=== PATIENT | female | born 1970 | race Caucasian/White ===

== ENCOUNTER 2017-06-11 09:33 | Inpatient (IN) ==
[2017-06-11] MEDS ORDERED: Prochlorperazine 10 MG/2 ML VIAL IV PRN (11:08)
[2017-06-11] MEDS ORDERED: Dexamethasone 10 MG/ML VIAL IV PRN (11:08)
[2017-06-11] MEDS ORDERED: *HR* LORazepam 2 MG/ML VIAL IV PRN (11:08)
[2017-06-11] MEDS ORDERED: Famotidine 20 MG/2 ML VIAL IV PRN (11:08)
[2017-06-11] MEDS ORDERED: *HR* Promethazine 25 MG/ML VIAL IV PRN (11:09)
[2017-06-11] MEDS ORDERED: Fosaprepitant Dimeglumine 150 MG in 0.9 % Sodium Chloride 250 ML IV SCH (11:15)
[2017-06-11] MEDS ORDERED: RITUXIMAB IV SCH (11:15)
[2017-06-11] MEDS ORDERED: Acetaminophen 325 MG TABLET PO ONE (11:15)
[2017-06-11] MEDS ORDERED: SODIUM CHLORIDE 0.9% IV SCH (11:15)
[2017-06-11] MEDS ORDERED: DOXOrubicin HCL 200 MG/100 ML MLS IV SCH (11:15)
[2017-06-11] MEDS ORDERED: Ondansetron 4 MG/2 ML VIAL IVP PRN (12:48)
[2017-06-11] MEDS ORDERED: Naloxone 0.4 MG/ML INJ IVP PRN (12:48)
--- NOTE | 2017-06-11 12:55 | Internal Med History&Physical ---
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 She received first cycle of chemotherapy with dose attenuated R-CHOP regimen at [facility] and currently follows with [place] [facility]. She is being admitted for second cycle of chemotherapy with R-EPOCH per Oncology recommendations; case d/ w , patient will require close monitoring of renal function and electrolytes and will receive a 5-day regimen; Supportive care with PRN antiemetics and pain control with PRN IV Morphine and oral Oxycodone; DVT prophylaxis with subcutaneous Heparin GI prophylaxis with IV Zantac; Qualifiers: Lymphoma site: multiple regions Qualified Code(s): C83.38 - Diffuse large B -cell lymphoma, lymph nodes of multiple sites Internal Medicine - H&P: HPI Chief complaint: Chemotherapy Admitted From: Home Plans for Post Hospital Care: Home History of present illness: Ms. Vale is a 47 year old female with history of recently diagnosed B-cell lymphoma, is being admitted from home to initiate second cycle of chemotherapy. Patient currently denies fever, chills, cough, shortness of breath, urinary complaints. No nausea, vomiting or abdominal pain. She does report muscle cramps in both her legs and abdomen, which have been ongoing since her diagnosis. Patient received her first cycle of chemotherapy with dose attenuated R-CHOP at [facility]. Past Med Surg Social Fam HX - Past Medical History Medical history: cancer (lymphoma), GERD Psychiatric history: no psych history - Past Surgical History Surgical History: colectomy (partial ), hysterectomy - Social History Smoking Status: Current every day smoker Packs per day: 1 Smokeless Tobacco Status: No Alcohol use: none Drug use: none Occupational status: disabled Current living situation: Home, With Family Activity Level: Independent ambulation Recent Out of Country Travel Within the Last 8 Weeks: No Exposure or Possible Exposure to Illness During Travel: No - Family History Mother Hx Family Cardiac Disorders: Yes (CAD) Hx Family Endocrine Disorder: Yes (DM) Internal Medicine - H&P: Meds Allopurinol [Zyloprim 100 MG] 100 mg PO DAILY 05/30/17 [History] Melatonin 3 mg PO HS 05/30/17 [History] Oxycodone HCl [Oxaydo] 5 mg PO Q4H 05/30/17 [History] Prochlorperazine Maleate [Compazine] 10 mg PO Q8HR 05/30/17 [History] 3 Allergy/AdvReac Type Severity Reaction Status Date / Time No Known Allergies Allergy Verified 06/11/17 09:30 All Systems PM: A 10-system review of systems was performed and is negative for pertinent findings except as documented above in the HPI. - Constitutional Constitutional: no chills, no fever(s), no night sweats - EENT Eyes: no change in vision, no discharge, no pain, no photophobia Ears: no ear discharge, no ear pain, no tinnitus Nose, mouth and throat: no dysphagia, no nasal discharge, no neck pain, no sore throat - Cardiovascular Cardiovascular ROS IM: no chest pain, no diaphoresis, no dyspnea, no lightheadedness, no palpitations, no syncope - Respiratory Respiratory: no cough, no dyspnea, no wheezing, no excessive phlegm production - Gastrointestinal Gastrointestinal: no abdominal pain, no diarrhea, no hematemesis, no hematochezia, no melena, no nausea, no vomiting - Genitourinary Genitourinary: no change in urinary stream, no dysuria, no flank pain, no hematuria - Musculoskeletal Musculoskeletal ROS IM: muscle cramps - Integumentary Integumentary IM: no rash, no unusual bruising - Neurological Neurological ROS: no confusion, no convulsions, no focal weakness, no numbness, no tingling, no tremor(s) - Hematologic/Lymphatic Hematologic/Lymphatic: no easy bruising - Constitutional Vitals: Temp Pulse Resp BP Pulse Ox 98.9 F 79 16 101/66 99 06/11/17 10:47 06/11/17 10:47 06/11/17 10:47 06/11/17 10:47 06/11/17 11:26 General appearance: Present: cachectic, A&O X 3, answers questions appropriately - Respiratory Respiratory exam: Present: CTAB. Absent: accessory muscle use, rales, rhonchi, wheezes - Cardiovascular Cardiovascular exam: Present: RRR, +S1, +S2. Absent: diastolic murmur, gallop, rubs, systolic murmur - GI/Abdominal GI/Abdominal exam: Present: normal bowel sounds, soft, no peritoneal signs. Absent: distended, tenderness - Extremities Exam Extremities exam: Present: full ROM, warm, radial pulses palpable and symmetrical. Absent: calf tenderness, cyanotic, pedal edema - Neurological Exam Neurological exam: Present: CN II-XII intact, oriented X3, no focal deficits. Absent: pronater drift, facial droop, speech deficit
[2017-06-11] MEDS: 0.9 % Sodium Chloride 500 ML IVC SCH (13:34)
[2017-06-11] MEDS: predniSONE 20 MG TABLET PO SCH ×2 (13:53→20:49)
[2017-06-11] MEDS ORDERED: ETOPOSIDE IV ONE (15:00)
[2017-06-11] MEDS ORDERED: DOXORUBICIN HCL IV ONE (15:00)
[2017-06-11] MEDS ORDERED: [UNRECOGNIZED DRUG - OTHER] IV ONE (15:00)
[2017-06-11] MEDS ORDERED: VINCRISTINE IV ONE (15:00)
[2017-06-11] MEDS: Famotidine 20 MG/2 ML VIAL IVP SCH (18:21)
[2017-06-11] MEDS: *HR* Heparin 5,000 UNIT/ML VIAL SQ SCH ×2 (18:22→23:25)
[2017-06-11] MEDS: Melatonin 3 MG TABLET PO SCH (20:50)
[2017-06-12] MEDS: Famotidine 20 MG/2 ML VIAL IVP SCH ×2 (04:58→08:45)
[2017-06-12 05:52] LABS: Hematocrit 25.7 % (35.3-44.9); Hemoglobin 8.2 g/dL (11.5-15.4); Mean Corpuscular HGB Conc 31.9 g/dL (31.6-35.5); Mean Corpuscular Hemoglobin 28.9 pg (28.0-33.3); Mean Corpuscular Volume 90.5 fL (83.0-100.0); Mean Platelet Volume 10.1 fL (9.4-12.4); Nucleated Red Blood Cells 3.6 /100 WBC (0); Platelet Count 145 K/mcL (140-400); Red Blood Count 2.84 M/mcL (3.82-4.97); Red Cell Distribution Width 18.3 % (11.5-14.5)
[2017-06-12 06:01] LABS: BUN/Creatinine Ratio 17 (6-26); Blood Urea Nitrogen 10 mg/dL (7-20); Calcium 9.8 mg/dL (8.6-10.8); Carbon Dioxide 23 mEq/L (19-29); Chloride 111 mEq/L (98-109); Glucose 127 mg/dL (70-99); Magnesium 1.5 mg/dL (1.6-2.6); Osmolality,Calculated 291 (280-300); Phosphorous 2.6 mg/dL (2.3-4.7); Potassium 4.3 mEq/L (3.5-4.5); Sodium 140 mEq/L (136-145); eGFR For African Americans > 60 (> 60); eGFR For Non-African Americans > 60 (> 60)
[2017-06-12 06:22] LABS: Anisocytosis 2+ (Not Present); Lymphocytes # 1.7 K/mcL (0.6-4.6); Monocytes # 0.3 K/mcL (0.0-1.3); Reactive Lymphocytes Present (Not Present)
[2017-06-12 06:23] LABS: Large Platelets Present (Not Present)
[2017-06-12] MEDS: predniSONE 20 MG TABLET PO SCH ×2 (08:39→21:28)
[2017-06-12] MEDS: *HR* Heparin 5,000 UNIT/ML VIAL SQ SCH ×2 (08:45→18:59)
[2017-06-12] MEDS: *HR* OxyCODONE Immed Rel 5 MG TABLET PO PRN ×2 (08:49→19:01)
[2017-06-12] MEDS: Magnesium Sulfate 2 GM in D5% in Water 100 ML IVPB SCH ×2 (15:01→16:15)
[2017-06-12] MEDS: 0.9 % Sodium Chloride 500 ML IVC SCH (15:02)
--- NOTE | 2017-06-12 16:30 | Internal Med Progress Note ---
<Nessa Moralez - Last Filed: 06/12/17 17:59> Date of Encounter: 06/12/17 Time of Encounter: 10:35 - Assessment and plan (1) Diffuse large B cell lymphoma Current Visit: Yes Status: Chronic Assessment and plan: Per Tosha Thompson's note, "Patient was recently diagnosed with diffuse large B- cell lymphoma with extranodal disease involving liver, lungs, kidneys and bone. She received first cycle of chemotherapy with dose attenuated R-CHOP regimen at [facility] and currently follows with [facility] oncology. She is being admitted for second cycle of chemotherapy with R-EPOCH per Oncology recommendations; case d/w , patient will require close monitoring of renal function and electrolytes and will receive a 5-day regimen" Plan: - Etoposide 70mg/Doxorubicin 14mg/Vincristien Sulfate 0.6mg - PRN nausea: Kytril, Phenergan, Compazine - PRN pain: Oxycodone 5mg PO Q6H, Morphine 2mg IVP Q4H, Tylenol 650mg PO Q6H Qualifiers: Lymphoma site: multiple regions Qualified Code(s): C83.38 - Diffuse large B -cell lymphoma, lymph nodes of multiple sites (2) DVT prophylaxis Current Visit: Yes Status: Acute Assessment and plan: Heparin (3) Low blood magnesium Current Visit: Yes Status: Acute Assessment and plan: Magnesium 4g IV given due to Mg=1.5 this morning. Will recheck tomorrow. - Subjective Interval history: Patient is 47 y/o female pmh of diffuse large B cell lymphoma with extranodal involvement of liver, kidney, and bone presented to [facility] as a direct admit for chemotherapy R-EPOCH. No acute events overnight and no new complaints. Patient currently denies N/V, chest pain, shortness of breath. - Constitutional Vitals: Temp Pulse Resp BP Pulse Ox 97.5 F L 90 18 106/66 96 06/12/17 14:45 06/12/17 14:45 06/12/17 14:45 06/12/17 14:45 06/12/17 14:45 General appearance: Present: cachectic, A&O X 3, answers questions appropriately Exam: Constitutional: Alert, in no acute distress, well nourished, well developed, thinning of hair, Head: Normocephalic, atraumatic, normal contour and symmetric, no masses, lesions or scars Heart: Normal, regular rate and rhythm, no murmurs Lungs: Clear to auscultation, no wheezes, rales, or rhonchi Abdomen: Soft, nondistended, nontender, and no masses palpable, bowel sounds present and normal, no guarding or rigidity. Extremities: No clubbing, cyanosis, or edema, radial pulse +2/4, capillary refill <2sec. Skin: Skin warm and dry, no lesions, no rashes, no jaundice Neurologic: Cranial nerves II through XII grossly intact, no focal deficits, strength within normal limits in all extremities Psych: Cooperative with exam, good eye contact, cognitive function intact, judgment good insight good, speech clear, thought process logical, and goal directed Internal Medicine: Result - Labs CBC & Chem 7: 06/12/17 04:54 06/12/17 04:54 Labs: Short CBC 06/12/17 Range/Units 04:54 WBC 6.9 (4.3-11.1) K/mcL Hgb 8.2 L (11.5-15.4) g/dL Hct 25.7 L (35.3-44.9) % Plt Count 145 (140-400) K/mcL Neutrophils # 5.0 (1.6-8.9) K/mcL BMP 06/12/17 04:54 Sodium 140 Potassium 4.3 Chloride 111 H Carbon Dioxide 23 BUN 10 Creatinine 0.59 Glucose 127 H Calcium 9.8 Consult Discharge Plan - Plan Referrals: NONE,PCP [Primary Care Provider] - <Asad Cobos - Last Filed: 06/12/17 20:03> Date of Encounter: 06/12/17 - Constitutional Vitals: Temp Pulse Resp BP Pulse Ox 98.1 F 77 14 97/58 99 06/12/17 18:47 06/12/17 18:47 06/12/17 18:47 06/12/17 18:47 06/12/17 18:47 Internal Medicine: Result - Labs CBC & Chem 7: 06/12/17 04:54 06/12/17 04:54 Labs: Short CBC 06/12/17 Range/Units 04:54 WBC 6.9 (4.3-11.1) K/mcL Hgb 8.2 L (11.5-15.4) g/dL Hct 25.7 L (35.3-44.9) % Plt Count 145 (140-400) K/mcL Neutrophils # 5.0 (1.6-8.9) K/mcL BMP 06/12/17 04:54 Sodium 140 Potassium 4.3 Chloride 111 H Carbon Dioxide 23 BUN 10 Creatinine 0.59 Glucose 127 H Calcium 9.8 - Attending Attestation I have independently seen and examined this patient on 06/12/17, reviewed the EMR and discussed plan of care with the patient and resident physician Seen and evaluated at bedside She is a 47 F with PMH of GERD, and Bcell lymphoma Admitted for chemo, has no complains Physical exam: VSS, not in distress, ambulatory, no distress, chest is clear, HS S1, S2only, no m/g/r, abdomen is soft, no pedal edema Labs and imaging reviewed: Unremarkable A/P: Bcell lymphoma on chemo. Continue management per Onc. Monitor Chem, CBC, Uric acid. Resume home dose of allopurinol Rest of details as in resident physicians documentation
--- NOTE | 2017-06-12 18:05 | Oncology Inp Progress Note ---
Date of Encounter: 06/12/17 Time of Encounter: 17:40 (1) Diffuse large B cell lymphoma Current Visit: Yes Status: Chronic Assessment and plan: Ms. Vale is doing well. She will proceed with C2D2 of dose adjusted R EPOCH chemotherapy for her stage IVB diffuse large B-cell lymphoma. No dose adjustment is indicated. I will plan for interventional radiology to perform lumbar puncture and administer methotrexate 12 mg tomorrow. I will obtain a PT/ INR and CBC in the morning of preparation for this procedure. We will send the specimen for cytology. Continue with DVT prophylaxis with Lovenox and omeprazole for GI prophylaxis. I appreciate the assistance of our hospitalist team's help in the care of this delightful young woman. If you have any concerns or questions, do not hesitate to call [phone]. Qualifiers: Lymphoma site: multiple regions Qualified Code(s): C83.38 - Diffuse large B -cell lymphoma, lymph nodes of multiple sites Oncology: Subj Interval history: Ms. Vale initiate chemotherapy bit later yesterday than planned. Her expected completion time is likely late Saturday night into Saturday morning. I am happy to report that she is targeted therapy very well. No nausea or vomiting. No diarrhea or constipation. She is resting comfortably and eating well. No fever chills or symptoms of infection. - Constitutional Vitals: Vital Signs Temp Pulse Resp BP Pulse Ox 06/12/17 14:45 97.5 F L 90 18 106/66 96 06/12/17 10:57 97.7 F 81 18 120/68 99 06/12/17 06:27 97.9 F 80 18 118/67 96 06/12/17 04:16 97.5 F L 78 14 124/71 99 06/12/17 00:26 97.6 F 78 14 105/62 97 06/11/17 19:12 97.8 F 79 14 95/56 96 Intake and Output 06/12/17 06/12/17 06/13/17 08:59 16:59 00:59 Intake Total 520 / 520 860 / 860 Output Total 400 / 400 1650 / 1650 Balance 120 / 120 -790 / -790 Intake: IV Fluids 500 / 500 0.9 % Sodium Chloride 500 500 / 500 ML @ 25 MLS/HR 25 mls/hr IVC .Q20H [facility] Rx#: [id number] Oral 520 / 520 360 / 360 Output: Urine 400 / 400 1650 / 1650 Other: Meal Lunch Percent of Meal Consumed 100% # Voids 1 1 Weight 49.442 kg Patient Weight 06/13/17 00:59 Weight 49.442 kg - Head Head exam: Present: atraumatic, normal inspection, normocephalic - Eye Eye exam: Present: normal appearance, conjuntiva pink, sclera anicteric - ENT ENT exam: Present: mucous membranes moist, normal exam - Neck Neck exam: Present: full ROM, normal inspection - Respiratory Respiratory exam: Present: CTAB - Cardiovascular Cardiovascular exam: Present: RRR - GI/Abdominal GI/Abdominal exam: Present: normal bowel sounds, soft - Neurological Exam Neurological exam: Present: alert, CN II-XII intact, no focal deficits - Skin Skin exam: Present: intact, normal color Oncology: Obj Data - Labs CBC & Chem 7: 06/12/17 04:54 06/12/17 04:54 Labs: Laboratory Results - last 24 hr 06/12/17 06/12/17 04:54 04:54 WBC 6.9 RBC 2.84 L Hgb 8.2 L Hct 25.7 L MCV 90.5 MCH 28.9 MCHC 31.9 RDW 18.3 H Plt Count 145 MPV 10.1 Seg Neutrophils % 70.0 Band Neutrophils % 2.0 Lymphocytes % 24.0 Monocytes % 4.0 Neutrophils # 5.0 Lymphocytes # 1.7 Monocytes # 0.3 Nucleated RBCs/100 WBC 3.6 H Reactive Lymphocytes Present A Large Platelets Present A Anisocytosis 2+ A Sodium 140 Potassium 4.3 Chloride 111 H Carbon Dioxide 23 BUN 10 Creatinine 0.59 Est GFR ( Amer) > 60 Est GFR (Non-Af Amer) > 60 BUN/Creatinine Ratio 17 Glucose 127 H Calculated Osmolality 291 Calcium 9.8 Phosphorus 2.6 Magnesium 1.5 L Consult Discharge Plan - Plan Referrals: NONE,PCP [Primary Care Provider] -
[2017-06-12] MEDS ORDERED: DOXORUBICIN HCL IV ONE (19:00)
[2017-06-12] MEDS ORDERED: ETOPOSIDE IV ONE (19:00)
[2017-06-12] MEDS ORDERED: [UNRECOGNIZED DRUG - OTHER] IV ONE (19:00)
[2017-06-12] MEDS ORDERED: VINCRISTINE IV ONE (19:00)
[2017-06-12 21:17] LABS: Hematocrit 24.3 % (35.3-44.9); Hemoglobin 7.7 g/dL (11.5-15.4); Mean Corpuscular HGB Conc 31.7 g/dL (31.6-35.5); Mean Corpuscular Hemoglobin 29.2 pg (28.0-33.3); Mean Platelet Volume 9.6 fL (9.4-12.4); Platelet Count 162 K/mcL (140-400); Red Blood Count 2.64 M/mcL (3.82-4.97); Red Cell Distribution Width 18.7 % (11.5-14.5)
[2017-06-12] MEDS: Melatonin 3 MG TABLET PO SCH (21:28)
[2017-06-12 21:29] LABS: Prothrombin Time 10.7 Seconds (9.4-12.1)
[2017-06-12 21:31] LABS: Activated Partial Thrombo Time 27.1 Seconds (26.0-36.0)
[2017-06-13] MEDS: *HR* Heparin 5,000 UNIT/ML VIAL SQ SCH ×4 (00:39→23:25)
[2017-06-13] MEDS: *HR* Morphine 2 MG/ML SYRINGE IVP PRN ×2 (00:48→19:59)
[2017-06-13] MEDS: *HR* OxyCODONE Immed Rel 5 MG TABLET PO PRN ×2 (04:47→10:41)
[2017-06-13 06:27] LABS: Hematocrit 24.7 % (35.3-44.9); Hemoglobin 7.6 g/dL (11.5-15.4); Mean Corpuscular HGB Conc 30.8 g/dL (31.6-35.5); Mean Corpuscular Hemoglobin 28.7 pg (28.0-33.3); Mean Corpuscular Volume 93.2 fL (83.0-100.0); Mean Platelet Volume 9.6 fL (9.4-12.4); Nucleated Red Blood Cells 1.5 /100 WBC (0); Platelet Count 153 K/mcL (140-400); Red Blood Count 2.65 M/mcL (3.82-4.97); Red Cell Distribution Width 18.8 % (11.5-14.5)
[2017-06-13 06:32] LABS: Prothrombin Time 10.4 Seconds (9.4-12.1)
[2017-06-13 06:35] LABS: Activated Partial Thrombo Time 24.9 Seconds (26.0-36.0)
[2017-06-13 06:45] LABS: BUN/Creatinine Ratio 15 (6-26); Blood Urea Nitrogen 10 mg/dL (7-20); Calcium 9.2 mg/dL (8.6-10.8); Carbon Dioxide 22 mEq/L (19-29); Chloride 108 mEq/L (98-109); Glucose 118 mg/dL (70-99); Magnesium 2.2 mg/dL (1.6-2.6); Osmolality,Calculated 286 (280-300); Phosphorous 3.6 mg/dL (2.3-4.7); Potassium 4.1 mEq/L (3.5-4.5); Sodium 138 mEq/L (136-145); Uric Acid 3.8 mg/dL (2.6-6.0); eGFR For African Americans > 60 (> 60); eGFR For Non-African Americans > 60 (> 60)
[2017-06-13 06:46] LABS: Lymphocytes # 1.4 K/mcL (0.6-4.6); Monocytes # 0.2 K/mcL (0.0-1.3)
[2017-06-13 06:47] LABS: Anisocytosis 1+ (Not Present); Platelet Estimate Normal (Normal); Reactive Lymphocytes Present (Not Present); Toxic Granulation Present (Not Present); Toxic Vacuolation Present (Not Present)
--- NOTE | 2017-06-13 10:01 | Internal Med Progress Note ---
<Nessa Moralez - Last Filed: 06/13/17 14:26> Date of Encounter: 06/13/17 Time of Encounter: 09:59 - Assessment and plan (1) Diffuse large B cell lymphoma Current Visit: Yes Status: Chronic Assessment and plan: Per Tosha Thompson's note, "Patient was recently diagnosed with diffuse large B- cell lymphoma with extranodal disease involving liver, lungs, kidneys and bone. She received first cycle of chemotherapy with dose attenuated R-CHOP regimen at [facility] and currently follows with [place] [facility]. She is being admitted for second cycle of chemotherapy with R-EPOCH per Oncology recommendations; case d/w , patient will require close monitoring of renal function and electrolytes and will receive a 5-day regimen". 06/13 IR gave intrathecal methotrexate. Plan: - Intrathecal methotrexate - Etoposide 70mg/Doxorubicin 14mg/Vincristien Sulfate 0.6mg - PRN nausea: Kytril, Phenergan, Compazine - PRN pain: Oxycodone 5mg PO Q6H, Morphine 2mg IVP Q4H, Tylenol 650mg PO Q6H - Allopurinol 100 mg by mouth daily for prophylaxis hyperuricemia due to chemotherapy. Qualifiers: Lymphoma site: multiple regions Qualified Code(s): C83.38 - Diffuse large B -cell lymphoma, lymph nodes of multiple sites (2) DVT prophylaxis Current Visit: Yes Status: Acute Assessment and plan: Heparin (3) Low blood magnesium Current Visit: Yes Status: Acute Assessment and plan: Magnesium 4g IV given 06/12 due to Mg=1.5. 06/13 mg= 2.2. Hypomagnesium resolved. Will continue to monitor. - Subjective Interval history: Patient is 47 y/o female pmh of diffuse large B cell lymphoma with extranodal involvement of liver, kidney, and bone presented to [place] as a direct admit for chemotherapy R-EPOCH. No acute events overnight and no new complaints. Patient currently denies N/V, chest pain, shortness of breath. - Constitutional Vitals: Temp Pulse Resp BP Pulse Ox 98.5 F 61 15 134/73 100 06/13/17 07:35 06/13/17 07:35 06/13/17 07:35 06/13/17 07:35 06/13/17 07:35 General appearance: Present: cachectic, A&O X 3, answers questions appropriately Exam: Constitutional: Alert, in no acute distress, well nourished, well developed, thinning of hair, Head: Normocephalic, atraumatic, normal contour and symmetric, no masses, lesions or scars Heart: Normal, regular rate and rhythm, no murmurs Lungs: Clear to auscultation, no wheezes, rales, or rhonchi Abdomen: Soft, nondistended, nontender, and no masses palpable, bowel sounds present and normal, no guarding or rigidity. Extremities: No clubbing, cyanosis, or edema, radial pulse +2/4, capillary refill <2sec. Skin: Skin warm and dry, no lesions, no rashes, no jaundice Neurologic: Cranial nerves II through XII grossly intact, no focal deficits, strength within normal limits in all extremities Psych: Cooperative with exam, good eye contact, cognitive function intact, judgment good insight good, speech clear, thought process logical, and goal directed Internal Medicine: Result - Labs CBC & Chem 7: 06/13/17 06:12 06/13/17 06:12 Labs: Short CBC 06/12/17 06/13/17 Range/Units 21:06 06:12 WBC 9.3 8.5 (4.3-11.1) K/mcL Hgb 7.7 L 7.6 L (11.5-15.4) g/dL Hct 24.3 L 24.7 L (35.3-44.9) % Plt Count 162 153 (140-400) K/mcL Neutrophils # 7.0 (1.6-8.9) K/mcL BMP 06/13/17 06:12 Sodium 138 Potassium 4.1 Chloride 108 Carbon Dioxide 22 BUN 10 Creatinine 0.65 Glucose 118 H Calcium 9.2 - ABG Interpretation ABG results: PT/INR, D-dimer PT 10.4 Seconds (9.4-12.1) 06/13/17 06:12 Consult Discharge Plan - Plan Referrals: NONE,PCP [Primary Care Provider] - <Asad Cobos - Last Filed: 06/13/17 14:47> Date of Encounter: 06/13/17 - Constitutional Vitals: Temp Pulse Resp BP Pulse Ox 97.7 F 66 17 116/66 100 06/13/17 11:00 06/13/17 11:00 06/13/17 11:00 06/13/17 11:00 06/13/17 11:00 Internal Medicine: Result - Labs CBC & Chem 7: 06/13/17 06:12 06/13/17 06:12 Labs: Short CBC 06/12/17 06/13/17 Range/Units 21:06 06:12 WBC 9.3 8.5 (4.3-11.1) K/mcL Hgb 7.7 L 7.6 L (11.5-15.4) g/dL Hct 24.3 L 24.7 L (35.3-44.9) % Plt Count 162 153 (140-400) K/mcL Neutrophils # 7.0 (1.6-8.9) K/mcL BMP 06/13/17 06:12 Sodium 138 Potassium 4.1 Chloride 108 Carbon Dioxide 22 BUN 10 Creatinine 0.65 Glucose 118 H Calcium 9.2 - ABG Interpretation ABG results: PT/INR, D-dimer PT 10.4 Seconds (9.4-12.1) 06/13/17 06:12 - Impressions Impressions Venogram w/Contrast 06/13/17 00:00 IMPRESSION: Successful fluoroscopic guided lumbar puncture and methotrexate administration. D/ / Getachew Magana MD / Getachew Magana MD Interpreting Provider: Getachew Magana MD - Attending Attestation I have independently seen and examined this patient on 06/13/17, reviewed the EMR and discussed plan of care with the patient and resident physician Seen and evaluated at bedside She is a 47 F with PMH of GERD, and diffuse, extrnodal Bcell lymphoma Admitted for chemo, has no complains She also had intrathecal MTX today Her Hb is slowly dropping Physical exam: VSS, not in distress, ambulatory, no distress, chest is clear, HS S1, S2only, no m/g/r, abdomen is soft, no pedal edema Labs and imaging reviewed: Normocytic anemia, WBC WNL, Uric acid WNL A/P: Bcell lymphoma on chemo. Obtain type and screen, continue to monitor chem/ CBC/Urate Continue current management Rest of details as in resident physicians documentation
[2017-06-13] MEDS: predniSONE 20 MG TABLET PO SCH ×2 (10:32→19:58)
[2017-06-13] MEDS: 0.9 % Sodium Chloride 500 ML IVC SCH (10:39)
[2017-06-13] MEDS ORDERED: Methotrexate PFS 25 MG/ML VIAL IT SCH (10:45)
--- NOTE | 2017-06-13 13:24 | IR Procedure Note ---
Date of procedure: 06/13/17 Consent Obtained: Verbal consent, Written consent Timeout: Correct patient and procedure verified, Correct site verified, Time out performed, Skin prep completed Local anesthetic: Lidocaine 1% Indications: Lymphoma Procedure Performed: Intrethecal chemotherapy injection Site/Technique: Intrathecal chemotherapy administerd Results/Findings: 5 cc clear CSF collected Estimated blood loss (cc): 0 Complications: None; Tolerated procedure well Post Procedure Treatment Plan: Bedrest x1 hour
--- NOTE | 2017-06-13 18:17 | Oncology Inp Progress Note ---
Date of Encounter: 06/13/17 Time of Encounter: 18:00 (1) Diffuse large B cell lymphoma Current Visit: Yes Status: Chronic Assessment and plan: Ms. Vale is doing well. She will proceed with C2D3 of dose adjusted R EPOCH chemotherapy for her stage IVB diffuse large B-cell lymphoma. No dose adjustment is indicated. LP completed today Continue with DVT prophylaxis with Lovenox and omeprazole for GI prophylaxis. I appreciate the assistance of our hospitalist team's help in the care of this delightful young woman. If you have any concerns or questions, do not hesitate to call [phone]. Qualifiers: Lymphoma site: multiple regions Qualified Code(s): C83.38 - Diffuse large B -cell lymphoma, lymph nodes of multiple sites Oncology: Subj Interval history: Feeling good again today. No nausea, vomiting or diarrhea. Tolerated LP well. Afebrile. Eating well. No new c/o today. - Constitutional Vitals: Vital Signs Temp Pulse Resp BP Pulse Ox 06/13/17 15:45 98.3 F 72 16 113/63 98 06/13/17 11:00 97.7 F 66 17 116/66 100 06/13/17 07:35 98.5 F 61 15 134/73 100 06/13/17 04:30 97.9 F 75 16 112/62 97 06/13/17 00:07 97.9 F 70 16 105/62 95 06/12/17 18:47 98.1 F 77 14 97/58 99 Intake and Output 06/13/17 06/13/17 06/14/17 08:59 16:59 00:59 Intake Total 185 / 185 860 / 860 Output Total 1100 / 1100 1200 / 1200 Balance -915 / -915 -340 / -340 Intake: IV Fluids 185 / 185 500 / 500 Etoposide 70 mg 85 / 85 Adriamycin 14 MG VinCRIStine 0.6 MG In 0.9 % Sodium Chloride [place] Bg 500 ML @ 21.296 mls/hr IV ONCE ONE Rx#: [id number] 0.9 % Sodium Chloride 500 100 / 100 500 / 500 ML @ 25 MLS/HR 25 mls/hr IVC .Q20H [facility] Rx#: [id number] Oral 360 / 360 Output: Urine 1100 / 1100 1200 / 1200 Other: Meal Breakfast Percent of Meal Consumed 100% # Bowel Movements 1 Weight 51.71 kg Patient Weight 06/14/17 00:59 Weight 51.71 kg - Head Head exam: Present: atraumatic, normal inspection, normocephalic - Eye Eye exam: Present: conjuntiva pink, sclera anicteric - ENT ENT exam: Present: mucous membranes moist, normal exam - Neck Neck exam: Present: full ROM, normal inspection - Respiratory Respiratory exam: Present: CTAB - Cardiovascular Cardiovascular exam: Present: RRR - GI/Abdominal GI/Abdominal exam: Present: normal bowel sounds, soft - Extremities Exam Extremities exam: Present: normal inspection - Neurological Exam Neurological exam: Present: alert, CN II-XII intact, no focal deficits Oncology: Obj Data - Labs CBC & Chem 7: 06/13/17 06:12 06/13/17 06:12 Labs: Laboratory Results - last 24 hr 06/12/17 06/12/17 06/13/17 21:06 21:06 06:12 WBC 9.3 8.5 RBC 2.64 L 2.65 L Hgb 7.7 L 7.6 L Hct 24.3 L 24.7 L MCV 92.0 93.2 MCH 29.2 28.7 MCHC 31.7 30.8 L RDW 18.7 H 18.8 H Plt Count 162 153 MPV 9.6 9.6 Seg Neutrophils % 76.0 Band Neutrophils % 6.0 H Lymphocytes % 16.0 Monocytes % 2.0 Neutrophils # 7.0 Lymphocytes # 1.4 Monocytes # 0.2 Nucleated RBCs/100 WBC 1.5 H Reactive Lymphocytes Present A Toxic Granulation Present A Toxic Vacuolation Present A Platelet Estimate Normal Anisocytosis 1+ A PT 10.7 INR 1.0 APTT 27.1 Sodium Potassium Chloride Carbon Dioxide BUN Creatinine Est GFR ( Amer) Est GFR (Non-Af Amer) BUN/Creatinine Ratio Glucose Calculated Osmolality Uric Acid Calcium Phosphorus Magnesium Blood Type Antibody Screen 06/13/17 06/13/17 06/13/17 06:12 06:12 14:00 WBC RBC Hgb Hct MCV MCH MCHC RDW Plt Count MPV Seg Neutrophils % Band Neutrophils % Lymphocytes % Monocytes % Neutrophils # Lymphocytes # Monocytes # Nucleated RBCs/100 WBC Reactive Lymphocytes Toxic Granulation Toxic Vacuolation Platelet Estimate Anisocytosis PT 10.4 INR 1.0 APTT 24.9 L Sodium 138 Potassium 4.1 Chloride 108 Carbon Dioxide 22 BUN 10 Creatinine 0.65 Est GFR ( Amer) > 60 Est GFR (Non-Af Amer) > 60 BUN/Creatinine Ratio 15 Glucose 118 H Calculated Osmolality 286 Uric Acid 3.8 Calcium 9.2 Phosphorus 3.6 Magnesium 2.2 Blood Type A POSITIVE Antibody Screen NEGATIVE - Impressions Impressions Venogram w/Contrast 06/13/17 00:00 IMPRESSION: Successful fluoroscopic guided lumbar puncture and methotrexate administration. D/ / 06/13/2017 15:15:57 Getachew Magana MD / bcarter Interpreting Provider: Getachew Magana MD - ABG Interpretation ABG results: PT/INR, D-dimer PT 10.4 Seconds (9.4-12.1) 06/13/17 06:12 Consult Discharge Plan - Plan Referrals: NONE,PCP [Primary Care Provider] -
[2017-06-13] MEDS ORDERED: DOXORUBICIN HCL IV ONE (19:00)
[2017-06-13] MEDS ORDERED: [UNRECOGNIZED DRUG - OTHER] IV ONE (19:00)
[2017-06-13] MEDS ORDERED: VINCRISTINE IV ONE (19:00)
[2017-06-13] MEDS ORDERED: ETOPOSIDE IV ONE (19:00)
[2017-06-13] MEDS: Melatonin 3 MG TABLET PO SCH (19:59)
[2017-06-14] MEDS: *HR* OxyCODONE Immed Rel 5 MG TABLET PO PRN ×3 (03:34→20:29)
[2017-06-14] MEDS: 0.9 % Sodium Chloride 500 ML IVC SCH ×3 (06:52→22:38)
[2017-06-14 07:07] LABS: Hematocrit 24.3 % (35.3-44.9); Hemoglobin 7.8 g/dL (11.5-15.4); Mean Corpuscular HGB Conc 32.1 g/dL (31.6-35.5); Mean Corpuscular Hemoglobin 29.5 pg (28.0-33.3); Mean Platelet Volume 9.6 fL (9.4-12.4); Nucleated Red Blood Cells 1.4 /100 WBC (0); Platelet Count 170 K/mcL (140-400); Red Blood Count 2.64 M/mcL (3.82-4.97); Red Cell Distribution Width 18.8 % (11.5-14.5)
[2017-06-14 07:19] LABS: BUN/Creatinine Ratio 19 (6-26); Blood Urea Nitrogen 12 mg/dL (7-20); Calcium 9.2 mg/dL (8.6-10.8); Carbon Dioxide 22 mEq/L (19-29); Chloride 110 mEq/L (98-109); Glucose 115 mg/dL (70-99); Magnesium 2.1 mg/dL (1.6-2.6); Osmolality,Calculated 293 (280-300); Phosphorous 2.8 mg/dL (2.3-4.7); Potassium 4.1 mEq/L (3.5-4.5); Sodium 141 mEq/L (136-145); Uric Acid 4.3 mg/dL (2.6-6.0); eGFR For African Americans > 60 (> 60); eGFR For Non-African Americans > 60 (> 60)
[2017-06-14 07:45] LABS: Monocytes # 0.6 K/mcL (0.0-1.3); Neutrophils # 4.7 K/mcL (1.6-8.9); Platelet Estimate Normal (Normal)
[2017-06-14 07:46] LABS: Anisocytosis 2+ (Not Present); Polychromasia 1+ (Not Present)
[2017-06-14] MEDS: predniSONE 20 MG TABLET PO SCH ×2 (08:10→20:27)
[2017-06-14] MEDS: *HR* Heparin 5,000 UNIT/ML VIAL SQ SCH ×2 (08:10→16:35)
--- NOTE | 2017-06-14 09:34 | Internal Med Progress Note ---
<Nessa Moralez - Last Filed: 06/14/17 13:56> Date of Encounter: 06/14/17 Time of Encounter: 09:32 - Assessment and plan (1) Diffuse large B cell lymphoma Current Visit: Yes Status: Chronic Assessment and plan: Per Tosha Thompson's note, "Patient was recently diagnosed with diffuse large B- cell lymphoma with extranodal disease involving liver, lungs, kidneys and bone. She received first cycle of chemotherapy with dose attenuated R-CHOP regimen at [facility] and currently follows with [facility]. She is being admitted for second cycle of chemotherapy with R-EPOCH per Oncology recommendations; case d/w , patient will require close monitoring of renal function and electrolytes and will receive a 5-day regimen". 06/13 IR gave intrathecal methotrexate. Cytology pending. No headaches today. No neutropenia. Plan: - Etoposide 70mg/Doxorubicin 14mg/Vincristien Sulfate 0.6mg - PRN nausea: Kytril, Phenergan, Compazine - PRN pain: Oxycodone 5mg PO Q6H, Morphine 2mg IVP Q4H, Tylenol 650mg PO Q6H - Allopurinol 100 mg by mouth daily for prophylaxis hyperuricemia due to chemotherapy. Qualifiers: Lymphoma site: multiple regions Qualified Code(s): C83.38 - Diffuse large B -cell lymphoma, lymph nodes of multiple sites (2) DVT prophylaxis Current Visit: Yes Status: Acute Assessment and plan: Heparin (3) Low blood magnesium Current Visit: Yes Status: Acute Assessment and plan: Magnesium 4g IV given 06/12 due to Mg=1.5. 06/13 mg= 2.2. Hypomagnesium resolved. Will continue to monitor. (4) Anemia Current Visit: Yes Status: Acute Assessment and plan: Patient has new onset normocytic anemia with prior hx of iron deficiency anemia only during , most likely due to chemotherapy as there is no source of bleeding. Patient was typed and screened 06/13. Iron panel and ferritin ordered for AM. We will continue to monitor. Plan: - typed and screened - iron panel and ferritin pending Qualifiers: Anemia type: unspecified type Qualified Code(s): D64.9 - Anemia, unspecified - Subjective Interval history: Patient is 47 y/o female pmh of diffuse large B cell lymphoma with extranodal involvement of liver, kidney, and bone presented to [facility] as a direct admit for chemotherapy R-EPOCH. No acute events overnight and no new complaints. LP went well yesterday and she only had a minimal headache but currently does not complain of her head hurting. Patient currently denies N/V, chest pain, shortness of breath. - Constitutional Vitals: Temp Pulse Resp BP Pulse Ox 97.9 F 69 16 145/70 96 06/14/17 06:38 06/14/17 06:38 06/14/17 06:38 06/14/17 06:38 06/14/17 06:38 General appearance: Present: cachectic, A&O X 3, answers questions appropriately Exam: Constitutional: Alert, in no acute distress, well nourished, well developed, thinning of hair, Head: Normocephalic, atraumatic, normal contour and symmetric, no masses, lesions or scars Heart: Normal, regular rate and rhythm, no murmurs Lungs: Clear to auscultation, no wheezes, rales, or rhonchi Abdomen: Soft, nondistended, nontender, and no masses palpable, bowel sounds present and normal, no guarding or rigidity. Extremities: No clubbing, cyanosis, or edema, radial pulse +2/4, capillary refill <2sec. Skin: bandage from lumbar puncture on back, skin without erythema or fluctuants, Skin warm and dry, no lesions, no rashes, no jaundice Neurologic: Cranial nerves II through XII grossly intact, no focal deficits, strength within normal limits in all extremities Psych: Cooperative with exam, good eye contact, cognitive function intact, judgment good insight good, speech clear, thought process logical, and goal directed Internal Medicine: Result - Labs CBC & Chem 7: 06/14/17 06:53 06/14/17 06:53 Labs: Short CBC 06/14/17 Range/Units 06:53 WBC 6.3 (4.3-11.1) K/mcL Hgb 7.8 L (11.5-15.4) g/dL Hct 24.3 L (35.3-44.9) % Plt Count 170 (140-400) K/mcL Neutrophils # 4.7 (1.6-8.9) K/mcL BMP 06/14/17 06:53 Sodium 141 Potassium 4.1 Chloride 110 H Carbon Dioxide 22 BUN 12 Creatinine 0.62 Glucose 115 H Calcium 9.2 - ABG Interpretation ABG results: PT/INR, D-dimer PT 10.4 Seconds (9.4-12.1) 06/13/17 06:12 - Impressions Impressions Venogram w/Contrast 06/13/17 00:00 IMPRESSION: Successful fluoroscopic guided lumbar puncture and methotrexate administration. D/ / 06/13/2017 15:15:57 Getachew Magana MD / bcarter Interpreting Provider: Getachew Magana MD Consult Discharge Plan - Plan Referrals: NONE,PCP [Primary Care Provider] - <Asad Cobos T - Last Filed: 06/14/17 14:06> Date of Encounter: 06/14/17 - Constitutional Vitals: Temp Pulse Resp BP Pulse Ox 98.4 F 68 16 139/72 98 06/14/17 10:28 06/14/17 10:28 06/14/17 10:28 06/14/17 10:28 06/14/17 10:28 Internal Medicine: Result - Labs CBC & Chem 7: 06/14/17 06:53 06/14/17 06:53 Labs: Short CBC 06/14/17 Range/Units 06:53 WBC 6.3 (4.3-11.1) K/mcL Hgb 7.8 L (11.5-15.4) g/dL Hct 24.3 L (35.3-44.9) % Plt Count 170 (140-400) K/mcL Neutrophils # 4.7 (1.6-8.9) K/mcL BMP 06/14/17 06:53 Sodium 141 Potassium 4.1 Chloride 110 H Carbon Dioxide 22 BUN 12 Creatinine 0.62 Glucose 115 H Calcium 9.2 - ABG Interpretation ABG results: PT/INR, D-dimer PT 10.4 Seconds (9.4-12.1) 06/13/17 06:12 - Impressions Impressions Venogram w/Contrast 06/13/17 00:00 IMPRESSION: Successful fluoroscopic guided lumbar puncture and methotrexate administration. D/ / 06/13/2017 15:15:57 Getachew Magana MD / tete Interpreting Provider: Getachew Magana MD - Attending Attestation I have independently seen and examined this patient on 06/14/17, reviewed the EMR and discussed plan of care with the patient and resident physician Seen and evaluated at bedside She is a 47 F with PMH of GERD, and diffuse, extranodal Bcell lymphoma Admitted for chemo, has no complains She also had intrathecal MTX 06/13/17 She is ambulatory and has no complains Physical exam: VSS, not in distress, ambulatory, no distress, chest is clear, HS S1, S2only, no m/g/r, abdomen is soft, no pedal edema Labs and imaging reviewed: CBC, Chem WNL A/P: Bcell lymphoma on chemo. Tolerating and improvin Oncology is following. Continue current management Rest of details as in resident physicians documentation
[2017-06-14] MEDS: Acetaminophen 325 MG TABLET PO PRN (16:34)
[2017-06-14] MEDS ORDERED: [UNRECOGNIZED DRUG - OTHER] IV ONE ×2 (19:00→22:00)
[2017-06-14] MEDS ORDERED: ETOPOSIDE IV ONE ×2 (19:00→22:00)
[2017-06-14] MEDS ORDERED: DOXORUBICIN HCL IV ONE ×2 (19:00→22:00)
[2017-06-14] MEDS ORDERED: VINCRISTINE IV ONE ×2 (19:00→22:00)
[2017-06-14] MEDS: Melatonin 3 MG TABLET PO SCH (20:29)
[2017-06-14] MEDS ORDERED: 0.9 % Sodium Chloride 500 ML ONE (22:31)
[2017-06-15] MEDS: *HR* Heparin 5,000 UNIT/ML VIAL SQ SCH ×3 (00:23→16:47)
[2017-06-15 08:04] LABS: Hemoglobin 7.9 g/dL (11.5-15.4); Lymphocytes # 0.4 K/mcL (0.6-4.6); Mean Corpuscular HGB Conc 32.9 g/dL (31.6-35.5); Mean Corpuscular Hemoglobin 29.7 pg (28.0-33.3); Mean Corpuscular Volume 90.2 fL (83.0-100.0); Mean Platelet Volume 10.2 fL (9.4-12.4); Monocytes # 0.1 K/mcL (0.0-1.3); Nucleated Red Blood Cells 1.6 /100 WBC (0); Platelet Count 169 K/mcL (140-400); Red Blood Count 2.66 M/mcL (3.82-4.97); Red Cell Distribution Width 18.2 % (11.5-14.5)
[2017-06-15 08:26] LABS: Neutrophils # 3.3 K/mcL (1.6-8.9)
[2017-06-15 08:27] LABS: Anisocytosis 1+ (Not Present); Basophilic Stippling 1+ (Not Present); Platelet Estimate Normal (Normal)
[2017-06-15] MEDS: predniSONE 20 MG TABLET PO SCH ×2 (08:38→21:13)
[2017-06-15] MEDS: Acetaminophen 325 MG TABLET PO PRN (08:44)
[2017-06-15 08:46] LABS: BUN/Creatinine Ratio 19 (6-26); Blood Urea Nitrogen 11 mg/dL (7-20); Calcium 9.1 mg/dL (8.6-10.8); Carbon Dioxide 25 mEq/L (19-29); Chloride 107 mEq/L (98-109); Glucose 93 mg/dL (70-99); Osmolality,Calculated 289 (280-300); Phosphorous 2.8 mg/dL (2.3-4.7); Potassium 3.8 mEq/L (3.5-4.5); Sodium 140 mEq/L (136-145); Uric Acid 4.9 mg/dL (2.6-6.0); eGFR For African Americans > 60 (> 60); eGFR For Non-African Americans > 60 (> 60)
[2017-06-15 09:53] LABS: % Iron Saturation 93 % (15-50); Iron 263 mcg/dL (50-170); Transferrin 203 mg/dL (180-382)
--- NOTE | 2017-06-15 11:31 | Discharge Summary ---
Date of Encounter: 06/15/17 Time of Encounter: 11:29 - Discharge Diagnosis (1) Chemotherapy management, encounter for Priority: Primary Status: Acute (2) Diffuse large B cell lymphoma Priority: Primary Status: Chronic Qualifiers: Lymphoma site: multiple regions Qualified Code(s): C83.38 - Diffuse large B -cell lymphoma, lymph nodes of multiple sites (3) Anemia Priority: Secondary Status: Chronic Qualifiers: Anemia type: unspecified type Qualified Code(s): D64.9 - Anemia, unspecified - Discharge Medications Home Medications: Allopurinol [Zyloprim 100 MG] 100 mg PO DAILY 05/30/17 [History] Melatonin 3 mg PO HS 05/30/17 [History] Oxycodone HCl [Oxaydo] 5 mg PO Q4H 05/30/17 [History] Prochlorperazine Maleate [Compazine] 10 mg PO Q8HR 05/30/17 [History] Omeprazole [PriLOSEC] 20 mg PO BIDAC #30 06/15/17 [Rx] Allergies/Adverse Reactions: 3 Allergy/AdvReac Type Severity Reaction Status Date / Time No Known Allergies Allergy Verified 06/11/17 09:30 Procedures/tests Complete & Pending: Procedures Performed prior 72 hours Category Date Time Status IR venogram epidural [IR] Routine IR 06/13/17 Completed Date of admission: 06/11/17 10:19 Primary care physician: PCP NONE Consults: 06/11/17 12:51 Consult to Oncology [CONS] Routine Consulting Provider: [facility] Reason for Consult: Chemotherapy for B-cell lymphoma Call Completed: Yes Discharging clinician: Asad Cobos Anticipated date of discharge: 06/15/17 - Patient Status Disposition: Home, Self-Care Condition: Fair Functional capacity at discharge: independent ambulation Overall status at discharge: patient is back to baseline - Discharge Instructions Instructions: Anemia (GEN) Follow Up With: NONE,PCP [Primary Care Provider] - Forms: Inpatient Work/School Release - Diet and Activity Activity: resume usual activities as tolerated Diet: regular diet Interval History: Ms. Vale is a 47 year old female with history of recently diagnosed B-cell lymphoma, is being admitted from home to initiate second cycle of chemotherapy. Patient currently denies fever, chills, cough, shortness of breath, urinary complaints. No nausea, vomiting or abdominal pain. She does report muscle cramps in both her legs and abdomen, which have been ongoing since her diagnosis. Patient received her first cycle of chemotherapy with dose attenuated R-CHOP at [facility]. Hospital course: Patient is seen and evaluated at the bedside. She states today is Day 5 for chemotherapy, and her last dose is tonight. She desires to be discharged home after having last is of chemotherapy at 10 PM. She denies any new complaints she has tolerated both systemic and intrathecal chemotherapy without adverse effects. She is ambulatory, she has no chest pain, hemoglobin and platelet count has been stable, and her chemistry uric acid has been normal. She did have some elevated blood pressure but states she has no knwon history of HTN This morning she has a slight drop in her white cell count, however, absolute neutrophil count is normal. Patient states she has a follow-up appointment with her oncologist, and primary care physician on Saturday, June 17. She is stable to be discharged home after her last visit of chemotherapy tonight. Follow-up with PCP regarding elevated blood pressure, if persistent, may require treatment She is educated and verbalized understanding - Time Spent with Patient Total time spent providing and/or coordinating discharge services: Less than 30 minutes - Constitutional Vitals: Temp Pulse Resp BP Pulse Ox 98.1 F 63 16 144/79 98 06/15/17 10:30 06/15/17 10:30 06/15/17 10:30 06/15/17 10:30 06/15/17 10:30 General appearance: Present: cachectic, A&O X 3, pleasant, no acute distress, answers questions appropriately - Head Head exam: Present: atraumatic, normocephalic - Eye Eye exam: Present: PERRL, conjuntiva pink, sclera anicteric Pupils: Present: PERRL - Neck Neck exam general surgery: Present: supple, trachea midline. Absent: lymphadenopathy - Respiratory Respiratory exam: Present: CTAB. Absent: accessory muscle use, rales, rhonchi, wheezes - Cardiovascular Cardiovascular exam: Present: RRR, +S1, +S2. Absent: diastolic murmur, gallop, rubs, systolic murmur - GI/Abdominal GI/Abdominal exam: Present: normal bowel sounds, soft, no peritoneal signs. Absent: distended, tenderness - Extremities Exam Extremities exam: Present: warm, radial pulses palpable and symmetrical. Absent : calf tenderness, cyanotic, pedal edema - Neurological Exam Neurological exam: Present: alert, CN II-XII intact, oriented X3, no focal deficits. Absent: pronater drift, facial droop, speech deficit - Skin Skin exam: Present: dry, intact
[2017-06-15] MEDS: 0.9 % Sodium Chloride 500 ML IVC SCH (19:30)
[2017-06-15] MEDS: Melatonin 3 MG TABLET PO SCH (21:14)
[2017-06-15] MEDS ORDERED: CYCLOPHOSPHAMIDE IV SCH (22:00)
[2017-06-15] MEDS ORDERED: SODIUM CHLORIDE 0.9% IV SCH (22:00)
[2017-06-15 23:10] VITALS: BP 170/78
[2017-06-16] MEDS: *HR* Heparin 5,000 UNIT/ML VIAL SQ SCH (00:26)
[2017-06-17 17:20] LABS: Ferritin > 2000 ng/ml (5-204)
== END 2017-06-16 00:55 | disposition home or self-care (01) | DRG 696 ==
LOC: SUATTDRO 10:19 → 3ANU 10:19
PROVIDERS: ADMIT Internal Medicine; ATTEND Internal Medicine

== ENCOUNTER 2017-07-22 08:57 | Observation (INO) ==
[~2017-07-22 08:57] MED LIST: *HR* LORazepam 2 MG/ML VIAL IV PRN; *HR* Promethazine 25 MG/ML VIAL IV PRN; Acetaminophen 325 MG TABLET PO ONE; Dexamethasone 10 MG/ML VIAL IV PRN; Famotidine 20 MG/2 ML VIAL IV PRN; Fosaprepitant Dimeglumine 150 MG in 0.9 % Sodium Chloride 250 ML IV SCH; Prochlorperazine 10 MG/2 ML VIAL IV PRN; RITUXIMAB IV SCH; SODIUM CHLORIDE 0.9% IV SCH
[2017-07-22] MEDS ORDERED: predniSONE 20 MG TABLET PO SCH ×2 (09:00→18:30)
[2017-07-22] MEDS ORDERED: Ondansetron 4 MG/2 ML VIAL IVP PRN (12:38)
[2017-07-22] MEDS ORDERED: Naloxone 0.4 MG/ML INJ IVP PRN (12:38)
[2017-07-22] MEDS ORDERED: *HR* Promethazine 25 MG/ML VIAL IVP PRN (12:38)
[2017-07-22] MEDS ORDERED: Acetaminophen 325 MG TABLET PO PRN (12:38)
--- NOTE | 2017-07-22 12:51 | Internal Med History&Physical ---
Date of Encounter: 07/22/17 Time of Encounter: 12:47 Assessment and Plan (1) Diffuse large B cell lymphoma Current visit: No Status: Acute R-EPOCH per oncology. We will provide supportive care with IV antiemetics, oral [place] and IV morphine for pain. Monitor daily labs. We will place heart monitor. Qualifiers: Lymphoma site: intra-abdominal nodes Qualified Code(s): C83.33 - Diffuse large B-cell lymphoma, intra-abdominal lymph nodes (2) DVT prophylaxis Current visit: No Status: Acute Subcutaneous Lovenox. (3) Smoker Current visit: No Status: Acute I advised smoking cessation. We will provide nicotine replacement therapy. (4) Anemia due to chemotherapy Current visit: Yes Status: Acute Hemoglobin is 8.6 which is close to her baseline of 9 per her prior record review. We will monitor daily hemoglobin and hematocrit. Transfuse if hemoglobin below 7.0 or symptomatic anemia or active bleed. Internal Medicine - H&P: HPI Chief complaint: Need for Chemotherapy Admitted From: Direct Admit Plans for Post Hospital Care: Home History of present illness: Ms. Vale is a 47 year old female with past medical history significant for diffuse large B-cell lymphoma from the oncologist's office for her fourth cycle of chemotherapy. She denies nausea vomiting and diarrhea. Denies fevers chills. Per history provided by her oncologist she is at her fourth cycle of chemotherapy and has tolerated previous cycles well. Today the patient reports feeling well, having mild fatigue that has been going on for weeks, not associated with shortness of breath or chest pain. A 10 point review of systems was negative Past medical history: Diffuse large B-cell lymphoma. Family history: Grandmother suffered with lung cancer. Social history: Smokes 5-6 cigarettes a day, denies alcohol and drug use. Past Med Surg Social Fam HX - Past Medical History Medical history: cancer, GERD Psychiatric history: anxiety, depression - Past Surgical History Surgical History: colectomy, hysterectomy - Social History Smoking Status: Current every day smoker Packs per day: 0.5 Smokeless Tobacco Status: No Alcohol use: none Drug use: none - Family History Mother Hx Family Cardiac Disorders: Yes (CAD) Hx Family Endocrine Disorder: Yes (DM) Father Living Status: Hx Family Cardiac Disorders: Yes Internal Medicine - H&P: Meds Nicotine Patch [Nicoderm] 21 mg TD DAILY #30 patch.[id number] 07/06/17 [Rx] HYDROcodone/Acet 5/325 mg [[place] 5-325 mg] 1 - 2 tab PO Q6H PRN 07/22/17 [ History] Ranitidine HCl [Zantac] 150 mg PO DAILY #30 tablet 07/22/17 [Rx] 3 Allergy/AdvReac Type Severity Reaction Status Date / Time No Known Allergies Allergy Verified 07/22/17 09:13 All Systems PM: A 10-system review of systems was performed and is negative for pertinent findings except as documented above in the HPI. - Constitutional Vitals: Temp Pulse Resp BP Pulse Ox 97.8 F 88 16 110/59 99 07/22/17 11:05 07/22/17 11:05 07/22/17 11:05 07/22/17 11:05 07/22/17 11:05 General appearance: Present: A&O X 3 - Eye Eye exam: Present: PERRL, conjuntiva pink, sclera anicteric Pupils: Present: PERRL - Respiratory Respiratory exam: Present: CTAB. Absent: accessory muscle use, rales, rhonchi, wheezes - Cardiovascular Cardiovascular exam: Present: RRR, +S1, +S2. Absent: diastolic murmur, gallop, rubs, systolic murmur - GI/Abdominal GI/Abdominal exam: Present: normal bowel sounds, soft, no peritoneal signs. Absent: distended, tenderness - Extremities Exam Extremities exam: Present: warm, radial pulses palpable and symmetrical. Absent : calf tenderness, cyanotic, pedal edema - Skin Skin exam: Present: dry, intact Internal Med - H&P Results - Labs CBC & Chem 7: 07/22/17 12:55 07/22/17 12:55
[2017-07-22 13:11] LABS: Hematocrit 26.5 % (35.3-44.9); Hemoglobin 8.6 g/dL (11.5-15.4); Mean Corpuscular HGB Conc 32.5 g/dL (31.6-35.5); Mean Corpuscular Hemoglobin 31.6 pg (28.0-33.3); Mean Corpuscular Volume 97.4 fL (83.0-100.0); Mean Platelet Volume 9.7 fL (9.4-12.4); Nucleated Red Blood Cells 8.1 /100 WBC (0); Platelet Count 157 K/mcL (140-400); Red Blood Count 2.72 M/mcL (3.82-4.97); Red Cell Distribution Width 19.9 % (11.5-14.5)
[2017-07-22 13:20] LABS: Alanine Aminotransferase 13 Units/L (0-55); Albumin 3.6 g/dL (3.5-5.0); Albumin/Globulin Ratio 1.3 (1.1-2.2); Alkaline Phosphatase 145 Units/L (38-126); Aspartate Amino Transferase 10 Units/L (5-34); BUN/Creatinine Ratio 15 (6-26); Bilirubin,Total 0.5 mg/dL (0.2-1.2); Blood Urea Nitrogen 9 mg/dL (7-20); Calcium 9.2 mg/dL (8.6-10.8); Carbon Dioxide 24 mEq/L (19-29); Chloride 106 mEq/L (98-109); Globulin 2.7 g/dL (2.4-3.5); Glucose 83 mg/dL (70-99); Osmolality,Calculated 284 (280-300); Sodium 138 mEq/L (136-145); Total Protein 6.3 g/dL (6.0-8.3); eGFR For African Americans > 60 (> 60); eGFR For Non-African Americans > 60 (> 60)
[2017-07-22 13:51] LABS: Lymphocytes # 0.8 K/mcL (0.6-4.6); Monocytes # 0.5 K/mcL (0.0-1.3); Neutrophils # 5.4 K/mcL (1.6-8.9); Platelet Estimate Normal (Normal)
[2017-07-22 13:52] LABS: Anisocytosis 1+ (Not Present); Polychromasia 2+ (Not Present)
[2017-07-22] MEDS ORDERED: VINCRISTINE IV SCH (16:00)
[2017-07-22] MEDS ORDERED: ETOPOSIDE IV SCH (16:00)
[2017-07-22] MEDS ORDERED: DOXORUBICIN HCL IV SCH (16:00)
[2017-07-22] MEDS ORDERED: [UNRECOGNIZED DRUG - OTHER] IV SCH (16:00)
[2017-07-22] MEDS: *HR* HYDROcodone/Acet 5/325 mg TABLET PO PRN (16:52)
[2017-07-22] MEDS: 0.9 % Sodium Chloride 500 ML IVC SCH (17:15)
[2017-07-22] MEDS: predniSONE 20 MG TABLET PO SCH (18:24)
[2017-07-23] MEDS ORDERED: *HR* Promethazine 25 MG/ML VIAL IV PRN
[2017-07-23] MEDS ORDERED: *HR* LORazepam 2 MG/ML VIAL IV PRN
[2017-07-23] MEDS ORDERED: Dexamethasone 10 MG/ML VIAL IV PRN
[2017-07-23] MEDS ORDERED: Famotidine 20 MG/2 ML VIAL IV PRN
[2017-07-23] MEDS ORDERED: predniSONE 20 MG TABLET PO SCH
[2017-07-23] MEDS ORDERED: Prochlorperazine 10 MG/2 ML VIAL IV PRN
[2017-07-23] MEDS: *HR* Morphine 2 MG/ML SYRINGE IVP PRN (06:14)
[2017-07-23] MEDS: *HR* Enoxaparin 40 MG/0.4 ML SYRINGE SQ SCH (06:15)
[2017-07-23 06:20] LABS: Hematocrit 27.8 % (35.3-44.9); Hemoglobin 8.6 g/dL (11.5-15.4); Lymphocytes # 0.6 K/mcL (0.6-4.6); Mean Corpuscular HGB Conc 30.9 g/dL (31.6-35.5); Mean Corpuscular Hemoglobin 30.5 pg (28.0-33.3); Mean Corpuscular Volume 98.6 fL (83.0-100.0); Nucleated Red Blood Cells 3.3 /100 WBC (0); Platelet Count 168 K/mcL (140-400); Red Blood Count 2.82 M/mcL (3.82-4.97); Red Cell Distribution Width 19.8 % (11.5-14.5)
[2017-07-23 06:40] LABS: BUN/Creatinine Ratio 19 (6-26); Blood Urea Nitrogen 12 mg/dL (7-20); Calcium 9.5 mg/dL (8.6-10.8); Carbon Dioxide 23 mEq/L (19-29); Chloride 110 mEq/L (98-109); Glucose 134 mg/dL (70-99); Osmolality,Calculated 290 (280-300); Potassium 4.7 mEq/L (3.5-4.5); Sodium 139 mEq/L (136-145); eGFR For African Americans > 60 (> 60); eGFR For Non-African Americans > 60 (> 60)
[2017-07-23 08:31] LABS: Neutrophils # 6.3 K/mcL (1.6-8.9)
[2017-07-23 08:32] LABS: Platelet Estimate Normal (Normal)
[2017-07-23 08:35] LABS: Polychromasia 2+ (Not Present)
[2017-07-23 08:37] LABS: Anisocytosis 1+ (Not Present)
[2017-07-23] MEDS: Famotidine 20 MG TABLET PO SCH (08:53)
[2017-07-23] MEDS: predniSONE 20 MG TABLET PO SCH ×2 (09:06→18:24)
[2017-07-23] MEDS: 0.9 % Sodium Chloride 500 ML IVC SCH ×2 (09:57→13:30)
[2017-07-23] MEDS: Nicotine 21 MG PATCH.TD24 TD SCH (11:18)
[2017-07-23] MEDS: *HR* HYDROcodone/Acet 5/325 mg TABLET PO PRN ×2 (13:36→18:30)
--- NOTE | 2017-07-23 14:40 | Internal Med Progress Note ---
Date of Encounter: 07/23/17 Time of Encounter: 14:39 - Assessment and plan (1) Diffuse large B cell lymphoma Current Visit: Yes Status: Chronic Assessment and plan: Follows with oncology as outpatient. Admitted for five-day cycle of chemotherapy with R-EPOCH. Oncology on board. Continue supportive care with when necessary IV antiemetics and pain control. Qualifiers: Lymphoma site: intra-abdominal nodes Qualified Code(s): C83.33 - Diffuse large B-cell lymphoma, intra-abdominal lymph nodes (2) Tobacco abuse Current Visit: Yes Status: Chronic Assessment and plan: Continue nicotine transdermal patch. (3) Depression Current Visit: Yes Status: Chronic Assessment and plan: Continue Zoloft. Qualifiers: Depression Type: unspecified Qualified Code(s): F32.9 - Major depressive disorder, single episode, unspecified (4) Anemia Current Visit: Yes Status: Chronic Qualifiers: Anemia type: unspecified type Qualified Code(s): D64.9 - Anemia, unspecified - Subjective Interval history: Reports feeling well; receiving first bag of chemotherapy. No nausea, vomiting, abdominal pain, fever/chills. Does have leg cramps. - Constitutional Vitals: Temp Pulse Resp BP Pulse Ox 98.0 F 76 16 108/61 98 07/23/17 14:30 07/23/17 14:30 07/23/17 14:30 07/23/17 14:30 07/23/17 14:30 General appearance: Present: A&O X 3, answers questions appropriately - Respiratory Respiratory exam: Present: CTAB. Absent: accessory muscle use, rales, rhonchi, wheezes - Cardiovascular Cardiovascular exam: Present: RRR, +S1, +S2. Absent: diastolic murmur, gallop, rubs, systolic murmur - GI/Abdominal GI/Abdominal exam: Present: normal bowel sounds, soft, no peritoneal signs. Absent: distended, tenderness Internal Medicine: Result - Labs CBC & Chem 7: 07/23/17 04:49 07/23/17 04:49 Labs: Short CBC 07/23/17 Range/Units 04:49 WBC 7.4 (4.3-11.1) K/mcL Hgb 8.6 L (11.5-15.4) g/dL Hct 27.8 L (35.3-44.9) % Plt Count 168 (140-400) K/mcL Neutrophils # 6.3 (1.6-8.9) K/mcL BMP 07/23/17 04:49 Sodium 139 Potassium 4.7 H Chloride 110 H Carbon Dioxide 23 BUN 12 Creatinine 0.64 Glucose 134 H Calcium 9.5 Consult Discharge Plan - Plan Referrals: NONE,PCP [Primary Care Provider] -
--- NOTE | 2017-07-23 17:46 | Oncology Inp Progress Note ---
Date of Encounter: 07/23/17 Time of Encounter: 16:15 (1) Diffuse large B cell lymphoma Current Visit: Yes Status: Chronic Assessment and plan: Continue with cycle #4 day 2 of therapy today. IT MTX ordered for tomorrow. Encouraged ambulation. Continue pepcid/LMWH for prophylaxis; will hold lovenox tomorrow for IT MTX. Appreciate excellent care provided by the hospitalist team. Qualifiers: Lymphoma site: intra-abdominal nodes Qualified Code(s): C83.33 - Diffuse large B-cell lymphoma, intra-abdominal lymph nodes Oncology: Subj Interval history: Feeling tired but otherwise okay. No acute issues. Does note bilateral leg pain; has not been asking for [place]. Afebrile. Eating well. No N/V/D or other GI upset. - Constitutional Vitals: Vital Signs Temp Pulse Resp BP Pulse Ox 07/23/17 14:30 98.0 F 76 16 108/61 98 07/23/17 11:09 98.3 F 72 18 105/65 96 07/23/17 07:34 97.9 F 81 18 113/68 100 07/23/17 03:47 98.1 F 86 16 95/57 96 07/23/17 03:27 97.6 F 73 15 92/55 99 07/22/17 23:45 97.9 F 80 16 106/67 07/22/17 19:47 98.5 F 82 15 101/58 98 Intake and Output 07/23/17 07/23/17 07/24/17 08:59 16:59 00:59 Intake Total 1024 / 1024 1260.1 / 1260.1 Output Total 1350 / 1350 0 / 0 Balance -326 / -326 1260.1 / 1260.1 Intake: IV Fluids 324 / 324 420.1 / 420.1 Adriamycin 17 MG Etoposide 80 244.1 / 244.1 mg VinCRIStine 0.6 MG In 0.9 % Sodium Chloride [place] Bg 500 ML @ 21.379 mls/hr IV ONCE(ONC) [facility] Rx#:[id number] 0.9 % Sodium Chloride 500 ML @ 324 / 324 176 / 176 25 MLS/HR 25 mls/hr IVC .Q20H [facility] Rx#:[id number] Oral 700 / 700 840 / 840 Output: Urine 1350 / 1350 0 / 0 Other: Meal Lunch Percent of Meal Consumed 100% # Voids 1 # Bowel Movements 0 - Head Head exam: Present: atraumatic, normal inspection, normocephalic - Eye Eye exam: Present: normal appearance, conjuntiva pink, sclera anicteric - ENT ENT exam: Present: mucous membranes moist, normal exam, normal external ear exam - Neck Neck exam: Present: full ROM, normal inspection - Respiratory Respiratory exam: Present: CTAB - Cardiovascular Cardiovascular exam: Present: RRR - GI/Abdominal GI/Abdominal exam: Present: normal bowel sounds, soft - Extremities Exam Extremities exam: Present: normal inspection - Neurological Exam Neurological exam: Present: alert, CN II-XII intact, no focal deficits Oncology: Obj Data - Labs CBC & Chem 7: 07/23/17 04:49 07/23/17 04:49 Labs: Laboratory Results - last 24 hr 07/23/17 07/23/17 04:49 04:49 WBC 7.4 RBC 2.82 L Hgb 8.6 L Hct 27.8 L MCV 98.6 MCH 30.5 MCHC 30.9 L RDW 19.8 H Plt Count 168 MPV 10.0 Seg Neutrophils % 75.0 Band Neutrophils % 10.0 H Lymphocytes % 8.0 Metamyelocytes % 2.0 H Myelocytes % 5.0 H Neutrophils # 6.3 Lymphocytes # 0.6 Nucleated RBCs/100 WBC 3.3 H Platelet Estimate Normal Polychromasia 2+ A Anisocytosis 1+ A Sodium 139 Potassium 4.7 H Chloride 110 H Carbon Dioxide 23 BUN 12 Creatinine 0.64 Est GFR ( Amer) > 60 Est GFR (Non-Af Amer) > 60 BUN/Creatinine Ratio 19 Glucose 134 H Calculated Osmolality 290 Calcium 9.5 Consult Discharge Plan - Plan Referrals: NONE,PCP [Primary Care Provider] -
[2017-07-23] MEDS ORDERED: DOXORUBICIN HCL IV SCH (20:00)
[2017-07-23] MEDS ORDERED: [UNRECOGNIZED DRUG - OTHER] IV SCH (20:00)
[2017-07-23] MEDS ORDERED: ETOPOSIDE IV SCH (20:00)
[2017-07-23] MEDS ORDERED: VINCRISTINE IV SCH (20:00)
[2017-07-24] MEDS: *HR* Morphine 2 MG/ML SYRINGE IVP PRN ×3 (00:01→20:34)
[2017-07-24 06:48] LABS: Hematocrit 27.3 % (35.3-44.9); Hemoglobin 8.5 g/dL (11.5-15.4); Mean Corpuscular HGB Conc 31.1 g/dL (31.6-35.5); Mean Corpuscular Hemoglobin 30.6 pg (28.0-33.3); Mean Corpuscular Volume 98.2 fL (83.0-100.0); Mean Platelet Volume 9.5 fL (9.4-12.4); Nucleated Red Blood Cells 1.8 /100 WBC (0); Platelet Count 166 K/mcL (140-400); Red Blood Count 2.78 M/mcL (3.82-4.97); Red Cell Distribution Width 19.9 % (11.5-14.5)
[2017-07-24 06:58] LABS: BUN/Creatinine Ratio 16 (6-26); Blood Urea Nitrogen 10 mg/dL (7-20); Calcium 9.4 mg/dL (8.6-10.8); Carbon Dioxide 24 mEq/L (19-29); Chloride 111 mEq/L (98-109); Glucose 118 mg/dL (70-99); Osmolality,Calculated 292 (280-300); Potassium 4.3 mEq/L (3.5-4.5); Sodium 141 mEq/L (136-145); eGFR For African Americans > 60 (> 60); eGFR For Non-African Americans > 60 (> 60)
[2017-07-24] MEDS: Famotidine 20 MG TABLET PO SCH ×2 (07:20→07:52)
[2017-07-24] MEDS: 0.9 % Sodium Chloride 500 ML IVC SCH (07:21)
[2017-07-24] MEDS: predniSONE 20 MG TABLET PO SCH ×2 (07:53→17:34)
[2017-07-24] MEDS: Nicotine 21 MG PATCH.TD24 TD SCH (07:53)
[2017-07-24] MEDS: *HR* HYDROcodone/Acet 5/325 mg TABLET PO PRN (07:58)
[2017-07-24 08:06] LABS: Lymphocytes # 0.5 K/mcL (0.6-4.6); Monocytes # 0.4 K/mcL (0.0-1.3); Neutrophils # 7.1 K/mcL (1.6-8.9)
[2017-07-24 08:07] LABS: Platelet Estimate Normal (Normal)
[2017-07-24 08:08] LABS: Anisocytosis 1+ (Not Present); Polychromasia 1+ (Not Present)
[2017-07-24] MEDS ORDERED: Methotrexate PFS 25 MG/ML VIAL IT SCH (08:30)
[2017-07-24] MEDS ORDERED: 0.9 % Sodium Chloride 500 ML ONE (09:32)
--- NOTE | 2017-07-24 15:36 | Internal Med Progress Note ---
Date of Encounter: 07/24/17 Time of Encounter: 14:55 - Assessment and plan (1) Diffuse large B cell lymphoma Current Visit: Yes Status: Chronic Assessment and plan: Follows with oncology as outpatient. Admitted for fourth cycle of five-day cycle of chemotherapy with R-EPOCH. Oncology on board. Continue supportive care with when necessary IV antiemetics and pain control. Received intrathecal methotrexate today. Subcutaneous Lovenox has been held in anticipation of intrathecal medication. Noted to have bandemia, likely related to high-dose steroids. Qualifiers: Lymphoma site: intra-abdominal nodes Qualified Code(s): C83.33 - Diffuse large B-cell lymphoma, intra-abdominal lymph nodes (2) Tobacco abuse Current Visit: Yes Status: Chronic Assessment and plan: Continue nicotine transdermal patch. (3) Depression Current Visit: Yes Status: Chronic Assessment and plan: Continue Zoloft. Qualifiers: Depression Type: unspecified Qualified Code(s): F32.9 - Major depressive disorder, single episode, unspecified (4) Anemia Current Visit: Yes Status: Chronic Qualifiers: Anemia type: unspecified type Qualified Code(s): D64.9 - Anemia, unspecified - Subjective Interval history: Reports feeling well; receiving second bag of chemotherapy. Also received intrathecal methotrexate today. Noted to be ambulating in the hallway. No nausea, vomiting, abdominal pain, fever/chills. - Constitutional Vitals: Temp Pulse Resp BP Pulse Ox 98.2 F 82 14 113/62 98 07/24/17 13:57 07/24/17 13:57 07/24/17 13:57 07/24/17 13:57 07/24/17 13:57 General appearance: Present: A&O X 3, answers questions appropriately - Respiratory Respiratory exam: Present: CTAB. Absent: accessory muscle use, rales, rhonchi, wheezes - Cardiovascular Cardiovascular exam: Present: RRR, +S1, +S2. Absent: diastolic murmur, gallop, rubs, systolic murmur - Extremities Exam Extremities exam: Present: full ROM, warm, radial pulses palpable and symmetrical. Absent: calf tenderness, cyanotic, pedal edema Internal Medicine: Result - Labs CBC & Chem 7: 07/24/17 06:31 07/24/17 06:31 Labs: Short CBC 07/24/17 Range/Units 06:31 WBC 8.4 (4.3-11.1) K/mcL Hgb 8.5 L (11.5-15.4) g/dL Hct 27.3 L (35.3-44.9) % Plt Count 166 (140-400) K/mcL Neutrophils # 7.1 (1.6-8.9) K/mcL BMP 07/24/17 06:31 Sodium 141 Potassium 4.3 Chloride 111 H Carbon Dioxide 24 BUN 10 Creatinine 0.61 Glucose 118 H Calcium 9.4 - Impressions Impressions Chemotherapy Admin, Fluoroscopy Guided 07/24/17 00:01 IMPRESSION: Successful fluoro guided intrathecal chemotherapy injection D/ / Dillon Tanner MD / Dillon Tanner MD Interpreting Provider: Dillon Tanner MD Consult Discharge Plan - Plan Referrals: NONE,PCP [Primary Care Provider] -
[2017-07-24] MEDS ORDERED: [UNRECOGNIZED DRUG - OTHER] IV SCH (20:00)
[2017-07-24] MEDS ORDERED: ETOPOSIDE IV SCH (20:00)
[2017-07-24] MEDS ORDERED: VINCRISTINE IV SCH (20:00)
[2017-07-24] MEDS ORDERED: DOXORUBICIN HCL IV SCH (20:00)
--- NOTE | 2017-07-24 21:59 | Oncology Inp Progress Note ---
Date of Encounter: 07/24/17 Time of Encounter: 17:00 (1) Diffuse large B cell lymphoma Current Visit: Yes Status: Chronic Assessment and plan: Continue with cycle #4 day 3 of therapy today. Will see if we can accelerate infusion time to expedite discharge. Appreciate excellent care provided by the hospitalist team. Qualifiers: Lymphoma site: intra-abdominal nodes Qualified Code(s): C83.33 - Diffuse large B-cell lymphoma, intra-abdominal lymph nodes Oncology: Subj Interval history: Ms. Vale is doing well. Less fatigued today. Ambulating about halls. IT MTX completed without issue. Frustrated that she may be here through Saturday. - Constitutional Vitals: Vital Signs Temp Pulse Resp BP Pulse Ox 07/24/17 19:06 98.3 F 73 15 113/67 98 07/24/17 13:57 98.2 F 82 14 113/62 98 07/24/17 10:52 98.3 F 64 16 114/68 99 07/24/17 07:20 98.5 F 74 14 109/65 99 07/24/17 03:23 98.1 F 88 15 104/57 99 07/23/17 23:22 98.0 F 72 15 120/66 99 Intake and Output 07/24/17 07/24/17 07/25/17 08:59 16:59 00:59 Intake Total 0 / 0 599 / 599 120 / 120 Output Total 700 / 700 1900 / 1900 250 / 250 Balance -700 / -700 -1301 / -1301 -130 / -130 Intake: IV Fluids 239 / 239 Adriamycin 17 MG Etoposide 80 239 / 239 mg VinCRIStine 0.6 MG In 0.9 % Sodium Chloride [place] Bg 500 ML @ 21.379 mls/hr IV ONCE(ONC) [facility] Rx#:[id number] Oral 0 / 0 360 / 360 120 / 120 Output: Urine 700 / 700 1900 / 1900 250 / 250 Other: Meal Lunch Dinner Percent of Meal Consumed 100% 100% Stool Size Small Stool Consistency soft formed Stool Color Brown # Bowel Movements 0 1 Weight 48.9 kg Patient Weight 07/25/17 00:59 Weight 48.9 kg - Head Head exam: Present: atraumatic, normal inspection, normocephalic - Eye Eye exam: Present: normal appearance, conjuntiva pink, sclera anicteric - ENT ENT exam: Present: mucous membranes moist, normal exam - Respiratory Respiratory exam: Present: CTAB - Cardiovascular Cardiovascular exam: Present: RRR - GI/Abdominal GI/Abdominal exam: Present: normal bowel sounds, soft - Extremities Exam Extremities exam: Present: normal inspection - Neurological Exam Neurological exam: Present: alert, CN II-XII intact, oriented X3 - Skin Skin exam: Present: normal color Oncology: Obj Data - Labs CBC & Chem 7: 07/24/17 06:31 07/24/17 06:31 Labs: Laboratory Results - last 24 hr 07/24/17 07/24/17 06:31 06:31 WBC 8.4 RBC 2.78 L Hgb 8.5 L Hct 27.3 L MCV 98.2 MCH 30.6 MCHC 31.1 L RDW 19.9 H Plt Count 166 MPV 9.5 Seg Neutrophils % 68.0 Band Neutrophils % 16.0 H Lymphocytes % 6.0 Monocytes % 5.0 Metamyelocytes % 3.0 H Myelocytes % 2.0 H Neutrophils # 7.1 Lymphocytes # 0.5 L Monocytes # 0.4 Nucleated RBCs/100 WBC 1.8 H Platelet Estimate Normal Polychromasia 1+ A Anisocytosis 1+ A Sodium 141 Potassium 4.3 Chloride 111 H Carbon Dioxide 24 BUN 10 Creatinine 0.61 Est GFR ( Amer) > 60 Est GFR (Non-Af Amer) > 60 BUN/Creatinine Ratio 16 Glucose 118 H Calculated Osmolality 292 Calcium 9.4 - Impressions Impressions Chemotherapy Admin, Fluoroscopy Guided 07/24/17 00:01 IMPRESSION: Successful fluoro guided intrathecal chemotherapy injection D/ / Dillon Tanner MD / Dillon Tanner MD Interpreting Provider: Dillon Tanner MD Consult Discharge Plan - Plan Referrals: NONE,PCP [Primary Care Provider] -
[2017-07-25 06:03] LABS: Hematocrit 24.4 % (35.3-44.9); Hemoglobin 7.8 g/dL (11.5-15.4); Immature Platelets 3.2 % (1.1-6.1); Mean Corpuscular Hemoglobin 31.3 pg (28.0-33.3); Mean Platelet Volume 9.5 fL (9.4-12.4); Nucleated Red Blood Cells 2.5 /100 WBC (0); Platelet Count 181 K/mcL (140-400); Red Blood Count 2.49 M/mcL (3.82-4.97); Red Cell Distribution Width 19.7 % (11.5-14.5)
[2017-07-25 06:20] LABS: BUN/Creatinine Ratio 23 (6-26); Blood Urea Nitrogen 13 mg/dL (7-20); Calcium 9.3 mg/dL (8.6-10.8); Carbon Dioxide 22 mEq/L (19-29); Chloride 111 mEq/L (98-109); Glucose 98 mg/dL (70-99); Osmolality,Calculated 292 (280-300); Potassium 3.9 mEq/L (3.5-4.5); Sodium 141 mEq/L (136-145); eGFR For African Americans > 60 (> 60); eGFR For Non-African Americans > 60 (> 60)
[2017-07-25 06:37] LABS: Lymphocytes # 0.7 K/mcL (0.6-4.6); Monocytes # 0.1 K/mcL (0.0-1.3); Neutrophils # 5.3 K/mcL (1.6-8.9)
[2017-07-25 06:38] LABS: Anisocytosis 1+ (Not Present); Basophilic Stippling 1+ (Not Present); Macrocytosis Present (Not Present); Platelet Estimate Normal (Normal); Polychromasia 1+ (Not Present)
[2017-07-25] MEDS: Nicotine 21 MG PATCH.TD24 TD SCH (08:20)
[2017-07-25] MEDS: *HR* Enoxaparin 40 MG/0.4 ML SYRINGE SQ SCH (08:21)
[2017-07-25] MEDS: Famotidine 20 MG TABLET PO SCH (08:22)
[2017-07-25] MEDS: predniSONE 20 MG TABLET PO SCH ×2 (08:22→17:53)
[2017-07-25] MEDS: *HR* Morphine 2 MG/ML SYRINGE IVP PRN ×3 (08:35→20:34)
--- NOTE | 2017-07-25 08:42 | Oncology Inp Progress Note ---
Date of Encounter: 07/25/17 Time of Encounter: 08:10 (1) Diffuse large B cell lymphoma Current Visit: Yes Status: Chronic Assessment and plan: Continue with cycle #4 day 4 of therapy today. I have increased the infusion rate to shave off 8 hours so hopefully she can be discharged on Saturday. [place] on [facility]. Qualifiers: Lymphoma site: intra-abdominal nodes Qualified Code(s): C83.33 - Diffuse large B-cell lymphoma, intra-abdominal lymph nodes Oncology: Subj Interval history: She is feeling well outside of continued bilateral leg pain. This is remedied with [place]/Morphine. She is frutrated about the timing of chemotherapy and would like to be discharged sooner if possible. Ambulating. Eating well. Afebrile. - Constitutional Vitals: Vital Signs Temp Pulse Resp BP Pulse Ox 07/25/17 07:07 98.3 F 80 14 120/70 99 07/25/17 03:23 97.4 F L 66 15 122/69 99 07/24/17 23:42 98.0 F 71 15 131/71 97 07/24/17 19:06 98.3 F 73 15 113/67 98 07/24/17 13:57 98.2 F 82 14 113/62 98 07/24/17 10:52 98.3 F 64 16 114/68 99 Intake and Output 07/24/17 07/25/17 07/25/17 16:59 00:59 08:59 Intake Total 599 / 599 120 / 120 0 / 0 Output Total 1900 / 1900 950 / 950 300 / 300 Balance -1301 / -1301 -830 / -830 -300 / -300 Intake: IV Fluids 239 / 239 Adriamycin 17 MG Etoposide 80 239 / 239 mg VinCRIStine 0.6 MG In 0.9 % Sodium Chloride [place] Bg 500 ML @ 21.379 mls/hr IV ONCE(ONC) [facility] Rx#:[id number] Oral 360 / 360 120 / 120 0 / 0 Output: Urine 1900 / 1900 950 / 950 300 / 300 Other: Meal Lunch Dinner Percent of Meal Consumed 100% 100% Stool Size Small Stool Consistency soft formed Stool Color Brown # Bowel Movements 1 Weight 49.2 kg Patient Weight 07/26/17 00:59 Weight 49.2 kg - Head Head exam: Present: atraumatic, normal inspection, normocephalic - Eye Eye exam: Present: conjuntiva pink, sclera anicteric - ENT ENT exam: Present: mucous membranes moist, normal exam, normal oropharynx - Neck Neck exam: Present: full ROM, normal inspection - Respiratory Respiratory exam: Present: CTAB - Cardiovascular Cardiovascular exam: Present: RRR - GI/Abdominal GI/Abdominal exam: Present: normal bowel sounds, soft - Extremities Exam Extremities exam: Present: normal inspection - Neurological Exam Neurological exam: Present: alert, CN II-XII intact, oriented X3 Oncology: Obj Data - Labs CBC & Chem 7: 07/25/17 05:45 07/25/17 05:45 Labs: Laboratory Results - last 24 hr 07/25/17 07/25/17 05:45 05:45 WBC 6.1 RBC 2.49 L Hgb 7.8 L Hct 24.4 L MCV 98.0 MCH 31.3 MCHC 32.0 RDW 19.7 H Plt Count 181 MPV 9.5 Seg Neutrophils % 80.0 Band Neutrophils % 6.0 H Lymphocytes % 12.0 Monocytes % 2.0 Neutrophils # 5.3 Lymphocytes # 0.7 Monocytes # 0.1 Nucleated RBCs/100 WBC 2.5 H Platelet Estimate Normal Immature Plt Fraction 3.2 Polychromasia 1+ A Basophilic Stippling 1+ A Anisocytosis 1+ A Macrocytosis Present A Sodium 141 Potassium 3.9 Chloride 111 H Carbon Dioxide 22 BUN 13 Creatinine 0.57 Est GFR ( Amer) > 60 Est GFR (Non-Af Amer) > 60 BUN/Creatinine Ratio 23 Glucose 98 Calculated Osmolality 292 Calcium 9.3 - Impressions Impressions Chemotherapy Admin, Fluoroscopy Guided 07/24/17 00:01 IMPRESSION: Successful fluoro guided intrathecal chemotherapy injection D/ / Dillon Tanner MD / Dillon Tanner MD Interpreting Provider: Dillon Tanner MD Consult Discharge Plan - Plan Referrals: NONE,PCP [Primary Care Provider] -
[2017-07-25] MEDS ORDERED: 0.9 % Sodium Chloride 500 ML ONE (10:32)
[2017-07-25] MEDS: 0.9 % Sodium Chloride 500 ML IVC SCH (10:45)
--- NOTE | 2017-07-25 13:40 | Internal Med Progress Note ---
Date of Encounter: 07/25/17 Time of Encounter: 13:30 - Assessment and plan (1) Diffuse large B cell lymphoma Current Visit: Yes Status: Chronic Assessment and plan: Follows with oncology as outpatient. Admitted for fourth cycle of five-day cycle of chemotherapy with R-EPOCH- dose 3. Oncology on board. Continue supportive care with when necessary IV antiemetics and pain control. Improving bandemia; noted to have anemia, continue to monitor Hb, will transfuse if <7. Qualifiers: Lymphoma site: intra-abdominal nodes Qualified Code(s): C83.33 - Diffuse large B-cell lymphoma, intra-abdominal lymph nodes (2) Tobacco abuse Current Visit: Yes Status: Chronic Assessment and plan: Continue nicotine transdermal patch. (3) Depression Current Visit: Yes Status: Chronic Assessment and plan: Continue Zoloft. Qualifiers: Depression Type: unspecified Qualified Code(s): F32.9 - Major depressive disorder, single episode, unspecified (4) Anemia Current Visit: Yes Status: Chronic Qualifiers: Anemia type: unspecified type Qualified Code(s): D64.9 - Anemia, unspecified - Subjective Interval history: Feels better; no shortness of breath, chest pain. Able to ambulate but does have leg cramps; - Constitutional Vitals: Temp Pulse Resp BP Pulse Ox 98.2 F 72 14 124/69 100 07/25/17 10:32 07/25/17 10:32 07/25/17 10:32 07/25/17 10:32 07/25/17 10:32 General appearance: Present: A&O X 3, answers questions appropriately - Respiratory Respiratory exam: Present: CTAB. Absent: accessory muscle use, rales, rhonchi, wheezes - Cardiovascular Cardiovascular exam: Present: RRR, +S1, +S2. Absent: diastolic murmur, gallop, rubs, systolic murmur - GI/Abdominal GI/Abdominal exam: Present: normal bowel sounds, soft, no peritoneal signs. Absent: distended, tenderness - Extremities Exam Extremities exam: Present: full ROM, warm, radial pulses palpable and symmetrical. Absent: calf tenderness, cyanotic, pedal edema Internal Medicine: Result - Labs CBC & Chem 7: 07/25/17 05:45 07/25/17 05:45 Labs: Short CBC 07/25/17 Range/Units 05:45 WBC 6.1 (4.3-11.1) K/mcL Hgb 7.8 L (11.5-15.4) g/dL Hct 24.4 L (35.3-44.9) % Plt Count 181 (140-400) K/mcL Neutrophils # 5.3 (1.6-8.9) K/mcL BMP 07/25/17 05:45 Sodium 141 Potassium 3.9 Chloride 111 H Carbon Dioxide 22 BUN 13 Creatinine 0.57 Glucose 98 Calcium 9.3 - Impressions Impressions Chemotherapy Admin, Fluoroscopy Guided 07/24/17 00:01 IMPRESSION: Successful fluoro guided intrathecal chemotherapy injection D/ / Dillon Tanner MD / Dillon Tanner MD Interpreting Provider: Dillon Tanner MD Consult Discharge Plan - Plan Referrals: NONE,PCP [Primary Care Provider] -
[2017-07-25] MEDS ORDERED: ETOPOSIDE IV SCH (20:00)
[2017-07-25] MEDS ORDERED: DOXORUBICIN HCL IV SCH (20:00)
[2017-07-25] MEDS ORDERED: VINCRISTINE IV SCH (20:00)
[2017-07-25] MEDS ORDERED: [UNRECOGNIZED DRUG - OTHER] IV SCH (20:00)
[2017-07-26 05:00] LABS: Hemoglobin 7.8 g/dL (11.5-15.4); Immature Granulocytes % 1.4 % (0-4); Lymphocytes # 0.2 K/mcL (0.6-4.6); Lymphocytes % 5.5 %; Mean Corpuscular HGB Conc 32.5 g/dL (31.6-35.5); Mean Corpuscular Hemoglobin 31.1 pg (28.0-33.3); Mean Corpuscular Volume 95.6 fL (83.0-100.0); Mean Platelet Volume 9.5 fL (9.4-12.4); Monocytes # 0.1 K/mcL (0.0-1.3); Monocytes % 2.1 %; Neutrophils # 3.9 K/mcL (1.6-8.9); Nucleated Red Blood Cells 1.2 /100 WBC (0); Platelet Count 146 K/mcL (140-400); Red Blood Count 2.51 M/mcL (3.82-4.97); Red Cell Distribution Width 18.8 % (11.5-14.5)
[2017-07-26] MEDS: *HR* Enoxaparin 40 MG/0.4 ML SYRINGE SQ SCH (05:07)
[2017-07-26] MEDS: *HR* Morphine 2 MG/ML SYRINGE IVP PRN ×2 (05:10→09:21)
[2017-07-26 05:19] LABS: BUN/Creatinine Ratio 22 (6-26); Blood Urea Nitrogen 13 mg/dL (7-20); Calcium 9.1 mg/dL (8.6-10.8); Carbon Dioxide 22 mEq/L (19-29); Chloride 107 mEq/L (98-109); Glucose 114 mg/dL (70-99); Osmolality,Calculated 285 (280-300); Potassium 3.9 mEq/L (3.5-4.5); Sodium 137 mEq/L (136-145); eGFR For African Americans > 60 (> 60); eGFR For Non-African Americans > 60 (> 60)
[2017-07-26] MEDS ORDERED: 0.9 % Sodium Chloride 500 ML ONE (06:52)
[2017-07-26] MEDS: predniSONE 20 MG TABLET PO SCH ×2 (09:20→15:23)
[2017-07-26] MEDS: Nicotine 21 MG PATCH.TD24 TD SCH (09:20)
[2017-07-26] MEDS: Famotidine 20 MG TABLET PO SCH (09:20)
[2017-07-26] MEDS: Magic Mouthwash 10 ML UD Cup PO SCH ×2 (09:53→16:44)
[2017-07-26 14:21] VITALS: BP 125/68
[2017-07-26] MEDS ORDERED: SODIUM CHLORIDE 0.9% IV SCH (16:00)
[2017-07-26] MEDS ORDERED: CYCLOPHOSPHAMIDE IV SCH (16:00)
--- NOTE | 2017-07-26 16:12 | Internal Med Progress Note ---
Date of Encounter: 07/26/17 Time of Encounter: 14:30 - Assessment and plan (1) Diffuse large B cell lymphoma Current Visit: Yes Status: Chronic Qualifiers: Lymphoma site: intra-abdominal nodes Qualified Code(s): C83.33 - Diffuse large B-cell lymphoma, intra-abdominal lymph nodes (2) Tobacco abuse Current Visit: Yes Status: Chronic (3) Depression Current Visit: Yes Status: Chronic Qualifiers: Depression Type: unspecified Qualified Code(s): F32.9 - Major depressive disorder, single episode, unspecified (4) Anemia Current Visit: Yes Status: Chronic Qualifiers: Anemia type: unspecified type Qualified Code(s): D64.9 - Anemia, unspecified - Subjective Interval history: Reports oral and throat pain on swallowing, improving with Magic mouthwash. No chest pain, dyspnea, palpitations. - Constitutional Vitals: Temp Pulse Resp BP Pulse Ox 98.9 F 72 14 125/68 98 07/26/17 14:20 07/26/17 14:20 07/26/17 14:20 07/26/17 14:20 07/26/17 14:20 General appearance: Present: A&O X 3, answers questions appropriately - Respiratory Respiratory exam: Present: CTAB. Absent: accessory muscle use, rales, rhonchi, wheezes - Cardiovascular Cardiovascular exam: Present: RRR, +S1, +S2. Absent: diastolic murmur, gallop, rubs, systolic murmur Internal Medicine: Result - Labs CBC & Chem 7: 07/26/17 04:38 07/26/17 04:38 Labs: Short CBC 07/26/17 Range/Units 04:38 WBC 4.3 (4.3-11.1) K/mcL Hgb 7.8 L (11.5-15.4) g/dL Hct 24.0 L (35.3-44.9) % Plt Count 146 (140-400) K/mcL Neutrophils # 3.9 (1.6-8.9) K/mcL BMP 07/26/17 04:38 Sodium 137 Potassium 3.9 Chloride 107 Carbon Dioxide 22 BUN 13 Creatinine 0.58 Glucose 114 H Calcium 9.1 Consult Discharge Plan - Plan Referrals: NONE,PCP [Primary Care Provider] -
--- NOTE | 2017-07-26 17:26 | Oncology Inp Progress Note ---
Date of Encounter: 07/26/17 Time of Encounter: 17:15 (1) Diffuse large B cell lymphoma Current Visit: Yes Status: Chronic Assessment and plan: Continue with cycle #4 day 5 of therapy today. I was able to accelerate her infusion time, and she is scheduled to complete therapy tonight. [place] on Saturday in the [facility]. Magic mouthwash script sent to pharmacy. Qualifiers: Lymphoma site: intra-abdominal nodes Qualified Code(s): C83.33 - Diffuse large B-cell lymphoma, intra-abdominal lymph nodes (2) Anemia Current Visit: Yes Status: Chronic Assessment and plan: Secondary to chemotherapy. Will follow this closely with twice weekly CBC after discharge. No need for transfusion. Qualifiers: Anemia type: unspecified type Qualified Code(s): D64.9 - Anemia, unspecified Oncology: Subj Interval history: Having a better day today. No acute issues. Ambulating without issue and currently eating dinner. No nausea or vomiting. - Constitutional Vitals: Vital Signs Temp Pulse Resp BP Pulse Ox 07/26/17 14:20 98.9 F 72 14 125/68 98 07/26/17 10:39 98.8 F 66 14 104/57 100 07/26/17 06:33 98.1 F 79 14 134/78 100 07/26/17 03:36 97.6 F 71 14 131/74 98 07/25/17 23:16 98.2 F 66 14 150/74 98 07/25/17 18:56 98.5 F 75 14 118/67 98 Intake and Output 07/26/17 07/26/17 07/27/17 08:59 16:59 00:59 Intake Total 360 / 360 600 / 600 Output Total 1200 / 1200 1000 / 1000 Balance -840 / -840 -400 / -400 Intake: Oral 360 / 360 600 / 600 Output: Urine 1200 / 1200 1000 / 1000 Other: Meal Lunch Percent of Meal Consumed 100% Weight 49.033 kg Patient Weight 07/27/17 00:59 Weight 49.033 kg - Head Head exam: Present: atraumatic, normal inspection, normocephalic - Eye Eye exam: Present: normal appearance, conjuntiva pink, sclera anicteric - ENT ENT exam: Present: mucous membranes moist, normal exam - Neck Neck exam: Present: full ROM, normal inspection - Respiratory Respiratory exam: Present: CTAB - Cardiovascular Cardiovascular exam: Present: RRR - GI/Abdominal GI/Abdominal exam: Present: normal bowel sounds, soft - Extremities Exam Extremities exam: Present: normal inspection - Neurological Exam Neurological exam: Present: alert, CN II-XII intact, oriented X3 - Skin Skin exam: Present: dry, normal color Oncology: Obj Data - Labs CBC & Chem 7: 07/26/17 04:38 07/26/17 04:38 Labs: Laboratory Results - last 24 hr 07/26/17 07/26/17 04:38 04:38 WBC 4.3 RBC 2.51 L Hgb 7.8 L Hct 24.0 L MCV 95.6 MCH 31.1 MCHC 32.5 RDW 18.8 H Plt Count 146 MPV 9.5 Immature Gran % 1.4 Seg Neutrophils % 91.0 Lymphocytes % 5.5 Monocytes % 2.1 Eosinophils % 0.0 Basophils % 0.0 Neutrophils # 3.9 Lymphocytes # 0.2 L Monocytes # 0.1 Eosinophils # 0.0 Basophils # 0.0 Nucleated RBCs/100 WBC 1.2 H Sodium 137 Potassium 3.9 Chloride 107 Carbon Dioxide 22 BUN 13 Creatinine 0.58 Est GFR ( Amer) > 60 Est GFR (Non-Af Amer) > 60 BUN/Creatinine Ratio 22 Glucose 114 H Calculated Osmolality 285 Calcium 9.1 Consult Discharge Plan - Plan Referrals: NONE,PCP [Primary Care Provider] -
--- NOTE | 2017-07-26 19:40 | Discharge Summary ---
Date of Encounter: 07/26/17 Time of Encounter: 14:30 - Discharge Diagnosis (1) Diffuse large B cell lymphoma Priority: Primary Status: Chronic Qualifiers: Lymphoma site: intra-abdominal nodes Qualified Code(s): C83.33 - Diffuse large B-cell lymphoma, intra-abdominal lymph nodes (2) Tobacco abuse Priority: Secondary Status: Chronic (3) Depression Priority: Secondary Status: Chronic Qualifiers: Depression Type: unspecified Qualified Code(s): F32.9 - Major depressive disorder, single episode, unspecified (4) Anemia Priority: Secondary Status: Chronic Qualifiers: Anemia type: unspecified type Qualified Code(s): D64.9 - Anemia, unspecified - Discharge Medications Prescriptions: Magic Mouthwash [Magic Mouthwash BLM] 10 ml PO Q3H PRN #240 ml PRN Reason: Dry Mouth Sertraline [Zoloft] 25 mg PO DAILY #30 tablet Home Medications: Nicotine Patch [Nicoderm] 21 mg TD DAILY #30 patch.[id number] 07/06/17 [Rx] HYDROcodone/Acet 5/325 mg [[place] 5-325 mg] 1 - 2 tab PO Q6H PRN 07/22/17 [ History] Ranitidine HCl [Zantac] 150 mg PO DAILY #30 tablet 07/22/17 [Rx] Magic Mouthwash [Magic Mouthwash BLM] 10 ml PO Q3H PRN #240 ml 07/26/17 [Rx] Sertraline [Zoloft] 25 mg PO DAILY #30 tablet 07/26/17 [Rx] Allergies/Adverse Reactions: 3 Allergy/AdvReac Type Severity Reaction Status Date / Time No Known Allergies Allergy Verified 07/22/17 09:13 Procedures/tests Complete & Pending: Procedures Performed prior 72 hours Category Date Time Status 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 lp [IR] Routine Exams 07/24/17 00:01 Completed Date of admission: 07/22/17 10:15 Primary care physician: PCP NONE Consults: 07/22/17 12:04 Consult to Nutrition [CONS] Routine Comment: Consulting Provider: NUTRITION Reason for Dietary Consult: MST Score 07/22/17 12:41 Consult to Physician [CONS] Routine Consulting Provider: Guillermo Cantor Reason for Consult: DLBCL Call Completed: Yes Discharging clinician: Tosha Thompson Anticipated date of discharge: 07/26/17 - Patient Status Disposition: Home, Self-Care Condition: Good Functional capacity at discharge: independent ambulation Overall status at discharge: patient is progressing back to baseline - Discharge Instructions Follow Up With: NONE,PCP [Primary Care Provider] - Additional Instructions: F/up with [facility] as scheduled F/up with PCP in 1-2 weeks - Diet and Activity Activity: resume usual activities as tolerated Diet: advance to your usual diet Hospital course: Ms. Vale is a 47 year old female with history of diffuse large B-cell lymphoma who was admitted for inpatient chemotherapy. Patient received fourth cycle of chemotherapy with R-EPOCH. She tolerated chemotherapy well, had stable labs and remained hemodynamically stable. She was noted to have 1-2 g drop in hemoglobin and her current hemoglobin is 7.8. This is thought to be secondary to chemotherapy and she will follow-up as outpatient. Patient also reported dysphagia and odynophagia. Although oral thrush was not appreciated on examination, patient did feel better with nystatin/Magic mouthwash. She completed her chemotherapy at this time and is medically stable for discharge. - Time Spent with Patient Total time spent providing and/or coordinating discharge services: Greater than 30 minutes (40 min) - Constitutional Vitals: Temp Pulse Resp BP Pulse Ox 98.9 F 72 14 125/68 98 07/26/17 14:20 07/26/17 14:20 07/26/17 14:20 07/26/17 14:20 07/26/17 14:20 General appearance: Present: A&O X 3, answers questions appropriately - Cardiovascular Cardiovascular exam: Present: RRR, +S1, +S2. Absent: diastolic murmur, gallop, rubs, systolic murmur
== END 2017-07-26 20:27 | disposition home or self-care (01) ==
LOC: INTOOBSV 10:15 → 2ANU 10:15 → SUATTDRO 10:15 → 3ANU 15:31
PROVIDERS: ADMIT Internal Medicine; ATTEND Internal Medicine

== ENCOUNTER 2017-08-13 07:57 | Inpatient (IN) ==
[~2017-08-13 07:57] MED LIST changes: +DOXOrubicin HCL 200 MG/100 ML MLS IV SCH
[2017-08-13] MEDS ORDERED: *HR* HYDROcodone/Acet 5/325 mg TABLET PO PRN (10:54)
[2017-08-13] MEDS ORDERED: Acetaminophen 325 MG TABLET PO PRN (10:54)
[2017-08-13] MEDS ORDERED: Naloxone 0.4 MG/ML INJ IVP PRN (10:54)
--- NOTE | 2017-08-13 11:15 | Internal Med History&Physical ---
<Alessandro Lindsey - Last Filed: 08/13/17 11:50> Date of Encounter: 08/13/17 Time of Encounter: 10:30 Assessment and Plan (1) Diffuse large B cell lymphoma Current visit: Yes Status: Acute Pt. presents for 5th chemotherapy tx and to be followed by oncology. IV antiemetics, IVP Protonix, and stair-step pain medications for pain management. Pt. placed on continuous telemetry. Monitor f/u labs, I&O, and daily weight. Qualifiers: Lymphoma site: intra-abdominal nodes Qualified Code(s): C83.33 - Diffuse large B-cell lymphoma, intra-abdominal lymph nodes (2) Leg pain, bilateral Current visit: Yes Status: Acute Pt. reports acute and sharp "pins and needles" sensations in her bilateral LEs following the start of her chemotherapy. PT/OT consults ordered to assess pt. for ambulation strength/stability. Stair-step pain medication for pain management. (3) Tobacco abuse counseling Current visit: Yes Status: Acute Pt. counseled >10 minutes regarding the importance of smoking cessation on her current health and dx. Successful methods for quitting discussed. Nicotine patch 21 mg ordered daily. (4) GERD (gastroesophageal reflux disease) Current visit: Yes Status: Chronic Hx of chronic GERD that pt. reports is not well-controlled. Promethazine and prochlorperazine for nausea/vomiting. IVP Protonix 40 mg BID for GERD. Pt. reports appetite so regular diet w/advance as tolerated ordered. Monitor I&O and daily weight. Nutrition consult ordered for PO supplementation. Qualifiers: Esophagitis presence: esophagitis presence not specified Qualified Code(s) : K21.9 - Gastro-esophageal reflux disease without esophagitis (5) Anemia due to chemotherapy Current visit: Yes Status: Chronic Hx of chronic anemia since beginning chemotherapy. Pt. is due for 5th tx. Today Hgb is 12.1 and Hct 36.8, up from 7.1 and 22.4 on 08/07/17. Monitor H/H in f/u labs. (6) Tobacco abuse Current visit: Yes Status: Chronic Hx of chronic tobacco abuse. Pt. reports she used to smoke 1 PPD and now smokes 5 cigarettes per day. Nicotine patch 21 mg ordered daily. (7) DVT prophylaxis Current visit: Yes Status: Acute Lovenox 40 mg 0600 daily for DVT prophylaxis. Monitor pt. for signs of bleeding. Internal Medicine - H&P: HPI Chief complaint: Need for chemotherapy tx Admitted From: Emergency Dept Plans for Post Hospital Care: Home History of present illness: Ms. Vale is a 47 year old female with medical hx of diffuse large B-cell lymphoma, anemia due to chemotherapy, and GERD presents as a direct admit from oncology for her fifth chemotherapy treatment. Patient reports she is currently in every day smoker, currently smoking 1 pack per day and now has cut back to 5 cigarettes per day with the expressed desire to quit. Patient reports having sharp "pins and needles" sensations in her bilateral LEs since beginning chemotherapy w/some leg weakness. Patient states she currently feels well and denies recent illness, nausea, vomiting, fever, chills, diarrhea, constipation, changes in vision, unusual bleeding, headache, abdominal pain, chest pain, palpitations, shortness of breath, lightheadedness, dizziness, pre-syncope, or syncope. Past Med Surg Social Fam HX - Past Medical History Source: patient, old records reviewed Medical history: cancer (Diffuse large B-cell lymphoma), GERD Psychiatric history: anxiety, depression - Past Surgical History Surgical History: appendectomy, colectomy, hysterectomy (Total) - Social History Smoking Status: Current every day smoker Packs per day: 5 cigarettes per day - Reports wanting to quit Smokeless Tobacco Status: No Alcohol use: none Drug use: none Current living situation: Home Activity Level: Independent ambulation Recent Out of Country Travel Within the Last 8 Weeks: No Exposure or Possible Exposure to Illness During Travel: No - Family History Mother Race: Family Member Ethnicity: Non- Living Status: Age at : 62 Cause of : Emphysema Hx Family Cardiac Disorders: Yes (CAD, HTN) Hx Family Respiratory Disorders: Yes (Emphysema) Hx Family Endocrine Disorder: Yes (Thyroid disease) Father Race: Family Member Ethnicity: Non- Living Status: Age at : 62 Cause of : ID Hx Family Cardiac Disorders: Yes (ID, CAD, HTN) Hx Family Endocrine Disorder: Yes (DM) Brother Race: Family Member Ethnicity: Non- Living Status: Age at : 25 Cause of : in house fire Sister Race: Family Member Ethnicity: Non- Living Status: Still Living Hx Family Medical Disorders: No Grandmother Race: Family Member Ethnicity: Non- Living Status: Cause of : Colon cancer Hx Family Cancer: Yes (Colon) Internal Medicine - H&P: Meds Nicotine Patch [Nicoderm] 21 mg TD DAILY #30 patch.td24 07/06/17 [Rx] Ranitidine HCl [Zantac] 150 mg PO DAILY #30 tablet 07/22/17 [Rx] Magic Mouthwash [Magic Mouthwash BLM] 10 ml PO Q3H PRN #240 ml 07/26/17 [Rx] Sertraline [Zoloft] 25 mg PO DAILY #30 tablet 07/26/17 [Rx] Gabapentin [Neurontin] 300 mg PO TID #90 capsule 08/13/17 [Rx] HYDROcodone/Acet 5/325 mg [Mize 5-325 mg] 1 - 2 tab PO Q6H PRN #90 tablet 08/13 [Rx] 3 Allergy/AdvReac Type Severity Reaction Status Date / Time No Known Allergies Allergy Verified 08/13/17 09:28 All Systems PM: A 10-system review of systems was performed and is negative for pertinent findings except as documented above in the HPI. - Constitutional Constitutional: no chills, no fever(s), no night sweats - EENT Eyes: no change in vision, no discharge, no pain, no photophobia Ears: no ear discharge, no ear pain, no tinnitus Nose, mouth and throat: no dysphagia, no nasal discharge, no neck pain, no sore throat - Breasts Breasts: as per HPI - Cardiovascular Cardiovascular ROS IM: no chest pain, no diaphoresis, no dyspnea, no lightheadedness, no palpitations, no syncope - Respiratory Respiratory: no cough, no dyspnea, no wheezing, no excessive phlegm production - Gastrointestinal Gastrointestinal: as per HPI, heartburn, no abdominal pain, no diarrhea, no hematemesis, no hematochezia, no melena, no nausea, no vomiting - Genitourinary Genitourinary: no change in urinary stream, no dysuria, no flank pain, no hematuria Menstruation: as per HPI, post hysterectomy - Musculoskeletal Musculoskeletal ROS IM: tingling (Pins and needles sensations in her bilateral LEs that is constant since beginning chemotherapy) - Integumentary Integumentary IM: no rash, no unusual bruising - Neurological Neurological ROS: no confusion, no convulsions, no focal weakness, no numbness, no tingling, no tremor(s) - Psychiatric Psychiatric: as per HPI - Endocrine Endocrine IM: as per HPI - Hematologic/Lymphatic Hematologic/Lymphatic: no easy bruising - Allergic/Immunologic Allergic/Immunologic: as per HPI - Constitutional Vitals: Temp Pulse Resp BP Pulse Ox 98.5 F 86 15 130/88 98 08/13/17 10:34 08/13/17 10:34 08/13/17 10:34 08/13/17 10:34 08/13/17 10:34 General appearance: Present: cooperative, A&O X 3, pleasant, no acute distress, answers questions appropriately - Head Head exam: Present: atraumatic, normal inspection, normocephalic - Eye Eye exam: Present: PERRL, conjuntiva pink, sclera anicteric Pupils: Present: PERRL - ENT ENT exam: Present: normal exam, normal external ear exam - Neck Neck exam general surgery: Present: normal inspection, supple, trachea midline. Absent: lymphadenopathy - Respiratory Respiratory exam: Present: CTAB. Absent: accessory muscle use, rales, rhonchi, wheezes - Cardiovascular Cardiovascular exam: Present: RRR, +S1, +S2. Absent: diastolic murmur, gallop, rubs, systolic murmur - GI/Abdominal GI/Abdominal exam: Present: normal bowel sounds, soft, no peritoneal signs. Absent: distended, tenderness - Rectal Rectal exam: Present: deferred - Additional comments: exam deferred. - Extremities Exam Extremities exam: Present: warm, radial pulses palpable and symmetrical. Absent : calf tenderness, cyanotic, pedal edema - Back Exam Back exam: Present: normal inspection - Neurological Exam Neurological exam: Present: alert, CN II-XII intact, oriented X3, no focal deficits. Absent: pronater drift, facial droop, speech deficit - Psychiatric Psychiatric exam: Present: normal affect, normal mood - Skin Skin exam: Present: dry, intact <Afia,Warren P - Last Filed: 08/13/17 18:22> Date of Encounter: 08/13/17 Internal Medicine - H&P: HPI History of present illness: Ms. Vale is a 47 year old female All Systems PM: A 10-system review of systems was performed and is negative for pertinent findings except as documented above in the HPI. - Constitutional Vitals: Temp Pulse Resp BP Pulse Ox 99.1 F 87 16 102/65 98 08/13/17 14:07 08/13/17 17:21 08/13/17 17:21 08/13/17 17:21 08/13/17 17:21 Internal Med - H&P Results - Labs CBC & Chem 7: 08/13/17 13:50 Labs: BMP 08/13/17 13:50 Sodium 141 Potassium 3.7 Chloride 108 Carbon Dioxide 23 BUN 12 Creatinine 0.65 Glucose 93 Calcium 9.1 Liver Function 08/13/17 Range/Units 13:50 Total Bilirubin 0.2 (0.2-1.2) mg/dL AST 11 (5-34) Units/L ALT 12 (0-55) Units/L Alkaline Phosphatase 134 H (38-126) Units/L Albumin 3.4 L (3.5-5.0) g/dL - Attending Attestation I examined this patient and my medical decision-making was reviewed with the Resident Physician. I agree with the documented findings, disposition and treatment plan as described except to the extent set forth below. 47/female Admitted from oncology practice. Has a diffuse lymphoma. This is a induction chemotherapy. Oncology on the board. Hospitalist service will follow the recommendations from the oncology.
[2017-08-13] MEDS ORDERED: predniSONE 20 MG TABLET PO SCH (11:45)
[2017-08-13] MEDS: *HR* OxyCODONE/APAP 5/325 TABLET PO PRN ×3 (12:58→23:37)
[2017-08-13 14:32] LABS: Alanine Aminotransferase 12 Units/L (0-55); Albumin 3.4 g/dL (3.5-5.0); Albumin/Globulin Ratio 1.2 (1.1-2.2); Alkaline Phosphatase 134 Units/L (38-126); Aspartate Amino Transferase 11 Units/L (5-34); BUN/Creatinine Ratio 18 (6-26); Bilirubin,Total 0.2 mg/dL (0.2-1.2); Blood Urea Nitrogen 12 mg/dL (7-20); Calcium 9.1 mg/dL (8.6-10.8); Carbon Dioxide 23 mEq/L (19-29); Chloride 108 mEq/L (98-109); Globulin 2.9 g/dL (2.4-3.5); Glucose 93 mg/dL (70-99); Osmolality,Calculated 291 (280-300); Potassium 3.7 mEq/L (3.5-4.5); Sodium 141 mEq/L (136-145); Total Protein 6.3 g/dL (6.0-8.3); eGFR For African Americans > 60 (> 60); eGFR For Non-African Americans > 60 (> 60)
[2017-08-13] MEDS: Gabapentin 300 MG CAPSULE PO SCH ×2 (15:41→20:40)
[2017-08-13] MEDS: predniSONE 20 MG TABLET PO SCH (17:04)
[2017-08-13] MEDS: Pantoprazole 40 MG VIAL IVP SCH (17:04)
[2017-08-13] MEDS: VINCRISTINE IV SCH (19:26)
[2017-08-13] MEDS: DOXORUBICIN HCL IV SCH (19:26)
[2017-08-13] MEDS: [UNRECOGNIZED DRUG - OTHER] IV SCH (19:26)
[2017-08-13] MEDS: ETOPOSIDE IV SCH (19:26)
[2017-08-13] MEDS: 0.9 % Sodium Chloride 500 ML IVC SCH (19:27)
[2017-08-13] MEDS: *HR* Morphine 2 MG/ML SYRINGE IVP PRN (20:44)
[2017-08-14] MEDS: *HR* Morphine 2 MG/ML SYRINGE IVP PRN ×5 (01:04→20:10)
[2017-08-14] MEDS: *HR* OxyCODONE/APAP 5/325 TABLET PO PRN ×4 (04:45→18:48)
[2017-08-14 06:00] LABS: Basophils % 0.5 %; Hematocrit 30.2 % (35.3-44.9); Hemoglobin 9.7 g/dL (11.5-15.4); Lymphocytes # 0.7 K/mcL (0.6-4.6); Lymphocytes % 12.2 %; Mean Corpuscular HGB Conc 32.1 g/dL (31.6-35.5); Mean Corpuscular Hemoglobin 30.4 pg (28.0-33.3); Mean Platelet Volume 9.6 fL (9.4-12.4); Monocytes # 0.4 K/mcL (0.0-1.3); Monocytes % 7.6 %; Neutrophils # 4.3 K/mcL (1.6-8.9); Nucleated Red Blood Cells 0.4 /100 WBC (0); Platelet Count 151 K/mcL (140-400); Red Blood Count 3.19 M/mcL (3.82-4.97); Red Cell Distribution Width 19.7 % (11.5-14.5); Segmented Neutrophils % 77.7 %
[2017-08-14] MEDS ORDERED: *HR* Enoxaparin 40 MG/0.4 ML SYRINGE SQ SCH (06:00)
[2017-08-14] MEDS: Pantoprazole 40 MG VIAL IVP SCH ×2 (06:05→18:48)
[2017-08-14 06:13] LABS: Prothrombin Time 11.1 Seconds (9.4-12.1)
[2017-08-14 06:15] LABS: Activated Partial Thrombo Time 24.9 Seconds (26.0-36.0)
[2017-08-14 06:18] LABS: Mean Corpuscular Volume 94.7 fL (83.0-100.0)
[2017-08-14 06:21] LABS: Hemoglobin A1C 5.1 %
[2017-08-14 06:23] LABS: Alanine Aminotransferase 11 Units/L (0-55); Albumin 3.2 g/dL (3.5-5.0); Albumin/Globulin Ratio 1.1 (1.1-2.2); Alkaline Phosphatase 126 Units/L (38-126); Aspartate Amino Transferase 11 Units/L (5-34); BUN/Creatinine Ratio 15 (6-26); Bilirubin,Total 0.2 mg/dL (0.2-1.2); Blood Urea Nitrogen 9 mg/dL (7-20); Calcium 9.1 mg/dL (8.6-10.8); Carbon Dioxide 20 mEq/L (19-29); Chloride 109 mEq/L (98-109); Chol/HDL Ratio 5.8 (0-4.9); Cholesterol 242 mg/dL (< 200); Globulin 2.8 g/dL (2.4-3.5); Glucose 154 mg/dL (70-99); HDL Cholesterol 42 mg/dL (40-59); LDL Cholesterol,Calculated 170 mg/dL (0-99); Magnesium 1.8 mg/dL (1.6-2.6); Osmolality,Calculated 288 (280-300); Phosphorous 3.1 mg/dL (2.3-4.7); Potassium 4.3 mEq/L (3.5-4.5); Sodium 138 mEq/L (136-145); Triglycerides 149 mg/dL (< 150); eGFR For African Americans > 60 (> 60); eGFR For Non-African Americans > 60 (> 60)
[2017-08-14] MEDS: predniSONE 20 MG TABLET PO SCH ×2 (09:15→16:11)
[2017-08-14] MEDS: Gabapentin 300 MG CAPSULE PO SCH ×3 (09:15→20:10)
[2017-08-14] MEDS: Nicotine 21 MG PATCH.TD24 TD SCH (09:15)
[2017-08-14] MEDS: 0.9 % Sodium Chloride 500 ML IVC SCH ×2 (16:10)
--- NOTE | 2017-08-14 16:10 | Oncology Inp Progress Note ---
Date of Encounter: 08/14/17 Time of Encounter: 16:00 (1) Diffuse large B cell lymphoma Current Visit: Yes Status: Acute Assessment and plan: We will continue with cycle #5 of dose adjusted R-EPOCH. She is at dose level + 1 and doing well. We will plan for IT MTX tomorrow with the aid of IR. This has been ordered. Hold Lovenox in AM tomorrow. Appreciate the hospitalists assistance in this case. Qualifiers: Lymphoma site: intra-abdominal nodes Qualified Code(s): C83.33 - Diffuse large B-cell lymphoma, intra-abdominal lymph nodes (2) Neuropathy Current Visit: Yes Status: Acute Assessment and plan: Continue gabapentin. Oncology: Subj Interval history: Ms. Vale is doing well. Tolerating day 2 of therapy. Ambulating some. Leg pain improved with gabapentin, percocet and morphine. No acute issues. - Constitutional Vitals: Vital Signs Temp Pulse Resp BP Pulse Ox 08/14/17 14:11 97.9 F 73 14 115/66 98 08/14/17 10:22 98.4 F 82 16 133/71 95 08/14/17 06:17 98.0 F 73 14 108/65 97 08/14/17 03:17 98.0 F 74 14 120/72 97 08/13/17 23:37 97.9 F 73 14 115/69 98 08/13/17 18:38 98.4 F 82 14 109/66 98 08/13/17 17:21 87 16 102/65 98 Intake and Output 08/14/17 08/14/17 08/14/17 00:59 08:59 16:59 Intake Total 497 / 497 120 / 120 2190 / 2190 Output Total 0 / 0 1300 / 1300 1700 / 1700 Balance 497 / 497 -1180 / -1180 490 / 490 Intake: IV Fluids 497 / 497 Rituxan 520 mg In 0.9 % Sodium 497 / 497 Chloride 500 ML @ 110 mls/hr IV ONCE AIMEE Rx#:[id number] Oral 0 / 0 120 / 120 2190 / 2190 Output: Urine 0 / 0 1300 / 1300 1700 / 1700 Other: Meal Lunch Percent of Meal Consumed 100% # Voids 1 # Bowel Movements 0 0 Weight 49.804 kg Patient Weight 08/15/17 00:59 Weight 49.804 kg General appearance: cooperative, thin - Head Head exam: Present: atraumatic, normal inspection, normocephalic - Eye Eye exam: Present: conjuntiva pink, sclera anicteric - ENT ENT exam: Present: mucous membranes dry, mucous membranes moist - Neck Neck exam: Present: full ROM, normal inspection - Respiratory Respiratory exam: Present: CTAB - Cardiovascular Cardiovascular exam: Present: RRR - GI/Abdominal GI/Abdominal exam: Present: normal bowel sounds, soft - Extremities Exam Extremities exam: Present: normal inspection - Neurological Exam Neurological exam: Present: alert, CN II-XII intact, normal gait, oriented X3 Oncology: Obj Data - Labs CBC & Chem 7: 08/14/17 05:41 08/14/17 05:41 Labs: Laboratory Results - last 24 hr 08/14/17 08/14/17 08/14/17 05:41 05:41 05:41 WBC 5.6 RBC 3.19 L Hgb 9.7 L D Hct 30.2 L MCV 94.7 MCH 30.4 MCHC 32.1 RDW 19.7 H Plt Count 151 MPV 9.6 Immature Gran % 2.0 Seg Neutrophils % 77.7 Lymphocytes % 12.2 Monocytes % 7.6 Eosinophils % 0.0 Basophils % 0.5 Neutrophils # 4.3 Lymphocytes # 0.7 Monocytes # 0.4 Eosinophils # 0.0 Basophils # 0.0 Nucleated RBCs/100 WBC 0.4 H PT 11.1 INR 1.0 APTT 24.9 L Sodium 138 Potassium 4.3 Chloride 109 Carbon Dioxide 20 BUN 9 Creatinine 0.62 Est GFR ( Amer) > 60 Est GFR (Non-Af Amer) > 60 BUN/Creatinine Ratio 15 Glucose 154 H Est Mean Plasma Glucose Hemoglobin A1c Calculated Osmolality 288 Calcium 9.1 Phosphorus 3.1 Magnesium 1.8 Total Bilirubin 0.2 AST 11 ALT 11 Alkaline Phosphatase 126 Serum Total Protein 6.0 Albumin 3.2 L Globulin 2.8 Albumin/Globulin Ratio 1.1 Triglycerides 149 Cholesterol 242 H LDL Cholesterol, Calc 170 H VLDL Cholesterol, Calc 30 HDL Cholesterol 42 Cholesterol/HDL Ratio 5.8 H 08/14/17 05:41 WBC RBC Hgb Hct MCV MCH MCHC RDW Plt Count MPV Immature Gran % Seg Neutrophils % Lymphocytes % Monocytes % Eosinophils % Basophils % Neutrophils # Lymphocytes # Monocytes # Eosinophils # Basophils # Nucleated RBCs/100 WBC PT INR APTT Sodium Potassium Chloride Carbon Dioxide BUN Creatinine Est GFR ( Amer) Est GFR (Non-Af Amer) BUN/Creatinine Ratio Glucose Est Mean Plasma Glucose 100 Hemoglobin A1c 5.1 Calculated Osmolality Calcium Phosphorus Magnesium Total Bilirubin AST ALT Alkaline Phosphatase Serum Total Protein Albumin Globulin Albumin/Globulin Ratio Triglycerides Cholesterol LDL Cholesterol, Calc VLDL Cholesterol, Calc HDL Cholesterol Cholesterol/HDL Ratio - ABG Interpretation ABG results: PT/INR, D-dimer PT 11.1 Seconds (9.4-12.1) 08/14/17 05:41 Consult Discharge Plan - Plan Referrals: NONE,PCP [Primary Care Provider] -
--- NOTE | 2017-08-14 16:50 | Internal Med Progress Note ---
Date of Encounter: 08/14/17 Time of Encounter: 11:00 - Assessment and plan (1) Diffuse large B cell lymphoma Current Visit: Yes Status: Acute Assessment and plan: 1. Diffuse large B B cell lymphoma: admitted for 5th cycle of chemotherapy. Management per Oncology 2. Anemia: Secondary to chemotherapy. Hgb 12.1 on arrival and dropped to 9.7 on 8. No active bleeding. Monitor H&H, transfuse for Hgb less than 3. Neuropathy: Continue gabapentin 4. DVT prophylaxis: SCDs Qualifiers: Lymphoma site: intra-abdominal nodes Qualified Code(s): C83.33 - Diffuse large B-cell lymphoma, intra-abdominal lymph nodes (2) Anemia due to chemotherapy Current Visit: Yes Status: Chronic - Subjective Interval history: Seen and examined at bedside. Patient is new to me. Information obtained from chart review and patient report. Patient says she fells well and has no complaints. - Constitutional Vitals: Temp Pulse Resp BP Pulse Ox 97.9 F 73 14 115/66 98 08/14/17 14:11 08/14/17 14:11 08/14/17 14:11 08/14/17 14:11 08/14/17 14:11 General appearance: Present: cooperative, A&O X 3, pleasant, no acute distress, answers questions appropriately - Head Head exam: Present: atraumatic, normocephalic - Eye Eye exam: Present: PERRL, conjuntiva pink, sclera anicteric Pupils: Present: PERRL - Neck Neck exam general surgery: Present: supple, trachea midline. Absent: lymphadenopathy - Respiratory Respiratory exam: Present: CTAB. Absent: accessory muscle use, rales, rhonchi, wheezes - Cardiovascular Cardiovascular exam: Present: RRR, +S1, +S2. Absent: diastolic murmur, gallop, rubs, systolic murmur - GI/Abdominal GI/Abdominal exam: Present: normal bowel sounds, soft, no peritoneal signs. Absent: distended, tenderness - Extremities Exam Extremities exam: Present: warm, radial pulses palpable and symmetrical. Absent : calf tenderness, cyanotic, pedal edema - Neurological Exam Neurological exam: Present: CN II-XII intact, oriented X3, no focal deficits. Absent: pronater drift, facial droop, speech deficit - Skin Skin exam: Present: dry, intact Internal Medicine: Result - Labs CBC & Chem 7: 08/14/17 05:41 08/14/17 05:41 Labs: Short CBC 08/14/17 Range/Units 05:41 WBC 5.6 (4.3-11.1) K/mcL Hgb 9.7 L D (11.5-15.4) g/dL Hct 30.2 L (35.3-44.9) % Plt Count 151 (140-400) K/mcL Neutrophils # 4.3 (1.6-8.9) K/mcL BMP 08/14/17 05:41 Sodium 138 Potassium 4.3 Chloride 109 Carbon Dioxide 20 BUN 9 Creatinine 0.62 Glucose 154 H Calcium 9.1 Liver Function 08/14/17 Range/Units 05:41 Total Bilirubin 0.2 (0.2-1.2) mg/dL AST 11 (5-34) Units/L ALT 11 (0-55) Units/L Alkaline Phosphatase 126 (38-126) Units/L Albumin 3.2 L (3.5-5.0) g/dL - ABG Interpretation ABG results: PT/INR, D-dimer PT 11.1 Seconds (9.4-12.1) 08/14/17 05:41 Consult Discharge Plan - Plan Referrals: NONE,PCP [Primary Care Provider] -
[2017-08-14] MEDS: ETOPOSIDE IV SCH ×2 (17:12→17:24)
[2017-08-14] MEDS: DOXORUBICIN HCL IV SCH ×2 (17:12→17:24)
[2017-08-14] MEDS: VINCRISTINE IV SCH ×2 (17:12→17:24)
[2017-08-14] MEDS: [UNRECOGNIZED DRUG - OTHER] IV SCH ×2 (17:12→17:24)
[2017-08-15] MEDS ORDERED: Methotrexate PFS 25 MG/ML VIAL IT SCH
[2017-08-15] MEDS: *HR* OxyCODONE/APAP 5/325 TABLET PO PRN ×4 (02:20→20:49)
[2017-08-15] MEDS: Pantoprazole 40 MG VIAL IVP SCH ×2 (05:07→18:06)
[2017-08-15] MEDS: *HR* Morphine Immed Rel 30 MG TABLET PO PRN ×3 (05:07→18:07)
[2017-08-15 06:12] LABS: Basophils % 0.1 %; Hematocrit 29.8 % (35.3-44.9); Hemoglobin 9.6 g/dL (11.5-15.4); Immature Granulocytes % 0.9 % (0-4); Lymphocytes # 0.7 K/mcL (0.6-4.6); Lymphocytes % 4.9 %; Mean Corpuscular HGB Conc 32.2 g/dL (31.6-35.5); Mean Corpuscular Hemoglobin 30.8 pg (28.0-33.3); Mean Corpuscular Volume 95.5 fL (83.0-100.0); Mean Platelet Volume 9.5 fL (9.4-12.4); Monocytes # 0.9 K/mcL (0.0-1.3); Monocytes % 6.5 %; Neutrophils # 12.4 K/mcL (1.6-8.9); Nucleated Red Blood Cells 0.2 /100 WBC (0); Platelet Count 155 K/mcL (140-400); Red Blood Count 3.12 M/mcL (3.82-4.97); Red Cell Distribution Width 19.9 % (11.5-14.5); Segmented Neutrophils % 87.6 %
[2017-08-15 06:26] LABS: Alanine Aminotransferase 16 Units/L (0-55); Albumin 3.1 g/dL (3.5-5.0); Albumin/Globulin Ratio 1.1 (1.1-2.2); Alkaline Phosphatase 118 Units/L (38-126); Aspartate Amino Transferase 15 Units/L (5-34); BUN/Creatinine Ratio 17 (6-26); Bilirubin,Total 0.3 mg/dL (0.2-1.2); Blood Urea Nitrogen 10 mg/dL (7-20); Calcium 8.9 mg/dL (8.6-10.8); Carbon Dioxide 22 mEq/L (19-29); Chloride 109 mEq/L (98-109); Globulin 2.7 g/dL (2.4-3.5); Glucose 83 mg/dL (70-99); Osmolality,Calculated 288 (280-300); Potassium 3.9 mEq/L (3.5-4.5); Sodium 140 mEq/L (136-145); Total Protein 5.8 g/dL (6.0-8.3); eGFR For African Americans > 60 (> 60); eGFR For Non-African Americans > 60 (> 60)
[2017-08-15] MEDS: Nicotine 21 MG PATCH.TD24 TD SCH (08:17)
[2017-08-15] MEDS: Gabapentin 300 MG CAPSULE PO SCH ×3 (08:17→20:49)
[2017-08-15] MEDS: predniSONE 20 MG TABLET PO SCH ×2 (08:17→18:06)
--- NOTE | 2017-08-15 10:34 | Internal Med Progress Note ---
Date of Encounter: 08/15/17 Time of Encounter: 10:23 - Assessment and plan (1) Diffuse large B cell lymphoma Current Visit: Yes Status: Acute Assessment and plan: 1. Diffuse large B B cell lymphoma: admitted for 5th cycle of chemotherapy. WBC 14 K, suspect secondary to steroids. Intrathecal methotrexate planned 08/15. Management per Oncology 2. Anemia: Secondary to chemotherapy. Hgb 12 on admission. Stable in 9s; no active bleeding. Monitor H&H. 3. Neuropathy: Continue gabapentin 4. Urinary frequency: with reported malodorous, concentrated urine. UA with C& S pending 5. DVT prophylaxis: SCDs, resume Lovenox 08/16 Qualifiers: Lymphoma site: intra-abdominal nodes Qualified Code(s): C83.33 - Diffuse large B-cell lymphoma, intra-abdominal lymph nodes (2) Anemia due to chemotherapy Current Visit: Yes Status: Chronic - Subjective Interval history: Seen and examined at bedside. Says she feels well today. Uneventful night. She reports frequency and strong, odorous urine. No dysuria. Intrathecal methotrexate planned with IR later today. Says she may be discharged on Saturday. - Constitutional Vitals: Temp Pulse Resp BP Pulse Ox 98.6 F 70 18 128/71 99 08/15/17 07:39 08/15/17 07:39 08/15/17 07:39 08/15/17 07:39 08/15/17 07:39 General appearance: Present: cooperative, A&O X 3, pleasant, no acute distress, answers questions appropriately - Head Head exam: Present: atraumatic, normocephalic - Eye Eye exam: Present: PERRL, conjuntiva pink, sclera anicteric Pupils: Present: PERRL - Neck Neck exam general surgery: Present: supple, trachea midline. Absent: lymphadenopathy - Respiratory Respiratory exam: Present: CTAB. Absent: accessory muscle use, rales, rhonchi, wheezes - Cardiovascular Cardiovascular exam: Present: RRR, +S1, +S2. Absent: diastolic murmur, gallop, rubs, systolic murmur - GI/Abdominal GI/Abdominal exam: Present: normal bowel sounds, soft, no peritoneal signs. Absent: distended, tenderness - Extremities Exam Extremities exam: Present: warm, radial pulses palpable and symmetrical. Absent : calf tenderness, cyanotic, pedal edema - Neurological Exam Neurological exam: Present: CN II-XII intact, oriented X3, no focal deficits. Absent: pronater drift, facial droop, speech deficit - Skin Skin exam: Present: dry, intact Internal Medicine: Result - Labs CBC & Chem 7: 08/15/17 05:55 08/15/17 05:55 Labs: Short CBC 08/15/17 Range/Units 05:55 WBC 14.2 H D (4.3-11.1) K/mcL Hgb 9.6 L (11.5-15.4) g/dL Hct 29.8 L (35.3-44.9) % Plt Count 155 (140-400) K/mcL Neutrophils # 12.4 H (1.6-8.9) K/mcL BMP 08/15/17 05:55 Sodium 140 Potassium 3.9 Chloride 109 Carbon Dioxide 22 BUN 10 Creatinine 0.60 Glucose 83 Calcium 8.9 Liver Function 08/15/17 Range/Units 05:55 Total Bilirubin 0.3 (0.2-1.2) mg/dL AST 15 (5-34) Units/L ALT 16 (0-55) Units/L Alkaline Phosphatase 118 (38-126) Units/L Albumin 3.1 L (3.5-5.0) g/dL - ABG Interpretation ABG results: PT/INR, D-dimer PT 11.1 Seconds (9.4-12.1) 08/14/17 05:41 Consult Discharge Plan - Plan Referrals: NONE,PCP [Primary Care Provider] -
[2017-08-15 12:41] LABS: Bilirubin,Urine Negative (Negative); Blood,Urine Negative (Negative); Clarity,Urine Clear (Clear); Color,Urine Yellow (Yellow); Glucose,Urine (UA) Normal (Normal); Ketones,Urine Negative (Negative); Leukocyte Esterase,Urine Negative (Negative); Nitrite,Urine Negative (Negative); Protein,Urine Negative (Neg-Trace); Specific Gravity,Urine 1.006 (1.010-1.025); Urobilinogen,Urine Normal (Normal)
--- NOTE | 2017-08-15 12:59 | IR Procedure Note ---
Date of procedure: 08/15/17 Consent Obtained: Written consent Timeout: Correct patient and procedure verified, Correct site verified, Time out performed, Skin prep completed Local anesthetic: Lidocaine 1% Indications: Diffuse large B-cell lymphoma Procedure Performed: Intrathecal MTX injection Site/Technique: Lower lumbar spine Results/Findings: 12mg of MTX injected into spine without difficulty. Estimated blood loss (cc): 0 Complications: None; Tolerated procedure well Post Procedure Treatment Plan: Monitoring in pts room
[2017-08-15] MEDS: 0.9 % Sodium Chloride 500 ML IVC SCH (14:07)
[2017-08-15] MEDS ORDERED: VINCRISTINE IV SCH (16:00)
[2017-08-15] MEDS ORDERED: DOXORUBICIN HCL IV SCH (16:00)
[2017-08-15] MEDS ORDERED: ETOPOSIDE IV SCH (16:00)
[2017-08-15] MEDS ORDERED: [UNRECOGNIZED DRUG - OTHER] IV SCH (16:00)
[2017-08-15] MEDS: DOXORUBICIN HCL IV SCH (16:59)
[2017-08-15] MEDS: [UNRECOGNIZED DRUG - OTHER] IV SCH (16:59)
[2017-08-15] MEDS: VINCRISTINE IV SCH (16:59)
[2017-08-15] MEDS: ETOPOSIDE IV SCH (16:59)
--- NOTE | 2017-08-15 17:26 | Oncology Inp Progress Note ---
Date of Encounter: 08/15/17 Time of Encounter: 19:30 (1) Diffuse large B cell lymphoma Current Visit: Yes Status: Acute Assessment and plan: We will continue with cycle #5 of dose adjusted R-EPOCH. She is at dose level + 1 and doing well. Appreciate the hospitalists assistance in this case. Encouraged oral intake and ambulation. I have d/c'd telemetry to aid in comfort and ambulation. Qualifiers: Lymphoma site: intra-abdominal nodes Qualified Code(s): C83.33 - Diffuse large B-cell lymphoma, intra-abdominal lymph nodes (2) Neuropathy Current Visit: Yes Status: Acute Assessment and plan: Continue gabapentin. Oncology: Subj Interval history: Uneventful IT MTX today. Had some smell to urine; UA normal. Has been walking around. Leg pain controlled. Would like tele d/c'd. - Constitutional Vitals: Vital Signs Temp Pulse Resp BP Pulse Ox 08/15/17 14:45 98.6 F 79 18 116/66 98 08/15/17 11:03 98.5 F 78 16 128/71 98 08/15/17 07:39 98.6 F 70 18 128/71 99 08/15/17 03:01 98.1 F 80 16 113/64 98 08/14/17 19:12 98.6 F 78 15 120/66 97 Intake and Output 08/15/17 08/15/17 08/16/17 08:59 16:59 00:59 Intake Total 560 / 560 1812.9 / 1812.9 Output Total 1000 / 1000 1200 / 1200 Balance -440 / -440 612.9 / 612.9 Intake: IV Fluids 1012.9 / 1012.9 Adriamycin 17 MG Etoposide 80 512.9 / 512.9 mg VinCRIStine 0.4 MG In 0.9 % Sodium Chloride [place] Bg 500 ML @ 24 mls/hr IV ONCE [facility] Rx#: [id number] 0.9 % Sodium Chloride 500 ML @ 500 / 500 25 MLS/HR 25 mls/hr IVC .Q20H A[facility]EE Rx#:[id number] Oral 560 / 560 800 / 800 Output: Urine 1000 / 1000 1200 / 1200 Other: Weight 55.962 kg Patient Weight 08/16/17 00:59 Weight 55.962 kg General appearance: cooperative, no acute distress - Head Head exam: Present: atraumatic, normal inspection, normocephalic - Eye Eye exam: Present: conjuntiva pink, sclera anicteric - ENT ENT exam: Present: mucous membranes moist, normal exam, normal oropharynx - Neck Neck exam: Present: full ROM, normal inspection - Respiratory Respiratory exam: Present: CTAB - Cardiovascular Cardiovascular exam: Present: RRR - Extremities Exam Extremities exam: Present: normal inspection - Neurological Exam Neurological exam: Present: alert, CN II-XII intact, oriented X3 Oncology: Obj Data - Labs CBC & Chem 7: 08/15/17 05:55 08/15/17 05:55 Labs: Laboratory Results - last 24 hr 08/15/17 08/15/17 08/15/17 05:55 05:55 12:15 WBC 14.2 H D RBC 3.12 L Hgb 9.6 L Hct 29.8 L MCV 95.5 MCH 30.8 MCHC 32.2 RDW 19.9 H Plt Count 155 MPV 9.5 Immature Gran % 0.9 Seg Neutrophils % 87.6 Lymphocytes % 4.9 Monocytes % 6.5 Eosinophils % 0.0 Basophils % 0.1 Neutrophils # 12.4 H Lymphocytes # 0.7 Monocytes # 0.9 Eosinophils # 0.0 Basophils # 0.0 Nucleated RBCs/100 WBC 0.2 H Sodium 140 Potassium 3.9 Chloride 109 Carbon Dioxide 22 BUN 10 Creatinine 0.60 Est GFR ( Amer) > 60 Est GFR (Non-Af Amer) > 60 BUN/Creatinine Ratio 17 Glucose 83 Calculated Osmolality 288 Calcium 8.9 Total Bilirubin 0.3 AST 15 ALT 16 Alkaline Phosphatase 118 Serum Total Protein 5.8 L Albumin 3.1 L Globulin 2.7 Albumin/Globulin Ratio 1.1 Urine Color Yellow Urine Clarity Clear Urine pH 6.0 Ur Specific [place] 1.006 L Urine Protein Negative Urine Glucose (UA) Normal Urine Ketones Negative Urine Blood Negative Urine Nitrite Negative Urine Bilirubin Negative Urine Urobilinogen Normal Ur Leukocyte Esterase Negative Ur Culture Indicated? NO - Impressions Impressions Chemotherapy Admin, Fluoroscopy Guided 08/15/17 08:12 IMPRESSION: Successful fluoroscopic-guided lumbar puncture and intrathecal injection of methotrexate. D/ / Faraz Carlin MD / Faraz Carlin MD Interpreting Provider: Faraz Carlin MD - ABG Interpretation ABG results: PT/INR, D-dimer PT 11.1 Seconds (9.4-12.1) 08/14/17 05:41 Consult Discharge Plan - Plan Referrals: NONE,PCP [Primary Care Provider] -
[2017-08-16] MEDS: *HR* Morphine Immed Rel 30 MG TABLET PO PRN ×5 (00:30→23:54)
[2017-08-16] MEDS: *HR* OxyCODONE/APAP 5/325 TABLET PO PRN ×4 (03:00→22:25)
[2017-08-16 04:54] LABS: Hematocrit 28.5 % (35.3-44.9); Hemoglobin 9.2 g/dL (11.5-15.4); Mean Corpuscular HGB Conc 32.3 g/dL (31.6-35.5); Mean Corpuscular Hemoglobin 30.9 pg (28.0-33.3); Mean Corpuscular Volume 95.6 fL (83.0-100.0); Platelet Count 138 K/mcL (140-400); Red Blood Count 2.98 M/mcL (3.82-4.97); Red Cell Distribution Width 19.7 % (11.5-14.5)
[2017-08-16 05:16] LABS: Alanine Aminotransferase 20 Units/L (0-55); Albumin 3.3 g/dL (3.5-5.0); Albumin/Globulin Ratio 1.2 (1.1-2.2); Alkaline Phosphatase 114 Units/L (38-126); Aspartate Amino Transferase 15 Units/L (5-34); BUN/Creatinine Ratio 14 (6-26); Bilirubin,Total 0.3 mg/dL (0.2-1.2); Blood Urea Nitrogen 9 mg/dL (7-20); Calcium 9.2 mg/dL (8.6-10.8); Carbon Dioxide 24 mEq/L (19-29); Chloride 108 mEq/L (98-109); Globulin 2.7 g/dL (2.4-3.5); Glucose 106 mg/dL (70-99); Osmolality,Calculated 293 (280-300); Potassium 4.2 mEq/L (3.5-4.5); Sodium 142 mEq/L (136-145); eGFR For African Americans > 60 (> 60); eGFR For Non-African Americans > 60 (> 60)
[2017-08-16] MEDS: Ondansetron 4 MG/2 ML VIAL IVP PRN (05:22)
[2017-08-16] MEDS: *HR* Enoxaparin 40 MG/0.4 ML SYRINGE SQ SCH (06:39)
[2017-08-16] MEDS: Pantoprazole 40 MG VIAL IVP SCH ×2 (06:41→17:53)
--- NOTE | 2017-08-16 07:39 | Internal Med Progress Note ---
Date of Encounter: 08/16/17 Time of Encounter: 07:37 - Assessment and plan (1) Diffuse large B cell lymphoma Current Visit: Yes Status: Acute Assessment and plan: 1. Diffuse large B cell lymphoma: admitted for 5th cycle of chemotherapy. WBC peaked at 14K, suspect secondary to steroids. S/p intrathecal methotrexate 08/15. Management per Oncology 2. Anemia: Secondary to chemotherapy. Hgb 12 on admission. Stable in 9s; no active bleeding. Monitor H&H. 3. Chronic pain: on hydrocodone at home ([facility] reviewed 08/16/17). Receiving PRN Morphine and gabapentin inpatient. Patient reports better pain control with morphine/gabapentin versus hydrocodone. Discussed with Dr. Cantor; stop hydrocodone and cont morphine/gabapentin at discharge. 4. Hyperlipidemia: LDL 170, add statin 5. DVT prophylaxis: SCDs, Lovenox Qualifiers: Lymphoma site: intra-abdominal nodes Qualified Code(s): C83.33 - Diffuse large B-cell lymphoma, intra-abdominal lymph nodes (2) Anemia due to chemotherapy Current Visit: Yes Status: Chronic - Subjective Interval history: Seen and examined at bedside. Patient reports an uneventful night. Says she feels well. Reports intermittent gas, no abdominal pain has occasional loose stool which she reports is chronic. No dysuria. No chest pain, no shortness of breath. No pain at intrathecal chemotherapy site. She does complain of chronic bilateral leg pain for which she takes hydrocodone at home. On morphine and gabapentin in the hospital. Patient reports better and longer lasting relief with the morphine and gabapentin versus hydrocodone. Discussed with Dr. Cantor and will stop the hydrocodone and continue gabapentin and morphine at discharge. - Constitutional Vitals: Temp Pulse Resp BP Pulse Ox 98.2 F 72 18 131/76 98 08/16/17 06:36 08/16/17 06:36 08/16/17 06:36 08/16/17 06:36 08/16/17 06:36 General appearance: Present: cooperative, A&O X 3, pleasant, no acute distress, answers questions appropriately - Head Head exam: Present: atraumatic, normocephalic - Eye Eye exam: Present: PERRL, conjuntiva pink, sclera anicteric Pupils: Present: PERRL - Neck Neck exam general surgery: Present: supple, trachea midline. Absent: lymphadenopathy - Respiratory Respiratory exam: Present: CTAB. Absent: accessory muscle use, rales, rhonchi, wheezes - Cardiovascular Cardiovascular exam: Present: RRR, +S1, +S2. Absent: diastolic murmur, gallop, rubs, systolic murmur - GI/Abdominal GI/Abdominal exam: Present: normal bowel sounds, soft, no peritoneal signs. Absent: distended, tenderness - Extremities Exam Extremities exam: Present: warm, radial pulses palpable and symmetrical. Absent : calf tenderness, cyanotic, pedal edema - Neurological Exam Neurological exam: Present: CN II-XII intact, oriented X3, no focal deficits. Absent: pronater drift, facial droop, speech deficit - Skin Skin exam: Present: dry, intact Internal Medicine: Result - Labs CBC & Chem 7: 08/16/17 04:13 08/16/17 04:13 Labs: Short CBC 08/16/17 Range/Units 04:13 WBC 5.5 D (4.3-11.1) K/mcL Hgb 9.2 L (11.5-15.4) g/dL Hct 28.5 L (35.3-44.9) % Plt Count 138 L (140-400) K/mcL BMP 08/16/17 04:13 Sodium 142 Potassium 4.2 Chloride 108 Carbon Dioxide 24 BUN 9 Creatinine 0.65 Glucose 106 H Calcium 9.2 Liver Function 08/16/17 Range/Units 04:13 Total Bilirubin 0.3 (0.2-1.2) mg/dL AST 15 (5-34) Units/L ALT 20 (0-55) Units/L Alkaline Phosphatase 114 (38-126) Units/L Albumin 3.3 L (3.5-5.0) g/dL Urine 08/15/17 Range/Units 12:15 Urine Color Yellow (Yellow) Urine Clarity Clear (Clear) Urine pH 6.0 (5.0-8.0) pH Units Ur Specific [place] 1.006 L (1.010-1.025) Urine Protein Negative (Neg-Trace) mg/dL Urine Glucose (UA) Normal (Normal) mg/dL - ABG Interpretation ABG results: PT/INR, D-dimer PT 11.1 Seconds (9.4-12.1) 08/14/17 05:41 - Impressions Impressions Chemotherapy Admin, Fluoroscopy Guided 08/15/17 08:12 IMPRESSION: Successful fluoroscopic-guided lumbar puncture and intrathecal injection of methotrexate. D/ / Faraz Carlin MD / Faraz Carlin MD Interpreting Provider: Faraz Carlin MD Consult Discharge Plan - Plan Referrals: NONE,PCP [Primary Care Provider] -
[2017-08-16] MEDS: Magic Mouthwash 10 ML UD Cup PO PRN ×2 (08:55→22:23)
[2017-08-16] MEDS: VINCRISTINE IV SCH (15:00)
[2017-08-16] MEDS: DOXORUBICIN HCL IV SCH (15:00)
[2017-08-16] MEDS: ETOPOSIDE IV SCH (15:00)
[2017-08-16] MEDS: [UNRECOGNIZED DRUG - OTHER] IV SCH (15:00)
--- NOTE | 2017-08-16 17:20 | Oncology Inp Progress Note ---
Date of Encounter: 08/18/17 Time of Encounter: 17:30 (1) Diffuse large B cell lymphoma Status: Acute Assessment and plan: We will continue with cycle #5 of dose adjusted R-EPOCH. She is at dose level + 1 and doing well. Appreciate the hospitalists assistance in this case. Encouraged oral intake and ambulation. Hopefully home late tomorrow with Manuelito to follow on Saturday in the office. This has been arranged. Qualifiers: Lymphoma site: intra-abdominal nodes Qualified Code(s): C83.33 - Diffuse large B-cell lymphoma, intra-abdominal lymph nodes (2) Neuropathy Status: Chronic Assessment and plan: Continue gabapentin. Morphine written for the patient and will be ready at the pharmacy. Oncology: Subj Interval history: Pain better controlled on morphine. Prescription written for this by my office. Nauseated currently and nurse retrieving kytril. No other issues. Anxious to return home. - Constitutional Vitals: Vital Signs Temp Pulse Resp BP Pulse Ox 08/16/17 15:00 98.6 F 75 16 120/65 98 08/16/17 10:29 97.7 F 66 18 136/75 98 08/16/17 06:36 98.2 F 72 18 131/76 98 08/16/17 03:31 97.9 F 74 20 142/78 99 08/15/17 23:17 98.5 F 70 17 133/74 97 08/15/17 19:20 98.5 F 75 18 117/66 96 Intake and Output 08/16/17 08/16/17 08/17/17 08:59 16:59 00:59 Intake Total 840 / 840 660 / 660 Output Total 900 / 900 400 / 400 Balance -60 / -60 260 / 260 Intake: Oral 840 / 840 660 / 660 Output: Urine 900 / 900 400 / 400 Other: Meal Lunch Percent of Meal Consumed 100% Weight 56.019 kg Patient Weight 08/17/17 00:59 Weight 56.019 kg General appearance: cooperative, no acute distress - Head Head exam: Present: atraumatic, normal inspection, normocephalic - Eye Eye exam: Present: conjuntiva pink, sclera anicteric - ENT ENT exam: Present: mucous membranes moist, normal exam, normal oropharynx - Neck Neck exam: Present: full ROM - Respiratory Respiratory exam: Present: CTAB - Cardiovascular Cardiovascular exam: Present: RRR - GI/Abdominal GI/Abdominal exam: Present: normal bowel sounds, soft - Extremities Exam Extremities exam: Present: normal inspection - Neurological Exam Neurological exam: Present: alert, CN II-XII intact, oriented X3, no focal deficits Oncology: Obj Data - Labs CBC & Chem 7: 08/17/17 06:14 08/17/17 06:14 Labs: Laboratory Results - last 24 hr 08/16/17 08/16/17 04:13 04:13 WBC 5.5 D RBC 2.98 L Hgb 9.2 L Hct 28.5 L MCV 95.6 MCH 30.9 MCHC 32.3 RDW 19.7 H Plt Count 138 L MPV 10.0 Sodium 142 Potassium 4.2 Chloride 108 Carbon Dioxide 24 BUN 9 Creatinine 0.65 Est GFR ( Amer) > 60 Est GFR (Non-Af Amer) > 60 BUN/Creatinine Ratio 14 Glucose 106 H Calculated Osmolality 293 Calcium 9.2 Total Bilirubin 0.3 AST 15 ALT 20 Alkaline Phosphatase 114 Serum Total Protein 6.0 Albumin 3.3 L Globulin 2.7 Albumin/Globulin Ratio 1.2 - ABG Interpretation ABG results: PT/INR, D-dimer PT 11.1 Seconds (9.4-12.1) 08/14/17 05:41 Consult Discharge Plan - Plan Referrals: NONE,PCP [Primary Care Provider] -
[2017-08-16] MEDS: Gabapentin 300 MG CAPSULE PO SCH ×3 (17:54→22:00)
[2017-08-16] MEDS: predniSONE 20 MG TABLET PO SCH ×2 (17:56)
[2017-08-16] MEDS: Nicotine 21 MG PATCH.TD24 TD SCH (23:54)
[2017-08-17] MEDS: Magic Mouthwash 10 ML UD Cup PO PRN (05:48)
[2017-08-17] MEDS: *HR* Enoxaparin 40 MG/0.4 ML SYRINGE SQ SCH (05:48)
[2017-08-17] MEDS: *HR* Morphine Immed Rel 30 MG TABLET PO PRN ×2 (05:49→13:06)
[2017-08-17] MEDS: Ondansetron 4 MG/2 ML VIAL IVP PRN (05:50)
[2017-08-17 06:32] LABS: Hematocrit 29.1 % (35.3-44.9); Hemoglobin 9.4 g/dL (11.5-15.4); Mean Corpuscular HGB Conc 32.3 g/dL (31.6-35.5); Mean Corpuscular Hemoglobin 30.9 pg (28.0-33.3); Mean Corpuscular Volume 95.7 fL (83.0-100.0); Mean Platelet Volume 9.7 fL (9.4-12.4); Platelet Count 124 K/mcL (140-400); Red Blood Count 3.04 M/mcL (3.82-4.97); Red Cell Distribution Width 19.2 % (11.5-14.5)
[2017-08-17 06:52] LABS: Alanine Aminotransferase 116 Units/L (0-55); Albumin 3.1 g/dL (3.5-5.0); Albumin/Globulin Ratio 1.1 (1.1-2.2); Alkaline Phosphatase 112 Units/L (38-126); Aspartate Amino Transferase 90 Units/L (5-34); BUN/Creatinine Ratio 21 (6-26); Bilirubin,Total 0.4 mg/dL (0.2-1.2); Blood Urea Nitrogen 13 mg/dL (7-20); Calcium 8.6 mg/dL (8.6-10.8); Carbon Dioxide 22 mEq/L (19-29); Chloride 109 mEq/L (98-109); Globulin 2.7 g/dL (2.4-3.5); Glucose 141 mg/dL (70-99); Osmolality,Calculated 296 (280-300); Potassium 3.7 mEq/L (3.5-4.5); Sodium 142 mEq/L (136-145); Total Protein 5.8 g/dL (6.0-8.3); eGFR For African Americans > 60 (> 60); eGFR For Non-African Americans > 60 (> 60)
[2017-08-17] MEDS: predniSONE 20 MG TABLET PO SCH ×2 (10:20→16:14)
[2017-08-17] MEDS: Gabapentin 300 MG CAPSULE PO SCH ×2 (10:20→16:15)
[2017-08-17] MEDS: Nicotine 21 MG PATCH.TD24 TD SCH (10:20)
[2017-08-17] MEDS: Pantoprazole 40 MG VIAL IVP SCH ×2 (10:21→16:14)
[2017-08-17] MEDS ORDERED: CYCLOPHOSPHAMIDE IV SCH (16:00)
[2017-08-17] MEDS ORDERED: SODIUM CHLORIDE 0.9% IV SCH (16:00)
[2017-08-17] MEDS: DOXORUBICIN HCL IV SCH (16:25)
[2017-08-17] MEDS: VINCRISTINE IV SCH (16:25)
[2017-08-17] MEDS: [UNRECOGNIZED DRUG - OTHER] IV SCH (16:25)
[2017-08-17] MEDS: ETOPOSIDE IV SCH (16:25)
[2017-08-17 16:42] VITALS: BP 123/67
--- NOTE | 2017-08-17 16:50 | Discharge Summary ---
Date of Encounter: 08/17/17 Time of Encounter: 16:41 - Discharge Diagnosis (1) Diffuse large B cell lymphoma Priority: Primary Status: Acute Qualifiers: Lymphoma site: intra-abdominal nodes Qualified Code(s): C83.33 - Diffuse large B-cell lymphoma, intra-abdominal lymph nodes (2) Chemotherapy management, encounter for Priority: Secondary Status: Acute (3) Leg weakness, bilateral Priority: Secondary Status: Acute (4) Anemia due to chemotherapy Priority: Secondary Status: Chronic (5) Tobacco abuse Priority: Secondary Status: Chronic (6) GERD (gastroesophageal reflux disease) Priority: Secondary Status: Chronic Qualifiers: Esophagitis presence: esophagitis presence not specified Qualified Code(s) : K21.9 - Gastro-esophageal reflux disease without esophagitis (7) Leg pain, bilateral Priority: Secondary Status: Chronic (8) Neuropathy Priority: Secondary Status: Chronic - Discharge Medications Home Medications: Nicotine Patch [Nicoderm] 21 mg TD DAILY #30 patch.td24 07/06/17 [Rx] Ranitidine HCl [Zantac] 150 mg PO DAILY #30 tablet 07/22/17 [Rx] Magic Mouthwash [Magic Mouthwash BLM] 10 ml PO Q3H PRN #240 ml 07/26/17 [Rx] Sertraline [Zoloft] 25 mg PO DAILY #30 tablet 07/26/17 [Rx] Gabapentin [Neurontin] 300 mg PO TID #90 capsule 08/13/17 [Rx] Morphine Immed Rel [Morphine Sulfate] 15 mg PO Q6H PRN #30 tab 08/16/17 [Rx] Allergies/Adverse Reactions: 3 Allergy/AdvReac Type Severity Reaction Status Date / Time No Known Allergies Allergy Verified 08/13/17 09:28 Procedures/tests Complete & Pending: Procedures Performed prior 72 hours Category Date Time Status IR chemo power 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 08/13/17 10:59 Consult to Occupational Therapy [CONS] Routine Comment: Evaluate, develop and implement POC Reason for Consult: Patient reports weakness and pain (pins and needles sensations) in her bilateral LEs. Please assess for strength, stability, safety, ambulation, and assistive needs for post-discharge planning. 08/13/17 11:00 Consult to Physical Therapy [CONS] Routine Comment: Evaluate, develop and implement POC Reason for Consult: Patient reports weakness and pain (pins and needles sensations) in her bilateral LEs. Please assess for strength, stability, safety, ambulation, and assistive needs for post-discharge planning. 08/13/17 11:07 Consult to Nutrition [CONS] Routine Comment: Consulting Provider: NUTRITION Reason for Dietary Consult: PO Supplementation Discharging clinician: Lance Lemons - Patient Status Disposition: Home, Self-Care Condition: Undetermined Functional capacity at discharge: independent ambulation Overall status at discharge: patient is back to baseline - Discharge Instructions Follow Up With: NONE,PCP [Primary Care Provider] - - Diet and Activity Activity: as per physical therapy Diet: advance to your usual diet Hospital course: Ms. Vale is a 47 year old female with medical hx of diffuse large B-cell lymphoma, anemia due to chemotherapy, and GERD presents as a direct admit from oncology for her fifth chemotherapy treatment. Patient reports she is currently in every day smoker, currently smoking 1 pack per day and now has cut back to 5 cigarettes per day with the expressed desire to quit. Patient reports having sharp "pins and needles" sensations in her bilateral LEs since beginning chemotherapy w/some leg weakness. Patient states she currently feels well and denies recent illness, nausea, vomiting, fever, chills, diarrhea, constipation, changes in vision, unusual bleeding, headache, abdominal pain, chest pain, palpitations, shortness of breath, lightheadedness, dizziness, pre-syncope, or syncope. She was started on IV antiemetics, IVP Protonix, and stair-step pain medications for pain management. Pt. placed on continuous telemetry. PT/OT consults ordered for leg strength and stability. Leg pain improved with gabapentin and morphine. She was able to tolerate therapies and PT/OT recommended home PT/OT. was on morphine and gabapentin to home for pain control on DC - Time Spent with Patient Total time spent providing and/or coordinating discharge services: - Constitutional Vitals: Temp Pulse Resp BP Pulse Ox 98 F 80 20 143/79 98 08/17/17 06:57 08/17/17 06:57 08/17/17 06:57 08/17/17 06:57 08/17/17 06:57 General appearance: Present: cooperative, A&O X 3, pleasant, no acute distress, answers questions appropriately Exam: - Head Head exam: Present: atraumatic, normocephalic - Eye Eye exam: Present: PERRL, conjuntiva pink, sclera anicteric Pupils: Present: PERRL - Neck Neck exam general surgery: Present: supple, trachea midline. Absent: lymphadenopathy - Respiratory Respiratory exam: Present: CTAB. Absent: accessory muscle use, rales, rhonchi, wheezes - Cardiovascular Cardiovascular exam: Present: RRR, +S1, +S2. Absent: diastolic murmur, gallop, rubs, systolic murmur - GI/Abdominal GI/Abdominal exam: Present: normal bowel sounds, soft, no peritoneal signs. Absent: distended, tenderness - Extremities Exam Extremities exam: Present: warm, radial pulses palpable and symmetrical. Absent : calf tenderness, cyanotic, pedal edema - Neurological Exam Neurological exam: Present: CN II-XII intact, oriented X3, no focal deficits. Absent: pronater drift, facial droop, speech deficit - Skin Skin exam: Present: dry, intact
--- NOTE | 2017-08-17 16:59 | Physician Discharge Referral ---
Home Health/Hosp Referral Info Transfer to: Home Health Provider in Charge Post Discharge: PCP - Diagnosis (1) Diffuse large B cell lymphoma Priority: Primary Status: Acute (2) Leg weakness, bilateral Priority: Secondary Status: Acute (3) Anemia due to chemotherapy Priority: Secondary Status: Chronic (4) Tobacco abuse Priority: Secondary Status: Chronic (5) Leg pain, bilateral Priority: Secondary Status: Chronic (6) Neuropathy Priority: Secondary Status: Chronic (7) GERD (gastroesophageal reflux disease) Priority: Secondary Status: Chronic - Respiratory Orders Smoking Cessation: Smoking cessation has been advised. For more information, call the [place] Tobacco Quit Line at 1-509-WWTA-NOW. - Diet/Nutrition Diet/Nutrition Orders: Regular - Activity Activity Orders: Up ad gal - Services Needed Following services are medically necessary services: Physical Therapy, Occupational Therapy - Transfer Medications Home Medications: Nicotine Patch [Nicoderm] 21 mg TD DAILY #30 patch.td24 07/06/17 [Rx] Ranitidine HCl [Zantac] 150 mg PO DAILY #30 tablet 07/22/17 [Rx] Magic Mouthwash [Magic Mouthwash BLM] 10 ml PO Q3H PRN #240 ml 07/26/17 [Rx] Sertraline [Zoloft] 25 mg PO DAILY #30 tablet 07/26/17 [Rx] Gabapentin [Neurontin] 300 mg PO TID #90 capsule 08/13/17 [Rx] HYDROcodone/Acet 5/325 mg [[place] 5-325 mg] 1 - 2 tab PO Q6H PRN #90 tablet 08/13 [Rx] Morphine Immed Rel [Morphine Sulfate] 15 mg PO Q6H PRN #30 tab 08/16/17 [Rx] Allergies/Adverse Reactions: 3 Allergy/AdvReac Type Severity Reaction Status Date / Time No Known Allergies Allergy Verified 08/13/17 09:28 Certification: Further, I certify that my clinical findings support that this patient is homebound (i.e. absences from home require considerable and taxing effort and are for medical reasons or episcopal services or infrequently or short duration when for other reasons) because: Homebound Reason: Patient requires assistance of a person or device to safely leave home Attestation: My signature below is to certify that this patient is under my care and that I, or nurse practitioner, or a physician's assistant professor of marine biology working with me, has a face-to -face encounter with this patient.
--- NOTE | 2017-08-17 17:55 | Oncology Inp Progress Note ---
Date of Encounter: 08/17/17 Time of Encounter: 17:00 (1) Diffuse large B cell lymphoma Current Visit: Yes Status: Acute Assessment and plan: Stage IV, high risk, double hit lymphoma patient is receiving inpatient chemotherapy, EPOCH. She has tolertaed Rx well Receiving last dose -cytoxan and i sready to be discharged after She will f/u Saturday in clinic for neulasta support. Hgb/Hct steady. Plan reviewed with patient briefly Qualifiers: Lymphoma site: intra-abdominal nodes Qualified Code(s): C83.33 - Diffuse large B-cell lymphoma, intra-abdominal lymph nodes Oncology: Subj Interval history: Denies any nausea diarrhea discomfort. She is receiving her chemotherapy currently. - Constitutional Vitals: Vital Signs Temp Pulse Resp BP Pulse Ox 08/17/17 16:40 98.9 F 84 16 123/67 97 08/17/17 06:57 98 F 80 20 143/79 98 08/17/17 03:19 98.6 F 81 15 134/70 96 08/16/17 18:44 98.5 F 76 15 117/65 98 Intake and Output 08/17/17 08/17/17 08/17/17 07:59 15:59 23:59 Intake Total 0 / 0 512.9 / 512.9 Output Total 750 / 750 400 / 400 Balance -750 / -750 512.9 / 512.9 -400 / -400 Intake: IV Fluids 512.9 / 512.9 Adriamycin 17 MG Etoposide 80 512.9 / 512.9 mg VinCRIStine 0.4 MG In 0.9 % Sodium Chloride [place] Bg 500 ML @ 24 mls/hr IV ONCE AIMEE Rx#: [id number] Oral 0 / 0 Output: Urine 750 / 750 400 / 400 Other: Stool Size Large Stool Consistency soft formed Stool Characteristics Normal for Patient Stool Color Brown Weight 56.2 kg Patient Weight 08/17/17 23:59 Weight 56.2 kg General appearance: average body habitus - Head Head exam: Present: atraumatic, normal inspection - Eye Eye exam: Present: sclera anicteric - ENT ENT exam: Present: mucous membranes moist - Cardiovascular Cardiovascular exam: Present: +S1, +S2 - Neurological Exam Neurological exam: Present: alert, oriented X3 - Psychiatric Psychiatric exam: Present: normal affect Oncology: Obj Data - Labs CBC & Chem 7: 08/17/17 06:14 08/17/17 06:14 Labs: Laboratory Results - last 24 hr 08/17/17 08/17/17 06:14 06:14 WBC 4.4 RBC 3.04 L Hgb 9.4 L Hct 29.1 L MCV 95.7 MCH 30.9 MCHC 32.3 RDW 19.2 H Plt Count 124 L MPV 9.7 Sodium 142 Potassium 3.7 Chloride 109 Carbon Dioxide 22 BUN 13 Creatinine 0.63 Est GFR ( Amer) > 60 Est GFR (Non-Af Amer) > 60 BUN/Creatinine Ratio 21 Glucose 141 H Calculated Osmolality 296 Calcium 8.6 Total Bilirubin 0.4 AST 90 H ALT 116 H Alkaline Phosphatase 112 Serum Total Protein 5.8 L Albumin 3.1 L Globulin 2.7 Albumin/Globulin Ratio 1.1 - ABG Interpretation ABG results: PT/INR, D-dimer PT 11.1 Seconds (9.4-12.1) 08/14/17 05:41 Consult Discharge Plan - Plan Referrals: NONE,PCP [Primary Care Provider] -
== END 2017-08-17 16:00 | disposition home or self-care (01) | DRG 696 ==
LOC: 3ANU 10:07
PROVIDERS: ADMIT Internal Medicine; ATTEND Student in an Organized Health Care Education/Training Program

== ENCOUNTER 2017-09-03 08:23 | Inpatient (IN) ==
[~2017-09-03 08:23] MED LIST changes: -*HR* LORazepam 2 MG/ML VIAL IV PRN; -*HR* Promethazine 25 MG/ML VIAL IV PRN; -Acetaminophen 325 MG TABLET PO ONE; -Famotidine 20 MG/2 ML VIAL IV PRN; -Fosaprepitant Dimeglumine 150 MG in 0.9 % Sodium Chloride 250 ML IV SCH
[2017-09-03] MEDS ORDERED: Acetaminophen 325 MG TABLET PO SCH (13:00)
[2017-09-03] MEDS ORDERED: predniSONE 20 MG TABLET PO SCH ×2 (13:00→20:30)
[2017-09-03] MEDS ORDERED: Fosaprepitant Dimeglumine 150 MG in 0.9 % Sodium Chloride 250 ML IV SCH (15:00)
[2017-09-03] MEDS ORDERED: DOXORUBICIN HCL IV ONE (16:00)
[2017-09-03] MEDS ORDERED: ETOPOSIDE IV ONE (16:00)
[2017-09-03] MEDS ORDERED: SODIUM CHLORIDE EXCEL BG 0.9% IV ONE (16:00)
[2017-09-03] MEDS ORDERED: *HR* OxyCODONE/APAP 5/325 TABLET PO PRN (19:18)
[2017-09-03] MEDS ORDERED: *HR* LORazepam 0.5 MG TABLET PO PRN (19:33)
[2017-09-03] MEDS ORDERED: *HR* Promethazine 25 MG/ML VIAL IVP PRN (19:54)
[2017-09-03] MEDS ORDERED: Naloxone 0.4 MG/ML INJ IVP PRN (19:58)
--- NOTE | 2017-09-03 20:02 | Event Note ---
Date of Encounter: 09/03/17 Time of Encounter: 20:01 Patient seen and examined with nurse practitioner. Agree with assessment and plan
--- NOTE | 2017-09-03 20:07 | Internal Med History&Physical ---
Date of Encounter: 09/03/17 Time of Encounter: 20:04 Assessment and Plan (1) Diffuse large B cell lymphoma Current visit: Yes Status: Acute She is being admitted for cycle #6 of DA-RPOCH chemotherapy treatment and she will be followed by oncology. Continue antiemitics, Ativan PRN, Hydrocodone, Morphine IR, and Gabapentin at 600mg TID. Start lovenox 40mg SC daily Start Protonix IVP 40mg daily Continuous tele CMP and mg now CBC, BMP in the morning Qualifiers: Lymphoma site: intra-abdominal nodes Qualified Code(s): C83.33 - Diffuse large B-cell lymphoma, intra-abdominal lymph nodes (2) Anemia due to chemotherapy Current visit: Yes Status: Chronic Secondary to chemotherapy, HGB 9.3 on admission stable, Monitor H&H (3) Tobacco abuse Current visit: Yes Status: Chronic Daily smoker. Smoking cessation counseling provided. (4) GERD (gastroesophageal reflux disease) Current visit: Yes Status: Chronic Resume H2 and start IVP PPI 40mg SC daily Qualifiers: Esophagitis presence: esophagitis presence not specified Qualified Code(s) : K21.9 - Gastro-esophageal reflux disease without esophagitis (5) Leg pain, bilateral Current visit: Yes Status: Chronic Resume hydrocodone, and Morphine IR, Start Gabapentin 600mg TID (6) Neuropathy Current visit: Yes Status: Chronic see plan above (7) DVT prophylaxis Current visit: Yes Status: Acute Lovenox 40mg SC daily Internal Medicine - H&P: HPI Chief complaint: Administration of chemotherapy Admitted From: Home Plans for Post Hospital Care: Home History of present illness: Ms. Vale is a 47 year old female and currently every day smoker with a PMH of stage IVb diffuse B-cell Lymphoma. She presents to [facility] today from oncology for admission for administration of chemotherapy. She appears pleasant and denies any concerns at this time. Denies any fevers, chills, N/V/D, fatigue, decrease in appetite, or SOB. She admits to numbness, tingling and pain in her BLE. Oncology to follow during admission. Past Med Surg Social Fam HX - Past Medical History Medical history: cancer (Diffuse large B-cell lymphoma), GERD Psychiatric history: anxiety, depression - Past Surgical History Surgical History: appendectomy, colectomy, hysterectomy (Total) - Social History Smoking Status: Current every day smoker Smokeless Tobacco Status: No Alcohol use: none Drug use: none - Family History Mother Family Member Ethnicity: Non- Living Status: Hx Family Cardiac Disorders: Yes (CAD, HTN) Hx Family Respiratory Disorders: Yes (Emphysema) Hx Family Endocrine Disorder: Yes (Thyroid disease) Father Family Member Ethnicity: Non- Living Status: Hx Family Cardiac Disorders: Yes (CT, CAD, HTN) Hx Family Endocrine Disorder: Yes (DM) Brother Family Member Ethnicity: Non- Living Status: Sister Family Member Ethnicity: Non- Living Status: Still Living Grandmother Family Member Ethnicity: Non- Living Status: Hx Family Cancer: Yes (Colon) Internal Medicine - H&P: Meds Ranitidine HCl [Zantac] 150 mg PO DAILY #30 tablet 07/22/17 [Rx] Sertraline [Zoloft] 25 mg PO DAILY #30 tablet 07/26/17 [Rx] Morphine Immed Rel [Morphine Sulfate] 15 mg PO Q6H PRN #30 tab 08/16/17 [Rx] Gabapentin [Neurontin] 300 mg PO TID 09/03/17 [History] HYDROcodone/Acet 5/325 mg [[place] 5-325 mg] 1 - 2 tab PO Q6H PRN 09/03/17 [ History] 3 Allergy/AdvReac Type Severity Reaction Status Date / Time No Known Allergies Allergy Verified 09/03/17 09:02 All Systems PM: A 10-system review of systems was performed and is negative for pertinent findings except as documented above in the HPI. - Constitutional Constitutional: no chills, no fever(s), no night sweats - EENT Eyes: no change in vision, no discharge, no pain, no photophobia Ears: no ear discharge, no ear pain, no tinnitus Nose, mouth and throat: no dysphagia, no nasal discharge, no neck pain, no sore throat - Cardiovascular Cardiovascular ROS IM: no chest pain, no diaphoresis, no dyspnea, no lightheadedness, no palpitations, no syncope - Respiratory Respiratory: no cough, no dyspnea, no wheezing, no excessive phlegm production - Gastrointestinal Gastrointestinal: no abdominal pain, no diarrhea, no hematemesis, no hematochezia, no melena, no nausea, no vomiting - Genitourinary Genitourinary: no change in urinary stream, no dysuria, no flank pain, no hematuria - Musculoskeletal Musculoskeletal ROS IM: arthralgias, myalgias, numbness, tingling Additional comments: BLE numbness, tingling and pain - Integumentary Integumentary IM: no rash, no unusual bruising - Neurological Neurological ROS: no confusion, no convulsions, no focal weakness, no numbness, no tingling, no tremor(s) - Hematologic/Lymphatic Hematologic/Lymphatic: no easy bruising - Constitutional Vitals: Temp Pulse Resp BP Pulse Ox 98.4 F 79 15 97/57 96 09/03/17 19:23 09/03/17 19:23 09/03/17 19:23 09/03/17 19:23 09/03/17 19:23 General appearance: Present: cooperative, A&O X 3, no acute distress, answers questions appropriately - Head Head exam: Present: atraumatic, normocephalic - Eye Eye exam: Present: PERRL, conjuntiva pink, sclera anicteric Pupils: Present: PERRL - Neck Neck exam general surgery: Present: supple, trachea midline. Absent: lymphadenopathy - Respiratory Respiratory exam: Present: CTAB. Absent: accessory muscle use, rales, rhonchi, wheezes - Cardiovascular Cardiovascular exam: Present: RRR, +S1, +S2. Absent: diastolic murmur, gallop, rubs, systolic murmur - GI/Abdominal GI/Abdominal exam: Present: normal bowel sounds, soft, no peritoneal signs. Absent: distended, tenderness - Extremities Exam Extremities exam: Present: warm, radial pulses palpable and symmetrical. Absent : calf tenderness, cyanotic, pedal edema - Neurological Exam Neurological exam: Present: CN II-XII intact, oriented X3, no focal deficits. Absent: pronater drift, facial droop, speech deficit - Skin Skin exam: Present: dry, intact
[2017-09-03 20:34] LABS: Alanine Aminotransferase 11 Units/L (0-55); Albumin 2.9 g/dL (3.5-5.0); Alkaline Phosphatase 132 Units/L (38-126); Aspartate Amino Transferase 11 Units/L (5-34); BUN/Creatinine Ratio 23 (6-26); Bilirubin,Total 0.2 mg/dL (0.2-1.2); Blood Urea Nitrogen 15 mg/dL (7-20); Calcium 8.5 mg/dL (8.6-10.8); Carbon Dioxide 20 mEq/L (19-29); Chloride 110 mEq/L (98-109); Globulin 2.8 g/dL (2.4-3.5); Glucose 105 mg/dL (70-99); Osmolality,Calculated 291 (280-300); Potassium 3.9 mEq/L (3.5-4.5); Sodium 140 mEq/L (136-145); Total Protein 5.7 g/dL (6.0-8.3); eGFR For African Americans > 60 (> 60); eGFR For Non-African Americans > 60 (> 60)
[2017-09-03] MEDS: *HR* HYDROcodone/Acet 5/325 mg TABLET PO PRN (20:48)
[2017-09-03] MEDS: Gabapentin 300 MG CAPSULE PO SCH (20:48)
[2017-09-03] MEDS: 0.9 % Sodium Chloride 500 ML IV SCH (20:49)
[2017-09-03] MEDS: *HR* Morphine Immed Rel 30 MG TABLET PO PRN (22:26)
[2017-09-04] MEDS ORDERED: Famotidine 20 MG/2 ML VIAL IV PRN
[2017-09-04] MEDS ORDERED: *HR* Promethazine 25 MG/ML VIAL IV PRN
[2017-09-04] MEDS ORDERED: 0.9 % Sodium Chloride 500 ML IVC SCH
[2017-09-04] MEDS ORDERED: Dexamethasone 10 MG/ML VIAL IV PRN
[2017-09-04] MEDS ORDERED: *HR* LORazepam 2 MG/ML VIAL IV PRN
[2017-09-04] MEDS ORDERED: Prochlorperazine 10 MG/2 ML VIAL IV PRN
[2017-09-04] MEDS ORDERED: DOXOrubicin HCL 200 MG/100 ML MLS IV SCH
[2017-09-04] MEDS: *HR* HYDROcodone/Acet 5/325 mg TABLET PO PRN ×3 (02:04→21:11)
[2017-09-04] MEDS: *HR* Promethazine 25 MG/ML VIAL IV PRN (02:05)
[2017-09-04] MEDS: *HR* Morphine Immed Rel 30 MG TABLET PO PRN ×3 (04:38→22:28)
[2017-09-04] MEDS: *HR* Enoxaparin 40 MG/0.4 ML SYRINGE SQ SCH (06:02)
[2017-09-04] MEDS: *HR* LORazepam 2 MG/ML VIAL IV PRN (06:03)
--- NOTE | 2017-09-04 06:58 | Oncology Inp Progress Note ---
Date of Encounter: 09/04/17 Time of Encounter: 07:00 (1) Diffuse large B cell lymphoma Current Visit: Yes Status: Acute Assessment and plan: Stage IVb diffuse large B-cell lymphoma. High risk IPI. 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 Patient presented with extensive extranodal disease involving the liver, kidneys, lungs as well as bone. CSF was not sampled at time of diagnosis. She has been admitted for cycle #6 of ourEPO CH chemotherapy at dose level +1. Vincristine has been discontinued secondary to neuropathy. She will proceed with day 2 of chemotherapy today. Estimated completion on Saturday. I have ordered intrathecal methotrexate for tomorrow. Consult to IR has been placed as well. I have held Lovenox for tomorrow morning. This may be reinitiated on Saturday. For patient's dizziness, I will administer 500 mL of saline today. Qualifiers: Lymphoma site: intra-abdominal nodes Qualified Code(s): C83.33 - Diffuse large B-cell lymphoma, intra-abdominal lymph nodes Oncology: Subj Interval history: She is feeling tired today. She did not sleep well. In addition, she feels dizzy. She is a mildly sedated on talking to her this morning. She she has continued pain involving her legs. This is a bit better with increased dose of gabapentin. No other new complaints today. - Constitutional Vitals: Vital Signs Temp Pulse Resp BP Pulse Ox 09/04/17 06:26 97.7 F 83 16 94/53 96 09/04/17 03:55 98.2 F 86 15 106/63 97 09/03/17 23:39 98.2 F 79 15 101/60 97 09/03/17 19:23 98.4 F 79 15 97/57 96 09/03/17 16:38 98.5 F 73 15 95/57 97 Intake and Output 09/03/17 09/04/17 09/04/17 16:59 00:59 08:59 Intake Total 120 / 120 924 / 924 0 / 0 Output Total 0 / 0 1000 / 1000 Balance 120 / 120 924 / 924 -1000 / -1000 Intake: IV Fluids 804 / 804 Emend 150 mg In 0.9 % Sodium 250 / 250 Chloride 250 ML @ 500 mls/hr IV ONCE(ONC) [facility] Rx#:[id number] Rituxan 540 mg In 0.9 % Sodium 554 / 554 Chloride 500 ML @ 111 mls/hr IV ONCE [facility] Rx#:[id number] Oral 120 / 120 120 / 120 0 / 0 Output: Urine 0 / 0 1000 / 1000 Other: Meal Lunch Dinner Percent of Meal Consumed 80% 80% # Voids 1 2 Weight 51.71 kg 52.3 kg Patient Weight 09/05/17 00:59 Weight 52.3 kg General appearance: average body habitus, cooperative, no acute distress - Head Head exam: Present: atraumatic, normal inspection, normocephalic - Eye Eye exam: Present: normal appearance, conjuntiva pink, sclera anicteric - ENT ENT exam: Present: mucous membranes moist, normal exam - Neck Neck exam: Present: full ROM, normal inspection - Respiratory Respiratory exam: Present: CTAB - Cardiovascular Cardiovascular exam: Present: RRR - GI/Abdominal GI/Abdominal exam: Present: normal bowel sounds, soft - Extremities Exam Extremities exam: Present: normal inspection - Neurological Exam Neurological exam: Present: alert, CN II-XII intact, oriented X3, no focal deficits - Skin Skin exam: Present: dry, normal color Oncology: Obj Data - Labs CBC & Chem 7: 09/04/17 06:01 Labs: Laboratory Results - last 24 hr 09/03/17 09/03/17 20:11 20:11 Sodium 140 Potassium 3.9 Chloride 110 H Carbon Dioxide 20 BUN 15 Creatinine 0.65 Est GFR ( Amer) > 60 Est GFR (Non-Af Amer) > 60 BUN/Creatinine Ratio 23 Glucose 105 H Calculated Osmolality 291 Calcium 8.5 L Magnesium 1.9 Total Bilirubin 0.2 AST 11 ALT 11 Alkaline Phosphatase 132 H Serum Total Protein 5.7 L Albumin 2.9 L Globulin 2.8 Albumin/Globulin Ratio 1.0 L Consult Discharge Plan - Plan Referrals: NONE,PCP [Primary Care Provider] -
[2017-09-04 07:21] LABS: BUN/Creatinine Ratio 12 (6-26); Blood Urea Nitrogen 8 mg/dL (7-20); Carbon Dioxide 19 mEq/L (19-29); Chloride 109 mEq/L (98-109); Potassium 4.6 mEq/L (3.5-4.5); Sodium 137 mEq/L (136-145); eGFR For African Americans > 60 (> 60)
[2017-09-04 07:22] LABS: Calcium 9.2 mg/dL (8.6-10.8); Glucose 205 mg/dL (70-99); Osmolality,Calculated 288 (280-300); eGFR For Non-African Americans > 60 (> 60)
[2017-09-04] MEDS ORDERED: NON-FORMULARY MEDICATION 1 EACH EACH (Ranitidine Hcl [Zantac] 150 MG) PO SCH (09:00)
[2017-09-04 09:15] LABS: Basophils % 0.3 %; Hematocrit 25.9 % (35.3-44.9); Hemoglobin 8.2 g/dL (11.5-15.4); Immature Granulocytes % 5.4 % (0-4); Immature Platelets 4.1 % (1.1-6.1); Lymphocytes # 0.4 K/mcL (0.6-4.6); Lymphocytes % 7.3 %; Mean Corpuscular HGB Conc 31.7 g/dL (31.6-35.5); Mean Corpuscular Hemoglobin 31.9 pg (28.0-33.3); Mean Corpuscular Volume 100.8 fL (83.0-100.0); Mean Platelet Volume 9.8 fL (9.4-12.4); Monocytes # 0.1 K/mcL (0.0-1.3); Monocytes % 1.6 %; Nucleated Red Blood Cells 1.4 /100 WBC (0); Platelet Count 235 K/mcL (140-400); Red Blood Count 2.57 M/mcL (3.82-4.97); Red Cell Distribution Width 21.9 % (11.5-14.5); Segmented Neutrophils % 85.4 %
[2017-09-04] MEDS: Gabapentin 300 MG CAPSULE PO SCH ×3 (09:27→21:11)
[2017-09-04 09:41] LABS: Anisocytosis 1+ (Not Present); Macrocytosis Present (Not Present); Platelet Estimate Normal (Normal); Polychromasia 1+ (Not Present)
[2017-09-04] MEDS ORDERED: predniSONE 20 MG TABLET PO SCH ×2 (09:45)
--- NOTE | 2017-09-04 09:57 | Internal Med Progress Note ---
Date of Encounter: 09/04/17 Time of Encounter: 09:55 - Assessment and plan (1) Diffuse large B cell lymphoma Current Visit: Yes Status: Acute Assessment and plan: admitted for cycle $5 chemo which is now begun Qualifiers: Lymphoma site: intra-abdominal nodes Qualified Code(s): C83.33 - Diffuse large B-cell lymphoma, intra-abdominal lymph nodes (2) Anemia Current Visit: No Status: Chronic Assessment and plan: chronic anemia due to chemo Qualifiers: Anemia type: unspecified type Qualified Code(s): D64.9 - Anemia, unspecified (3) Chemotherapy management, encounter for Current Visit: Yes Status: Acute Assessment and plan: per cncology (4) Anemia due to chemotherapy Current Visit: Yes Status: Chronic Assessment and plan: chronic (5) Tobacco abuse Current Visit: Yes Status: Chronic (6) Neuropathy Current Visit: Yes Status: Chronic Assessment and plan: likely due to lymphoma - Subjective Interval history: Patient with history of stage IV B diffuse B-cell lymphoma with extranodal involvement including the liver, kidney and lung. He also history of smoking, GERD, and anemia patient was admitted from oncology office for cycle #5 chemotherapy. Main l complaint is bilateral leg tingling the chemotherapy has been started. will follow patient. in case medical issues developes - Constitutional Vitals: Temp Pulse Resp BP Pulse Ox 97.7 F 83 16 94/53 96 09/04/17 06:26 09/04/17 06:26 09/04/17 06:26 09/04/17 06:26 09/04/17 06:26 General appearance: Present: cooperative, A&O X 3, no acute distress, answers questions appropriately - Head Head exam: Present: atraumatic, normocephalic - Eye Eye exam: Present: PERRL, conjuntiva pink, sclera anicteric Pupils: Present: PERRL - Neck Neck exam general surgery: Present: supple, trachea midline. Absent: lymphadenopathy - Respiratory Respiratory exam: Present: CTAB. Absent: accessory muscle use, rales, rhonchi, wheezes - Cardiovascular Cardiovascular exam: Present: RRR, +S1, +S2. Absent: diastolic murmur, gallop, rubs, systolic murmur - GI/Abdominal GI/Abdominal exam: Present: normal bowel sounds, soft, no peritoneal signs. Absent: distended, tenderness - Extremities Exam Extremities exam: Present: warm, radial pulses palpable and symmetrical. Absent : calf tenderness, cyanotic, pedal edema Internal Medicine: Result - Labs CBC & Chem 7: 09/04/17 07:41 09/04/17 06:01 Labs: Short CBC 09/04/17 Range/Units 07:41 WBC 5.8 (4.3-11.1) K/mcL Hgb 8.2 L (11.5-15.4) g/dL Hct 25.9 L (35.3-44.9) % Plt Count 235 (140-400) K/mcL Neutrophils # 5.0 (1.6-8.9) K/mcL BMP 09/03/17 09/04/17 20:11 06:01 Sodium 140 137 Potassium 3.9 4.6 H Chloride 110 H 109 Carbon Dioxide 20 19 BUN 15 8 Creatinine 0.65 0.68 Glucose 105 H 205 H Calcium 8.5 L 9.2 Liver Function 09/03/17 Range/Units 20:11 Total Bilirubin 0.2 (0.2-1.2) mg/dL AST 11 (5-34) Units/L ALT 11 (0-55) Units/L Alkaline Phosphatase 132 H (38-126) Units/L Albumin 2.9 L (3.5-5.0) g/dL Consult Discharge Plan - Plan Referrals: NONE,PCP [Primary Care Provider] -
[2017-09-04] MEDS: predniSONE 20 MG TABLET PO SCH ×2 (11:37→16:22)
[2017-09-04] MEDS ORDERED: Magic Mouthwash 10 ML UD Cup PO PRN (14:32)
[2017-09-04] MEDS: Nicotine 21 MG PATCH.TD24 TD SCH (16:28)
[2017-09-04] MEDS ORDERED: ETOPOSIDE IV ONE (18:00)
[2017-09-04] MEDS ORDERED: SODIUM CHLORIDE EXCEL BG 0.9% IV ONE (18:00)
[2017-09-04] MEDS ORDERED: DOXORUBICIN HCL IV ONE (18:00)
[2017-09-04] MEDS: Famotidine 20 MG/2 ML VIAL IV PRN (18:10)
[2017-09-04] MEDS: 0.9 % Sodium Chloride 500 ML IV SCH (18:18)
[2017-09-05] MEDS: *HR* Promethazine 25 MG/ML VIAL IV PRN (02:11)
[2017-09-05] MEDS: *HR* HYDROcodone/Acet 5/325 mg TABLET PO PRN ×3 (04:32→19:17)
[2017-09-05] MEDS: *HR* LORazepam 2 MG/ML VIAL IV PRN (06:03)
--- NOTE | 2017-09-05 07:03 | Oncology Inp Progress Note ---
Date of Encounter: 09/05/17 Time of Encounter: 06:45 (1) Diffuse large B cell lymphoma Current Visit: Yes Status: Acute Assessment and plan: Stage IVb diffuse large B-cell lymphoma. High risk IPI. 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 Patient presented with extensive extranodal disease involving the liver, kidneys, lungs as well as bone. CSF was not sampled at time of diagnosis. She has been admitted for cycle #6 of ourEPO CH chemotherapy at dose level +1. Vincristine has been discontinued secondary to neuropathy. She will proceed with day 3 of chemotherapy today. Estimated completion on Saturday. I have ordered intrathecal methotrexate for today. May restart Lovenox in AM tomorrow. Qualifiers: Lymphoma site: intra-abdominal nodes Qualified Code(s): C83.33 - Diffuse large B-cell lymphoma, intra-abdominal lymph nodes (2) Anemia Current Visit: No Status: Chronic Assessment and plan: Hemoglobin adequate. No need for transfusion Qualifiers: Anemia type: unspecified type Qualified Code(s): D64.9 - Anemia, unspecified Oncology: Subj Interval history: Had a rough day yesterday. Sedated/tired and a bit confused; appears to correlate with pain medication. Did well overnight and slept better. Feels better this AM. Continued neuropathic pain and she thinks the increased norco did help. Eating ok. Afebrile. - Constitutional Vitals: Vital Signs Temp Pulse Resp BP Pulse Ox 09/05/17 04:09 98.3 F 85 14 105/59 97 09/04/17 23:23 98.7 F 88 15 129/66 97 09/04/17 20:08 98.4 F 87 15 123/67 97 09/04/17 14:55 98.7 F 85 16 128/72 96 09/04/17 11:24 97.5 F L 81 14 117/69 99 09/04/17 08:00 96 Intake and Output 09/04/17 09/05/17 09/05/17 16:59 00:59 08:59 Intake Total 360 / 360 840 / 840 0 / 0 Output Total 700 / 700 1600 / 1600 850 / 850 Balance -340 / -340 -760 / -760 -850 / -850 Intake: IV Fluids 600 / 600 0.9 % Sodium Chloride 500 ML @ 600 / 600 25 mls/hr IV AD [facility] Rx#: [id number] Oral 360 / 360 240 / 240 0 / 0 Output: Urine 700 / 700 1600 / 1600 850 / 850 Other: Meal Lunch Dinner Percent of Meal Consumed 100% 100% Weight 52.5 kg Patient Weight 09/06/17 00:59 Weight 52.5 kg General appearance: cooperative, no acute distress - Head Head exam: Present: atraumatic, normal inspection, normocephalic - Eye Eye exam: Present: conjuntiva pink, sclera anicteric - ENT ENT exam: Present: mucous membranes moist, normal exam, normal oropharynx - Neck Neck exam: Present: full ROM, normal inspection - Respiratory Respiratory exam: Present: CTAB - Cardiovascular Cardiovascular exam: Present: RRR - GI/Abdominal GI/Abdominal exam: Present: normal bowel sounds, soft - Extremities Exam Extremities exam: Present: normal inspection - Neurological Exam Neurological exam: Present: alert, CN II-XII intact, no focal deficits - Skin Skin exam: Present: normal color Oncology: Obj Data - Labs CBC & Chem 7: 09/04/17 07:41 09/04/17 06:01 Labs: Laboratory Results - last 24 hr 09/04/17 09/04/17 09/04/17 06:01 06:01 07:41 WBC 5.8 RBC 2.57 L Hgb 8.2 L Hct 25.9 L MCV 100.8 H MCH 31.9 MCHC 31.7 RDW 21.9 H Plt Count 235 MPV 9.8 Immature Gran % 5.4 H Seg Neutrophils % 85.4 Lymphocytes % 7.3 Monocytes % 1.6 Eosinophils % 0.0 Basophils % 0.3 Neutrophils # 5.0 Lymphocytes # 0.4 L Monocytes # 0.1 Eosinophils # 0.0 Basophils # 0.0 Nucleated RBCs/100 WBC 1.4 H Platelet Estimate Normal Immature Plt Fraction 4.1 Polychromasia 1+ A Anisocytosis 1+ A Macrocytosis Present A Sodium 137 Potassium 4.6 H Chloride 109 Carbon Dioxide 19 BUN 8 Creatinine 0.68 Est GFR ( Amer) > 60 Est GFR (Non-Af Amer) > 60 BUN/Creatinine Ratio 12 Glucose 205 H Calculated Osmolality 288 Calcium 9.2 Specimen Rejected MCV Delta Consult Discharge Plan - Plan Referrals: NONE,PCP [Primary Care Provider] -
[2017-09-05] MEDS: Gabapentin 300 MG CAPSULE PO SCH ×3 (08:36→20:58)
[2017-09-05] MEDS: Nicotine 21 MG PATCH.TD24 TD SCH (08:36)
[2017-09-05] MEDS: *HR* Morphine Immed Rel 30 MG TABLET PO PRN ×3 (08:49→22:05)
[2017-09-05] MEDS ORDERED: *HR* Dextrose 50 % in Water (Syg) 50 ML SYRINGE IVP PRN (09:15)
[2017-09-05] MEDS ORDERED: Dextrose Gel 15 GM PO PRN ×2 (09:15)
[2017-09-05] MEDS ORDERED: D5% in Water 1,000 ML IVC PRN (09:15)
[2017-09-05] MEDS: predniSONE 20 MG TABLET PO SCH ×2 (09:21→18:31)
[2017-09-05] MEDS ORDERED: Methotrexate PFS 25 MG/ML VIAL IT SCH (10:30)
--- NOTE | 2017-09-05 10:57 | Internal Med Progress Note ---
Date of Encounter: 09/05/17 Time of Encounter: 10:55 - Assessment and plan (1) Diffuse large B cell lymphoma Current Visit: Yes Status: Acute Assessment and plan: undergoing chemotherapy tolorating well Qualifiers: Lymphoma site: intra-abdominal nodes Qualified Code(s): C83.33 - Diffuse large B-cell lymphoma, intra-abdominal lymph nodes (2) Anemia Current Visit: No Status: Chronic Assessment and plan: stable Qualifiers: Anemia type: unspecified type Qualified Code(s): D64.9 - Anemia, unspecified (3) Chemotherapy management, encounter for Current Visit: Yes Status: Acute Assessment and plan: day number 2 of chemo (4) Anemia due to chemotherapy Current Visit: Yes Status: Chronic Assessment and plan: chronic (5) Tobacco abuse Current Visit: Yes Status: Chronic Assessment and plan: chronic (6) Neuropathy Current Visit: Yes Status: Chronic Assessment and plan: probably related to chemo - Subjective Interval history: Patient with history of stage IV B diffuse B-cell lymphoma with extranodal involvement including the liver, kidney and lung. He also history of smoking, GERD, and anemia patient was admitted from oncology office for cycle #5 chemotherapy. Main l complaint is bilateral leg tingling the chemotherapy has been started. will follow patient. in case medical issues developes today patient doing well no new issues discussed with nurse about starting slding scale for rising glucose while on steroids - Constitutional Vitals: Temp Pulse Resp BP Pulse Ox 98.6 F 88 16 112/62 98 09/05/17 07:23 09/05/17 07:23 09/05/17 07:23 09/05/17 07:23 09/05/17 07:23 General appearance: Present: cooperative, A&O X 3, no acute distress, answers questions appropriately - Eye Eye exam: Present: PERRL, conjuntiva pink, sclera anicteric Pupils: Present: PERRL - Neck Neck exam general surgery: Present: supple, trachea midline. Absent: lymphadenopathy - Respiratory Respiratory exam: Present: CTAB. Absent: accessory muscle use, rales, rhonchi, wheezes - Cardiovascular Cardiovascular exam: Present: RRR, +S1, +S2. Absent: diastolic murmur, gallop, rubs, systolic murmur - GI/Abdominal GI/Abdominal exam: Present: normal bowel sounds, soft, no peritoneal signs. Absent: distended, tenderness - Extremities Exam Extremities exam: Present: warm, radial pulses palpable and symmetrical. Absent : calf tenderness, cyanotic, pedal edema Internal Medicine: Result - Labs CBC & Chem 7: 09/04/17 07:41 09/04/17 06:01 Consult Discharge Plan - Plan Referrals: NONE,PCP [Primary Care Provider] -
[2017-09-05] MEDS: Insulin LISPRO 300 UNITS/3 ML VIAL SQ SCH ×3 (11:59→21:15)
[2017-09-05] MEDS: 0.9 % Sodium Chloride 500 ML IV SCH (13:17)
--- NOTE | 2017-09-05 15:30 | IR Procedure Note ---
Date of procedure: 09/05/17 Consent Obtained: Verbal consent, Written consent Timeout: Correct patient and procedure verified, Correct site verified, Time out performed, Skin prep completed Local anesthetic: Lidocaine 1% Indications: [employer] lyphoma Procedure Performed: Intrathecal chemo Site/Technique: intrathecal methotrexate administered Results/Findings: 12 mg methotrexate injected Estimated blood loss (cc): 0 Complications: None; Tolerated procedure well Post Procedure Treatment Plan: Continue inpatient care
[2017-09-05] MEDS ORDERED: SODIUM CHLORIDE EXCEL BG 0.9% IV SCH (18:00)
[2017-09-05] MEDS ORDERED: ETOPOSIDE IV SCH (18:00)
[2017-09-05] MEDS ORDERED: DOXORUBICIN HCL IV SCH (18:00)
[2017-09-05] MEDS: Famotidine 20 MG/2 ML VIAL IV PRN (23:44)
[2017-09-06] MEDS: *HR* HYDROcodone/Acet 5/325 mg TABLET PO PRN ×3 (01:36→16:36)
[2017-09-06] MEDS: *HR* Morphine Immed Rel 30 MG TABLET PO PRN ×3 (04:34→19:46)
[2017-09-06 05:18] LABS: Hematocrit 24.7 % (35.3-44.9); Hemoglobin 7.7 g/dL (11.5-15.4); Mean Corpuscular HGB Conc 31.2 g/dL (31.6-35.5); Mean Corpuscular Hemoglobin 32.1 pg (28.0-33.3); Mean Corpuscular Volume 102.9 fL (83.0-100.0); Mean Platelet Volume 9.6 fL (9.4-12.4); Platelet Count 210 K/mcL (140-400); Red Cell Distribution Width 22.5 % (11.5-14.5)
[2017-09-06 05:29] LABS: BUN/Creatinine Ratio 19 (6-26); Blood Urea Nitrogen 12 mg/dL (7-20); Carbon Dioxide 21 mEq/L (19-29); Chloride 109 mEq/L (98-109); Glucose 119 mg/dL (70-99); Osmolality,Calculated 293 (280-300); Potassium 4.3 mEq/L (3.5-4.5); Sodium 141 mEq/L (136-145); eGFR For African Americans > 60 (> 60); eGFR For Non-African Americans > 60 (> 60)
[2017-09-06] MEDS: *HR* LORazepam 2 MG/ML VIAL IV PRN (06:13)
[2017-09-06] MEDS: *HR* Enoxaparin 40 MG/0.4 ML SYRINGE SQ SCH (06:49)
[2017-09-06] MEDS: predniSONE 20 MG TABLET PO SCH ×2 (08:02→15:52)
[2017-09-06] MEDS: Nicotine 21 MG PATCH.TD24 TD SCH (08:03)
[2017-09-06] MEDS: Gabapentin 300 MG CAPSULE PO SCH ×3 (08:03→20:01)
[2017-09-06] MEDS: Insulin LISPRO 300 UNITS/3 ML VIAL SQ SCH ×4 (08:03→22:17)
[2017-09-06] MEDS: 0.9 % Sodium Chloride 500 ML IV SCH (12:33)
--- NOTE | 2017-09-06 16:52 | Oncology Inp Progress Note ---
Date of Encounter: 09/06/17 Time of Encounter: 16:30 (1) Diffuse large B cell lymphoma Current Visit: Yes Status: Acute Assessment and plan: Stage IVb diffuse large B-cell lymphoma. High risk IPI. 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 Patient presented with extensive extranodal disease involving the liver, kidneys, lungs as well as bone. CSF was not sampled at time of diagnosis. She has been admitted for cycle #6 of ourEPO CH chemotherapy at dose level +1. Vincristine has been discontinued secondary to neuropathy. She will proceed with day 4 of chemotherapy today. Estimated completion on Saturday. I have provided refills for [place]/Zantac Qualifiers: Lymphoma site: intra-abdominal nodes Qualified Code(s): C83.33 - Diffuse large B-cell lymphoma, intra-abdominal lymph nodes (2) Anemia Current Visit: No Status: Chronic Assessment and plan: Hemoglobin adequate. No need for transfusion Qualifiers: Anemia type: unspecified type Qualified Code(s): D64.9 - Anemia, unspecified Oncology: Subj Interval history: She is feeling out of sorts today. She has nausea which is being addressed by nursing. Some hot flashes. No fever or chills. Neuropathic pain persists. But [place] does help. Needs refill for [place]/Zantac. - Constitutional Vitals: Vital Signs Temp Pulse Resp BP Pulse Ox 09/06/17 15:03 98.4 F 107 14 136/72 97 09/06/17 11:46 98.3 F 85 16 122/65 99 09/06/17 07:30 98.2 F 80 16 127/72 100 09/06/17 04:04 98 F 74 16 132/71 98 09/06/17 00:12 97.7 F 86 16 120/69 97 09/05/17 21:09 98.7 F 87 16 150/79 98 09/05/17 17:14 98.6 F 82 16 119/68 97 Intake and Output 09/06/17 09/06/17 09/06/17 00:59 08:59 16:59 Intake Total 993 / 993 1220 / 1220 Output Total 1450 / 1450 450 / 450 0 / 0 Balance -457 / -457 -450 / -450 1220 / 1220 Intake: IV Fluids 513 / 513 500 / 500 0.9 % Sodium Chloride 500 ML @ 500 / 500 25 mls/hr IV AD [facility] Rx#: [id number] Adriamycin 17 MG Etoposide 90 513 / 513 mg In 0.9 % Sodium Chloride [place] Bg 500 ML @ 24 mls/hr IV ONCE ONE Rx#:[id number] Oral 480 / 480 720 / 720 Output: Urine 1450 / 1450 450 / 450 0 / 0 Other: Meal Dinner Lunch Percent of Meal Consumed 100% 100% # Voids 7 Blood Glucose* 152 140 160 General appearance: average body habitus, cooperative - Head Head exam: Present: atraumatic, normal inspection, normocephalic - Eye Eye exam: Present: normal appearance, conjuntiva pink - ENT ENT exam: Present: mucous membranes moist, normal exam - Neck Neck exam: Present: full ROM, normal inspection - Respiratory Respiratory exam: Present: CTAB - Cardiovascular Cardiovascular exam: Present: RRR - GI/Abdominal GI/Abdominal exam: Present: normal bowel sounds, soft - Extremities Exam Extremities exam: Present: normal inspection - Neurological Exam Neurological exam: Present: alert, CN II-XII intact, normal gait, oriented X3 - Skin Skin exam: Present: normal color Oncology: Obj Data - Labs CBC & Chem 7: 09/06/17 04:30 09/06/17 04:30 Labs: Laboratory Results - last 24 hr 09/05/17 09/05/17 09/06/17 18:12 21:08 04:30 WBC 6.7 RBC 2.40 L Hgb 7.7 L Hct 24.7 L MCV 102.9 H MCH 32.1 MCHC 31.2 L RDW 22.5 H Plt Count 210 MPV 9.6 Sodium Potassium Chloride Carbon Dioxide BUN Creatinine Est GFR ( Amer) Est GFR (Non-Af Amer) BUN/Creatinine Ratio Glucose POC Glucose 140 H 152 H Calculated Osmolality Calcium 09/06/17 09/06/17 09/06/17 04:30 07:33 11:49 WBC RBC Hgb Hct MCV MCH MCHC RDW Plt Count MPV Sodium 141 Potassium 4.3 Chloride 109 Carbon Dioxide 21 BUN 12 Creatinine 0.64 Est GFR ( Amer) > 60 Est GFR (Non-Af Amer) > 60 BUN/Creatinine Ratio 19 Glucose 119 H POC Glucose 140 H 174 H Calculated Osmolality 293 Calcium 9.0 09/06/17 15:52 WBC RBC Hgb Hct MCV MCH MCHC RDW Plt Count MPV Sodium Potassium Chloride Carbon Dioxide BUN Creatinine Est GFR ( Amer) Est GFR (Non-Af Amer) BUN/Creatinine Ratio Glucose POC Glucose 160 H Calculated Osmolality Calcium Consult Discharge Plan - Plan Referrals: Diana Jensen, RN [Registered Nurse] - 09/23/17 2:30 pm ([address] [facility] [phone] New admission packet will be sent out, bring ID, insurance card, and med list ( please bring bottles) 24 hours prior to cancel - since on Saturday will need to cancel by Saturday if needed ) NONE,PCP [Primary Care Provider] -
[2017-09-06] MEDS ORDERED: ETOPOSIDE IV SCH (17:00)
[2017-09-06] MEDS ORDERED: SODIUM CHLORIDE EXCEL BG 0.9% IV SCH (17:00)
[2017-09-06] MEDS ORDERED: DOXORUBICIN HCL IV SCH (17:00)
--- NOTE | 2017-09-06 18:25 | Internal Med Progress Note ---
Date of Encounter: 09/06/17 Time of Encounter: 18:24 - Assessment and plan (1) Diffuse large B cell lymphoma Current Visit: Yes Status: Acute Assessment and plan: Patient is diagnosed with a diffuse large B-cell lymphoma. This is a cycle #6 of chemotherapy. Patient gets hospitalized at irregular intervals for chemotherapy cycle. Patient is tolerating chemotherapy well. Plan: Will follow the recommendations from oncology. Qualifiers: Lymphoma site: intra-abdominal nodes Qualified Code(s): C83.33 - Diffuse large B-cell lymphoma, intra-abdominal lymph nodes (2) Depression Current Visit: No Status: Chronic Assessment and plan: Recommended patient to see psychiatry as outpatient appointment Presently denies any depression crisis Qualifiers: Depression Type: unspecified Qualified Code(s): F32.9 - Major depressive disorder, single episode, unspecified (3) GERD (gastroesophageal reflux disease) Current Visit: Yes Status: Chronic Assessment and plan: Stable GERD Qualifiers: Esophagitis presence: esophagitis presence not specified Qualified Code(s) : K21.9 - Gastro-esophageal reflux disease without esophagitis (4) Leg weakness, bilateral Current Visit: No Status: Acute Assessment and plan: Bilateral leg weakness: Etiology multifactorial. We will treat symptomatically - Subjective Interval history: Patient seen and examined. chart reviewed patient is comfortably walking in the hallway. Patient denies any shortness of breath, chest pain, nausea, vomiting, abdominal pain - Constitutional Vitals: Temp Pulse Resp BP Pulse Ox 98.4 F 107 14 136/72 97 09/06/17 15:03 09/06/17 15:03 09/06/17 15:03 09/06/17 15:03 09/06/17 15:03 General appearance: Present: cooperative, A&O X 3, no acute distress, answers questions appropriately - Head Head exam: Present: atraumatic, normocephalic - Eye Eye exam: Present: PERRL, conjuntiva pink, sclera anicteric Pupils: Present: PERRL - Neck Neck exam general surgery: Present: supple, trachea midline. Absent: lymphadenopathy - Respiratory Respiratory exam: Present: CTAB. Absent: accessory muscle use, rales, rhonchi, wheezes - Cardiovascular Cardiovascular exam: Present: RRR, +S1, +S2. Absent: diastolic murmur, gallop, rubs, systolic murmur - GI/Abdominal GI/Abdominal exam: Present: normal bowel sounds, soft, no peritoneal signs. Absent: distended, tenderness - Extremities Exam Extremities exam: Present: warm, radial pulses palpable and symmetrical. Absent : calf tenderness, cyanotic, pedal edema - Neurological Exam Neurological exam: Present: CN II-XII intact, oriented X3, no focal deficits. Absent: pronater drift, facial droop, speech deficit - Skin Skin exam: Present: dry, intact Internal Medicine: Result - Labs CBC & Chem 7: 09/06/17 04:30 09/06/17 04:30 Labs: Short CBC 09/06/17 Range/Units 04:30 WBC 6.7 (4.3-11.1) K/mcL Hgb 7.7 L (11.5-15.4) g/dL Hct 24.7 L (35.3-44.9) % Plt Count 210 (140-400) K/mcL BMP 09/06/17 04:30 Sodium 141 Potassium 4.3 Chloride 109 Carbon Dioxide 21 BUN 12 Creatinine 0.64 Glucose 119 H Calcium 9.0 Consult Discharge Plan - Plan Referrals: Diana Jensen RN [Registered Nurse] - 09/23/17 2:30 pm ([address] [facility] [phone] New admission packet will be sent out, bring ID, insurance card, and med list ( please bring bottles) 24 hours prior to cancel - since on Saturday will need to cancel by Saturday if needed ) NONE,PCP [Primary Care Provider] - Prescriptions: HYDROcodone/Acet 5/325 mg [[place] 5-325 mg] 1 - 2 tab PO Q6H PRN #90 tablet PRN Reason: Pain Ranitidine HCl [Zantac] 150 mg PO DAILY #30 tablet
[2017-09-07] MEDS: *HR* HYDROcodone/Acet 5/325 mg TABLET PO PRN ×2 (00:41→11:45)
[2017-09-07 01:53] VITALS: BP 148/70
[2017-09-07] MEDS: *HR* Morphine Immed Rel 30 MG TABLET PO PRN ×2 (04:12→15:58)
[2017-09-07] MEDS: *HR* Promethazine 25 MG/ML VIAL IV PRN (05:33)
[2017-09-07] MEDS: *HR* Enoxaparin 40 MG/0.4 ML SYRINGE SQ SCH (07:51)
[2017-09-07] MEDS: Gabapentin 300 MG CAPSULE PO SCH ×2 (07:51→15:39)
[2017-09-07] MEDS: predniSONE 20 MG TABLET PO SCH ×2 (07:51→15:39)
[2017-09-07] MEDS: Nicotine 21 MG PATCH.TD24 TD SCH (07:52)
[2017-09-07] MEDS: 0.9 % Sodium Chloride 500 ML IV SCH (07:53)
[2017-09-07] MEDS: Insulin LISPRO 300 UNITS/3 ML VIAL SQ SCH ×3 (07:57→17:42)
--- NOTE | 2017-09-07 13:13 | Discharge Summary ---
Date of Encounter: 09/09/17 Time of Encounter: 13:11 - Discharge Diagnosis (1) Diffuse large B cell lymphoma Priority: Primary Status: Acute Qualifiers: Lymphoma site: intra-abdominal nodes Qualified Code(s): C83.33 - Diffuse large B-cell lymphoma, intra-abdominal lymph nodes (2) Depression Priority: Secondary Status: Chronic Qualifiers: Depression Type: unspecified Qualified Code(s): F32.9 - Major depressive disorder, single episode, unspecified (3) GERD (gastroesophageal reflux disease) Priority: Secondary Status: Chronic Qualifiers: Esophagitis presence: esophagitis presence not specified Qualified Code(s) : K21.9 - Gastro-esophageal reflux disease without esophagitis (4) Leg weakness, bilateral Priority: Secondary Status: Acute - Discharge Medications Prescriptions: HYDROcodone/Acet 5/325 mg [[place] 5-325 mg] 1 - 2 tab PO Q6H PRN #90 tablet PRN Reason: Pain Ranitidine HCl [Zantac] 150 mg PO DAILY #30 tablet Home Medications: Sertraline [Zoloft] 25 mg PO DAILY #30 tablet 07/26/17 [Rx] Morphine Immed Rel [Morphine Sulfate] 15 mg PO Q6H PRN #30 tab 08/16/17 [Rx] Gabapentin [Neurontin] 300 mg PO TID 09/03/17 [History] HYDROcodone/Acet 5/325 mg [[place] 5-325 mg] 1 - 2 tab PO Q6H PRN #90 tablet 09/06 [Rx] Ranitidine HCl [Zantac] 150 mg PO DAILY #30 tablet 09/06/17 [Rx] Allergies/Adverse Reactions: 3 Allergy/AdvReac Type Severity Reaction Status Date / Time No Known Allergies Allergy Verified 09/03/17 09:02 Procedures/tests Complete & Pending: Procedures Performed prior 72 hours Category Date Time Status IR chemo emergency medicine medical director (intrathecal)w lp [IR] Routine Exams 09/05/17 Completed Date of admission: 09/03/17 09:50 Primary care physician: PCP NONE Consults: 09/05/17 07:52 Consult to Interventional Radiology [CONS] Routine Consulting Provider: Radiology Interventional Cols Reason for Consult: See other orders for CT guide lumbar Time Notified: 07:53 Call Completed: No Discharging clinician: Warren Oreilly - Patient Status Disposition: Home, Self-Care Condition: Good Functional capacity at discharge: independent ambulation Overall status at discharge: patient is progressing back to baseline - Discharge Instructions Follow Up With: Diana Jensen, RN [Registered Nurse] - 09/23/17 2:30 pm ([facility] Barron [phone] New admission packet will be sent out, bring ID, insurance card, and med list ( please bring bottles) 24 hours prior to cancel - since on Saturday will need to cancel by Saturday if needed ) NONE,PCP [Primary Care Provider] - - Diet and Activity Activity: increase activity as tolerated Diet: advance to your usual diet Interval History: Ms. Vale is a 47 year old female and currently every day smoker with a PMH of stage IVb diffuse B-cell Lymphoma. She presents to [facility] today from oncology for admission for administration of chemotherapy. She appears pleasant and denies any concerns at this time. Denies any fevers, chills, N/V/D, fatigue, decrease in appetite, or SOB. She admits to numbness, tingling and pain in her BLE. Oncology to follow during admission. Hospital course: Ms. Vale is a 47 year old female was hospitalized for 6th cycle of chemotherapy. Patient received chemotherapy. Patient tolerated chemotherapy well. No major side effect noted during hospitalization. Oncology on board. Oncology recommendation followed by this team. Plan: Patient can go home today. Oncologist give prescriptions for pain medication as well as antiemetics. Patient has a follow-up appointment with oncology. All questions answered. - Time Spent with Patient Total time spent providing and/or coordinating discharge services: - Constitutional Vitals: Temp Pulse Resp BP Pulse Ox 98.3 F 93 14 148/70 97 09/07/17 01:20 09/07/17 01:20 09/07/17 01:20 09/07/17 01:20 09/07/17 01:20 General appearance: Present: cooperative, A&O X 3, no acute distress, answers questions appropriately - Head Head exam: Present: atraumatic, normocephalic - Eye Eye exam: Present: PERRL, conjuntiva pink, sclera anicteric Pupils: Present: PERRL - Neck Neck exam general surgery: Present: supple, trachea midline. Absent: lymphadenopathy - Respiratory Respiratory exam: Present: CTAB. Absent: accessory muscle use, rales, rhonchi, wheezes - Cardiovascular Cardiovascular exam: Present: RRR, +S1, +S2. Absent: diastolic murmur, gallop, rubs, systolic murmur - GI/Abdominal GI/Abdominal exam: Present: normal bowel sounds, soft, no peritoneal signs. Absent: distended, tenderness - Extremities Exam Extremities exam: Present: warm, radial pulses palpable and symmetrical. Absent : calf tenderness, cyanotic, pedal edema - Neurological Exam Neurological exam: Present: CN II-XII intact, oriented X3, no focal deficits. Absent: pronater drift, facial droop, speech deficit - Skin Skin exam: Present: dry, intact
[2017-09-07] MEDS ORDERED: CYCLOPHOSPHAMIDE IV SCH (16:00)
[2017-09-07] MEDS ORDERED: SODIUM CHLORIDE 0.9% IV SCH (16:00)
== END 2017-09-07 18:32 | disposition home or self-care (01) | DRG 696 ==
LOC: 2ANU 09:50 → 3ANU 11:31
PROVIDERS: ADMIT Internal Medicine; ATTEND Internal Medicine

== ENCOUNTER 2020-03-12 01:06 | Inpatient (IN) ==
[2020-03-12] MEDS ORDERED: Naloxone 0.4 MG/ML INJ IVP PRN ×2 (03:22→08:55)
[2020-03-12] MEDS ORDERED: 0.9 % Sodium Chloride 1,000 ML IVC SCH ×2 (03:30→09:00)
[2020-03-12] MEDS ORDERED: Ketorolac 15 MG/ML VIAL IVP PRN (03:58)
[2020-03-12 05:05] LABS: Basophils % 0.2 %; Eosinophils % 0.9 %; Hematocrit 22.9 % (35.3-44.9); Hemoglobin 7.5 g/dL (11.5-15.4); Immature Granulocytes % 0.2 % (0-4); Lymphocytes # 0.2 K/mcL (0.6-4.6); Lymphocytes % 3.8 %; Mean Corpuscular HGB Conc 32.8 g/dL (31.6-35.5); Mean Corpuscular Hemoglobin 33.2 pg (28.0-33.3); Mean Corpuscular Volume 101.3 fL (83.0-100.0); Mean Platelet Volume 9.5 fL (9.4-12.4); Monocytes # 1.2 K/mcL (0.0-1.3); Monocytes % 27.8 %; Neutrophils # 2.8 K/mcL (1.6-8.9); Platelet Count 174 K/mcL (140-400); Red Blood Count 2.26 M/mcL (3.82-4.97); Red Cell Distribution Width 13.7 % (11.5-14.5); Segmented Neutrophils % 67.1 %; White Blood Count 4.2 K/mcL (4.3-11.1)
[2020-03-12] MEDS ORDERED: 0.9 % Sodium Chloride 500 ML IVC ONE ×2 (05:22→06:50)
[2020-03-12 05:24] LABS: Albumin 2.8 g/dL (3.5-5.7); Albumin/Globulin Ratio 1.6 (1.1-2.2); Bilirubin,Total 0.3 mg/dL (0.3-1.0); Calcium 7.4 mg/dL (8.6-10.3); Globulin 1.8 g/dL (2.4-3.5); Potassium 3.7 mEq/L (3.5-5.1); Total Protein 4.6 g/dL (6.4-8.9)
[2020-03-12 05:36] LABS: Platelet Estimate Normal (Normal)
[2020-03-12] MEDS ORDERED: Acetaminophen IV 500 MG/50 ML BAG IVPB ONE (05:38)
[2020-03-12 06:19] LABS: INR 1.6; Prothrombin Time 18.1 Seconds (9.4-12.1)
[2020-03-12 06:22] LABS: Activated Partial Thrombo Time 26.8 Seconds (26.0-36.0)
[2020-03-12] MEDS: Azithromycin 500 MG in 0.9 % Sodium Chloride 250 ML IVPB SCH (06:35)
[2020-03-12] MEDS ORDERED: Piperacillin/Tazobactam 3.375 GM in 0.9 % Sodium Chloride Mini Bag 100 ML IVPB SCH (08:00)
[2020-03-12] MEDS ORDERED: Acetaminophen 325 MG TABLET PO PRN (08:55)
[2020-03-12] MEDS: Norepinephrine 4 MG/254 ML IV.SOLN IVC SCH (09:30)
[2020-03-12] MEDS ORDERED: *HR* LORazepam 2 MG/ML VIAL IVP PRN (10:44)
[2020-03-12] MEDS: Ondansetron 4 MG/2 ML VIAL IVP PRN ×2 (10:51→17:44)
[2020-03-12] MEDS: Pantoprazole 40 MG VIAL IVP SCH (11:23)
[2020-03-12 14:47] LABS: Hematocrit 24.2 % (35.3-44.9)
[2020-03-12 16:03] LABS: Bilirubin,Urine Negative (Negative); Blood,Urine Trace (Negative); Clarity,Urine Clear (Clear); Color,Urine Yellow (Yellow); Glucose,Urine (UA) Normal (Normal); Ketones,Urine Negative (Negative); Leukocyte Esterase,Urine Negative (Negative); Nitrite,Urine Negative (Negative); Protein,Urine 30 mg/dL (Neg-Trace); Urobilinogen,Urine Normal (Normal)
[2020-03-12 16:05] LABS: Bacteria,Urine None Seen per hpf (None-Few); Hyaline Casts,Urine None Seen per lpf (None-Few); Squamous Epithelial Cell,Urine Many per lpf (None-Few); WBC,Urine 0-3 per hpf (0-3)
[2020-03-12] MEDS: 0.9 % Sodium Chloride 1,000 ML IVC SCH (18:12)
[2020-03-12] MEDS: *HR* HYDROmorphone (PF) 1 MG/ML SYRINGE IVP PRN ×2 (19:41→23:13)
[2020-03-12] MEDS: Piperacillin/Tazobactam 3.375 GM in 0.9 % Sodium Chloride Mini Bag 100 ML IVPB SCH (19:42)
[2020-03-12] MEDS ORDERED: Acetaminophen 650 MG RECTAL SUPP RC PRN (22:18)
[2020-03-13] MEDS: 0.9 % Sodium Chloride 1,000 ML IVC SCH (00:30)
[2020-03-13] MEDS: Piperacillin/Tazobactam 3.375 GM in 0.9 % Sodium Chloride Mini Bag 100 ML IVPB SCH ×3 (03:28→18:37)
[2020-03-13] MEDS: *HR* HYDROmorphone (PF) 1 MG/ML SYRINGE IVP PRN ×6 (06:10→22:43)
[2020-03-13] MEDS: Azithromycin 500 MG in 0.9 % Sodium Chloride 250 ML IVPB SCH (06:11)
[2020-03-13 06:16] LABS: Hematocrit 23.3 % (35.3-44.9); Hemoglobin 7.6 g/dL (11.5-15.4); Mean Corpuscular HGB Conc 32.6 g/dL (31.6-35.5); Mean Corpuscular Hemoglobin 33.5 pg (28.0-33.3); Mean Corpuscular Volume 102.6 fL (83.0-100.0); Mean Platelet Volume 9.5 fL (9.4-12.4); Platelet Count 184 K/mcL (140-400); Red Blood Count 2.27 M/mcL (3.82-4.97)
[2020-03-13 06:34] LABS: White Blood Count 7.6 K/mcL (4.3-11.1)
[2020-03-13 06:38] LABS: Alanine Aminotransferase 11 Units/L (7-52); Albumin 2.6 g/dL (3.5-5.7); Albumin/Globulin Ratio 1.4 (1.1-2.2); Alkaline Phosphatase 78 Units/L (34-104); Aspartate Amino Transferase 10 Units/L (13-39); BUN/Creatinine Ratio 26 (6-26); Bilirubin,Total 0.4 mg/dL (0.3-1.0); Blood Urea Nitrogen 25 mg/dL (6-20); Calcium 7.4 mg/dL (8.6-10.3); Carbon Dioxide 15 mEq/L (23-29); Chloride 116 mEq/L (98-107); Globulin 1.8 g/dL (2.4-3.5); Glucose 77 mg/dL (70-105); Magnesium 1.6 mg/dL (1.6-2.6); Osmolality,Calculated 307 (280-300); Potassium 3.2 mEq/L (3.5-5.1); Sodium 147 mEq/L (136-145); Total Protein 4.4 g/dL (6.4-8.9); eGFR For African Americans > 60 (> 60); eGFR For Non-African Americans > 60 (> 60)
[2020-03-13] MEDS: D5% in 0.45% NACL w KCl 20 MEQ/1,000 ML MLS IVC SCH ×2 (08:28→18:38)
[2020-03-13] MEDS: Pantoprazole 40 MG VIAL IVP SCH (08:30)
[2020-03-13] MEDS ORDERED: Potassium Phosphate 44 MEQ in 0.9 % Sodium Chloride 250 ML IVPB PRN (08:35)
[2020-03-13] MEDS ORDERED: Calcium Gluconate 1gm/50mL 1 GM/50 ML BAG IVPB PRN (08:35)
[2020-03-13] MEDS ORDERED: *HR* Dextrose 50 % in Water (Syg) 50 ML SYRINGE IVP PRN (08:39)
[2020-03-13] MEDS ORDERED: D5% in Water 1,000 ML IVC PRN (08:39)
[2020-03-13] MEDS ORDERED: Dextrose Gel 15 GM/37.5 ML TUBE PO PRN ×2 (08:39)
[2020-03-13] MEDS ORDERED: Insulin LISPRO 300 UNITS/3 ML VIAL SQ SCH ×2 (08:45→11:30)
[2020-03-13] MEDS: Pregabalin 50 MG CAPSULE PO SCH ×3 (09:31→19:55)
[2020-03-13] MEDS: Norepinephrine 4 MG/254 ML IV.SOLN IVC SCH (09:31)
[2020-03-13] MEDS: Cyanocobalamin (B-12) 1,000 MCG TABLET PO SCH (09:32)
[2020-03-13 13:51] LABS: Hematocrit 23.8 % (35.3-44.9); Hemoglobin 7.7 g/dL (11.5-15.4); Mean Corpuscular HGB Conc 32.4 g/dL (31.6-35.5); Mean Corpuscular Hemoglobin 33.2 pg (28.0-33.3); Mean Corpuscular Volume 102.6 fL (83.0-100.0); Mean Platelet Volume 9.5 fL (9.4-12.4); Platelet Count 194 K/mcL (140-400); Red Blood Count 2.32 M/mcL (3.82-4.97); Red Cell Distribution Width 14.5 % (11.5-14.5); White Blood Count 9.4 K/mcL (4.3-11.1)
[2020-03-13 14:12] LABS: Eosinophils # 0.2 K/mcL (0.0-0.6); Lymphocytes # 0.6 K/mcL (0.6-4.6); Monocytes # 1.3 K/mcL (0.0-1.3); Neutrophils # 7.3 K/mcL (1.6-8.9); Platelet Estimate Normal (Normal)
[2020-03-13 14:13] LABS: Magnesium 1.6 mg/dL (1.6-2.6); Phosphorous 2.5 mg/dL (2.7-4.5)
[2020-03-13 14:14] LABS: BUN/Creatinine Ratio 24 (6-26); Blood Urea Nitrogen 21 mg/dL (6-20); Calcium 7.9 mg/dL (8.6-10.3); Carbon Dioxide 16 mEq/L (23-29); Chloride 118 mEq/L (98-107); Glucose 109 mg/dL (70-105); Osmolality,Calculated 298 (280-300); Potassium 3.7 mEq/L (3.5-5.1); Sodium 142 mEq/L (136-145); eGFR For African Americans > 60 (> 60); eGFR For Non-African Americans > 60 (> 60)
[2020-03-13] MEDS: Insulin LISPRO 300 UNITS/3 ML VIAL SQ SCH ×3 (16:00→23:51)
[2020-03-13] MEDS: Ringers Solution, Lactated 1,000 ML IVC SCH ×2 (16:18→18:38)
[2020-03-13] MEDS: Ondansetron 4 MG/2 ML VIAL IVP PRN (20:38)
[2020-03-13] MEDS ORDERED: traZODone 50 MG TABLET PO SCH (21:00)
[2020-03-13 21:16] LABS: BUN/Creatinine Ratio 24 (6-26); Blood Urea Nitrogen 19 mg/dL (6-20); Calcium 7.9 mg/dL (8.6-10.3); Carbon Dioxide 16 mEq/L (23-29); Chloride 119 mEq/L (98-107); Glucose 94 mg/dL (70-105); Magnesium 2.1 mg/dL (1.6-2.6); Osmolality,Calculated 296 (280-300); Phosphorous 2.1 mg/dL (2.7-4.5); Potassium 3.3 mEq/L (3.5-5.1); Sodium 142 mEq/L (136-145); eGFR For African Americans > 60 (> 60); eGFR For Non-African Americans > 60 (> 60)
[2020-03-14] MEDS: Ringers Solution, Lactated 1,000 ML IVC SCH ×3 (01:54→19:56)
[2020-03-14] MEDS: *HR* HYDROmorphone (PF) 1 MG/ML SYRINGE IVP PRN ×6 (01:54→22:33)
[2020-03-14] MEDS: Piperacillin/Tazobactam 3.375 GM in 0.9 % Sodium Chloride Mini Bag 100 ML IVPB SCH ×3 (03:28→19:55)
[2020-03-14 05:02] LABS: VBG Ionized Calcium 1.04 mmol/L (1.15-1.35)
[2020-03-14 05:05] LABS: Basophils % 0.3 %; Eosinophils # 0.5 K/mcL (0.0-0.6); Eosinophils % 4.8 %; Hematocrit 23.4 % (35.3-44.9); Hemoglobin 7.7 g/dL (11.5-15.4); Immature Granulocytes % 0.5 % (0-4); Lymphocytes # 0.3 K/mcL (0.6-4.6); Lymphocytes % 3.3 %; Mean Corpuscular HGB Conc 32.9 g/dL (31.6-35.5); Mean Corpuscular Hemoglobin 33.3 pg (28.0-33.3); Mean Corpuscular Volume 101.3 fL (83.0-100.0); Mean Platelet Volume 9.6 fL (9.4-12.4); Monocytes # 1.5 K/mcL (0.0-1.3); Monocytes % 15.1 %; Neutrophils # 7.5 K/mcL (1.6-8.9); Platelet Count 212 K/mcL (140-400); Red Blood Count 2.31 M/mcL (3.82-4.97); Red Cell Distribution Width 14.5 % (11.5-14.5); White Blood Count 9.8 K/mcL (4.3-11.1)
[2020-03-14] MEDS: Azithromycin 500 MG in 0.9 % Sodium Chloride 250 ML IVPB SCH (05:17)
[2020-03-14] MEDS: Insulin LISPRO 300 UNITS/3 ML VIAL SQ SCH ×3 (05:23→18:19)
[2020-03-14 05:27] LABS: BUN/Creatinine Ratio 23 (6-26); Blood Urea Nitrogen 18 mg/dL (6-20); Carbon Dioxide 15 mEq/L (23-29); Chloride 119 mEq/L (98-107); Glucose 83 mg/dL (70-105); Magnesium 1.7 mg/dL (1.6-2.6); Osmolality,Calculated 301 (280-300); Phosphorous 3.9 mg/dL (2.7-4.5); Potassium 4.1 mEq/L (3.5-5.1); Sodium 145 mEq/L (136-145); eGFR For African Americans > 60 (> 60); eGFR For Non-African Americans > 60 (> 60)
[2020-03-14] MEDS: Norepinephrine 4 MG/254 ML IV.SOLN IVC SCH (05:37)
[2020-03-14 05:47] LABS: Platelet Estimate Normal (Normal)
[2020-03-14] MEDS: Pregabalin 50 MG CAPSULE PO SCH (08:05)
[2020-03-14] MEDS: Cyanocobalamin (B-12) 1,000 MCG TABLET PO SCH (08:05)
[2020-03-14] MEDS: Pantoprazole 40 MG VIAL IVP SCH (08:05)
[2020-03-14] MEDS ORDERED: Aminoglycoside Consult 1 EACH MC ONE (09:03)
[2020-03-14] MEDS ORDERED: *HR* Dextrose 50 % in Water (Syg) 50 ML SYRINGE IVP PRN (09:45)
[2020-03-14] MEDS ORDERED: D5% in Water 1,000 ML IVC PRN (09:45)
[2020-03-14] MEDS ORDERED: Dextrose Gel 15 GM/37.5 ML TUBE PO PRN ×2 (09:45)
[2020-03-14] MEDS ORDERED: *HR* LORazepam 2 MG/ML VIAL IVP PRN (09:45)
[2020-03-14] MEDS ORDERED: Acetaminophen 650 MG RECTAL SUPP RC PRN (09:45)
[2020-03-14] MEDS ORDERED: Naloxone 0.4 MG/ML INJ IVP PRN (09:45)
[2020-03-14 10:01] LABS: BUN/Creatinine Ratio 21 (6-26); Blood Urea Nitrogen 16 mg/dL (6-20); Calcium 8.2 mg/dL (8.6-10.3); Carbon Dioxide 15 mEq/L (23-29); Chloride 120 mEq/L (98-107); Glucose 84 mg/dL (70-105); Osmolality,Calculated 300 (280-300); Potassium 3.8 mEq/L (3.5-5.1); Sodium 145 mEq/L (136-145); eGFR For African Americans > 60 (> 60); eGFR For Non-African Americans > 60 (> 60)
[2020-03-14 10:03] LABS: % Iron Saturation 13 % (15-50); Iron 19 mcg/dL (50-170); Transferrin 105 mg/dL (203-362)
[2020-03-14 10:22] LABS: Ferritin 1411 ng/mL (10-120)
[2020-03-14] MEDS: D5% in 0.45% NACL w KCl 20 MEQ/1,000 ML MLS IVC SCH (10:37)
[2020-03-14 15:26] LABS: VBG HCO3 17 mEq/L (21-27); VBG PCO2 31 mmHg (41-51); VBG PH 7.35 pH Units (7.32-7.42); VBG PO2 129 mmHg (25-50)
[2020-03-14 17:34] LABS: Potassium,Urine 48.3 mEq/L; Sodium, Urine 81.8 mEq/L
[2020-03-14] MEDS: *HR* Heparin 5,000 UNIT/ML VIAL SQ SCH (18:18)
[2020-03-14] MEDS: Ondansetron 4 MG/2 ML VIAL IVP PRN (19:55)
[2020-03-14 23:50] LABS: Bilirubin,Urine Negative (Negative); Clarity,Urine Clear (Clear); Color,Urine Yellow (Yellow); Glucose,Urine (UA) Normal (Normal); Ketones,Urine 40 mg/dL (Negative); Specific Gravity,Urine 1.019 (1.010-1.025)
[2020-03-14 23:51] LABS: Blood,Urine Trace (Negative); Leukocyte Esterase,Urine Negative (Negative); Nitrite,Urine Negative (Negative); PH,Urine 5.5 pH Units (5.0-8.0); Protein,Urine 30 mg/dL (Neg-Trace); Urobilinogen,Urine Normal (Normal)
[2020-03-14 23:54] LABS: Squamous Epithelial Cell,Urine Many per lpf (None-Few)
[2020-03-14 23:55] LABS: Amorphous Sediment,Urine Few per hpf (None-Few)
[2020-03-15] MEDS: *HR* HYDROmorphone (PF) 1 MG/ML SYRINGE IVP PRN ×6 (01:01→21:20)
[2020-03-15] MEDS: Insulin LISPRO 300 UNITS/3 ML VIAL SQ SCH ×4 (01:50→17:56)
[2020-03-15] MEDS: D5% in 0.45% NACL w KCl 20 MEQ/1,000 ML MLS IVC SCH ×3 (02:04→18:02)
[2020-03-15] MEDS: Piperacillin/Tazobactam 3.375 GM in 0.9 % Sodium Chloride Mini Bag 100 ML IVPB SCH ×3 (04:15→17:56)
[2020-03-15 04:42] LABS: Hematocrit 22.5 % (35.3-44.9); Hemoglobin 7.4 g/dL (11.5-15.4); Mean Corpuscular HGB Conc 32.9 g/dL (31.6-35.5); Mean Corpuscular Hemoglobin 33.2 pg (28.0-33.3); Mean Corpuscular Volume 100.9 fL (83.0-100.0); Mean Platelet Volume 9.7 fL (9.4-12.4); Platelet Count 201 K/mcL (140-400); Red Blood Count 2.23 M/mcL (3.82-4.97); Red Cell Distribution Width 14.6 % (11.5-14.5); White Blood Count 9.5 K/mcL (4.3-11.1)
[2020-03-15] MEDS: Ringers Solution, Lactated 1,000 ML IVC SCH (04:48)
[2020-03-15 05:01] LABS: BUN/Creatinine Ratio 22 (6-26); Blood Urea Nitrogen 15 mg/dL (6-20); Calcium 8.1 mg/dL (8.6-10.3); Carbon Dioxide 16 mEq/L (23-29); Chloride 119 mEq/L (98-107); Glucose 84 mg/dL (70-105); Osmolality,Calculated 304 (280-300); Potassium 3.4 mEq/L (3.5-5.1); Sodium 147 mEq/L (136-145); eGFR For African Americans > 60 (> 60); eGFR For Non-African Americans > 60 (> 60)
[2020-03-15] MEDS: *HR* Heparin 5,000 UNIT/ML VIAL SQ SCH ×2 (05:27→17:55)
[2020-03-15] MEDS: Pantoprazole 40 MG VIAL IVP SCH (08:24)
[2020-03-15] MEDS: Ondansetron 4 MG/2 ML VIAL IVP PRN (08:24)
[2020-03-15] MEDS: *HR* Promethazine 25 MG/ML VIAL IVP PRN (12:43)
[2020-03-15 14:40] LABS: Hematocrit RBC Folate 23.4 %
[2020-03-16] MEDS: *HR* HYDROmorphone (PF) 1 MG/ML SYRINGE IVP PRN ×3 (01:10→13:11)
[2020-03-16] MEDS: Insulin LISPRO 300 UNITS/3 ML VIAL SQ SCH ×4 (01:11→18:03)
[2020-03-16] MEDS: *HR* Heparin 5,000 UNIT/ML VIAL SQ SCH ×2 (03:00→18:03)
[2020-03-16] MEDS: Piperacillin/Tazobactam 3.375 GM in 0.9 % Sodium Chloride Mini Bag 100 ML IVPB SCH ×4 (03:05→22:40)
[2020-03-16] MEDS: *HR* Promethazine 25 MG/ML VIAL IVP PRN ×2 (03:15→13:11)
[2020-03-16 03:29] LABS: Basophils % 0.2 %; Eosinophils # 0.1 K/mcL (0.0-0.6); Eosinophils % 0.9 %; Hematocrit 24.4 % (35.3-44.9); Hemoglobin 8.1 g/dL (11.5-15.4); Immature Granulocytes % 1.4 % (0-4); Lymphocytes # 0.7 K/mcL (0.6-4.6); Lymphocytes % 7.6 %; Mean Corpuscular HGB Conc 33.2 g/dL (31.6-35.5); Mean Corpuscular Hemoglobin 32.8 pg (28.0-33.3); Mean Corpuscular Volume 98.8 fL (83.0-100.0); Mean Platelet Volume 9.7 fL (9.4-12.4); Monocytes # 1.3 K/mcL (0.0-1.3); Monocytes % 14.3 %; Neutrophils # 6.7 K/mcL (1.6-8.9); Platelet Count 219 K/mcL (140-400); Red Blood Count 2.47 M/mcL (3.82-4.97); Red Cell Distribution Width 14.1 % (11.5-14.5); Segmented Neutrophils % 75.6 %; White Blood Count 8.9 K/mcL (4.3-11.1)
[2020-03-16 03:42] LABS: BUN/Creatinine Ratio 17 (6-26); Blood Urea Nitrogen 10 mg/dL (6-20); Calcium 8.4 mg/dL (8.6-10.3); Carbon Dioxide 25 mEq/L (23-29); Chloride 120 mEq/L (98-107); Glucose 103 mg/dL (70-105); Osmolality,Calculated 315 (280-300); Potassium 2.8 mEq/L (3.5-5.1); Sodium 153 mEq/L (136-145); eGFR For African Americans > 60 (> 60); eGFR For Non-African Americans > 60 (> 60)
[2020-03-16] MEDS: Ondansetron 4 MG/2 ML VIAL IVP PRN (05:40)
[2020-03-16] MEDS: D5% in 0.45% NACL w KCl 20 MEQ/1,000 ML MLS IVC SCH (07:26)
[2020-03-16] MEDS: Pantoprazole 40 MG VIAL IVP SCH (07:26)
[2020-03-16] MEDS ORDERED: Ondansetron 4 MG/2 ML VIAL IVP ONE ×2 (09:55→18:48)
[2020-03-16] MEDS: D5% in Water 1,000 ML IVC SCH (10:41)
[2020-03-16] MEDS ORDERED: Potassium Chloride 40 MEQ, Lidocaine 1% 2 ML in 0.9 % Sodium Chloride 500 ML IVPB ONE (12:28)
[2020-03-16] MEDS ORDERED: Ferumoxytol 510 MG in 0.9 % Sodium Chloride 100 ML IVPB ONE (13:56)
[2020-03-16] MEDS ORDERED: Lidocaine -MPF 2% 2 ML VIAL ONE ×3 (14:26→20:12)
[2020-03-16] MEDS ORDERED: Dexamethasone 4 MG/ML VIAL ONE ×2 (14:26→16:28)
[2020-03-16] MEDS ORDERED: *HR* Propofol 200 MG/20 ML VIAL IVP ONE ×2 (14:26→16:28)
[2020-03-16] MEDS ORDERED: Ondansetron 4 MG/2 ML VIAL ONE ×2 (14:26→16:28)
[2020-03-16] MEDS ORDERED: *HR* FentaNYL (PF) 100 MCG/2 ML VIAL ONE ×3 (15:14→19:47)
[2020-03-16] MEDS: 0.9 % Sodium Chloride 500 ML IVC SCH (15:21)
[2020-03-16] MEDS ORDERED: *HR* Midazolam HCl 2 MG/2 ML VIAL ONE (16:28)
[2020-03-16] MEDS ORDERED: Ketorolac 30 MG/ML VIAL ONE (16:28)
[2020-03-16] MEDS ORDERED: *HR* Rocuronium Bromide 50 MG/5 ML VIAL ONE ×2 (16:28→20:45)
[2020-03-16 17:47] LABS: BUN/Creatinine Ratio 16 (6-26); Blood Urea Nitrogen 9 mg/dL (6-20); Calcium 7.8 mg/dL (8.6-10.3); Carbon Dioxide 24 mEq/L (23-29); Chloride 118 mEq/L (98-107); Glucose 132 mg/dL (70-105); Osmolality,Calculated 311 (280-300); Potassium 3.3 mEq/L (3.5-5.1); Sodium 150 mEq/L (136-145); eGFR For African Americans > 60 (> 60); eGFR For Non-African Americans > 60 (> 60)
[2020-03-16] MEDS ORDERED: Famotidine 20 MG/2 ML VIAL ONE (18:51)
[2020-03-16] MEDS ORDERED: Acetaminophen IV 1,000 MG/100 ML BAG ONE (18:51)
[2020-03-16] MEDS ORDERED: *HR* Succinylcholine 200 MG/10 ML VIAL IVP ONE (19:43)
[2020-03-16] MEDS ORDERED: *HR* PHENYLEPHRINE 1,000 MCG/10 ML SYRINGE IVP ONE (19:43)
[2020-03-16] MEDS ORDERED: Albumin Human 5% 12.5 GM/250 ML IV.SOLN ONE ×2 (21:05→22:43)
[2020-03-16] MEDS ORDERED: Neostigmine Methylsulfate 3 MG/3 ML SYRINGE ONE (21:27)
[2020-03-16] MEDS ORDERED: *HR* HYDROMORPHONE 2 MG/ML VIAL ONE (21:34)
[2020-03-16] MEDS: *HR* HYDROmorphone PF 0.5 MG/0.5 ML SYRINGE IVP PRN ×2 (22:00→22:08)
[2020-03-16] MEDS ORDERED: Albumin Human 5% 12.5 GM/250 ML IV.SOLN IVPB ONE (22:38)
[2020-03-16] MEDS ORDERED: 0.9 % Sodium Chloride 250 ML IVC SCH (23:15)
[2020-03-16] MEDS ORDERED: EPHEDrine 50 MG/ML VIAL ONE (23:38)
[2020-03-17] MEDS: *HR* HYDROmorphone PF 0.5 MG/0.5 ML SYRINGE IVP PRN (00:10)
[2020-03-17] MEDS ORDERED: Ondansetron 4 MG/2 ML VIAL IVP ONE (00:19)
[2020-03-17] MEDS ORDERED: *HR* Midazolam HCl 2 MG/2 ML VIAL ONE (02:03)
[2020-03-17] MEDS ORDERED: *HR* Midazolam HCl 2 MG/2 ML VIAL IVP ONE (02:06)
[2020-03-17] MEDS ORDERED: *HR* LORazepam 2 MG/ML VIAL IVP ONE ×2 (02:38→03:28)
[2020-03-17] MEDS ORDERED: Furosemide 20 MG/2 ML VIAL IVP ONE (03:38)
[2020-03-17 05:43] LABS: Basophils % 0.2 %; Eosinophils % 0.1 %; Hematocrit 18.7 % (35.3-44.9); Immature Granulocytes % 6.2 % (0-4); Lymphocytes # 0.7 K/mcL (0.6-4.6); Lymphocytes % 4.2 %; Mean Corpuscular HGB Conc 29.9 g/dL (31.6-35.5); Mean Corpuscular Hemoglobin 32.2 pg (28.0-33.3); Mean Corpuscular Volume 107.5 fL (83.0-100.0); Mean Platelet Volume 10.3 fL (9.4-12.4); Monocytes # 0.7 K/mcL (0.0-1.3); Monocytes % 4.3 %; Neutrophils # 14.3 K/mcL (1.6-8.9); Nucleated Red Blood Cells 0.8 /100 WBC (0); Platelet Count 100 K/mcL (140-400); Red Blood Count 1.74 M/mcL (3.82-4.97); Red Cell Distribution Width 16.2 % (11.5-14.5); White Blood Count 16.8 K/mcL (4.3-11.1)
[2020-03-17 05:48] LABS: Hemoglobin 5.6 g/dL (11.5-15.4)
[2020-03-17] MEDS ORDERED: 0.9 % Sodium Chloride 1,000 ML IVC ONE ×2 (05:52→06:27)
[2020-03-17 05:58] LABS: BUN/Creatinine Ratio 10 (6-26); Blood Urea Nitrogen 11 mg/dL (6-20); Carbon Dioxide 6 mEq/L (23-29); Chloride 118 mEq/L (98-107); Glucose 147 mg/dL (70-105); Magnesium 1.8 mg/dL (1.6-2.6); Osmolality,Calculated 310 (280-300); Phosphorous 7.6 mg/dL (2.7-4.5); Potassium 5.5 mEq/L (3.5-5.1); Sodium 149 mEq/L (136-145); eGFR For African Americans > 60 (> 60); eGFR For Non-African Americans 54 (> 60)
[2020-03-17] MEDS ORDERED: EPINEPHrine 1 MG in D5% in Water 250 ML IVC SCH ×2 (06:00→06:27)
[2020-03-17] MEDS ORDERED: Piperacillin/Tazobactam 3.375 GM in Water for inj. (sterile) 20 ML IVP ONE ×2 (06:02→06:27)
[2020-03-17] MEDS ORDERED: Pantoprazole 40 MG VIAL IVP SCH ×2 (06:02→09:00)
[2020-03-17] MEDS ORDERED: Calcium Gluconate 1gm/50mL 1 GM/50 ML BAG IVPB ONE (06:05)
[2020-03-17] MEDS ORDERED: 0.9 % Sodium Chloride 250 ML ONE ×3 (06:09→14:22)
[2020-03-17 06:15] LABS: Burr Cells 1+ (Not Present); Hypochromasia Present (Not Present); Platelet Estimate Slight Decrease (Normal)
[2020-03-17 06:16] LABS: Polychromasia 1+ (Not Present)
[2020-03-17] MEDS: D5% in Water 1,000 ML IVC SCH ×4 (06:24→22:35)
[2020-03-17] MEDS: Insulin LISPRO 300 UNITS/3 ML VIAL SQ SCH ×3 (06:24→18:48)
[2020-03-17] MEDS: 0.9 % Sodium Chloride 500 ML IVC SCH ×4 (06:25→22:35)
[2020-03-17] MEDS: Piperacillin/Tazobactam 3.375 GM in 0.9 % Sodium Chloride Mini Bag 100 ML IVPB SCH ×4 (06:25→23:41)
[2020-03-17] MEDS ORDERED: *HR* LORazepam 2 MG/ML VIAL IVP PRN (06:27)
[2020-03-17] MEDS ORDERED: *HR* Dextrose 50 % in Water (Syg) 50 ML SYRINGE IVP PRN (06:27)
[2020-03-17] MEDS ORDERED: Dextrose Gel 15 GM/37.5 ML TUBE PO PRN ×2 (06:27)
[2020-03-17] MEDS ORDERED: *HR* HYDROmorphone PF 0.5 MG/0.5 ML SYRINGE IVP PRN (06:27)
[2020-03-17] MEDS ORDERED: *HR* HYDROmorphone (PF) 1 MG/ML SYRINGE IVP PRN (06:27)
[2020-03-17] MEDS ORDERED: *HR* Promethazine 25 MG/ML VIAL IVP PRN (06:27)
[2020-03-17] MEDS ORDERED: Naloxone 0.4 MG/ML INJ IVP PRN (06:27)
[2020-03-17] MEDS ORDERED: D5% in Water 1,000 ML IVC PRN (06:27)
[2020-03-17] MEDS ORDERED: Ondansetron 4 MG/2 ML VIAL IVP PRN (06:27)
[2020-03-17] MEDS ORDERED: Acetaminophen 650 MG RECTAL SUPP RC PRN (06:27)
[2020-03-17] MEDS ORDERED: Norepinephrine 4 MG/254 ML IV.SOLN IVC SCH ×2 (06:30→06:45)
[2020-03-17 06:34] LABS: ABG Base Excess -26 mEq/L (-2 to 3); ABG HCO3 5 mEq/L (21-27); ABG Oxygen Saturation 96 % (95-98); ABG PCO2 35 mmHg (35-45); ABG PH 6.76 pH Units (7.32-7.45); ABG PO2 153 mmHg (85-104); ABG TCO2 6 mEq/L (20-26); Blood Gas Modality AF; Blood Gas VT 400 cc
[2020-03-17] MEDS ORDERED: *HR* Midazolam HCl 5 MG/5 ML VIAL IVP ONE (07:11)
[2020-03-17] MEDS ORDERED: Isovue-370 500 ML BOTTLE IVP ONE (07:47)
[2020-03-17] MEDS ORDERED: Calcium Chloride 2,000 MG in 0.9 % Sodium Chloride 250 ML IVPB ONE ×2 (07:51→14:00)
[2020-03-17] MEDS ORDERED: Calcium Gluconate 1gm/50mL 1 GM/50 ML BAG IVPB SCH (08:00)
[2020-03-17] MEDS: Hydrocortisone Sodium Succ 100 MG/2 ML VIAL IVP SCH ×2 (08:06→16:38)
[2020-03-17] MEDS: Sodium Bicarbonate 150 MEQ in D5% in Water 1,000 ML IVC SCH ×2 (08:07→16:38)
[2020-03-17] MEDS: FentaNYL (PF) 1,000 MCG/100 ML IV.SOLN IVC SCH ×3 (08:08→19:44)
[2020-03-17 08:28] LABS: Hematocrit 27.8 % (35.3-44.9); Hemoglobin 8.6 g/dL (11.5-15.4)
[2020-03-17] MEDS ORDERED: Artificial Tears SOLN 15 ML BOTTLE BOTH EYES PRN (08:51)
[2020-03-17] MEDS ORDERED: Norepinephrine 8 MG/508 ML IV.SOLN IVC SCH (09:15)
[2020-03-17] MEDS: Dexmedetomidine HCl 400 MCG/100 ML MLS IVC SCH ×2 (09:22→21:13)
[2020-03-17] MEDS: Chlorhexidine Rinse 15 ML MOUTHWASH MM SCH ×2 (09:23→19:29)
[2020-03-17 09:33] LABS: ABG Base Excess -18 mEq/L (-2 to 3); ABG HCO3 10 mEq/L (21-27); ABG Oxygen Saturation 95 % (95-98); ABG PCO2 32 mmHg (35-45); ABG PH 7.11 pH Units (7.32-7.45); ABG PO2 100 mmHg (85-104); ABG TCO2 11 mEq/L (20-26); Blood Gas Modality AF; Blood Gas VT 400 cc
[2020-03-17] MEDS ORDERED: Thiamine (B-1) 100 MG in 0.9 % Sodium Chloride 50 ML IVPB STA (09:34)
[2020-03-17 09:47] LABS: Immature Platelets 9.1 % (1.1-6.1); Mean Corpuscular HGB Conc 30.5 g/dL (31.6-35.5); Mean Corpuscular Hemoglobin 29.6 pg (28.0-33.3); Mean Corpuscular Volume 97.2 fL (83.0-100.0); Mean Platelet Volume 10.5 fL (9.4-12.4); Nucleated Red Blood Cells 3.2 /100 WBC (0); Red Blood Count 2.87 M/mcL (3.82-4.97); White Blood Count 17.1 K/mcL (4.3-11.1)
[2020-03-17] MEDS: Norepinephrine 8 MG in 0.9 % Sodium Chloride 500 ML IVC SCH (10:08)
[2020-03-17] MEDS: EPINEPHrine 5 MG in D5% in Water 250 ML IVC SCH (10:08)
[2020-03-17 10:09] LABS: Platelet Count 56 K/mcL (140-400)
[2020-03-17] MEDS: Midazolam HCl 50 MG/100 ML IV.SOLN IVC SCH ×3 (10:09→21:46)
[2020-03-17 10:14] LABS: Lymphocytes # 3.4 K/mcL (0.6-4.6); Neutrophils # 12.7 K/mcL (1.6-8.9); Platelet Estimate Decreased (Normal)
[2020-03-17 10:15] LABS: Anisocytosis 1+ (Not Present)
[2020-03-17 10:44] LABS: Activated Partial Thrombo Time 47.2 Seconds (26.0-36.0)
[2020-03-17 10:49] LABS: INR 6.3
[2020-03-17] MEDS: Vasopressin 40 UNIT in D5% in Water 100 ML IVC SCH (11:06)
[2020-03-17] MEDS: Artificial Tears SOLN 15 ML BOTTLE BOTH EYES SCH ×4 (11:07→23:42)
[2020-03-17 14:24] LABS: Nucleated Red Blood Cells 2.2 /100 WBC (0)
[2020-03-17 14:26] LABS: Hemoglobin 6.9 g/dL (11.5-15.4); Immature Platelets 3.6 % (1.1-6.1); Mean Corpuscular HGB Conc 32.9 g/dL (31.6-35.5); Mean Corpuscular Hemoglobin 30.1 pg (28.0-33.3); Mean Corpuscular Volume 91.7 fL (83.0-100.0); Mean Platelet Volume 9.8 fL (9.4-12.4); Platelet Count 149 K/mcL (140-400); Red Blood Count 2.29 M/mcL (3.82-4.97); Red Cell Distribution Width 15.9 % (11.5-14.5); White Blood Count 18.2 K/mcL (4.3-11.1)
[2020-03-17 14:35] LABS: INR 2.7
[2020-03-17 14:36] LABS: Activated Partial Thrombo Time 42.4 Seconds (26.0-36.0)
[2020-03-17 14:46] LABS: Lymphocytes # 0.7 K/mcL (0.6-4.6); Monocytes # 0.4 K/mcL (0.0-1.3); Neutrophils # 17.1 K/mcL (1.6-8.9)
[2020-03-17 14:47] LABS: Anisocytosis 1+ (Not Present); Platelet Estimate Decreased (Normal)
[2020-03-17] MEDS ORDERED: Calcium Chloride 2,000 MG in 0.9 % Sodium Chloride 100 ML IVPB ONE (14:50)
[2020-03-17 15:54] LABS: Albumin 2.3 g/dL (3.5-5.7); Albumin/Globulin Ratio 1.6 (1.1-2.2); Alkaline Phosphatase 71 Units/L (34-104); BUN/Creatinine Ratio 11 (6-26); Bilirubin,Total 1.1 mg/dL (0.3-1.0); Blood Urea Nitrogen 17 mg/dL (6-20); Calcium 7.5 mg/dL (8.6-10.3); Carbon Dioxide 18 mEq/L (23-29); Chloride 108 mEq/L (98-107); Globulin 1.4 g/dL (2.4-3.5); Glucose 207 mg/dL (70-105); Magnesium 1.5 mg/dL (1.6-2.6); Osmolality,Calculated 320 (280-300); Phosphorous 8.1 mg/dL (2.7-4.5); Sodium 151 mEq/L (136-145); Total Protein 3.7 g/dL (6.4-8.9); eGFR For African Americans 43 (> 60); eGFR For Non-African Americans 36 (> 60)
[2020-03-17 16:46] LABS: Alanine Aminotransferase > 5000 Units/L (7-52); Aspartate Amino Transferase > 3000 Units/L (13-39)
[2020-03-17] MEDS ORDERED: *HR* Heparin 5,000 UNIT/ML VIAL SQ SCH (18:00)
[2020-03-17] MEDS: Pantoprazole 40 MG VIAL IVP SCH (18:34)
[2020-03-17 19:59] LABS: INR 1.9; Prothrombin Time 21.6 Seconds (9.4-12.1)
[2020-03-17 20:01] LABS: Activated Partial Thrombo Time 37.1 Seconds (26.0-36.0); Hematocrit 36.7 % (35.3-44.9); Hemoglobin 12.4 g/dL (11.5-15.4); Immature Platelets 4.1 % (1.1-6.1); Mean Corpuscular HGB Conc 33.8 g/dL (31.6-35.5); Mean Corpuscular Hemoglobin 31.5 pg (28.0-33.3); Mean Corpuscular Volume 93.1 fL (83.0-100.0); Mean Platelet Volume 9.8 fL (9.4-12.4); Nucleated Red Blood Cells 1.3 /100 WBC (0); Red Blood Count 3.94 M/mcL (3.82-4.97); Red Cell Distribution Width 16.7 % (11.5-14.5); White Blood Count 24.5 K/mcL (4.3-11.1)
[2020-03-17 20:04] LABS: Platelet Count 82 K/mcL (140-400)
[2020-03-17 20:29] LABS: Monocytes # 0.5 K/mcL (0.0-1.3); Neutrophils # 22.1 K/mcL (1.6-8.9); Platelet Estimate Decreased (Normal); Toxic Granulation Present (Not Present)
[2020-03-17 20:30] LABS: Anisocytosis 1+ (Not Present)
[2020-03-17 20:31] LABS: Alanine Aminotransferase 1464 Units/L (7-52); Albumin 3.1 g/dL (3.5-5.7); Albumin/Globulin Ratio 1.6 (1.1-2.2); Alkaline Phosphatase 79 Units/L (34-104); Aspartate Amino Transferase > 3000 Units/L (13-39); BUN/Creatinine Ratio 11 (6-26); Bilirubin,Total 2.2 mg/dL (0.3-1.0); Blood Urea Nitrogen 18 mg/dL (6-20); Calcium 10.7 mg/dL (8.6-10.3); Carbon Dioxide 24 mEq/L (23-29); Chloride 110 mEq/L (98-107); Globulin 1.9 g/dL (2.4-3.5); Glucose 168 mg/dL (70-105); Magnesium 1.4 mg/dL (1.6-2.6); Osmolality,Calculated 314 (280-300); Potassium 3.8 mEq/L (3.5-5.1); Sodium 149 mEq/L (136-145); eGFR For African Americans 39 (> 60); eGFR For Non-African Americans 32 (> 60)
[2020-03-17 20:46] LABS: ABG Base Excess -1 mEq/L (-2 to 3); ABG HCO3 23 mEq/L (21-27); ABG Oxygen Saturation 96 % (95-98); ABG PCO2 34 mmHg (35-45); ABG PH 7.44 pH Units (7.32-7.45); ABG PO2 80 mmHg (85-104); ABG TCO2 24 mEq/L (20-26); Blood Gas Modality AF; Blood Gas VT 450 cc
[2020-03-18] MEDS: Insulin LISPRO 300 UNITS/3 ML VIAL SQ SCH ×7 (00:10→23:57)
[2020-03-18] MEDS: Sodium Bicarbonate 150 MEQ in D5% in Water 1,000 ML IVC SCH (01:34)
[2020-03-18 01:59] LABS: Mean Corpuscular Volume 89.7 fL (83.0-100.0)
[2020-03-18 02:00] LABS: VBG Ionized Calcium 1.17 mmol/L (1.15-1.35)
[2020-03-18 02:01] LABS: Hematocrit 37.4 % (35.3-44.9); Hemoglobin 12.9 g/dL (11.5-15.4); Immature Platelets 5.8 % (1.1-6.1); Mean Corpuscular HGB Conc 34.5 g/dL (31.6-35.5); Mean Corpuscular Hemoglobin 30.9 pg (28.0-33.3); Mean Platelet Volume 10.4 fL (9.4-12.4); Nucleated Red Blood Cells 1.2 /100 WBC (0); Red Blood Count 4.17 M/mcL (3.82-4.97)
[2020-03-18 02:04] LABS: White Blood Count 32.6 K/mcL (4.3-11.1)
[2020-03-18 02:05] LABS: Platelet Count 81 K/mcL (140-400)
[2020-03-18 02:13] LABS: INR 2.1; Prothrombin Time 24.4 Seconds (9.4-12.1)
[2020-03-18] MEDS: FentaNYL (PF) 1,000 MCG/100 ML IV.SOLN IVC SCH ×3 (02:20→20:25)
[2020-03-18 02:33] LABS: Lymphocytes # 1.3 K/mcL (0.6-4.6)
[2020-03-18 02:34] LABS: Anisocytosis 1+ (Not Present); Platelet Estimate Decreased (Normal); Toxic Granulation Present (Not Present)
[2020-03-18 02:46] LABS: Alanine Aminotransferase 2151 Units/L (7-52); Albumin/Globulin Ratio 1.6 (1.1-2.2); Alkaline Phosphatase 98 Units/L (34-104); Aspartate Amino Transferase > 3000 Units/L (13-39); BUN/Creatinine Ratio 10 (6-26); Bilirubin,Total 3.2 mg/dL (0.3-1.0); Blood Urea Nitrogen 18 mg/dL (6-20); Calcium 9.3 mg/dL (8.6-10.3); Carbon Dioxide 29 mEq/L (23-29); Chloride 108 mEq/L (98-107); Globulin 1.9 g/dL (2.4-3.5); Glucose 142 mg/dL (70-105); Magnesium 1.3 mg/dL (1.6-2.6); Osmolality,Calculated 314 (280-300); Potassium 3.4 mEq/L (3.5-5.1); Sodium 150 mEq/L (136-145); Total Protein 4.9 g/dL (6.4-8.9); eGFR For African Americans 35 (> 60); eGFR For Non-African Americans 29 (> 60)
[2020-03-18] MEDS: Artificial Tears SOLN 15 ML BOTTLE BOTH EYES SCH ×6 (03:20→23:58)
[2020-03-18 04:45] LABS: ABG Base Excess 5 mEq/L (-2 to 3); ABG HCO3 25 mEq/L (21-27); ABG Oxygen Saturation 99 % (95-98); ABG PCO2 24 mmHg (35-45); ABG PH 7.63 pH Units (7.32-7.45); ABG PO2 118 mmHg (85-104); ABG TCO2 26 mEq/L (20-26); Blood Gas Modality AF; Blood Gas VT 450 cc
[2020-03-18] MEDS: Pantoprazole 40 MG VIAL IVP SCH ×2 (05:05→17:04)
[2020-03-18 07:24] LABS: ABG Base Excess 3 mEq/L (-2 to 3); ABG HCO3 28 mEq/L (21-27); ABG Oxygen Saturation 98 % (95-98); ABG PCO2 44 mmHg (35-45); ABG PH 7.41 pH Units (7.32-7.45); ABG PO2 110 mmHg (85-104); ABG TCO2 29 mEq/L (20-26); Blood Gas Modality ASSIST CONTROL; Blood Gas VT 400 cc
[2020-03-18] MEDS ORDERED: Calcium Gluconate 1gm/50mL 1 GM/50 ML BAG IVPB SCH (07:30)
[2020-03-18 08:01] LABS: Hemoglobin 12.8 g/dL (11.5-15.4)
[2020-03-18 08:02] LABS: VBG Ionized Calcium 1.07 mmol/L (1.15-1.35)
[2020-03-18 08:03] LABS: Hematocrit 36.7 % (35.3-44.9); Immature Platelets 7.6 % (1.1-6.1); Mean Corpuscular HGB Conc 34.9 g/dL (31.6-35.5); Mean Corpuscular Hemoglobin 30.4 pg (28.0-33.3); Mean Corpuscular Volume 87.2 fL (83.0-100.0); Mean Platelet Volume 10.5 fL (9.4-12.4); Nucleated Red Blood Cells 1.7 /100 WBC (0); Red Blood Count 4.21 M/mcL (3.82-4.97); Red Cell Distribution Width 15.3 % (11.5-14.5)
[2020-03-18] MEDS: Midazolam HCl 50 MG/100 ML IV.SOLN IVC SCH ×2 (08:05→20:24)
[2020-03-18 08:18] LABS: Platelet Count 77 K/mcL (140-400)
[2020-03-18] MEDS: Vasopressin 40 UNIT in D5% in Water 100 ML IVC SCH (08:18)
[2020-03-18] MEDS: Chlorhexidine Rinse 15 ML MOUTHWASH MM SCH ×2 (08:18→20:27)
[2020-03-18] MEDS: Piperacillin/Tazobactam 3.375 GM in 0.9 % Sodium Chloride Mini Bag 100 ML IVPB SCH ×3 (08:18→23:57)
[2020-03-18 08:20] LABS: White Blood Count 35.1 K/mcL (4.3-11.1)
[2020-03-18] MEDS ORDERED: Calcium Chloride 2,000 MG in 0.9 % Sodium Chloride 100 ML IVPB ONE (09:00)
[2020-03-18 09:06] LABS: Platelet Estimate Decreased (Normal); Toxic Granulation Present (Not Present); Toxic Vacuolation Present (Not Present)
[2020-03-18 09:10] LABS: Anisocytosis 1+ (Not Present)
[2020-03-18 09:22] LABS: Alanine Aminotransferase 2591 Units/L (7-52); Albumin 3.1 g/dL (3.5-5.7); Albumin/Globulin Ratio 2.1 (1.1-2.2); Alkaline Phosphatase 128 Units/L (34-104); Aspartate Amino Transferase > 3000 Units/L (13-39); BUN/Creatinine Ratio 10 (6-26); Bilirubin,Total 3.9 mg/dL (0.3-1.0); Blood Urea Nitrogen 20 mg/dL (6-20); Calcium 8.7 mg/dL (8.6-10.3); Carbon Dioxide 28 mEq/L (23-29); Chloride 106 mEq/L (98-107); Globulin 1.5 g/dL (2.4-3.5); Glucose 109 mg/dL (70-105); Osmolality,Calculated 311 (280-300); Phosphorous 5.5 mg/dL (2.7-4.5); Potassium 3.5 mEq/L (3.5-5.1); Sodium 149 mEq/L (136-145); Total Protein 4.6 g/dL (6.4-8.9); eGFR For African Americans 32 (> 60); eGFR For Non-African Americans 26 (> 60)
[2020-03-18] MEDS: Micafungin 100 MG in 0.9 % Sodium Chloride Mini Bag 100 ML IVPB SCH (09:31)
[2020-03-18] MEDS: EPINEPHrine 5 MG in D5% in Water 250 ML IVC SCH (09:31)
[2020-03-18] MEDS: Norepinephrine 8 MG in 0.9 % Sodium Chloride 500 ML IVC SCH (09:32)
[2020-03-18] MEDS ORDERED: 0.9 % Sodium Chloride 1,000 ML PRIME SCH (09:45)
[2020-03-18] MEDS: Dexmedetomidine HCl 400 MCG/100 ML MLS IVC SCH (10:19)
[2020-03-18] MEDS ORDERED: Lidocaine/EPI 1:100k 1% 50 ML VIAL ONE (11:04)
[2020-03-18] MEDS ORDERED: Heparin 1,000 UNITS/500 mL 500 ML ONE (11:04)
[2020-03-18] MEDS: PrismaSATE BGK 4/2.5 5,000 ML CRRT SCH ×6 (11:09→20:30)
[2020-03-18] MEDS: 0.9 % Sodium Chloride 500 ML IVC SCH ×2 (11:10→22:54)
[2020-03-18] MEDS ORDERED: D10% in Water 500 ML IVC PRN (11:19)
[2020-03-18 11:23] LABS: Triglycerides 151 mg/dL (< 150)
[2020-03-18] MEDS ORDERED: *HR* Heparin 5,000 UNIT/ML VIAL ONE (11:44)
[2020-03-18 11:56] LABS: ABG Base Excess 3 mEq/L (-2 to 3); ABG HCO3 28 mEq/L (21-27); ABG Oxygen Saturation 97 % (95-98); ABG PCO2 44 mmHg (35-45); ABG PH 7.41 pH Units (7.32-7.45); ABG PO2 92 mmHg (85-104); ABG TCO2 30 mEq/L (20-26); Blood Gas Modality ASSIST CONTROL; Blood Gas VT 400 cc
[2020-03-18] MEDS: Thiamine (B-1) 100 MG in 0.9 % Sodium Chloride 50 ML IVPB SCH ×2 (13:25→20:26)
[2020-03-18] MEDS: D5% in Water 1,000 ML IVC SCH ×3 (13:26→22:54)
[2020-03-18 14:24] LABS: Hematocrit 34.7 % (35.3-44.9); Hemoglobin 11.9 g/dL (11.5-15.4)
[2020-03-18 14:42] LABS: Calcium 10.3 mg/dL (8.6-10.3); Magnesium 1.9 mg/dL (1.6-2.6); Phosphorous 6.2 mg/dL (2.7-4.5); Potassium 3.9 mEq/L (3.5-5.1)
[2020-03-18 14:48] LABS: INR 1.9; Prothrombin Time 21.8 Seconds (9.4-12.1)
[2020-03-18 14:50] LABS: Activated Partial Thrombo Time 34.2 Seconds (26.0-36.0)
[2020-03-18] MEDS ORDERED: 0.9 % Sodium Chloride 500 ML ONE (15:02)
[2020-03-18] MEDS ORDERED: Clinimix E 5%-15% SOLUTION 2,000 ML with MVI, adult with vitamin K 10 ML IVC SCH (17:00)
[2020-03-18 20:27] LABS: Hematocrit 36.2 % (35.3-44.9); Hemoglobin 12.4 g/dL (11.5-15.4)
[2020-03-18] MEDS: *HR* Heparin 5,000 UNIT/ML VIAL SQ SCH (20:28)
[2020-03-19] MEDS: PrismaSATE BGK 4/2.5 5,000 ML CRRT SCH ×12 (01:23→21:35)
[2020-03-19 02:10] LABS: Hemoglobin 12.3 g/dL (11.5-15.4)
[2020-03-19 02:12] LABS: Hematocrit 37.2 % (35.3-44.9)
[2020-03-19] MEDS: Thiamine (B-1) 100 MG in 0.9 % Sodium Chloride 50 ML IVPB SCH ×3 (03:00→18:40)
[2020-03-19 03:08] LABS: Hematocrit 37.6 % (35.3-44.9); Mean Corpuscular Volume 88.3 fL (83.0-100.0); Red Blood Count 4.26 M/mcL (3.82-4.97); Red Cell Distribution Width 16.1 % (11.5-14.5)
[2020-03-19 03:10] LABS: Hemoglobin 12.5 g/dL (11.5-15.4); Immature Platelets 7.9 % (1.1-6.1); Mean Corpuscular HGB Conc 33.2 g/dL (31.6-35.5); Mean Corpuscular Hemoglobin 29.3 pg (28.0-33.3); Mean Platelet Volume 10.1 fL (9.4-12.4); Nucleated Red Blood Cells 2.3 /100 WBC (0); White Blood Count 25.9 K/mcL (4.3-11.1)
[2020-03-19 03:11] LABS: Platelet Count 66 K/mcL (140-400)
[2020-03-19 03:30] LABS: Calcium 8.2 mg/dL (8.6-10.3); Magnesium 2.2 mg/dL (1.6-2.6); Phosphorous 3.4 mg/dL (2.7-4.5); Potassium 3.7 mEq/L (3.5-5.1)
[2020-03-19 03:43] LABS: Alanine Aminotransferase 2405 Units/L (7-52); Albumin/Globulin Ratio 1.8 (1.1-2.2); Alkaline Phosphatase 178 Units/L (34-104); Aspartate Amino Transferase > 3000 Units/L (13-39); Bilirubin,Direct 3.4 mg/dL (0.0-0.2); Bilirubin,Indirect 1.5 mg/dL (0.0-1.0); Bilirubin,Total 4.9 mg/dL (0.3-1.0); Globulin 1.7 g/dL (2.4-3.5); Total Protein 4.7 g/dL (6.4-8.9)
[2020-03-19 03:54] LABS: Anisocytosis 1+ (Not Present); Neutrophils # 22.3 K/mcL (1.6-8.9); Platelet Estimate Decreased (Normal); Poikilocytosis 1+ (Not Present); Toxic Granulation Present (Not Present); Toxic Vacuolation Present (Not Present)
[2020-03-19] MEDS: Insulin LISPRO 300 UNITS/3 ML VIAL SQ SCH ×5 (04:05→20:25)
[2020-03-19] MEDS: Artificial Tears SOLN 15 ML BOTTLE BOTH EYES SCH ×5 (04:05→20:24)
[2020-03-19 04:52] LABS: ABG Base Excess 1 mEq/L (-2 to 3); ABG HCO3 27 mEq/L (21-27); ABG Oxygen Saturation 98 % (95-98); ABG PCO2 45 mmHg (35-45); ABG PH 7.38 pH Units (7.32-7.45); ABG PO2 102 mmHg (85-104); ABG TCO2 28 mEq/L (20-26); Blood Gas VT 400 cc
[2020-03-19] MEDS: Pantoprazole 40 MG VIAL IVP SCH ×2 (06:11→16:55)
[2020-03-19] MEDS: FentaNYL (PF) 1,000 MCG/100 ML IV.SOLN IVC SCH ×2 (07:24→18:40)
[2020-03-19] MEDS: Chlorhexidine Rinse 15 ML MOUTHWASH MM SCH ×2 (07:53→20:24)
[2020-03-19] MEDS: Piperacillin/Tazobactam 3.375 GM in 0.9 % Sodium Chloride Mini Bag 100 ML IVPB SCH ×2 (07:53→16:54)
[2020-03-19] MEDS: Micafungin 100 MG in 0.9 % Sodium Chloride Mini Bag 100 ML IVPB SCH (07:54)
[2020-03-19 08:26] LABS: Hematocrit 38.3 % (35.3-44.9); Hemoglobin 12.6 g/dL (11.5-15.4)
[2020-03-19] MEDS: Norepinephrine 8 MG in 0.9 % Sodium Chloride 500 ML IVC SCH (08:27)
[2020-03-19] MEDS: D5% in Water 1,000 ML IVC SCH ×2 (08:34→18:40)
[2020-03-19] MEDS: Vasopressin 40 UNIT in D5% in Water 100 ML IVC SCH (08:34)
[2020-03-19] MEDS: 0.9 % Sodium Chloride 500 ML IVC SCH ×2 (08:34→18:40)
[2020-03-19] MEDS: Midazolam HCl 50 MG/100 ML IV.SOLN IVC SCH ×2 (09:13→18:59)
[2020-03-19] MEDS: EPINEPHrine 5 MG in D5% in Water 250 ML IVC SCH (09:15)
[2020-03-19 16:08] LABS: Hematocrit 38.2 % (35.3-44.9); Hemoglobin 12.6 g/dL (11.5-15.4)
[2020-03-19] MEDS ORDERED: 0.9 % Sodium Chloride 500 ML ONE (16:25)
[2020-03-19] MEDS ORDERED: Clinimix E 5%-15% SOLUTION 2,000 ML with MVI, adult with vitamin K 10 ML IVC SCH (17:00)
[2020-03-19 18:14] LABS: INR 1.9; Prothrombin Time 21.3 Seconds (9.4-12.1)
[2020-03-19 20:36] LABS: Hematocrit 37.9 % (35.3-44.9); Hemoglobin 12.5 g/dL (11.5-15.4)
[2020-03-20] MEDS: Norepinephrine 8 MG in 0.9 % Sodium Chloride 500 ML IVC SCH ×2 (00:20→14:15)
[2020-03-20] MEDS: Insulin LISPRO 300 UNITS/3 ML VIAL SQ SCH ×6 (00:22→20:11)
[2020-03-20] MEDS: Artificial Tears SOLN 15 ML BOTTLE BOTH EYES SCH ×6 (00:22→20:01)
[2020-03-20] MEDS: Piperacillin/Tazobactam 3.375 GM in 0.9 % Sodium Chloride Mini Bag 100 ML IVPB SCH (00:24)
[2020-03-20 02:29] LABS: Hematocrit 36.2 % (35.3-44.9); Hemoglobin 11.7 g/dL (11.5-15.4)
[2020-03-20] MEDS: PrismaSATE BGK 4/2.5 5,000 ML CRRT SCH ×8 (02:44→17:57)
[2020-03-20] MEDS: Thiamine (B-1) 100 MG in 0.9 % Sodium Chloride 50 ML IVPB SCH ×3 (03:09→18:32)
[2020-03-20 03:37] LABS: Hematocrit 35.1 % (35.3-44.9); Hemoglobin 11.6 g/dL (11.5-15.4); Immature Platelets 22.5 % (1.1-6.1); Mean Corpuscular Hemoglobin 29.5 pg (28.0-33.3); Mean Corpuscular Volume 89.3 fL (83.0-100.0); Mean Platelet Volume 11.5 fL (9.4-12.4); Nucleated Red Blood Cells 3.2 /100 WBC (0); Red Blood Count 3.93 M/mcL (3.82-4.97); Red Cell Distribution Width 16.4 % (11.5-14.5)
[2020-03-20 03:39] LABS: VBG Ionized Calcium 1.04 mmol/L (1.15-1.35)
[2020-03-20 03:42] LABS: Platelet Count 28 K/mcL (140-400)
[2020-03-20 03:51] LABS: INR 1.9; Prothrombin Time 21.1 Seconds (9.4-12.1)
[2020-03-20 03:53] LABS: Activated Partial Thrombo Time 31.4 Seconds (26.0-36.0)
[2020-03-20] MEDS: 0.9 % Sodium Chloride 500 ML IVC SCH ×2 (04:14→16:40)
[2020-03-20] MEDS: Vasopressin 40 UNIT in D5% in Water 100 ML IVC SCH (04:15)
[2020-03-20] MEDS: D5% in Water 1,000 ML IVC SCH ×2 (04:15→16:41)
[2020-03-20 04:18] LABS: Anisocytosis 2+ (Not Present); Eosinophils # 1.4 K/mcL (0.0-0.6); Lymphocytes # 0.5 K/mcL (0.6-4.6); Neutrophils # 24.8 K/mcL (1.6-8.9); Platelet Estimate Marked Decrease (Normal); Poikilocytosis 1+ (Not Present)
[2020-03-20 04:19] LABS: Toxic Granulation Present (Not Present)
[2020-03-20 04:21] LABS: Alanine Aminotransferase 1832 Units/L (7-52); Albumin 2.6 g/dL (3.5-5.7); Albumin/Globulin Ratio 1.9 (1.1-2.2); Alkaline Phosphatase 166 Units/L (34-104); Aspartate Amino Transferase 2345 Units/L (13-39); BUN/Creatinine Ratio 13 (6-26); Bilirubin,Direct 4.6 mg/dL (0.0-0.2); Bilirubin,Indirect 1.5 mg/dL (0.0-1.0); Bilirubin,Total 6.1 mg/dL (0.3-1.0); Blood Urea Nitrogen 14 mg/dL (6-20); Calcium 7.4 mg/dL (8.6-10.3); Carbon Dioxide 26 mEq/L (23-29); Chloride 106 mEq/L (98-107); Globulin 1.4 g/dL (2.4-3.5); Glucose 108 mg/dL (70-105); Magnesium 2.1 mg/dL (1.6-2.6); Osmolality,Calculated 289 (280-300); Potassium 3.9 mEq/L (3.5-5.1); Sodium 139 mEq/L (136-145); eGFR For African Americans > 60 (> 60); eGFR For Non-African Americans 53 (> 60)
[2020-03-20] MEDS ORDERED: Potassium Phosphate 44 MEQ in 0.9 % Sodium Chloride 250 ML IVPB ONE (04:36)
[2020-03-20 04:47] LABS: ABG Base Excess 0 mEq/L (-2 to 3); ABG HCO3 25 mEq/L (21-27); ABG Oxygen Saturation 96 % (95-98); ABG PCO2 37 mmHg (35-45); ABG PH 7.42 pH Units (7.32-7.45); ABG PO2 81 mmHg (85-104); ABG TCO2 26 mEq/L (20-26); Blood Gas Modality ASSIST CONTROL; Blood Gas VT 400 cc
[2020-03-20] MEDS: Pantoprazole 40 MG VIAL IVP SCH ×2 (06:04→17:23)
[2020-03-20] MEDS: FentaNYL (PF) 1,000 MCG/100 ML IV.SOLN IVC SCH ×2 (06:04→15:14)
[2020-03-20 06:22] LABS: Hemoglobin 11.9 g/dL (11.5-15.4); Mean Corpuscular HGB Conc 33.1 g/dL (31.6-35.5); Red Cell Distribution Width 16.4 % (11.5-14.5)
[2020-03-20 06:24] LABS: Hematocrit 35.9 % (35.3-44.9); Immature Platelets 25.3 % (1.1-6.1); Mean Corpuscular Hemoglobin 29.5 pg (28.0-33.3); Mean Corpuscular Volume 89.1 fL (83.0-100.0); Nucleated Red Blood Cells 3.3 /100 WBC (0); Red Blood Count 4.03 M/mcL (3.82-4.97); White Blood Count 27.5 K/mcL (4.3-11.1)
[2020-03-20 06:28] LABS: Platelet Count 26 K/mcL (140-400)
[2020-03-20 06:57] LABS: Eosinophils # 0.6 K/mcL (0.0-0.6); Lymphocytes # 0.6 K/mcL (0.6-4.6); Monocytes # 0.6 K/mcL (0.0-1.3); Neutrophils # 24.8 K/mcL (1.6-8.9)
[2020-03-20 06:58] LABS: Anisocytosis 1+ (Not Present); Platelet Estimate Marked Decrease (Normal); Poikilocytosis 1+ (Not Present); Toxic Granulation Present (Not Present)
[2020-03-20] MEDS: Micafungin 100 MG in 0.9 % Sodium Chloride Mini Bag 100 ML IVPB SCH (07:39)
[2020-03-20] MEDS: Chlorhexidine Rinse 15 ML MOUTHWASH MM SCH ×2 (07:40→20:01)
[2020-03-20] MEDS: Meropenem 1,000 MG in 0.9 % Sodium Chloride Mini Bag 100 ML IVPB SCH ×2 (08:47→20:02)
[2020-03-20] MEDS: Dexmedetomidine HCl 400 MCG/100 ML MLS IVC SCH (09:02)
[2020-03-20] MEDS: Midazolam HCl 50 MG/100 ML IV.SOLN IVC SCH ×2 (09:15→23:07)
[2020-03-20] MEDS: EPINEPHrine 5 MG in D5% in Water 250 ML IVC SCH (09:46)
[2020-03-20] MEDS ORDERED: Clinimix E 5%-15% SOLUTION 2,000 ML with MVI, adult with vitamin K 10 ML IVC SCH (17:00)
[2020-03-20 22:15] LABS: Mean Corpuscular Hemoglobin 29.4 pg (28.0-33.3); Red Cell Distribution Width 16.5 % (11.5-14.5)
[2020-03-20 22:17] LABS: Hematocrit 35.1 % (35.3-44.9); Hemoglobin 11.4 g/dL (11.5-15.4); Mean Corpuscular HGB Conc 32.5 g/dL (31.6-35.5); Mean Corpuscular Volume 90.5 fL (83.0-100.0); Red Blood Count 3.88 M/mcL (3.82-4.97); White Blood Count 23.9 K/mcL (4.3-11.1)
[2020-03-20 22:21] LABS: Platelet Count 22 K/mcL (140-400)
[2020-03-21] MEDS: Artificial Tears SOLN 15 ML BOTTLE BOTH EYES SCH ×6 (00:17→20:49)
[2020-03-21] MEDS: Insulin LISPRO 300 UNITS/3 ML VIAL SQ SCH ×6 (00:17→21:05)
[2020-03-21] MEDS: FentaNYL (PF) 1,000 MCG/100 ML IV.SOLN IVC SCH (01:07)
[2020-03-21] MEDS: D5% in Water 1,000 ML IVC SCH (01:08)
[2020-03-21] MEDS: 0.9 % Sodium Chloride 500 ML IVC SCH ×2 (01:08→21:11)
[2020-03-21] MEDS: Vasopressin 40 UNIT in D5% in Water 100 ML IVC SCH ×2 (01:09→21:11)
[2020-03-21] MEDS: PrismaSATE BGK 4/2.5 5,000 ML CRRT SCH ×8 (02:05→23:40)
[2020-03-21 02:06] LABS: Hematocrit 35.6 % (35.3-44.9); Hemoglobin 11.5 g/dL (11.5-15.4); Immature Platelets 30.4 % (1.1-6.1); Mean Corpuscular HGB Conc 32.3 g/dL (31.6-35.5); Mean Corpuscular Hemoglobin 29.2 pg (28.0-33.3); Mean Corpuscular Volume 90.4 fL (83.0-100.0); Nucleated Red Blood Cells 3.6 /100 WBC (0); Red Blood Count 3.94 M/mcL (3.82-4.97); Red Cell Distribution Width 16.4 % (11.5-14.5); White Blood Count 19.9 K/mcL (4.3-11.1)
[2020-03-21 02:16] LABS: Platelet Count 16 K/mcL (140-400)
[2020-03-21 02:53] LABS: Lymphocytes # 0.4 K/mcL (0.6-4.6); Monocytes # 0.4 K/mcL (0.0-1.3); Neutrophils # 18.7 K/mcL (1.6-8.9); Platelet Estimate Marked Decrease (Normal); Toxic Granulation Present (Not Present)
[2020-03-21 02:54] LABS: Anisocytosis 1+ (Not Present)
[2020-03-21] MEDS: Thiamine (B-1) 100 MG in 0.9 % Sodium Chloride 50 ML IVPB SCH ×3 (03:32→20:49)
[2020-03-21] MEDS ORDERED: 0.9 % Sodium Chloride 250 ML ONE ×2 (03:35→09:53)
[2020-03-21 04:08] LABS: INR 1.3; Prothrombin Time 14.2 Seconds (9.4-12.1)
[2020-03-21 04:11] LABS: Activated Partial Thrombo Time 27.9 Seconds (26.0-36.0)
[2020-03-21 04:19] LABS: BUN/Creatinine Ratio 14 (6-26); Blood Urea Nitrogen 16 mg/dL (6-20); Calcium 7.3 mg/dL (8.6-10.3); Carbon Dioxide 23 mEq/L (23-29); Chloride 107 mEq/L (98-107); Glucose 153 mg/dL (70-105); Magnesium 2.1 mg/dL (1.6-2.6); Osmolality,Calculated 288 (280-300); Phosphorous 2.7 mg/dL (2.7-4.5); Potassium 3.9 mEq/L (3.5-5.1); Sodium 137 mEq/L (136-145); eGFR For African Americans > 60 (> 60); eGFR For Non-African Americans 51 (> 60)
[2020-03-21 04:31] LABS: ABG Base Excess 0 mEq/L (-2 to 3); ABG HCO3 25 mEq/L (21-27); ABG Oxygen Saturation 97 % (95-98); ABG PCO2 41 mmHg (35-45); ABG PO2 90 mmHg (85-104); ABG TCO2 26 mEq/L (20-26); Blood Gas Modality ASSIST CONTROL; Blood Gas VT 400 cc
[2020-03-21] MEDS: Pantoprazole 40 MG VIAL IVP SCH ×2 (05:02→17:20)
[2020-03-21] MEDS: Norepinephrine 8 MG in 0.9 % Sodium Chloride 500 ML IVC SCH (05:09)
[2020-03-21 05:22] LABS: Alanine Aminotransferase 1185 Units/L (7-52); Albumin 2.7 g/dL (3.5-5.7); Albumin/Globulin Ratio 1.7 (1.1-2.2); Alkaline Phosphatase 175 Units/L (34-104); Aspartate Amino Transferase 809 Units/L (13-39); Bilirubin,Direct 4.7 mg/dL (0.0-0.2); Bilirubin,Indirect 2.1 mg/dL (0.0-1.0); Bilirubin,Total 6.8 mg/dL (0.3-1.0); Globulin 1.6 g/dL (2.4-3.5); Total Protein 4.3 g/dL (6.4-8.9)
[2020-03-21] MEDS ORDERED: Calcium Chloride 1,000 MG in 0.9 % Sodium Chloride 100 ML IVPB ONE (08:11)
[2020-03-21] MEDS: Micafungin 100 MG in 0.9 % Sodium Chloride Mini Bag 100 ML IVPB SCH (08:59)
[2020-03-21] MEDS: Meropenem 1,000 MG in 0.9 % Sodium Chloride Mini Bag 100 ML IVPB SCH (09:00)
[2020-03-21] MEDS: Chlorhexidine Rinse 15 ML MOUTHWASH MM SCH ×2 (09:00→20:49)
[2020-03-21] MEDS: FentaNYL (PF) 2,500 MCG/50 ML IV.SOLN IVC SCH (10:52)
[2020-03-21] MEDS: Midazolam HCl 50 MG/100 ML IV.SOLN IVC SCH (12:00)
[2020-03-21 15:37] LABS: INR 1.1; Prothrombin Time 12.3 Seconds (9.4-12.1)
[2020-03-21 15:40] LABS: Activated Partial Thrombo Time 26.4 Seconds (26.0-36.0)
[2020-03-21] MEDS ORDERED: 0.9 % Sodium Chloride 500 ML ONE (15:59)
[2020-03-21] MEDS ORDERED: Clinimix E 5%-15% SOLUTION 2,000 ML with MVI, adult with vitamin K 10 ML IVC SCH (17:00)
[2020-03-21] MEDS: Meropenem 1,000 MG in Water for inj. (sterile) 20 ML IVP SCH (17:20)
[2020-03-21] MEDS: Dexmedetomidine HCl 400 MCG/100 ML MLS IVC SCH (20:39)
[2020-03-21] MEDS: Norepinephrine 8 MG in 0.9 % Sodium Chloride 250 ML IVC SCH (20:40)
[2020-03-22] MEDS: Artificial Tears SOLN 15 ML BOTTLE BOTH EYES SCH ×6 (00:07→20:18)
[2020-03-22] MEDS: Insulin LISPRO 300 UNITS/3 ML VIAL SQ SCH ×6 (00:07→20:18)
[2020-03-22] MEDS: FentaNYL (PF) 2,500 MCG/50 ML IV.SOLN IVC SCH ×2 (00:08→20:38)
[2020-03-22] MEDS: Thiamine (B-1) 100 MG in 0.9 % Sodium Chloride 50 ML IVPB SCH ×3 (03:32→18:40)
[2020-03-22 03:42] LABS: Eosinophils # 0.4 K/mcL (0.0-0.6); Hematocrit 33.2 % (35.3-44.9); Immature Platelets 23.1 % (1.1-6.1); Mean Corpuscular HGB Conc 33.1 g/dL (31.6-35.5); Mean Corpuscular Hemoglobin 29.7 pg (28.0-33.3); Mean Corpuscular Volume 89.7 fL (83.0-100.0); Nucleated Red Blood Cells 8.4 /100 WBC (0); Red Cell Distribution Width 16.2 % (11.5-14.5); White Blood Count 7.1 K/mcL (4.3-11.1)
[2020-03-22 03:47] LABS: Platelet Count 18 K/mcL (140-400)
[2020-03-22 04:14] LABS: Albumin 2.8 g/dL (3.5-5.7); Albumin/Globulin Ratio 1.4 (1.1-2.2); Bilirubin,Total 7.9 mg/dL (0.3-1.0); Magnesium 2.2 mg/dL (1.6-2.6); Phosphorous 1.5 mg/dL (2.7-4.5); Potassium 4.3 mEq/L (3.5-5.1); Total Protein 4.8 g/dL (6.4-8.9)
[2020-03-22] MEDS ORDERED: 0.9 % Sodium Chloride 250 ML IVC SCH (04:15)
[2020-03-22 04:32] LABS: ABG Base Excess 1 mEq/L (-2 to 3); ABG HCO3 25 mEq/L (21-27); ABG Oxygen Saturation 95 % (95-98); ABG PCO2 35 mmHg (35-45); ABG PH 7.46 pH Units (7.32-7.45); ABG PO2 73 mmHg (85-104); ABG TCO2 26 mEq/L (20-26); Blood Gas Modality ASSIST CONTROL; Blood Gas VT 400 cc
[2020-03-22 04:52] LABS: Monocytes # 0.3 K/mcL (0.0-1.3); Neutrophils # 4.7 K/mcL (1.6-8.9)
[2020-03-22 04:53] LABS: Large Platelets Present (Not Present); Platelet Estimate Marked Decrease (Normal); Toxic Vacuolation Present (Not Present)
[2020-03-22 04:54] LABS: Anisocytosis 1+ (Not Present); Toxic Granulation Present (Not Present)
[2020-03-22] MEDS: Pantoprazole 40 MG VIAL IVP SCH ×2 (05:10→17:20)
[2020-03-22] MEDS: Meropenem 1,000 MG in Water for inj. (sterile) 20 ML IVP SCH ×3 (05:11→20:25)
[2020-03-22] MEDS: 0.9 % Sodium Chloride 500 ML IVC SCH (05:11)
[2020-03-22] MEDS: PrismaSATE BGK 4/2.5 5,000 ML CRRT SCH ×4 (06:21→17:15)
[2020-03-22] MEDS: Chlorhexidine Rinse 15 ML MOUTHWASH MM SCH ×2 (08:26→20:54)
[2020-03-22] MEDS: Micafungin 100 MG in 0.9 % Sodium Chloride Mini Bag 100 ML IVPB SCH (08:26)
[2020-03-22] MEDS: Dexmedetomidine HCl 400 MCG/100 ML MLS IVC SCH (09:40)
[2020-03-22] MEDS: Norepinephrine 8 MG in 0.9 % Sodium Chloride 250 ML IVC SCH (10:18)
[2020-03-22] MEDS ORDERED: Calcium Chloride 1,000 MG in 0.9 % Sodium Chloride 100 ML IVPB ONE (11:14)
[2020-03-22] MEDS: *HR* Heparin 5,000 UNIT/ML VIAL CRRT PRN ×2 (12:44→13:57)
[2020-03-22] MEDS ORDERED: *HR* Heparin 5,000 UNIT/ML VIAL ONE (12:51)
[2020-03-22] MEDS: Midazolam HCl 50 MG/100 ML IV.SOLN IVC SCH (14:01)
[2020-03-22] MEDS ORDERED: 0.9 % Sodium Chloride 250 ML IVC PRN (14:58)
[2020-03-22] MEDS ORDERED: 0.9 % Sodium Chloride 1,000 ML PRIME SCH ×2 (15:00→18:00)
[2020-03-22 15:30] LABS: Hemoglobin 10.1 g/dL (11.5-15.4)
[2020-03-22 15:32] LABS: Hematocrit 30.9 % (35.3-44.9); Immature Platelets 10.7 % (1.1-6.1); Mean Corpuscular HGB Conc 32.7 g/dL (31.6-35.5); Mean Corpuscular Hemoglobin 29.2 pg (28.0-33.3); Mean Corpuscular Volume 89.3 fL (83.0-100.0); Mean Platelet Volume 10.9 fL (9.4-12.4); Red Blood Count 3.46 M/mcL (3.82-4.97); Red Cell Distribution Width 15.9 % (11.5-14.5); White Blood Count 6.8 K/mcL (4.3-11.1)
[2020-03-22 15:50] LABS: Calcium 9.2 mg/dL (8.6-10.3); Potassium 4.6 mEq/L (3.5-5.1)
[2020-03-22] MEDS ORDERED: *HR* Metoprolol 5 MG/5 ML VIAL IVP ONE (16:53)
[2020-03-22] MEDS ORDERED: Clinimix E 5%-15% SOLUTION 2,000 ML with MVI, adult with vitamin K 10 ML IVC SCH (17:00)
[2020-03-22] MEDS: methylPREDNISolone 125 MG/2 ML VIAL IVP SCH (17:20)
[2020-03-22] MEDS ORDERED: 0.9 % Sodium Chloride 1,000 ML PRIME ONE ×2 (17:53)
[2020-03-22] MEDS: Vasopressin 40 UNIT in D5% in Water 100 ML IVC SCH (23:32)
[2020-03-23] MEDS: PrismaSATE BGK 4/2.5 5,000 ML CRRT SCH ×5 (00:01→13:35)
[2020-03-23] MEDS: Artificial Tears SOLN 15 ML BOTTLE BOTH EYES SCH ×7 (00:08→23:20)
[2020-03-23] MEDS: Insulin LISPRO 300 UNITS/3 ML VIAL SQ SCH ×7 (00:11→23:20)
[2020-03-23 02:50] LABS: Hepatitis B Surface Antigen Nonreactive (Nonreactive)
[2020-03-23] MEDS: Thiamine (B-1) 100 MG in 0.9 % Sodium Chloride 50 ML IVPB SCH ×2 (03:12→12:23)
[2020-03-23 03:42] LABS: Basophils % 0.6 %; Eosinophils % 0.2 %; Hemoglobin 9.7 g/dL (11.5-15.4); Red Cell Distribution Width 15.9 % (11.5-14.5)
[2020-03-23 03:44] LABS: Basophils # 0.1 K/mcL (0.0-0.2); Hematocrit 29.8 % (35.3-44.9); Immature Granulocytes % 3.2 % (0-4); Lymphocytes # 0.1 K/mcL (0.6-4.6); Lymphocytes % 0.6 %; Mean Corpuscular HGB Conc 32.6 g/dL (31.6-35.5); Mean Corpuscular Hemoglobin 29.4 pg (28.0-33.3); Mean Corpuscular Volume 90.3 fL (83.0-100.0); Monocytes # 1.7 K/mcL (0.0-1.3); Monocytes % 20.9 %; Neutrophils # 6.1 K/mcL (1.6-8.9); Nucleated Red Blood Cells 6.3 /100 WBC (0); Segmented Neutrophils % 74.5 %; White Blood Count 8.2 K/mcL (4.3-11.1)
[2020-03-23 03:46] LABS: INR 1.1; Prothrombin Time 12.4 Seconds (9.4-12.1)
[2020-03-23] MEDS: Meropenem 1,000 MG in Water for inj. (sterile) 20 ML IVP SCH ×3 (03:52→20:14)
[2020-03-23 04:01] LABS: Calcium 8.3 mg/dL (8.6-10.3); Magnesium 2.3 mg/dL (1.6-2.6); Phosphorous 3.5 mg/dL (2.7-4.5); Potassium 5.1 mEq/L (3.5-5.1)
[2020-03-23 04:08] LABS: Large Platelets Present (Not Present); Platelet Count 20 K/mcL (140-400); Platelet Estimate Marked Decrease (Normal)
[2020-03-23 04:20] LABS: ABG Base Excess 2 mEq/L (-2 to 3); ABG HCO3 26 mEq/L (21-27); ABG Oxygen Saturation 95 % (95-98); ABG PCO2 37 mmHg (35-45); ABG PH 7.45 pH Units (7.32-7.45); ABG PO2 69 mmHg (85-104); ABG TCO2 27 mEq/L (20-26); Blood Gas Modality VC; Blood Gas VT 400 cc
[2020-03-23 04:38] LABS: Hepatitis B Surface Antibody 9.19 mIU/mL
[2020-03-23] MEDS: Pantoprazole 40 MG VIAL IVP SCH ×2 (05:46→16:56)
[2020-03-23] MEDS: Micafungin 100 MG in 0.9 % Sodium Chloride Mini Bag 100 ML IVPB SCH (07:56)
[2020-03-23] MEDS: Chlorhexidine Rinse 15 ML MOUTHWASH MM SCH ×2 (07:56→20:27)
[2020-03-23] MEDS: methylPREDNISolone 125 MG/2 ML VIAL IVP SCH (07:57)
[2020-03-23] MEDS: FentaNYL (PF) 2,500 MCG/50 ML IV.SOLN IVC SCH ×2 (08:48→18:42)
[2020-03-23] MEDS: Midazolam HCl 50 MG/100 ML IV.SOLN IVC SCH ×2 (08:49→20:12)
[2020-03-23] MEDS: Norepinephrine 8 MG in 0.9 % Sodium Chloride 250 ML IVC SCH (12:26)
[2020-03-23] MEDS ORDERED: Calcium Chloride 1,000 MG in 0.9 % Sodium Chloride 100 ML IVPB PRN (13:09)
[2020-03-23] MEDS ORDERED: Clinimix E 5%-15% SOLUTION 2,000 ML with MVI, adult with vitamin K 10 ML IVC SCH (17:00)
[2020-03-23] MEDS ORDERED: *HR* Heparin 5,000 UNIT/ML VIAL ONE (18:30)
[2020-03-23] MEDS: *HR* Heparin 5,000 UNIT/ML VIAL CRRT PRN (18:42)
[2020-03-23] MEDS: Vasopressin 40 UNIT in D5% in Water 100 ML IVC SCH (23:21)
[2020-03-24] MEDS: Artificial Tears SOLN 15 ML BOTTLE BOTH EYES SCH ×6 (03:27→23:45)
[2020-03-24] MEDS: Insulin LISPRO 300 UNITS/3 ML VIAL SQ SCH ×6 (03:27→23:45)
[2020-03-24] MEDS: Meropenem 1,000 MG in Water for inj. (sterile) 20 ML IVP SCH (03:29)
[2020-03-24 04:00] LABS: VBG Ionized Calcium 1.16 mmol/L (1.15-1.35)
[2020-03-24 04:01] LABS: Nucleated Red Blood Cells 2.9 /100 WBC (0); Red Cell Distribution Width 15.6 % (11.5-14.5)
[2020-03-24 04:03] LABS: Basophils % 0.3 %; Eosinophils % 0.1 %; Hematocrit 26.3 % (35.3-44.9); Hemoglobin 8.8 g/dL (11.5-15.4); Immature Granulocytes % 3.1 % (0-4); Immature Platelets 17.7 % (1.1-6.1); Lymphocytes # 0.5 K/mcL (0.6-4.6); Lymphocytes % 3.6 %; Mean Corpuscular HGB Conc 33.5 g/dL (31.6-35.5); Mean Corpuscular Volume 89.8 fL (83.0-100.0); Mean Platelet Volume 11.9 fL (9.4-12.4); Monocytes # 2.6 K/mcL (0.0-1.3); Monocytes % 19.5 %; Neutrophils # 9.6 K/mcL (1.6-8.9); Red Blood Count 2.93 M/mcL (3.82-4.97); Segmented Neutrophils % 73.4 %; White Blood Count 13.1 K/mcL (4.3-11.1)
[2020-03-24 04:07] LABS: Platelet Count 59 K/mcL (140-400)
[2020-03-24 04:49] LABS: Calcium 8.6 mg/dL (8.6-10.3); Magnesium 2.6 mg/dL (1.6-2.6); Phosphorous 3.8 mg/dL (2.7-4.5); Potassium 5.7 mEq/L (3.5-5.1)
[2020-03-24 04:52] LABS: ABG Base Excess -1 mEq/L (-2 to 3); ABG HCO3 23 mEq/L (21-27); ABG Oxygen Saturation 98 % (95-98); ABG PCO2 31 mmHg (35-45); ABG PH 7.47 pH Units (7.32-7.45); ABG PO2 89 mmHg (85-104); ABG TCO2 24 mEq/L (20-26); Blood Gas VT 400 cc
[2020-03-24] MEDS: Pantoprazole 40 MG VIAL IVP SCH (05:25)
[2020-03-24] MEDS ORDERED: 0.9 % Sodium Chloride 250 ML IVC PRN (07:48)
[2020-03-24] MEDS: methylPREDNISolone 125 MG/2 ML VIAL IVP SCH (07:49)
[2020-03-24] MEDS: Chlorhexidine Rinse 15 ML MOUTHWASH MM SCH ×2 (07:49→19:38)
[2020-03-24] MEDS: Micafungin 100 MG in 0.9 % Sodium Chloride Mini Bag 100 ML IVPB SCH (07:49)
[2020-03-24] MEDS: Norepinephrine 8 MG in 0.9 % Sodium Chloride 250 ML IVC SCH (07:50)
[2020-03-24] MEDS: Bacitracin/PolymyxinB OINT 14.17 GM TUBE TP SCH ×2 (10:23→19:38)
[2020-03-24] MEDS ORDERED: *HR* Heparin 10,000 UNIT/10 ML VIAL IV PRN (10:37)
[2020-03-24] MEDS: Midazolam HCl 50 MG/100 ML IV.SOLN IVC SCH (14:18)
[2020-03-24] MEDS: Pantoprazole 40 MG in 0.9 % Sodium Chloride Mini Bag 100 ML IVC SCH ×3 (14:23→23:45)
[2020-03-24 14:36] LABS: Hematocrit 27.7 % (35.3-44.9); Hemoglobin 9.2 g/dL (11.5-15.4)
[2020-03-24 15:50] LABS: INR 1.1; Prothrombin Time 12.8 Seconds (9.4-12.1)
[2020-03-24] MEDS ORDERED: Clinimix E 5%-15% SOLUTION 2,000 ML with MVI, adult with vitamin K 10 ML IVC SCH (17:00)
[2020-03-24] MEDS: FentaNYL (PF) 2,500 MCG/50 ML IV.SOLN IVC SCH (18:03)
[2020-03-24 20:16] LABS: Hematocrit 27.3 % (35.3-44.9); Hemoglobin 9.3 g/dL (11.5-15.4)
[2020-03-25 02:17] LABS: Hematocrit 26.2 % (35.3-44.9); Hemoglobin 8.7 g/dL (11.5-15.4)
[2020-03-25 04:08] LABS: ABG Base Excess -3 mEq/L (-2 to 3); ABG HCO3 21 mEq/L (21-27); ABG Oxygen Saturation 99 % (95-98); ABG PCO2 31 mmHg (35-45); ABG PH 7.44 pH Units (7.32-7.45); ABG PO2 111 mmHg (85-104); ABG TCO2 22 mEq/L (20-26); Blood Gas VT 400 cc
[2020-03-25] MEDS: Artificial Tears SOLN 15 ML BOTTLE BOTH EYES SCH ×6 (04:27→23:14)
[2020-03-25 05:04] LABS: Hemoglobin 8.9 g/dL (11.5-15.4); Nucleated Red Blood Cells 0.7 /100 WBC (0); Segmented Neutrophils % 81.9 %
[2020-03-25 05:06] LABS: Basophils # 0.1 K/mcL (0.0-0.2); Basophils % 0.3 %; Hematocrit 26.4 % (35.3-44.9); Immature Granulocytes % 1.2 % (0-4); Immature Platelets 20.2 % (1.1-6.1); Lymphocytes # 0.5 K/mcL (0.6-4.6); Lymphocytes % 2.5 %; Mean Corpuscular HGB Conc 33.7 g/dL (31.6-35.5); Mean Corpuscular Hemoglobin 29.6 pg (28.0-33.3); Mean Corpuscular Volume 87.7 fL (83.0-100.0); Mean Platelet Volume 12.3 fL (9.4-12.4); Monocytes # 2.5 K/mcL (0.0-1.3); Monocytes % 14.1 %; Red Blood Count 3.01 M/mcL (3.82-4.97); Red Cell Distribution Width 16.3 % (11.5-14.5); White Blood Count 17.8 K/mcL (4.3-11.1)
[2020-03-25 05:08] LABS: Calcium 8.2 mg/dL (8.6-10.3); Magnesium 2.8 mg/dL (1.6-2.6); Neutrophils # 14.6 K/mcL (1.6-8.9); Phosphorous 6.9 mg/dL (2.7-4.5); Platelet Count 56 K/mcL (140-400); Potassium 7.3 mEq/L (3.5-5.1)
[2020-03-25] MEDS: *HR* Dextrose 50 % in Water (Vial) 50 ML VIAL IVP PRN ×2 (05:12→07:35)
[2020-03-25] MEDS ORDERED: Albuterol Neb 7.5 MG, Sodium Chloride for inhalation 12 ML IH ONE (05:16)
[2020-03-25] MEDS ORDERED: Insulin Human Regular 10 UNIT in 0.9 % Sodium Chloride 10 ML IV ONE (05:17)
[2020-03-25] MEDS ORDERED: *HR* Dextrose 50 % in Water (Vial) 50 ML VIAL IVP ONE (05:18)
[2020-03-25] MEDS: Insulin LISPRO 300 UNITS/3 ML VIAL SQ SCH ×6 (05:24→23:27)
[2020-03-25] MEDS ORDERED: 0.9 % Sodium Chloride 250 ML IVC PRN (05:45)
[2020-03-25] MEDS: Pantoprazole 40 MG in 0.9 % Sodium Chloride Mini Bag 100 ML IVC SCH ×4 (06:05→20:49)
[2020-03-25] MEDS: FentaNYL (PF) 2,500 MCG/50 ML IV.SOLN IVC SCH (06:58)
[2020-03-25] MEDS: Micafungin 100 MG in 0.9 % Sodium Chloride Mini Bag 100 ML IVPB SCH (08:01)
[2020-03-25] MEDS: Chlorhexidine Rinse 15 ML MOUTHWASH MM SCH ×2 (08:01→20:47)
[2020-03-25] MEDS: methylPREDNISolone 125 MG/2 ML VIAL IVP SCH (08:01)
[2020-03-25] MEDS: Bacitracin/PolymyxinB OINT 14.17 GM TUBE TP SCH ×2 (08:02→20:45)
[2020-03-25] MEDS: Norepinephrine 8 MG in 0.9 % Sodium Chloride 250 ML IVC SCH (08:02)
[2020-03-25] MEDS: Albumin 25% 25gram/100mL 25 GM/100 ML IV.SOLN IVPB PRN ×2 (09:00→10:16)
[2020-03-25] MEDS ORDERED: Albumin 25% 25gram/100mL 25 GM/100 ML IV.SOLN ONE (09:01)
[2020-03-25] MEDS ORDERED: D10% in Water 500 ML IVC PRN (11:16)
[2020-03-25] MEDS: Meropenem 500 MG in Water for inj. (sterile) 10 ML IVP SCH (17:00)
[2020-03-25] MEDS ORDERED: Clinimix 5%-20% SOLUTION 2,000 ML with MVI, adult with vitamin K 10 ML, Sodium Chlori... IVC SCH (17:00)
[2020-03-26] MEDS: Pantoprazole 40 MG in 0.9 % Sodium Chloride Mini Bag 100 ML IVC SCH ×5 (01:14→19:33)
[2020-03-26] MEDS: FentaNYL (PF) 2,500 MCG/50 ML IV.SOLN IVC SCH ×2 (01:15→13:34)
[2020-03-26] MEDS: Insulin LISPRO 300 UNITS/3 ML VIAL SQ SCH ×6 (03:38→23:56)
[2020-03-26] MEDS: Artificial Tears SOLN 15 ML BOTTLE BOTH EYES SCH ×6 (03:38→23:56)
[2020-03-26 04:26] LABS: Eosinophils % 0.1 %
[2020-03-26 04:28] LABS: Basophils % 0.2 %; Hematocrit 22.6 % (35.3-44.9); Hemoglobin 7.4 g/dL (11.5-15.4); Immature Granulocytes % 1.2 % (0-4); Immature Platelets 18.4 % (1.1-6.1); Lymphocytes # 0.4 K/mcL (0.6-4.6); Lymphocytes % 2.2 %; Mean Corpuscular HGB Conc 32.7 g/dL (31.6-35.5); Mean Corpuscular Volume 88.6 fL (83.0-100.0); Mean Platelet Volume 12.2 fL (9.4-12.4); Monocytes # 2.1 K/mcL (0.0-1.3); Monocytes % 13.1 %; Neutrophils # 13.6 K/mcL (1.6-8.9); Nucleated Red Blood Cells 0.5 /100 WBC (0); Red Blood Count 2.55 M/mcL (3.82-4.97); Red Cell Distribution Width 16.4 % (11.5-14.5); Segmented Neutrophils % 83.2 %; White Blood Count 16.3 K/mcL (4.3-11.1)
[2020-03-26 04:29] LABS: VBG Ionized Calcium 1.04 mmol/L (1.15-1.35)
[2020-03-26 04:42] LABS: ABG Base Excess 0 mEq/L (-2 to 3); ABG HCO3 24 mEq/L (21-27); ABG Oxygen Saturation 99 % (95-98); ABG PCO2 34 mmHg (35-45); ABG PH 7.45 pH Units (7.32-7.45); ABG PO2 109 mmHg (85-104); ABG TCO2 25 mEq/L (20-26); Blood Gas Modality ASSIST CONTROL; Blood Gas VT 400 cc
[2020-03-26 04:44] LABS: Calcium 8.3 mg/dL (8.6-10.3); Magnesium 2.3 mg/dL (1.6-2.6); Phosphorous 5.6 mg/dL (2.7-4.5); Potassium 4.5 mEq/L (3.5-5.1)
[2020-03-26 04:46] LABS: Platelet Count 69 K/mcL (140-400)
[2020-03-26] MEDS: Calcium Gluconate 1gm/50mL 1 GM/50 ML BAG IVPB PRN ×2 (05:40→06:31)
[2020-03-26] MEDS: Micafungin 100 MG in 0.9 % Sodium Chloride Mini Bag 100 ML IVPB SCH (08:34)
[2020-03-26] MEDS: Chlorhexidine Rinse 15 ML MOUTHWASH MM SCH ×2 (08:34→20:19)
[2020-03-26] MEDS: Bacitracin/PolymyxinB OINT 14.17 GM TUBE TP SCH ×2 (08:35→20:19)
[2020-03-26] MEDS: Norepinephrine 8 MG in 0.9 % Sodium Chloride 250 ML IVC SCH (10:31)
[2020-03-26] MEDS ORDERED: Aminoglycoside Consult 1 EACH MC ONE (11:40)
[2020-03-26 14:20] LABS: VBG Ionized Calcium 1.11 mmol/L (1.15-1.35)
[2020-03-26 16:11] LABS: Hematocrit 23.5 % (35.3-44.9); Hemoglobin 7.9 g/dL (11.5-15.4)
[2020-03-26] MEDS ORDERED: Clinimix 5%-20% SOLUTION 2,000 ML with MVI, adult with vitamin K 10 ML, Sodium Acetat... IVC SCH (17:00)
[2020-03-26] MEDS: Meropenem 500 MG in Water for inj. (sterile) 10 ML IVP SCH (18:25)
[2020-03-27] MEDS: Pantoprazole 40 MG in 0.9 % Sodium Chloride Mini Bag 100 ML IVC SCH ×5 (01:51→23:01)
[2020-03-27] MEDS: FentaNYL (PF) 2,500 MCG/50 ML IV.SOLN IVC SCH ×2 (01:52→14:16)
[2020-03-27] MEDS: Artificial Tears SOLN 15 ML BOTTLE BOTH EYES SCH ×6 (03:42→23:45)
[2020-03-27 03:58] LABS: Basophils % 0.1 %; Hemoglobin 8.1 g/dL (11.5-15.4); Nucleated Red Blood Cells 0.1 /100 WBC (0); Red Cell Distribution Width 16.3 % (11.5-14.5)
[2020-03-27 04:00] LABS: Eosinophils # 0.1 K/mcL (0.0-0.6); Eosinophils % 0.6 %; Hematocrit 23.6 % (35.3-44.9); Immature Granulocytes % 0.9 % (0-4); Immature Platelets 13.2 % (1.1-6.1); Lymphocytes # 0.3 K/mcL (0.6-4.6); Lymphocytes % 1.3 %; Mean Corpuscular HGB Conc 34.3 g/dL (31.6-35.5); Mean Corpuscular Hemoglobin 30.1 pg (28.0-33.3); Mean Corpuscular Volume 87.7 fL (83.0-100.0); Mean Platelet Volume 12.8 fL (9.4-12.4); Monocytes # 1.6 K/mcL (0.0-1.3); Monocytes % 7.6 %; Neutrophils # 18.5 K/mcL (1.6-8.9); Red Blood Count 2.69 M/mcL (3.82-4.97); Segmented Neutrophils % 89.5 %; White Blood Count 20.7 K/mcL (4.3-11.1)
[2020-03-27 04:09] LABS: Platelet Count 88 K/mcL (140-400)
[2020-03-27] MEDS: Insulin LISPRO 300 UNITS/3 ML VIAL SQ SCH ×6 (04:09→23:46)
[2020-03-27 04:15] LABS: Calcium 8.4 mg/dL (8.6-10.3); Magnesium 2.1 mg/dL (1.6-2.6); Phosphorous 5.8 mg/dL (2.7-4.5); Potassium 4.6 mEq/L (3.5-5.1)
[2020-03-27 04:16] LABS: Albumin 2.8 g/dL (3.5-5.7); Albumin/Globulin Ratio 1.6 (1.1-2.2); Bilirubin,Direct 6.6 mg/dL (0.0-0.2); Bilirubin,Indirect 2.8 mg/dL (0.0-1.0); Bilirubin,Total 9.4 mg/dL (0.3-1.0); Globulin 1.8 g/dL (2.4-3.5); Total Protein 4.6 g/dL (6.4-8.9)
[2020-03-27 07:47] LABS: ABG Base Excess -3 mEq/L (-2 to 3); ABG HCO3 21 mEq/L (21-27); ABG Oxygen Saturation 92 % (95-98); ABG PCO2 32 mmHg (35-45); ABG PH 7.43 pH Units (7.32-7.45); ABG PO2 61 mmHg (85-104); ABG TCO2 22 mEq/L (20-26); Blood Gas VT 400 cc
[2020-03-27] MEDS: Bacitracin/PolymyxinB OINT 14.17 GM TUBE TP SCH ×2 (07:53→23:02)
[2020-03-27] MEDS ORDERED: Furosemide 80 MG in 0.9 % Sodium Chloride 50 ML IVPB ONE (10:22)
[2020-03-27] MEDS: Chlorhexidine Rinse 15 ML MOUTHWASH MM SCH ×2 (11:02→20:11)
[2020-03-27] MEDS: Midazolam HCl 50 MG/100 ML IV.SOLN IVC SCH (11:04)
[2020-03-27] MEDS: Norepinephrine 8 MG in 0.9 % Sodium Chloride 250 ML IVC SCH (11:04)
[2020-03-27] MEDS ORDERED: 0.9 % Sodium Chloride 250 ML IVC PRN (14:42)
[2020-03-27] MEDS ORDERED: *HR* Heparin 10,000 UNIT/10 ML VIAL IV PRN (14:42)
[2020-03-27] MEDS ORDERED: 0.9 % Sodium Chloride 1,000 ML PRIME SCH (14:45)
[2020-03-27 16:09] LABS: VBG Ionized Calcium 1.11 mmol/L (1.15-1.35)
[2020-03-27] MEDS ORDERED: Albumin 25% 25gram/100mL 25 GM/100 ML IV.SOLN ONE (16:11)
[2020-03-27] MEDS: Albumin 25% 25gram/100mL 25 GM/100 ML IV.SOLN IVPB PRN (16:11)
[2020-03-27] MEDS: Albumin 25% 25gram/100mL 25 GM/100 ML IV.SOLN IVPB ONE ×2 (16:20→16:30)
[2020-03-27] MEDS ORDERED: Clinimix 5%-20% SOLUTION 2,000 ML with MVI, adult with vitamin K 10 ML, Sodium Acetat... IVC SCH (17:00)
[2020-03-27] MEDS: Meropenem 500 MG in Water for inj. (sterile) 10 ML IVP SCH (18:11)
[2020-03-27] MEDS ORDERED: 0.9 % Sodium Chloride 1,000 ML PRIME ONE (19:15)
[2020-03-27] MEDS ORDERED: *HR* Heparin 5,000 UNIT/ML VIAL CRRT PRN (19:15)
[2020-03-27] MEDS ORDERED: Calcium Gluconate 1gm/50mL 1 GM/50 ML BAG IVPB PRN ×2 (19:15)
[2020-03-27] MEDS: Calcium Chloride 4,000 MG in 0.9 % Sodium Chloride 1,000 ML CRRT SCH (20:44)
[2020-03-27] MEDS: PrismaSATE BGK 4/2.5 5,000 ML CRRT SCH ×2 (20:45)
[2020-03-27] MEDS: 0.9 % Sodium Chloride 1,000 ML PRIME SCH ×3 (21:28→23:02)
[2020-03-27] MEDS ORDERED: 0.9 % Sodium Chloride 1,000 ML PRIME PRN ×3 (21:32→23:03)
[2020-03-27 23:02] LABS: VBG Ionized Calcium 1.11 mmol/L (1.15-1.35)
[2020-03-28] MEDS: PrismaSATE BGK 4/2.5 5,000 ML CRRT SCH ×11 (00:14→22:58)
[2020-03-28] MEDS: FentaNYL (PF) 2,500 MCG/50 ML IV.SOLN IVC SCH (01:54)
[2020-03-28] MEDS: Pantoprazole 40 MG in 0.9 % Sodium Chloride Mini Bag 100 ML IVC SCH ×2 (03:32→08:49)
[2020-03-28] MEDS: Artificial Tears SOLN 15 ML BOTTLE BOTH EYES SCH ×3 (04:06→14:18)
[2020-03-28] MEDS: Insulin LISPRO 300 UNITS/3 ML VIAL SQ SCH ×5 (04:06→20:11)
[2020-03-28 04:50] LABS: ABG Base Excess -8 mEq/L (-2 to 3); ABG HCO3 17 mEq/L (21-27); ABG Oxygen Saturation 99 % (95-98); ABG PCO2 33 mmHg (35-45); ABG PH 7.32 pH Units (7.32-7.45); ABG PO2 168 mmHg (85-104); ABG TCO2 18 mEq/L (20-26); Blood Gas Modality AF; Blood Gas VT 400 cc
[2020-03-28 05:02] LABS: VBG Ionized Calcium 1.15 mmol/L (1.15-1.35)
[2020-03-28 05:06] LABS: Basophils % 0.2 %; Mean Platelet Volume 12.4 fL (9.4-12.4); Segmented Neutrophils % 91.2 %
[2020-03-28 05:08] LABS: Eosinophils # 0.2 K/mcL (0.0-0.6); Eosinophils % 1.2 %; Hematocrit 21.6 % (35.3-44.9); Hemoglobin 7.3 g/dL (11.5-15.4); Immature Granulocytes % 0.9 % (0-4); Immature Platelets 18.4 % (1.1-6.1); Lymphocytes # 0.2 K/mcL (0.6-4.6); Lymphocytes % 0.9 %; Mean Corpuscular HGB Conc 33.8 g/dL (31.6-35.5); Mean Corpuscular Hemoglobin 29.8 pg (28.0-33.3); Mean Corpuscular Volume 88.2 fL (83.0-100.0); Monocytes # 1.1 K/mcL (0.0-1.3); Monocytes % 5.6 %; Neutrophils # 17.8 K/mcL (1.6-8.9); Red Blood Count 2.45 M/mcL (3.82-4.97); Red Cell Distribution Width 16.4 % (11.5-14.5); White Blood Count 19.5 K/mcL (4.3-11.1)
[2020-03-28 05:09] LABS: Platelet Count 76 K/mcL (140-400)
[2020-03-28 05:21] LABS: Albumin 3.4 g/dL (3.5-5.7); Calcium 9.4 mg/dL (8.6-10.3); Magnesium 2.2 mg/dL (1.6-2.6); Phosphorous 2.9 mg/dL (2.7-4.5); Potassium 4.2 mEq/L (3.5-5.1)
[2020-03-28] MEDS: Chlorhexidine Rinse 15 ML MOUTHWASH MM SCH ×2 (07:55→12:55)
[2020-03-28 08:13] LABS: Albumin/Globulin Ratio 2.3 (1.1-2.2); Bilirubin,Direct 8.4 mg/dL (0.0-0.2); Bilirubin,Indirect 4.2 mg/dL (0.0-1.0); Bilirubin,Total 12.6 mg/dL (0.3-1.0); Globulin 1.5 g/dL (2.4-3.5); Total Protein 4.9 g/dL (6.4-8.9)
[2020-03-28] MEDS: Bacitracin/PolymyxinB OINT 14.17 GM TUBE TP SCH ×2 (09:56→20:11)
[2020-03-28 11:02] LABS: VBG Ionized Calcium 1.25 mmol/L (1.15-1.35)
[2020-03-28 13:00] LABS: INR 1.3; Prothrombin Time 15.3 Seconds (9.4-12.1)
[2020-03-28] MEDS: Meropenem 1,000 MG in Water for inj. (sterile) 20 ML IVP SCH (14:32)
[2020-03-28] MEDS: Calcium Chloride 4,000 MG in 0.9 % Sodium Chloride 1,000 ML CRRT SCH (14:48)
[2020-03-28] MEDS: Pantoprazole 40 MG VIAL IVP SCH (18:39)
[2020-03-28 19:20] LABS: VBG Ionized Calcium 1.19 mmol/L (1.15-1.35)
[2020-03-29] MEDS: PrismaSATE BGK 4/2.5 5,000 ML CRRT SCH ×7 (00:36→14:30)
[2020-03-29] MEDS: Insulin LISPRO 300 UNITS/3 ML VIAL SQ SCH ×5 (00:59→18:22)
[2020-03-29 01:10] LABS: VBG Ionized Calcium 1.16 mmol/L (1.15-1.35)
[2020-03-29] MEDS: Meropenem 1,000 MG in Water for inj. (sterile) 20 ML IVP SCH ×2 (01:46→14:10)
[2020-03-29 04:40] LABS: Basophils % 0.2 %; Hemoglobin 7.9 g/dL (11.5-15.4); Mean Platelet Volume 13.6 fL (9.4-12.4)
[2020-03-29 04:42] LABS: Eosinophils # 0.1 K/mcL (0.0-0.6); Eosinophils % 0.8 %; Hematocrit 23.3 % (35.3-44.9); Immature Granulocytes % 0.9 % (0-4); Immature Platelets 23.2 % (1.1-6.1); Lymphocytes % 0.2 %; Mean Corpuscular HGB Conc 33.9 g/dL (31.6-35.5); Mean Corpuscular Hemoglobin 29.5 pg (28.0-33.3); Mean Corpuscular Volume 86.9 fL (83.0-100.0); Monocytes # 0.9 K/mcL (0.0-1.3); Monocytes % 6.8 %; Neutrophils # 11.9 K/mcL (1.6-8.9); Red Blood Count 2.68 M/mcL (3.82-4.97); Red Cell Distribution Width 16.6 % (11.5-14.5); Segmented Neutrophils % 91.1 %; White Blood Count 13.1 K/mcL (4.3-11.1)
[2020-03-29 04:44] LABS: Platelet Count 82 K/mcL (140-400)
[2020-03-29 04:56] LABS: BUN/Creatinine Ratio 23 (6-26); Blood Urea Nitrogen 24 mg/dL (6-20); Calcium 9.8 mg/dL (8.6-10.3); Carbon Dioxide 29 mEq/L (23-29); Chloride 101 mEq/L (98-107); Glucose 105 mg/dL (70-105); Osmolality,Calculated 292 (280-300); Potassium 3.8 mEq/L (3.5-5.1); Sodium 139 mEq/L (136-145); eGFR For African Americans > 60 (> 60); eGFR For Non-African Americans 56 (> 60)
[2020-03-29 05:23] LABS: Platelet Estimate Slight Decrease (Normal)
[2020-03-29] MEDS: Pantoprazole 40 MG VIAL IVP SCH ×2 (05:33→18:14)
[2020-03-29] MEDS: Calcium Chloride 4,000 MG in 0.9 % Sodium Chloride 1,000 ML CRRT SCH (06:52)
[2020-03-29 07:12] LABS: VBG Ionized Calcium 1.15 mmol/L (1.15-1.35)
[2020-03-29 07:28] LABS: Magnesium 2.1 mg/dL (1.6-2.6); Phosphorous 1.7 mg/dL (2.7-4.5)
[2020-03-29 07:41] LABS: Alanine Aminotransferase 74 Units/L (7-52); Albumin 3.3 g/dL (3.5-5.7); Albumin/Globulin Ratio 1.8 (1.1-2.2); Alkaline Phosphatase 282 Units/L (34-104); Aspartate Amino Transferase 84 Units/L (13-39); Bilirubin,Direct 7.2 mg/dL (0.0-0.2); Bilirubin,Indirect 4.8 mg/dL (0.0-1.0); Globulin 1.8 g/dL (2.4-3.5); Total Protein 5.1 g/dL (6.4-8.9)
[2020-03-29] MEDS: Bacitracin/PolymyxinB OINT 14.17 GM TUBE TP SCH ×2 (09:30→20:23)
[2020-03-29 14:24] LABS: VBG Ionized Calcium 0.97 mmol/L (1.15-1.35)
[2020-03-29] MEDS ORDERED: Meropenem 500 MG in Water for inj. (sterile) 10 ML IVP SCH (21:00)
[2020-03-30] MEDS: Insulin LISPRO 300 UNITS/3 ML VIAL SQ SCH ×6 (03:21→23:03)
[2020-03-30 04:48] LABS: INR 1.3; Prothrombin Time 14.3 Seconds (9.4-12.1)
[2020-03-30 04:49] LABS: VBG Ionized Calcium 1.19 mmol/L (1.15-1.35)
[2020-03-30 05:07] LABS: Albumin/Globulin Ratio 1.6 (1.1-2.2); Bilirubin,Total 9.8 mg/dL (0.3-1.0); Globulin 1.9 g/dL (2.4-3.5); Potassium 4.8 mEq/L (3.5-5.1); Total Protein 4.9 g/dL (6.4-8.9)
[2020-03-30 05:24] LABS: Hematocrit 21.1 % (35.3-44.9); Hemoglobin 7.2 g/dL (11.5-15.4); Mean Corpuscular HGB Conc 34.1 g/dL (31.6-35.5); Mean Corpuscular Hemoglobin 29.5 pg (28.0-33.3); Mean Corpuscular Volume 86.5 fL (83.0-100.0); Mean Platelet Volume 11.6 fL (9.4-12.4); Platelet Count 156 K/mcL (140-400); Red Blood Count 2.44 M/mcL (3.82-4.97); Red Cell Distribution Width 17.2 % (11.5-14.5)
[2020-03-30 05:59] LABS: Magnesium 2.2 mg/dL (1.6-2.6); Phosphorous 3.4 mg/dL (2.7-4.5)
[2020-03-30] MEDS: Pantoprazole 40 MG VIAL IVP SCH ×2 (06:13→17:37)
[2020-03-30] MEDS ORDERED: *HR* Heparin 10,000 UNIT/10 ML VIAL IV PRN (08:01)
[2020-03-30] MEDS ORDERED: 0.9 % Sodium Chloride 250 ML IVC PRN (08:01)
[2020-03-30] MEDS ORDERED: 0.9 % Sodium Chloride 1,000 ML PRIME SCH (08:15)
[2020-03-30] MEDS: Bacitracin/PolymyxinB OINT 14.17 GM TUBE TP SCH ×2 (08:44→20:18)
[2020-03-30] MEDS ORDERED: Albumin 25% 25gram/100mL 25 GM/100 ML IV.SOLN ONE (09:43)
[2020-03-30] MEDS: Albumin 25% 25gram/100mL 25 GM/100 ML IV.SOLN IVPB PRN (09:44)
[2020-03-30] MEDS ORDERED: *HR* Dextrose 50 % in Water (Vial) 50 ML VIAL IVP PRN (11:47)
[2020-03-30] MEDS ORDERED: Naloxone 0.4 MG/ML INJ IVP PRN (11:47)
[2020-03-30] MEDS ORDERED: Dextrose Gel 15 GM/37.5 ML TUBE PO PRN ×2 (11:47)
[2020-03-30] MEDS ORDERED: *HR* FentaNYL (PF) 100 MCG/2 ML VIAL IVP ONE (14:12)
[2020-03-30] MEDS ORDERED: CeFAZolin 2,000 MG/50 ML BAG IVPB ONE (14:12)
[2020-03-30] MEDS ORDERED: *HR* Midazolam HCl 2 MG/2 ML VIAL IVP ONE (14:12)
[2020-03-30] MEDS ORDERED: Heparin 1,000 UNITS/500 mL 500 ML ONE (14:15)
[2020-03-30] MEDS ORDERED: Lidocaine/EPI 1:100k 1% 50 ML VIAL ONE (14:15)
[2020-03-30] MEDS ORDERED: *HR* Heparin 5,000 UNIT/ML VIAL ONE (14:59)
[2020-03-30] MEDS: *HR* OxyCODONE Oral Soln 5 MG/5 ML UD.LIQ GTUBE PRN ×2 (15:51→21:51)
[2020-03-30] MEDS: Meropenem 500 MG in Water for inj. (sterile) 10 ML IVP SCH (20:17)
[2020-03-30] MEDS: *HR* Promethazine 25 MG/ML VIAL IVP PRN (22:30)
[2020-03-31] MEDS: *HR* OxyCODONE Oral Soln 5 MG/5 ML UD.LIQ GTUBE PRN ×2 (03:51→10:08)
[2020-03-31 05:19] LABS: Hematocrit 17.5 % (35.3-44.9); Immature Platelets 13.6 % (1.1-6.1); Mean Corpuscular HGB Conc 34.3 g/dL (31.6-35.5); Mean Corpuscular Hemoglobin 30.3 pg (28.0-33.3); Mean Corpuscular Volume 88.4 fL (83.0-100.0); Red Blood Count 1.98 M/mcL (3.82-4.97); Red Cell Distribution Width 17.7 % (11.5-14.5); White Blood Count 18.7 K/mcL (4.3-11.1)
[2020-03-31 05:21] LABS: VBG Ionized Calcium 1.04 mmol/L (1.15-1.35)
[2020-03-31 05:26] LABS: INR 1.2; Prothrombin Time 13.8 Seconds (9.4-12.1)
[2020-03-31 05:29] LABS: Activated Partial Thrombo Time 27.7 Seconds (26.0-36.0)
[2020-03-31] MEDS: Pantoprazole 40 MG VIAL IVP SCH ×2 (05:38→17:42)
[2020-03-31 05:42] LABS: Albumin 3.2 g/dL (3.5-5.7); Bilirubin,Direct 5.7 mg/dL (0.0-0.2); Bilirubin,Indirect 3.5 mg/dL (0.0-1.0); Bilirubin,Total 9.2 mg/dL (0.3-1.0); Globulin 1.6 g/dL (2.4-3.5); Magnesium 2.1 mg/dL (1.6-2.6); Phosphorous 3.8 mg/dL (2.7-4.5); Potassium 4.6 mEq/L (3.5-5.1); Total Protein 4.8 g/dL (6.4-8.9)
[2020-03-31] MEDS: Insulin LISPRO 300 UNITS/3 ML VIAL SQ SCH ×3 (05:58→17:46)
[2020-03-31] MEDS ORDERED: *HR* Heparin 5,000 UNIT/ML VIAL SQ SCH (06:00)
[2020-03-31] MEDS ORDERED: 0.9 % Sodium Chloride 250 ML IVC PRN (07:47)
[2020-03-31] MEDS ORDERED: *HR* Heparin 10,000 UNIT/10 ML VIAL IV PRN (07:47)
[2020-03-31] MEDS ORDERED: 0.9 % Sodium Chloride 1,000 ML PRIME SCH (08:00)
[2020-03-31] MEDS: Albumin 25% 25gram/100mL 25 GM/100 ML IV.SOLN IVPB PRN (08:45)
[2020-03-31] MEDS: Bacitracin/PolymyxinB OINT 14.17 GM TUBE TP SCH (10:09)
[2020-03-31 16:25] LABS: Hemoglobin 10.2 g/dL (11.5-15.4)
[2020-03-31 16:27] LABS: Hematocrit 29.5 % (35.3-44.9)
[2020-03-31] MEDS: *HR* OxyCODONE Immed Rel 5 MG TABLET PO PRN (20:20)
[2020-03-31] MEDS: Meropenem 500 MG in Water for inj. (sterile) 10 ML IVP SCH (20:20)
[2020-03-31] MEDS: *HR* Promethazine 25 MG/ML VIAL IVP PRN (20:25)
[2020-04-01] MEDS: Insulin LISPRO 300 UNITS/3 ML VIAL SQ SCH ×4 (00:12→17:50)
[2020-04-01] MEDS: Bacitracin/PolymyxinB OINT 14.17 GM TUBE TP SCH ×3 (00:17→21:47)
[2020-04-01] MEDS: *HR* OxyCODONE Immed Rel 5 MG TABLET PO PRN ×3 (04:26→21:44)
[2020-04-01] MEDS: *HR* Promethazine 25 MG/ML VIAL IVP PRN (04:27)
[2020-04-01 04:45] LABS: Eosinophils % 1.3 %; Nucleated Red Blood Cells 0.1 /100 WBC (0); Red Cell Distribution Width 16.6 % (11.5-14.5); Segmented Neutrophils % 84.1 %
[2020-04-01 04:47] LABS: Basophils # 0.2 K/mcL (0.0-0.2); Basophils % 0.6 %; Eosinophils # 0.3 K/mcL (0.0-0.6); Hemoglobin 10.8 g/dL (11.5-15.4); Immature Platelets 15.7 % (1.1-6.1); Lymphocytes # 0.6 K/mcL (0.6-4.6); Lymphocytes % 2.6 %; Mean Corpuscular HGB Conc 34.8 g/dL (31.6-35.5); Mean Corpuscular Hemoglobin 30.2 pg (28.0-33.3); Mean Corpuscular Volume 86.6 fL (83.0-100.0); Mean Platelet Volume 10.7 fL (9.4-12.4); Monocytes # 2.6 K/mcL (0.0-1.3); Monocytes % 10.4 %; Neutrophils # 20.6 K/mcL (1.6-8.9); Platelet Count 83 K/mcL (140-400); Red Blood Count 3.58 M/mcL (3.82-4.97); White Blood Count 24.5 K/mcL (4.3-11.1)
[2020-04-01 05:08] LABS: Albumin 3.5 g/dL (3.5-5.7); Albumin/Globulin Ratio 1.8 (1.1-2.2); Bilirubin,Total 9.1 mg/dL (0.3-1.0); Calcium 8.9 mg/dL (8.6-10.3); Potassium 4.5 mEq/L (3.5-5.1); Total Protein 5.5 g/dL (6.4-8.9)
[2020-04-01] MEDS: Pantoprazole 40 MG VIAL IVP SCH ×2 (05:32→17:39)
[2020-04-01] MEDS ORDERED: *HR* OxyCODONE Immed Rel 5 MG TABLET PO ONE (12:27)
[2020-04-01] MEDS: Meropenem 500 MG in Water for inj. (sterile) 10 ML IVP SCH (21:47)
[2020-04-02] MEDS: Insulin LISPRO 300 UNITS/3 ML VIAL SQ SCH ×4 (01:22→17:59)
[2020-04-02] MEDS: *HR* OxyCODONE Immed Rel 5 MG TABLET PO PRN ×2 (03:40→18:10)
[2020-04-02] MEDS ORDERED: Simethicone 80 MG TAB.CHEW PO PRN (03:50)
[2020-04-02 05:40] LABS: Mean Corpuscular HGB Conc 34.8 g/dL (31.6-35.5); Mean Platelet Volume 11.7 fL (9.4-12.4)
[2020-04-02 05:42] LABS: Hemoglobin 9.4 g/dL (11.5-15.4); Immature Platelets 16.1 % (1.1-6.1); Mean Corpuscular Hemoglobin 30.2 pg (28.0-33.3); Mean Corpuscular Volume 86.8 fL (83.0-100.0); Red Blood Count 3.11 M/mcL (3.82-4.97); Red Cell Distribution Width 16.8 % (11.5-14.5); White Blood Count 20.1 K/mcL (4.3-11.1)
[2020-04-02] MEDS: Pantoprazole 40 MG VIAL IVP SCH ×2 (05:58→18:00)
[2020-04-02 05:59] LABS: Calcium 8.9 mg/dL (8.6-10.3)
[2020-04-02] MEDS ORDERED: *HR* Heparin 10,000 UNIT/10 ML VIAL IV PRN (08:14)
[2020-04-02] MEDS ORDERED: 0.9 % Sodium Chloride 250 ML IVC PRN (08:14)
[2020-04-02] MEDS: Bacitracin/PolymyxinB OINT 14.17 GM TUBE TP SCH (10:48)
[2020-04-02] MEDS: *HR* Promethazine 25 MG/ML VIAL IVP PRN (13:14)
[2020-04-02] MEDS: Mag Hydrox/Al Hydrox/Simeth 30 ML UDC PO SCH (18:00)
[2020-04-03] MEDS: Insulin LISPRO 300 UNITS/3 ML VIAL SQ SCH ×4 (00:31→18:33)
[2020-04-03] MEDS ORDERED: Acetaminophen IV 500 MG/50 ML BAG IVPB ONE (00:39)
[2020-04-03] MEDS: Mag Hydrox/Al Hydrox/Simeth 30 ML UDC PO SCH ×4 (00:47→16:52)
[2020-04-03] MEDS: *HR* Promethazine 25 MG/ML VIAL IVP PRN (01:19)
[2020-04-03] MEDS: Pantoprazole 40 MG VIAL IVP SCH ×2 (02:05→16:53)
[2020-04-03] MEDS: Bacitracin/PolymyxinB OINT 14.17 GM TUBE TP SCH ×2 (02:06→07:52)
[2020-04-03 06:35] LABS: Mean Corpuscular HGB Conc 34.2 g/dL (31.6-35.5); Red Cell Distribution Width 16.7 % (11.5-14.5)
[2020-04-03 06:37] LABS: Hematocrit 23.7 % (35.3-44.9); Hemoglobin 8.1 g/dL (11.5-15.4); Immature Platelets 14.6 % (1.1-6.1); Mean Corpuscular Volume 87.8 fL (83.0-100.0); Mean Platelet Volume 11.9 fL (9.4-12.4); Red Blood Count 2.7 M/mcL (3.82-4.97)
[2020-04-03 06:55] LABS: Calcium 8.5 mg/dL (8.6-10.3); Potassium 3.9 mEq/L (3.5-5.1)
[2020-04-03] MEDS: *HR* OxyCODONE Immed Rel 5 MG TABLET PO PRN (14:35)
[2020-04-03 15:59] LABS: Hemoglobin 8.6 g/dL (11.5-15.4)
[2020-04-03 16:19] LABS: Albumin/Globulin Ratio 1.5 (1.1-2.2); Bilirubin,Direct 3.6 mg/dL (0.0-0.2); Bilirubin,Total 6.6 mg/dL (0.3-1.0)
[2020-04-04] MEDS: Mag Hydrox/Al Hydrox/Simeth 30 ML UDC PO SCH ×4 (00:32→18:07)
[2020-04-04] MEDS: *HR* OxyCODONE Immed Rel 5 MG TABLET PO PRN ×2 (00:32→09:25)
[2020-04-04] MEDS: Bacitracin/PolymyxinB OINT 14.17 GM TUBE TP SCH ×3 (00:33→20:11)
[2020-04-04] MEDS: *HR* Promethazine 25 MG/ML VIAL IVP PRN (01:03)
[2020-04-04] MEDS ORDERED: *HR* OxyCODONE Immed Rel 5 MG TABLET PO ONE (03:49)
[2020-04-04] MEDS: Insulin LISPRO 300 UNITS/3 ML VIAL SQ SCH ×4 (04:29→17:45)
[2020-04-04] MEDS: Pantoprazole 40 MG VIAL IVP SCH ×2 (04:31→18:07)
[2020-04-04 05:19] LABS: Hematocrit 24.6 % (35.3-44.9); Hemoglobin 8.3 g/dL (11.5-15.4); Immature Platelets 10.8 % (1.1-6.1); Mean Corpuscular HGB Conc 33.7 g/dL (31.6-35.5); Mean Corpuscular Hemoglobin 29.6 pg (28.0-33.3); Mean Corpuscular Volume 87.9 fL (83.0-100.0); Mean Platelet Volume 10.7 fL (9.4-12.4); Red Blood Count 2.8 M/mcL (3.82-4.97); Red Cell Distribution Width 17.2 % (11.5-14.5)
[2020-04-04 05:34] LABS: Calcium 8.5 mg/dL (8.6-10.3); Potassium 3.6 mEq/L (3.5-5.1)
[2020-04-05] MEDS: Mag Hydrox/Al Hydrox/Simeth 30 ML UDC PO SCH ×5 (00:01→23:07)
[2020-04-05] MEDS: Insulin LISPRO 300 UNITS/3 ML VIAL SQ SCH ×5 (00:01→20:26)
[2020-04-05] MEDS: *HR* OxyCODONE Immed Rel 5 MG TABLET PO PRN ×3 (00:02→19:38)
[2020-04-05] MEDS: *HR* Promethazine 25 MG/ML VIAL IVP PRN ×2 (01:33→08:40)
[2020-04-05 03:19] LABS: Hematocrit 22.8 % (35.3-44.9); Hemoglobin 7.8 g/dL (11.5-15.4); Immature Platelets 10.2 % (1.1-6.1); Mean Corpuscular HGB Conc 34.2 g/dL (31.6-35.5); Mean Corpuscular Hemoglobin 30.1 pg (28.0-33.3); Mean Platelet Volume 11.8 fL (9.4-12.4); Red Blood Count 2.59 M/mcL (3.82-4.97); Red Cell Distribution Width 16.9 % (11.5-14.5); White Blood Count 14.7 K/mcL (4.3-11.1)
[2020-04-05 03:36] LABS: Calcium 8.8 mg/dL (8.6-10.3); Potassium 3.5 mEq/L (3.5-5.1)
[2020-04-05] MEDS: Pantoprazole 40 MG VIAL IVP SCH (06:16)
[2020-04-05] MEDS ORDERED: *HR* Heparin 10,000 UNIT/10 ML VIAL IV PRN (08:25)
[2020-04-05] MEDS ORDERED: 0.9 % Sodium Chloride 250 ML IVC PRN (08:25)
[2020-04-05] MEDS ORDERED: Albumin 25% 25gram/100mL 25 GM/100 ML IV.SOLN ONE (09:52)
[2020-04-05] MEDS: Albumin 25% 25gram/100mL 25 GM/100 ML IV.SOLN IVPB PRN (10:18)
[2020-04-05] MEDS: Bacitracin/PolymyxinB OINT 14.17 GM TUBE TP SCH (10:43)
[2020-04-05 11:04] LABS: Prealbumin 11.6 mg/dL (17.0-34.0)
[2020-04-05 11:05] LABS: % Iron Saturation 15 % (15-50); Ferritin > 1500 ng/mL (10-120); Iron 32 mcg/dL (50-170); Transferrin 157 mg/dL (203-362)
[2020-04-05 11:19] LABS: Folate 15.5 ng/mL (3.0-16.0)
[2020-04-05 11:28] LABS: Vitamin B12 > 1500 pg/mL (250-1100)
[2020-04-05 11:31] LABS: Hemoglobin 7.5 g/dL (11.5-15.4)
[2020-04-05] MEDS ORDERED: Ferumoxytol 510 MG in 0.9 % Sodium Chloride 100 ML IVPB ONE (17:06)
[2020-04-05 18:26] LABS: Hematocrit 21.1 % (35.3-44.9); Hemoglobin 7.2 g/dL (11.5-15.4)
[2020-04-05] MEDS ORDERED: Acetaminophen 325 MG TABLET PO ONE (19:12)
[2020-04-06] MEDS: *HR* Promethazine 25 MG/ML VIAL IVP PRN (02:51)
[2020-04-06 04:36] LABS: Hematocrit 20.3 % (35.3-44.9); Hemoglobin 6.9 g/dL (11.5-15.4); Mean Corpuscular Hemoglobin 30.1 pg (28.0-33.3); Mean Corpuscular Volume 88.6 fL (83.0-100.0); Mean Platelet Volume 11.2 fL (9.4-12.4); Platelet Count 138 K/mcL (140-400); Red Blood Count 2.29 M/mcL (3.82-4.97); Red Cell Distribution Width 17.2 % (11.5-14.5)
[2020-04-06 04:57] LABS: Calcium 8.7 mg/dL (8.6-10.3); Potassium 3.5 mEq/L (3.5-5.1)
[2020-04-06] MEDS ORDERED: Famotidine 20 MG/2 ML VIAL IVP ONE (05:59)
[2020-04-06] MEDS: Mag Hydrox/Al Hydrox/Simeth 30 ML UDC PO SCH ×4 (06:06→23:04)
[2020-04-06 06:08] LABS: Magnesium 2.3 mg/dL (1.6-2.6)
[2020-04-06] MEDS: Insulin LISPRO 300 UNITS/3 ML VIAL SQ SCH ×4 (07:52→21:10)
[2020-04-06] MEDS ORDERED: Vancomycin 1,250 MG/262.5 ML IV.SOLN IVPB SCH (09:00)
[2020-04-06] MEDS: Piperacillin/Tazobactam 3.375 GM in 0.9 % Sodium Chloride Mini Bag 100 ML IVPB SCH ×2 (09:22→21:09)
[2020-04-06 13:14] LABS: Hematocrit 25.6 % (35.3-44.9); Hemoglobin 8.5 g/dL (11.5-15.4)
[2020-04-06] MEDS ORDERED: Iron Sucrose Complex 400 MG in 0.9 % Sodium Chloride 250 ML IVPB ONE (14:54)
[2020-04-06 15:57] LABS: Bilirubin,Urine Negative (Negative); Blood,Urine Trace (Negative); Clarity,Urine Clear (Clear); Color,Urine Yellow (Yellow); Glucose,Urine (UA) 30 mg/dL (Normal); Ketones,Urine Negative (Negative); Leukocyte Esterase,Urine Negative (Negative); Nitrite,Urine Negative (Negative); PH,Urine 8.5 pH Units (5.0-8.0); Protein,Urine 100 mg/dL (Neg-Trace); RBC,Urine 0-3 per hpf (0-3); Squamous Epithelial Cell,Urine Few per hpf (None-Few)
[2020-04-06] MEDS: Pantoprazole 40 MG VIAL IVP SCH (16:44)
[2020-04-06 16:49] LABS: Adenovirus F 40/41 PCR Not detected (Not detect); Astrovirus PCR Not detected (Not detect); C.difficile Toxin A/B Gene PCR Not detected (Not detect); Campylobacter by PCR Not detected (Not detect); Cryptosporidium by PCR Not detected (Not detect); Cyclospora cayetanensis PCR Not detected (Not detect); E. coli O157 by PCR Not detected (Not detect); Entamoeba histolytica PCR Not detected (Not detect); Enteroaggregative E.coli(EAEC) Not detected (Not detect); Enteropathogenic E.coli(EPEC) Not detected (Not detect); Enterotoxigenic E.coli (ETEC) Not detected (Not detect); Giardia lamblia PCR Not detected (Not detect); Norovirus GI/GII PCR Not detected (Not detect); Plesiomonas shigelloides PCR Not detected (Not detect); Rotavirus A PCR Not detected (Not detect); Salmonella PCR Not detected (Not detect); Sapovirus PCR Not detected (Not detect); Shig/EnteroinvasiveE coli EIEC Not detected (Not detect); Shigalike tox-prod E coli STEC Not detected (Not detect); Vibrio PCR Not detected (Not detect); Vibrio cholerae PCR Not detected (Not detect); Yersinia enterocolitica PCR Not detected (Not detect)
[2020-04-07] MEDS: Mag Hydrox/Al Hydrox/Simeth 30 ML UDC PO SCH ×4 (05:36→23:35)
[2020-04-07] MEDS: Pantoprazole 40 MG VIAL IVP SCH ×2 (05:36→17:39)
[2020-04-07 06:39] LABS: Hematocrit 23.1 % (35.3-44.9); Hemoglobin 8.1 g/dL (11.5-15.4); Mean Corpuscular HGB Conc 35.1 g/dL (31.6-35.5); Mean Corpuscular Hemoglobin 31.5 pg (28.0-33.3); Mean Corpuscular Volume 89.9 fL (83.0-100.0); Mean Platelet Volume 11.3 fL (9.4-12.4); Platelet Count 148 K/mcL (140-400); Red Blood Count 2.57 M/mcL (3.82-4.97); Red Cell Distribution Width 16.2 % (11.5-14.5); White Blood Count 22.7 K/mcL (4.3-11.1)
[2020-04-07 07:10] LABS: Calcium 8.8 mg/dL (8.6-10.3); Magnesium 2.4 mg/dL (1.6-2.6)
[2020-04-07] MEDS: Insulin LISPRO 300 UNITS/3 ML VIAL SQ SCH ×4 (07:32→21:37)
[2020-04-07] MEDS ORDERED: 0.9 % Sodium Chloride 250 ML IVC PRN (07:34)
[2020-04-07] MEDS ORDERED: *HR* Heparin 10,000 UNIT/10 ML VIAL IV PRN (07:34)
[2020-04-07] MEDS ORDERED: 0.9 % Sodium Chloride 1,000 ML PRIME SCH (07:45)
[2020-04-07 10:58] LABS: Acinetobacter baumannii by PCR Not Detected (Not Detect); Candida albicans by PCR Not Detected (Not Detect); Candida glabrata by PCR Not Detected (Not Detect); Candida krusei by PCR Not Detected (Not Detect); Candida parapsilosis by PCR Not Detected (Not Detect); Candida tropicalis by PCR Not Detected (Not Detect); Enterobacter cloacae Cmplx PCR Not Detected (Not Detect); Enterobacteriaceae by PCR Not Detected (Not Detect); Enterococcus by PCR Not Detected (Not Detect); Escherichia coli by PCR Not Detected (Not Detect); Klebsiella oxytoca by PCR Not Detected (Not Detect); Klebsiella pneumoniae by PCR Not Detected (Not Detect); Proteus by PCR Not Detected (Not Detect); Pseudomonas aeruginosa by PCR Not Detected (Not Detect); Serratia marcescens by PCR Not Detected (Not Detect); Staphylococcus aureus by PCR Not Detected (Not Detect); Staphylococcus by PCR Not Detected (Not Detect); Streptococcus agalactiae(B)PCR Not Detected (Not Detect); Streptococcus by PCR Not Detected (Not Detect); Streptococcus pneumoniae PCR Not Detected (Not Detect); Streptococcus pyogenes (A) PCR Not Detected (Not Detect)
[2020-04-07] MEDS: Piperacillin/Tazobactam 3.375 GM in 0.9 % Sodium Chloride Mini Bag 100 ML IVPB SCH ×2 (12:00→23:35)
[2020-04-07] MEDS: *HR* Promethazine 25 MG/ML VIAL IVP PRN (23:36)
[2020-04-08] MEDS: Mag Hydrox/Al Hydrox/Simeth 30 ML UDC PO SCH ×4 (05:37→23:02)
[2020-04-08] MEDS: *HR* Promethazine 25 MG/ML VIAL IVP PRN (05:37)
[2020-04-08] MEDS: Pantoprazole 40 MG VIAL IVP SCH ×2 (05:38→17:47)
[2020-04-08 06:35] LABS: Basophils # 0.1 K/mcL (0.0-0.2); Basophils % 0.4 %; Eosinophils # 0.6 K/mcL (0.0-0.6); Eosinophils % 2.5 %; Hematocrit 23.1 % (35.3-44.9); Hemoglobin 7.7 g/dL (11.5-15.4); Immature Granulocytes % 1.3 % (0-4); Lymphocytes # 1.3 K/mcL (0.6-4.6); Lymphocytes % 5.3 %; Mean Corpuscular HGB Conc 33.3 g/dL (31.6-35.5); Mean Corpuscular Hemoglobin 30.6 pg (28.0-33.3); Mean Corpuscular Volume 91.7 fL (83.0-100.0); Mean Platelet Volume 11.2 fL (9.4-12.4); Monocytes # 2.3 K/mcL (0.0-1.3); Monocytes % 9.7 %; Neutrophils # 19.3 K/mcL (1.6-8.9); Platelet Count 171 K/mcL (140-400); Red Blood Count 2.52 M/mcL (3.82-4.97); Red Cell Distribution Width 16.6 % (11.5-14.5); Segmented Neutrophils % 80.8 %; White Blood Count 23.9 K/mcL (4.3-11.1)
[2020-04-08 06:40] LABS: Albumin 3.2 g/dL (3.5-5.7); Albumin/Globulin Ratio 1.5 (1.1-2.2); Bilirubin,Total 6.4 mg/dL (0.3-1.0); Calcium 9.1 mg/dL (8.6-10.3); Calcium 9.2 mg/dL (8.6-10.3); Globulin 2.2 g/dL (2.4-3.5); Potassium 3.8 mEq/L (3.5-5.1); Total Protein 5.4 g/dL (6.4-8.9)
[2020-04-08] MEDS: Insulin LISPRO 300 UNITS/3 ML VIAL SQ SCH ×4 (07:41→21:14)
[2020-04-08] MEDS: Piperacillin/Tazobactam 3.375 GM in 0.9 % Sodium Chloride Mini Bag 100 ML IVPB SCH ×2 (08:20→21:11)
[2020-04-09 03:38] LABS: Basophils # 0.1 K/mcL (0.0-0.2); Basophils % 0.4 %; Eosinophils # 0.6 K/mcL (0.0-0.6); Eosinophils % 2.8 %; Hemoglobin 7.4 g/dL (11.5-15.4); Immature Granulocytes % 1.8 % (0-4); Lymphocytes # 0.6 K/mcL (0.6-4.6); Lymphocytes % 2.9 %; Mean Corpuscular HGB Conc 33.6 g/dL (31.6-35.5); Mean Corpuscular Hemoglobin 30.8 pg (28.0-33.3); Mean Corpuscular Volume 91.7 fL (83.0-100.0); Mean Platelet Volume 10.4 fL (9.4-12.4); Monocytes # 2.6 K/mcL (0.0-1.3); Monocytes % 12.3 %; Neutrophils # 16.8 K/mcL (1.6-8.9); Nucleated Red Blood Cells 0.1 /100 WBC (0); Platelet Count 190 K/mcL (140-400); Red Cell Distribution Width 16.8 % (11.5-14.5); Segmented Neutrophils % 79.8 %; White Blood Count 21.1 K/mcL (4.3-11.1)
[2020-04-09 03:57] LABS: Albumin 3.1 g/dL (3.5-5.7); Albumin/Globulin Ratio 1.2 (1.1-2.2); Bilirubin,Total 5.4 mg/dL (0.3-1.0); Calcium 8.7 mg/dL (8.6-10.3); Globulin 2.5 g/dL (2.4-3.5); Potassium 3.9 mEq/L (3.5-5.1); Total Protein 5.6 g/dL (6.4-8.9)
[2020-04-09] MEDS: Pantoprazole 40 MG VIAL IVP SCH ×2 (05:30→17:28)
[2020-04-09] MEDS: Mag Hydrox/Al Hydrox/Simeth 30 ML UDC PO SCH ×4 (05:30→23:24)
[2020-04-09] MEDS ORDERED: *HR* Heparin 10,000 UNIT/10 ML VIAL IV PRN (07:44)
[2020-04-09] MEDS ORDERED: 0.9 % Sodium Chloride 250 ML IVC PRN (07:44)
[2020-04-09] MEDS: Insulin LISPRO 300 UNITS/3 ML VIAL SQ SCH ×4 (07:52→21:00)
[2020-04-09] MEDS: *HR* Promethazine 25 MG/ML VIAL IVP PRN ×2 (07:52→14:22)
[2020-04-09] MEDS: Piperacillin/Tazobactam 3.375 GM in 0.9 % Sodium Chloride Mini Bag 100 ML IVPB SCH (07:53)
[2020-04-09] MEDS ORDERED: Ondansetron 4 MG/2 ML VIAL ONE (09:36)
[2020-04-09] MEDS: Ondansetron 4 MG/2 ML VIAL IVP PRN (09:55)
[2020-04-09] MEDS ORDERED: GI Cocktail 40 ML EACH PO ONE (11:47)
[2020-04-09] MEDS: Simethicone 80 MG TAB.CHEW PO PRN (14:22)
[2020-04-09] MEDS ORDERED: Vancomycin 500 MG in 0.9 % Sodium Chloride Mini Bag 100 ML IVPB ONE (15:00)
[2020-04-09] MEDS: Metoclopramide 10 MG/2 ML VIAL IVP SCH ×2 (17:28→23:24)
[2020-04-10] MEDS: Pantoprazole 40 MG VIAL IVP SCH ×2 (04:33→17:35)
[2020-04-10] MEDS: Mag Hydrox/Al Hydrox/Simeth 30 ML UDC PO SCH ×4 (04:33→23:17)
[2020-04-10] MEDS: Metoclopramide 10 MG/2 ML VIAL IVP SCH ×4 (04:33→23:17)
[2020-04-10 05:36] LABS: Basophils # 0.1 K/mcL (0.0-0.2); Basophils % 0.4 %; Eosinophils # 0.4 K/mcL (0.0-0.6); Eosinophils % 1.9 %; Hematocrit 21.2 % (35.3-44.9); Hemoglobin 6.9 g/dL (11.5-15.4); Immature Granulocytes % 1.6 % (0-4); Lymphocytes # 0.8 K/mcL (0.6-4.6); Lymphocytes % 4.1 %; Mean Corpuscular HGB Conc 32.5 g/dL (31.6-35.5); Mean Corpuscular Hemoglobin 30.4 pg (28.0-33.3); Mean Corpuscular Volume 93.4 fL (83.0-100.0); Mean Platelet Volume 10.5 fL (9.4-12.4); Monocytes # 2.7 K/mcL (0.0-1.3); Monocytes % 13.6 %; Neutrophils # 15.5 K/mcL (1.6-8.9); Platelet Count 206 K/mcL (140-400); Red Blood Count 2.27 M/mcL (3.82-4.97); Red Cell Distribution Width 17.6 % (11.5-14.5); Segmented Neutrophils % 78.4 %; White Blood Count 19.8 K/mcL (4.3-11.1)
[2020-04-10 05:51] LABS: Albumin 3.1 g/dL (3.5-5.7); Albumin/Globulin Ratio 1.3 (1.1-2.2); Globulin 2.3 g/dL (2.4-3.5); Potassium 3.5 mEq/L (3.5-5.1); Total Protein 5.4 g/dL (6.4-8.9)
[2020-04-10] MEDS ORDERED: 0.9 % Sodium Chloride 250 ML ONE (08:38)
[2020-04-10] MEDS: Insulin LISPRO 300 UNITS/3 ML VIAL SQ SCH ×4 (09:21→20:27)
[2020-04-10] MEDS: *HR* Promethazine 25 MG/ML VIAL IVP PRN ×2 (09:24→16:10)
[2020-04-10 13:06] LABS: Hemoglobin 8.6 g/dL (11.5-15.4)
[2020-04-10] MEDS: Ondansetron 4 MG/2 ML VIAL IVP PRN (21:03)
[2020-04-10] MEDS ORDERED: *HR* HYDROcodone/Acet 7.5/325 mg TABLET PO ONE (22:07)
[2020-04-11] MEDS: *HR* Promethazine 25 MG/ML VIAL IVP PRN ×3 (00:40→23:10)
[2020-04-11 03:36] LABS: Basophils # 0.1 K/mcL (0.0-0.2); Basophils % 0.4 %; Eosinophils # 0.2 K/mcL (0.0-0.6); Eosinophils % 0.9 %; Hematocrit 24.2 % (35.3-44.9); Hemoglobin 8.1 g/dL (11.5-15.4); Immature Granulocytes % 3.9 % (0-4); Lymphocytes # 0.6 K/mcL (0.6-4.6); Lymphocytes % 3.1 %; Mean Corpuscular HGB Conc 33.5 g/dL (31.6-35.5); Mean Corpuscular Hemoglobin 29.7 pg (28.0-33.3); Mean Corpuscular Volume 88.6 fL (83.0-100.0); Mean Platelet Volume 10.1 fL (9.4-12.4); Monocytes % 16.6 %; Neutrophils # 14.2 K/mcL (1.6-8.9); Nucleated Red Blood Cells 0.2 /100 WBC (0); Platelet Count 207 K/mcL (140-400); Red Blood Count 2.73 M/mcL (3.82-4.97); Segmented Neutrophils % 75.1 %; White Blood Count 18.9 K/mcL (4.3-11.1)
[2020-04-11 03:37] LABS: Monocytes # 3.1 K/mcL (0.0-1.3)
[2020-04-11 03:53] LABS: Anisocytosis 1+ (Not Present); Platelet Estimate Normal (Normal)
[2020-04-11 03:55] LABS: Albumin 3.1 g/dL (3.5-5.7); Albumin/Globulin Ratio 1.1 (1.1-2.2); Bilirubin,Total 5.7 mg/dL (0.3-1.0); Calcium 8.7 mg/dL (8.6-10.3); Globulin 2.7 g/dL (2.4-3.5); Potassium 4.3 mEq/L (3.5-5.1); Total Protein 5.8 g/dL (6.4-8.9)
[2020-04-11] MEDS: Pantoprazole 40 MG VIAL IVP SCH ×2 (05:18→17:02)
[2020-04-11] MEDS: Mag Hydrox/Al Hydrox/Simeth 30 ML UDC PO SCH ×4 (05:18→23:10)
[2020-04-11] MEDS: Metoclopramide 10 MG/2 ML VIAL IVP SCH ×4 (05:18→23:10)
[2020-04-11] MEDS: Insulin LISPRO 300 UNITS/3 ML VIAL SQ SCH ×4 (08:18→21:11)
[2020-04-11] MEDS ORDERED: Fluconazole 400 MG/200 ML 400 MG/200 ML BAG IVPB SCH (11:15)
[2020-04-11] MEDS ORDERED: Aminoglycoside Consult 1 EACH MC ONE (11:25)
[2020-04-12 04:45] LABS: Hematocrit 22.2 % (35.3-44.9); Hemoglobin 7.4 g/dL (11.5-15.4); Mean Corpuscular HGB Conc 33.3 g/dL (31.6-35.5); Mean Corpuscular Hemoglobin 29.6 pg (28.0-33.3); Mean Corpuscular Volume 88.8 fL (83.0-100.0); Mean Platelet Volume 10.3 fL (9.4-12.4); Nucleated Red Blood Cells 0.3 /100 WBC (0); Platelet Count 198 K/mcL (140-400); Red Cell Distribution Width 17.8 % (11.5-14.5); White Blood Count 18.7 K/mcL (4.3-11.1)
[2020-04-12 05:03] LABS: Albumin/Globulin Ratio 1.3 (1.1-2.2); Bilirubin,Total 4.7 mg/dL (0.3-1.0); Globulin 2.3 g/dL (2.4-3.5); Magnesium 4.5 mg/dL (1.6-2.6); Phosphorous 1.6 mg/dL (2.7-4.5); Potassium 3.5 mEq/L (3.5-5.1); Total Protein 5.3 g/dL (6.4-8.9)
[2020-04-12] MEDS: Metoclopramide 10 MG/2 ML VIAL IVP SCH ×3 (05:23→17:04)
[2020-04-12] MEDS: Mag Hydrox/Al Hydrox/Simeth 30 ML UDC PO SCH ×3 (05:23→17:03)
[2020-04-12] MEDS: Pantoprazole 40 MG VIAL IVP SCH ×2 (05:24→17:04)
[2020-04-12 06:12] LABS: Anisocytosis 1+ (Not Present); Dohle Bodies Present (Not Present); Eosinophils # 0.4 K/mcL (0.0-0.6); Lymphocytes # 2.2 K/mcL (0.6-4.6); Monocytes # 0.6 K/mcL (0.0-1.3); Neutrophils # 14.8 K/mcL (1.6-8.9)
[2020-04-12 06:13] LABS: Platelet Estimate Normal (Normal)
[2020-04-12] MEDS ORDERED: 0.9 % Sodium Chloride 250 ML IVC PRN (07:12)
[2020-04-12] MEDS ORDERED: *HR* Heparin 10,000 UNIT/10 ML VIAL IV PRN ×2 (07:12)
[2020-04-12] MEDS ORDERED: 0.9 % Sodium Chloride 1,000 ML PRIME SCH (07:15)
[2020-04-12] MEDS: Insulin LISPRO 300 UNITS/3 ML VIAL SQ SCH ×4 (08:01→20:56)
[2020-04-12] MEDS: *HR* Promethazine 25 MG/ML VIAL IVP PRN (09:33)
[2020-04-12] MEDS ORDERED: Methylnaltrexone 12 MG/0.6 ML SYRINGE SQ ONE (11:39)
[2020-04-12] MEDS ORDERED: Potassium Phosphate 44 MEQ in 0.9 % Sodium Chloride 250 ML IVPB ONE (11:43)
[2020-04-12] MEDS ORDERED: Isovue-370 500 ML BOTTLE IVP ONE (15:06)
[2020-04-12] MEDS: Fluconazole 400 MG/200 ML 400 MG/200 ML BAG IVPB SCH (15:20)
[2020-04-13] MEDS: Mag Hydrox/Al Hydrox/Simeth 30 ML UDC PO SCH ×4 (00:23→17:13)
[2020-04-13] MEDS: Metoclopramide 10 MG/2 ML VIAL IVP SCH ×4 (00:24→17:13)
[2020-04-13] MEDS: Melatonin 3 MG TABLET PO PRN (01:01)
[2020-04-13 05:42] LABS: Basophils # 0.1 K/mcL (0.0-0.2); Basophils % 0.4 %; Eosinophils # 0.3 K/mcL (0.0-0.6); Eosinophils % 1.2 %; Hematocrit 22.2 % (35.3-44.9); Hemoglobin 7.2 g/dL (11.5-15.4); Immature Granulocytes % 4.2 % (0-4); Lymphocytes # 0.5 K/mcL (0.6-4.6); Lymphocytes % 2.3 %; Mean Corpuscular HGB Conc 32.4 g/dL (31.6-35.5); Mean Corpuscular Hemoglobin 29.1 pg (28.0-33.3); Mean Corpuscular Volume 89.9 fL (83.0-100.0); Mean Platelet Volume 10.5 fL (9.4-12.4); Monocytes # 2.9 K/mcL (0.0-1.3); Monocytes % 14.1 %; Neutrophils # 15.9 K/mcL (1.6-8.9); Nucleated Red Blood Cells 0.4 /100 WBC (0); Platelet Count 217 K/mcL (140-400); Red Blood Count 2.47 M/mcL (3.82-4.97); Red Cell Distribution Width 17.8 % (11.5-14.5); Segmented Neutrophils % 77.8 %; White Blood Count 20.4 K/mcL (4.3-11.1)
[2020-04-13 06:00] LABS: Calcium 8.4 mg/dL (8.6-10.3)
[2020-04-13 06:06] LABS: Hypochromasia Present (Not Present); Platelet Estimate Normal (Normal)
[2020-04-13 06:07] LABS: Toxic Granulation Present (Not Present)
[2020-04-13] MEDS: Pantoprazole 40 MG VIAL IVP SCH ×2 (06:42→17:13)
[2020-04-13] MEDS: Insulin LISPRO 300 UNITS/3 ML VIAL SQ SCH ×4 (08:08→20:48)
[2020-04-13] MEDS ORDERED: Vancomycin 1 EACH in 0.9 % Sodium Chloride 250 ML IVPB PRN (15:00)
[2020-04-14] MEDS: Metoclopramide 10 MG/2 ML VIAL IVP SCH ×4 (00:16→18:40)
[2020-04-14] MEDS: Acetaminophen 325 MG TABLET PO PRN (00:16)
[2020-04-14] MEDS: Mag Hydrox/Al Hydrox/Simeth 30 ML UDC PO SCH ×4 (00:16→18:25)
[2020-04-14] MEDS: Melatonin 3 MG TABLET PO PRN (00:17)
[2020-04-14] MEDS: Ondansetron 4 MG/2 ML VIAL IVP PRN (03:45)
[2020-04-14 05:32] LABS: Basophils # 0.1 K/mcL (0.0-0.2); Basophils % 0.4 %; Eosinophils # 0.3 K/mcL (0.0-0.6); Eosinophils % 1.6 %; Hematocrit 21.2 % (35.3-44.9); Hemoglobin 6.8 g/dL (11.5-15.4); Immature Granulocytes % 2.9 % (0-4); Lymphocytes # 0.4 K/mcL (0.6-4.6); Lymphocytes % 1.8 %; Mean Corpuscular HGB Conc 32.1 g/dL (31.6-35.5); Mean Corpuscular Hemoglobin 29.3 pg (28.0-33.3); Mean Corpuscular Volume 91.4 fL (83.0-100.0); Mean Platelet Volume 10.9 fL (9.4-12.4); Monocytes # 2.6 K/mcL (0.0-1.3); Monocytes % 12.4 %; Nucleated Red Blood Cells 0.4 /100 WBC (0); Platelet Count 230 K/mcL (140-400); Red Blood Count 2.32 M/mcL (3.82-4.97); Red Cell Distribution Width 17.8 % (11.5-14.5); Segmented Neutrophils % 80.9 %; White Blood Count 20.7 K/mcL (4.3-11.1)
[2020-04-14 05:49] LABS: Calcium 8.4 mg/dL (8.6-10.3); Neutrophils # 16.8 K/mcL (1.6-8.9); Potassium 4.1 mEq/L (3.5-5.1)
[2020-04-14] MEDS: Pantoprazole 40 MG VIAL IVP SCH ×2 (05:49→18:40)
[2020-04-14 06:30] LABS: Hypochromasia Present (Not Present); Platelet Estimate Normal (Normal); Target Cells 1+ (Not Present); Toxic Granulation Present (Not Present)
[2020-04-14] MEDS ORDERED: *HR* Heparin 10,000 UNIT/10 ML VIAL IV PRN (08:02)
[2020-04-14] MEDS ORDERED: 0.9 % Sodium Chloride 250 ML IVC PRN (08:02)
[2020-04-14] MEDS ORDERED: 0.9 % Sodium Chloride 1,000 ML PRIME SCH (08:15)
[2020-04-14] MEDS: Insulin LISPRO 300 UNITS/3 ML VIAL SQ SCH ×4 (08:38→20:03)
[2020-04-14] MEDS ORDERED: Lidocaine -MPF 1% 5 ML AMPUL INFILT ONE (08:45)
[2020-04-14] MEDS ORDERED: Isovue-370 500 ML BOTTLE PO ONE (09:11)
[2020-04-14 12:23] LABS: Magnesium 4.3 mg/dL (1.6-2.6); Phosphorous 3.5 mg/dL (2.7-4.5)
[2020-04-14] MEDS ORDERED: D10% in Water 500 ML IVC PRN (12:47)
[2020-04-14] MEDS: Thiamine (B-1) 100 MG in 0.9 % Sodium Chloride 50 ML IVPB SCH (14:25)
[2020-04-14] MEDS ORDERED: 0.9 % Sodium Chloride 500 ML ONE (14:44)
[2020-04-14] MEDS ORDERED: *HR* Midazolam HCl 2 MG/2 ML VIAL IVP ONE (15:09)
[2020-04-14] MEDS ORDERED: *HR* FentaNYL (PF) 100 MCG/2 ML VIAL IVP ONE (15:09)
[2020-04-14] MEDS ORDERED: *HR* Midazolam HCl 2 MG/2 ML VIAL ONE (15:10)
[2020-04-14] MEDS ORDERED: *HR* FentaNYL (PF) 100 MCG/2 ML VIAL ONE (15:10)
[2020-04-14] MEDS: Fluconazole 400 MG/200 ML 400 MG/200 ML BAG IVPB SCH (16:34)
[2020-04-14] MEDS ORDERED: Clinimix 5%-20% SOLUTION 2,000 ML with MVI, adult with vitamin K 10 ML, Sodium Acetat... IVC SCH (17:00)
[2020-04-14] MEDS ORDERED: *HR* Dextrose 50 % in Water (Vial) 50 ML VIAL IVP PRN (19:05)
[2020-04-15] MEDS: Insulin LISPRO 300 UNITS/3 ML VIAL SQ SCH ×7 (00:10→23:47)
[2020-04-15] MEDS: Mag Hydrox/Al Hydrox/Simeth 30 ML UDC PO SCH ×4 (00:14→17:51)
[2020-04-15] MEDS: Metoclopramide 10 MG/2 ML VIAL IVP SCH ×3 (00:14→12:18)
[2020-04-15 05:08] LABS: Calcium 7.9 mg/dL (8.6-10.3); Magnesium 3.1 mg/dL (1.6-2.6); Potassium 3.4 mEq/L (3.5-5.1)
[2020-04-15] MEDS: Pantoprazole 40 MG VIAL IVP SCH ×2 (05:36→17:51)
[2020-04-15] MEDS: Thiamine (B-1) 100 MG in 0.9 % Sodium Chloride 50 ML IVPB SCH (09:36)
[2020-04-15 10:01] LABS: Basophils # 0.1 K/mcL (0.0-0.2); Basophils % 0.6 %; Hematocrit 29.2 % (35.3-44.9); Immature Granulocytes % 3.1 % (0-4); Lymphocytes # 0.4 K/mcL (0.6-4.6); Lymphocytes % 2.4 %; Mean Corpuscular HGB Conc 32.9 g/dL (31.6-35.5); Mean Corpuscular Hemoglobin 29.1 pg (28.0-33.3); Mean Corpuscular Volume 88.5 fL (83.0-100.0); Mean Platelet Volume 10.4 fL (9.4-12.4); Monocytes # 2.3 K/mcL (0.0-1.3); Monocytes % 13.2 %; Neutrophils # 13.6 K/mcL (1.6-8.9); Nucleated Red Blood Cells 0.2 /100 WBC (0); Platelet Count 200 K/mcL (140-400); Red Cell Distribution Width 17.2 % (11.5-14.5); Segmented Neutrophils % 78.7 %; White Blood Count 17.3 K/mcL (4.3-11.1)
[2020-04-15 10:03] LABS: Eosinophils # 0.4 K/mcL (0.0-0.6); Hemoglobin 9.6 g/dL (11.5-15.4)
[2020-04-15 11:21] LABS: Anisocytosis 1+ (Not Present); Platelet Estimate Normal (Normal)
[2020-04-15] MEDS ORDERED: Potassium Phosphate 44 MEQ in 0.9 % Sodium Chloride 250 ML IVPB ONE (11:37)
[2020-04-15] MEDS ORDERED: Clinimix 5%-20% SOLUTION 2,000 ML with MVI, adult with vitamin K 10 ML, Sodium Acetat... IVC SCH (17:00)
[2020-04-16] MEDS: Mag Hydrox/Al Hydrox/Simeth 30 ML UDC PO SCH ×4 (00:01→17:03)
[2020-04-16] MEDS: Acetaminophen 325 MG TABLET PO PRN (00:01)
[2020-04-16 04:09] LABS: Mean Corpuscular HGB Conc 33.3 g/dL (31.6-35.5); Mean Corpuscular Hemoglobin 29.6 pg (28.0-33.3); Mean Corpuscular Volume 88.8 fL (83.0-100.0); Mean Platelet Volume 10.3 fL (9.4-12.4); Platelet Count 198 K/mcL (140-400); Red Blood Count 3.04 M/mcL (3.82-4.97); Red Cell Distribution Width 17.2 % (11.5-14.5); White Blood Count 15.4 K/mcL (4.3-11.1)
[2020-04-16 04:25] LABS: Magnesium 3.1 mg/dL (1.6-2.6); Phosphorous 4.5 mg/dL (2.7-4.5)
[2020-04-16 04:26] LABS: Potassium 3.5 mEq/L (3.5-5.1)
[2020-04-16] MEDS: Insulin LISPRO 300 UNITS/3 ML VIAL SQ SCH ×5 (04:38→21:42)
[2020-04-16] MEDS: Pantoprazole 40 MG VIAL IVP SCH ×2 (05:52→17:03)
[2020-04-16] MEDS ORDERED: *HR* Heparin 10,000 UNIT/10 ML VIAL IV PRN (07:33)
[2020-04-16] MEDS ORDERED: 0.9 % Sodium Chloride 250 ML IVC PRN (07:33)
[2020-04-16] MEDS ORDERED: 0.9 % Sodium Chloride 1,000 ML PRIME SCH (07:45)
[2020-04-16] MEDS: Metoclopramide 10 MG/2 ML VIAL IVP PRN (07:55)
[2020-04-16] MEDS: Thiamine (B-1) 100 MG in 0.9 % Sodium Chloride 50 ML IVPB SCH (07:55)
[2020-04-16] MEDS ORDERED: levoFLOXacin 500 MG/100 ML 500 MG/100 ML BAG IVPB SCH (08:00)
[2020-04-16] MEDS ORDERED: levoFLOXacin 750 MG/150 ML 750 MG/150 ML BAG IVPB ONE (08:03)
[2020-04-16] MEDS: Ondansetron 4 MG/2 ML VIAL IVP PRN (09:35)
[2020-04-16] MEDS: *HR* Heparin 5,000 UNIT/ML VIAL SQ SCH ×2 (13:29→22:15)
[2020-04-16] MEDS ORDERED: Vancomycin 500 MG in 0.9 % Sodium Chloride Mini Bag 100 ML IVPB ONE (14:00)
[2020-04-16] MEDS: Fluconazole 400 MG/200 ML 400 MG/200 ML BAG IVPB SCH (15:40)
[2020-04-16] MEDS ORDERED: Clinimix 5%-20% SOLUTION 2,000 ML with MVI, adult with vitamin K 10 ML, Sodium Acetat... IVC SCH (17:00)
[2020-04-17] MEDS: Mag Hydrox/Al Hydrox/Simeth 30 ML UDC PO SCH ×4 (00:13→16:59)
[2020-04-17] MEDS: Insulin LISPRO 300 UNITS/3 ML VIAL SQ SCH ×6 (00:19→20:19)
[2020-04-17] MEDS: Acetaminophen 325 MG TABLET PO PRN ×2 (00:24→19:32)
[2020-04-17] MEDS: Melatonin 3 MG TABLET PO PRN (03:57)
[2020-04-17 04:17] LABS: Hemoglobin 8.7 g/dL (11.5-15.4); Mean Corpuscular HGB Conc 32.2 g/dL (31.6-35.5); Mean Platelet Volume 10.5 fL (9.4-12.4); Platelet Count 181 K/mcL (140-400); Red Cell Distribution Width 17.1 % (11.5-14.5)
[2020-04-17 04:29] LABS: Magnesium 2.3 mg/dL (1.6-2.6); Phosphorous 2.9 mg/dL (2.7-4.5)
[2020-04-17 04:30] LABS: Calcium 8.2 mg/dL (8.6-10.3); Potassium 3.4 mEq/L (3.5-5.1)
[2020-04-17] MEDS: *HR* Heparin 5,000 UNIT/ML VIAL SQ SCH ×3 (05:20→21:20)
[2020-04-17] MEDS: Pantoprazole 40 MG VIAL IVP SCH ×2 (05:20→17:00)
[2020-04-17] MEDS ORDERED: Potassium Chloride Elixir 20 MEQ/15 ML UDC PO ONE (08:09)
[2020-04-17] MEDS: Thiamine (B-1) 100 MG in 0.9 % Sodium Chloride 50 ML IVPB SCH (09:30)
[2020-04-17] MEDS ORDERED: Clinimix 5%-20% SOLUTION 2,000 ML with MVI, adult with vitamin K 10 ML, Sodium Acetat... IVC SCH (17:00)
[2020-04-18] MEDS: Mag Hydrox/Al Hydrox/Simeth 30 ML UDC PO SCH ×5 (00:54→23:43)
[2020-04-18] MEDS: Melatonin 3 MG TABLET PO PRN (01:55)
[2020-04-18] MEDS: Insulin LISPRO 300 UNITS/3 ML VIAL SQ SCH ×7 (02:00→23:44)
[2020-04-18 02:49] LABS: Hematocrit 28.4 % (35.3-44.9); Hemoglobin 9.1 g/dL (11.5-15.4); Mean Corpuscular Hemoglobin 28.5 pg (28.0-33.3); Mean Platelet Volume 10.3 fL (9.4-12.4); Platelet Count 207 K/mcL (140-400); Red Blood Count 3.19 M/mcL (3.82-4.97); Red Cell Distribution Width 16.9 % (11.5-14.5); White Blood Count 19.9 K/mcL (4.3-11.1)
[2020-04-18 03:08] LABS: Magnesium 2.5 mg/dL (1.6-2.6); Phosphorous 3.4 mg/dL (2.7-4.5)
[2020-04-18 03:12] LABS: Calcium 8.4 mg/dL (8.6-10.3); Potassium 4.3 mEq/L (3.5-5.1)
[2020-04-18] MEDS: Pantoprazole 40 MG VIAL IVP SCH ×2 (05:28→17:17)
[2020-04-18] MEDS: Acetaminophen 325 MG TABLET PO PRN ×2 (05:28→23:44)
[2020-04-18] MEDS: *HR* Heparin 5,000 UNIT/ML VIAL SQ SCH ×3 (05:28→20:28)
[2020-04-18] MEDS ORDERED: Isovue-370 500 ML BOTTLE IVP ONE (06:00)
[2020-04-18] MEDS: Thiamine (B-1) 100 MG in 0.9 % Sodium Chloride 50 ML IVPB SCH (07:57)
[2020-04-18] MEDS ORDERED: levoFLOXacin 500 MG/100 ML 500 MG/100 ML BAG IVPB SCH (08:00)
[2020-04-18 09:31] LABS: Hepatitis B Surface Antibody < 3.10 mIU/mL
[2020-04-18 09:42] LABS: Hepatitis B Surface Antigen Nonreactive (Nonreactive)
[2020-04-18 11:57] LABS: Hematocrit 26.4 % (35.3-44.9); Hemoglobin 8.5 g/dL (11.5-15.4); Mean Corpuscular HGB Conc 32.2 g/dL (31.6-35.5); Mean Corpuscular Hemoglobin 29.1 pg (28.0-33.3); Mean Corpuscular Volume 90.4 fL (83.0-100.0); Mean Platelet Volume 10.8 fL (9.4-12.4); Monocytes # 3.3 K/mcL (0.0-1.3); Nucleated Red Blood Cells 0.1 /100 WBC (0); Platelet Count 195 K/mcL (140-400); Red Blood Count 2.92 M/mcL (3.82-4.97); Red Cell Distribution Width 17.1 % (11.5-14.5); White Blood Count 20.5 K/mcL (4.3-11.1)
[2020-04-18 13:12] LABS: Lymphocytes # 0.4 K/mcL (0.6-4.6); Neutrophils # 15.6 K/mcL (1.6-8.9)
[2020-04-18 13:14] LABS: Anisocytosis 1+ (Not Present); Platelet Estimate Normal (Normal); Polychromasia 1+ (Not Present); Target Cells 1+ (Not Present)
[2020-04-18] MEDS: Simethicone 80 MG TAB.CHEW PO PRN (13:46)
[2020-04-18] MEDS ORDERED: Clinimix E 5%-20% SOLUTION 2,000 ML with MVI, adult with vitamin K 10 ML IVC SCH (17:00)
[2020-04-19] MEDS: Insulin LISPRO 300 UNITS/3 ML VIAL SQ SCH ×5 (04:26→20:37)
[2020-04-19 04:43] LABS: Calcium 8.6 mg/dL (8.6-10.3); Magnesium 2.9 mg/dL (1.6-2.6); Phosphorous 4.6 mg/dL (2.7-4.5); Potassium 4.4 mEq/L (3.5-5.1)
[2020-04-19] MEDS: Mag Hydrox/Al Hydrox/Simeth 30 ML UDC PO SCH ×3 (05:24→17:10)
[2020-04-19] MEDS: Pantoprazole 40 MG VIAL IVP SCH ×2 (05:24→17:10)
[2020-04-19] MEDS: *HR* Heparin 5,000 UNIT/ML VIAL SQ SCH ×3 (05:25→20:38)
[2020-04-19] MEDS ORDERED: 0.9 % Sodium Chloride 250 ML IVC PRN (07:22)
[2020-04-19] MEDS ORDERED: *HR* Heparin 10,000 UNIT/10 ML VIAL IV PRN (07:22)
[2020-04-19] MEDS: MetroNIDAZOLE 500 MG/100 ML 500 MG/100 ML BAG IVPB SCH ×2 (07:54→16:32)
[2020-04-19] MEDS ORDERED: Albumin 25% 25gram/100mL 25 GM/100 ML IV.SOLN IVPB ONE (09:35)
[2020-04-19] MEDS ORDERED: Albumin 25% 25gram/100mL 25 GM/100 ML IV.SOLN ONE (09:39)
[2020-04-19 10:17] LABS: Eosinophils # 0.1 K/mcL (0.0-0.6); Hematocrit 27.2 % (35.3-44.9); Hemoglobin 8.7 g/dL (11.5-15.4); Mean Corpuscular Hemoglobin 28.4 pg (28.0-33.3); Mean Corpuscular Volume 88.9 fL (83.0-100.0); Mean Platelet Volume 10.7 fL (9.4-12.4); Nucleated Red Blood Cells 0.1 /100 WBC (0); Platelet Count 179 K/mcL (140-400); Red Blood Count 3.06 M/mcL (3.82-4.97); Red Cell Distribution Width 17.1 % (11.5-14.5); White Blood Count 14.4 K/mcL (4.3-11.1)
[2020-04-19 10:40] LABS: Large Platelets Present (Not Present); Lymphocytes # 1.2 K/mcL (0.6-4.6); Monocytes # 0.3 K/mcL (0.0-1.3); Platelet Estimate Normal (Normal)
[2020-04-19 10:41] LABS: Anisocytosis 1+ (Not Present); Polychromasia 1+ (Not Present)
[2020-04-19] MEDS: Cefepime HCl 2,000 MG in Water for inj. (sterile) 20 ML IVP SCH (13:28)
[2020-04-19] MEDS: Thiamine (B-1) 100 MG in 0.9 % Sodium Chloride 50 ML IVPB SCH (13:30)
[2020-04-19] MEDS ORDERED: Vancomycin 500 MG in 0.9 % Sodium Chloride Mini Bag 100 ML IVPB ONE (16:00)
[2020-04-19] MEDS: Fluconazole 400 MG/200 ML 400 MG/200 ML BAG IVPB SCH (16:32)
[2020-04-19] MEDS ORDERED: Clinimix 5%-20% SOLUTION 2,000 ML with MVI, adult with vitamin K 10 ML, Sodium Chlori... IVC SCH (17:00)
[2020-04-20] MEDS: Insulin LISPRO 300 UNITS/3 ML VIAL SQ SCH ×6 (00:29→21:01)
[2020-04-20] MEDS: Mag Hydrox/Al Hydrox/Simeth 30 ML UDC PO SCH ×4 (00:32→17:10)
[2020-04-20] MEDS: MetroNIDAZOLE 500 MG/100 ML 500 MG/100 ML BAG IVPB SCH ×3 (00:32→16:01)
[2020-04-20 05:15] LABS: Hematocrit 22.8 % (35.3-44.9); Hemoglobin 7.5 g/dL (11.5-15.4); Mean Corpuscular HGB Conc 32.9 g/dL (31.6-35.5); Mean Corpuscular Hemoglobin 29.3 pg (28.0-33.3); Mean Corpuscular Volume 89.1 fL (83.0-100.0); Mean Platelet Volume 10.6 fL (9.4-12.4); Platelet Count 195 K/mcL (140-400); Red Blood Count 2.56 M/mcL (3.82-4.97); White Blood Count 19.5 K/mcL (4.3-11.1)
[2020-04-20 05:16] LABS: VBG Ionized Calcium 1.15 mmol/L (1.15-1.35)
[2020-04-20 05:34] LABS: Magnesium 2.4 mg/dL (1.6-2.6); Phosphorous 2.7 mg/dL (2.7-4.5); Potassium 3.9 mEq/L (3.5-5.1)
[2020-04-20] MEDS: *HR* Heparin 5,000 UNIT/ML VIAL SQ SCH ×3 (05:57→21:03)
[2020-04-20] MEDS: Pantoprazole 40 MG VIAL IVP SCH ×2 (05:57→17:10)
[2020-04-20 05:58] LABS: Eosinophils # 0.4 K/mcL (0.0-0.6); Lymphocytes # 2.2 K/mcL (0.6-4.6); Monocytes # 1.2 K/mcL (0.0-1.3); Neutrophils # 15.4 K/mcL (1.6-8.9)
[2020-04-20 05:59] LABS: Platelet Estimate Normal (Normal); Polychromasia 1+ (Not Present)
[2020-04-20] MEDS: Acetaminophen 325 MG TABLET PO PRN (07:56)
[2020-04-20] MEDS ORDERED: Clinimix E 5%-20% SOLUTION 2,000 ML with MVI, adult with vitamin K 10 ML, Trace Eleme... IVC SCH (17:00)
[2020-04-21] MEDS: Insulin LISPRO 300 UNITS/3 ML VIAL SQ SCH ×7 (00:13→23:57)
[2020-04-21] MEDS: MetroNIDAZOLE 500 MG/100 ML 500 MG/100 ML BAG IVPB SCH ×4 (00:17→23:40)
[2020-04-21] MEDS: Mag Hydrox/Al Hydrox/Simeth 30 ML UDC PO SCH ×5 (00:17→23:39)
[2020-04-21 04:49] LABS: Hematocrit 24.7 % (35.3-44.9); Hemoglobin 8.1 g/dL (11.5-15.4); Mean Corpuscular HGB Conc 32.8 g/dL (31.6-35.5); Mean Corpuscular Hemoglobin 29.5 pg (28.0-33.3); Mean Corpuscular Volume 89.8 fL (83.0-100.0); Mean Platelet Volume 10.5 fL (9.4-12.4); Platelet Count 224 K/mcL (140-400); Red Blood Count 2.75 M/mcL (3.82-4.97); Red Cell Distribution Width 17.2 % (11.5-14.5); White Blood Count 20.2 K/mcL (4.3-11.1)
[2020-04-21 05:07] LABS: Calcium 8.4 mg/dL (8.6-10.3); Magnesium 2.7 mg/dL (1.6-2.6); Phosphorous 3.4 mg/dL (2.7-4.5); Potassium 3.6 mEq/L (3.5-5.1)
[2020-04-21 05:34] LABS: Eosinophils # 1.6 K/mcL (0.0-0.6); Monocytes # 1.2 K/mcL (0.0-1.3); Neutrophils # 15.4 K/mcL (1.6-8.9)
[2020-04-21 05:35] LABS: Anisocytosis 1+ (Not Present); Platelet Estimate Normal (Normal); Poikilocytosis 1+ (Not Present)
[2020-04-21] MEDS: *HR* Heparin 5,000 UNIT/ML VIAL SQ SCH ×3 (05:53→21:48)
[2020-04-21] MEDS: Pantoprazole 40 MG VIAL IVP SCH ×2 (05:53→17:33)
[2020-04-21] MEDS ORDERED: 0.9 % Sodium Chloride 250 ML IVC PRN (07:33)
[2020-04-21] MEDS ORDERED: *HR* Heparin 10,000 UNIT/10 ML VIAL IV PRN (07:33)
[2020-04-21] MEDS ORDERED: 0.9 % Sodium Chloride 1,000 ML PRIME SCH (07:45)
[2020-04-21] MEDS: Cefepime HCl 2,000 MG in Water for inj. (sterile) 20 ML IVP SCH (12:45)
[2020-04-21] MEDS ORDERED: Vancomycin 500 MG in 0.9 % Sodium Chloride Mini Bag 100 ML IVPB ONE (14:00)
[2020-04-21] MEDS: Fluconazole 400 MG/200 ML 400 MG/200 ML BAG IVPB SCH (14:29)
[2020-04-21] MEDS ORDERED: Clinimix E 5%-20% SOLUTION 2,000 ML with MVI, adult with vitamin K 10 ML, Trace Eleme... IVC SCH (17:00)
[2020-04-22 03:34] LABS: Hematocrit 24.2 % (35.3-44.9); Hemoglobin 7.9 g/dL (11.5-15.4); Mean Corpuscular HGB Conc 32.6 g/dL (31.6-35.5); Mean Corpuscular Hemoglobin 29.3 pg (28.0-33.3); Mean Corpuscular Volume 89.6 fL (83.0-100.0); Mean Platelet Volume 10.2 fL (9.4-12.4); Platelet Count 213 K/mcL (140-400); White Blood Count 17.7 K/mcL (4.3-11.1)
[2020-04-22 03:45] LABS: Calcium 8.4 mg/dL (8.6-10.3); Magnesium 2.3 mg/dL (1.6-2.6); Phosphorous 3.3 mg/dL (2.7-4.5); Potassium 3.6 mEq/L (3.5-5.1)
[2020-04-22] MEDS: Insulin LISPRO 300 UNITS/3 ML VIAL SQ SCH ×5 (04:05→22:20)
[2020-04-22 04:27] LABS: Anisocytosis 1+ (Not Present); Monocytes # 2.1 K/mcL (0.0-1.3); Neutrophils # 15.2 K/mcL (1.6-8.9); Platelet Estimate Normal (Normal)
[2020-04-22 04:28] LABS: Poikilocytosis 1+ (Not Present); Target Cells 1+ (Not Present)
[2020-04-22] MEDS: *HR* Heparin 5,000 UNIT/ML VIAL SQ SCH ×3 (05:26→20:32)
[2020-04-22] MEDS: Pantoprazole 40 MG VIAL IVP SCH ×2 (05:26→18:46)
[2020-04-22] MEDS: Mag Hydrox/Al Hydrox/Simeth 30 ML UDC PO SCH ×4 (05:26→23:32)
[2020-04-22] MEDS: *HR* Promethazine 25 MG/ML VIAL IVP PRN ×2 (09:10→20:33)
[2020-04-22] MEDS: MetroNIDAZOLE 500 MG/100 ML 500 MG/100 ML BAG IVPB SCH ×3 (09:18→23:33)
[2020-04-22] MEDS: Ondansetron 4 MG/2 ML VIAL IVP PRN (12:03)
[2020-04-22] MEDS ORDERED: Clinimix E 5%-20% SOLUTION 2,000 ML with MVI, adult with vitamin K 10 ML, Trace Eleme... IVC SCH (17:00)
[2020-04-22] MEDS: Metoclopramide 10 MG/2 ML VIAL IVP PRN (23:33)
[2020-04-23] MEDS: Insulin LISPRO 300 UNITS/3 ML VIAL SQ SCH ×6 (02:13→23:49)
[2020-04-23 02:24] LABS: Hematocrit 23.8 % (35.3-44.9); Hemoglobin 7.8 g/dL (11.5-15.4); Mean Corpuscular HGB Conc 32.8 g/dL (31.6-35.5); Mean Corpuscular Volume 91.5 fL (83.0-100.0); Mean Platelet Volume 10.3 fL (9.4-12.4); Platelet Count 233 K/mcL (140-400); Red Cell Distribution Width 17.2 % (11.5-14.5)
[2020-04-23 02:36] LABS: Calcium 8.4 mg/dL (8.6-10.3); Magnesium 2.6 mg/dL (1.6-2.6); Phosphorous 4.3 mg/dL (2.7-4.5); Potassium 3.5 mEq/L (3.5-5.1)
[2020-04-23 02:56] LABS: Hypochromasia Present (Not Present); Large Platelets Present (Not Present); Lymphocytes # 1.4 K/mcL (0.6-4.6); Monocytes # 0.4 K/mcL (0.0-1.3); Neutrophils # 15.8 K/mcL (1.6-8.9); Platelet Estimate Normal (Normal)
[2020-04-23 02:57] LABS: Anisocytosis 1+ (Not Present); Toxic Granulation Present (Not Present)
[2020-04-23] MEDS: Pantoprazole 40 MG VIAL IVP SCH ×2 (06:04→18:09)
[2020-04-23] MEDS: *HR* Heparin 5,000 UNIT/ML VIAL SQ SCH ×3 (06:06→21:50)
[2020-04-23] MEDS: Mag Hydrox/Al Hydrox/Simeth 30 ML UDC PO SCH ×4 (06:08→23:41)
[2020-04-23] MEDS: Acetaminophen 325 MG TABLET PO PRN (06:31)
[2020-04-23] MEDS: MetroNIDAZOLE 500 MG/100 ML 500 MG/100 ML BAG IVPB SCH ×3 (10:37→23:42)
[2020-04-23] MEDS: *HR* Promethazine 25 MG/ML VIAL IVP PRN ×2 (10:38→18:09)
[2020-04-23] MEDS: Cefepime HCl 2,000 MG in Water for inj. (sterile) 20 ML IVP SCH (13:58)
[2020-04-23] MEDS: Ondansetron 4 MG/2 ML VIAL IVP PRN ×2 (13:59→23:41)
[2020-04-23] MEDS ORDERED: Vancomycin 250 MG in 0.9 % Sodium Chloride Mini Bag 100 ML IVPB ONE (15:00)
[2020-04-23] MEDS ORDERED: Clinimix E 5%-20% SOLUTION 2,000 ML with MVI, adult with vitamin K 10 ML, Trace Eleme... IVC SCH (17:00)
[2020-04-23] MEDS: Fluconazole 400 MG/200 ML 400 MG/200 ML BAG IVPB SCH (18:10)
[2020-04-24] MEDS: Insulin LISPRO 300 UNITS/3 ML VIAL SQ SCH ×4 (03:57→16:54)
[2020-04-24] MEDS: Mag Hydrox/Al Hydrox/Simeth 30 ML UDC PO SCH ×3 (04:08→17:48)
[2020-04-24] MEDS: *HR* Heparin 5,000 UNIT/ML VIAL SQ SCH ×2 (04:08→15:55)
[2020-04-24] MEDS: Pantoprazole 40 MG VIAL IVP SCH ×2 (04:08→17:48)
[2020-04-24 04:33] LABS: Basophils # 0.1 K/mcL (0.0-0.2); Basophils % 0.6 %; Eosinophils # 0.5 K/mcL (0.0-0.6); Eosinophils % 2.4 %; Hematocrit 23.1 % (35.3-44.9); Hemoglobin 7.5 g/dL (11.5-15.4); Immature Granulocytes % 4.1 % (0-4); Lymphocytes % 4.4 %; Mean Corpuscular HGB Conc 32.5 g/dL (31.6-35.5); Mean Corpuscular Hemoglobin 28.7 pg (28.0-33.3); Mean Corpuscular Volume 88.5 fL (83.0-100.0); Mean Platelet Volume 9.8 fL (9.4-12.4); Monocytes # 2.1 K/mcL (0.0-1.3); Monocytes % 9.4 %; Neutrophils # 17.6 K/mcL (1.6-8.9); Platelet Count 249 K/mcL (140-400); Red Blood Count 2.61 M/mcL (3.82-4.97); Red Cell Distribution Width 16.9 % (11.5-14.5); Segmented Neutrophils % 79.1 %; White Blood Count 22.2 K/mcL (4.3-11.1)
[2020-04-24 04:51] LABS: Calcium 8.5 mg/dL (8.6-10.3); Magnesium 2.9 mg/dL (1.6-2.6); Phosphorous 5.8 mg/dL (2.7-4.5); Potassium 3.7 mEq/L (3.5-5.1)
[2020-04-24] MEDS: MetroNIDAZOLE 500 MG/100 ML 500 MG/100 ML BAG IVPB SCH ×2 (09:51→16:05)
[2020-04-24] MEDS: *HR* Promethazine 25 MG/ML VIAL IVP PRN ×2 (09:51→16:04)
[2020-04-24 16:07] VITALS: BP 112/72
[2020-04-24] MEDS ORDERED: Clinimix E 5%-20% SOLUTION 2,000 ML with MVI, adult with vitamin K 10 ML, Trace Eleme... IVC SCH (17:00)
[2020-04-24] MEDS ORDERED: Clinimix 5%-20% SOLUTION 2,000 ML with MVI, adult with vitamin K 10 ML, Trace Element... IVC SCH (17:00)
[2020-04-24] MEDS ORDERED: Aminoglycoside Consult 1 EACH MC ONE (18:10)
== END 2020-04-24 18:11 | disposition short-term general hospital (02) | DRG 710 ==
LOC: 3ANU → 2NNU 06:16 → ICNU 08:17 → SUATTDRO 08:49 → 3ANU 03-14 10:39 → 2NNU 03-17 01:46 → ICNU 03-17 06:00 → 1NENUOBS 03-30 15:24 → ICNU 03-30 15:32 → 2ANU 03-31 18:38
PROVIDERS: ADMIT Internal Medicine; ATTEND Internal Medicine
PROC: IRPERMA (2020-03-30 12:00)
PROC: IRDRAIN (2020-04-14 15:00)

== ENCOUNTER 2020-05-14 02:39 | Inpatient (IN) ==
[2020-05-14] MEDS ORDERED: Naloxone 0.4 MG/ML INJ IVP PRN (05:40)
[2020-05-14 06:15] LABS: Basophils % 0.3 %; Eosinophils # 0.5 K/mcL (0.0-0.6); Eosinophils % 5.4 %; Hematocrit 26.6 % (35.3-44.9); Hemoglobin 8.2 g/dL (11.5-15.4); Immature Granulocytes % 0.6 % (0-4); Lymphocytes # 0.8 K/mcL (0.6-4.6); Lymphocytes % 9.1 %; Mean Corpuscular HGB Conc 30.8 g/dL (31.6-35.5); Mean Corpuscular Hemoglobin 29.8 pg (28.0-33.3); Monocytes # 1.2 K/mcL (0.0-1.3); Monocytes % 13.6 %; Neutrophils # 6.1 K/mcL (1.6-8.9); Platelet Count 236 K/mcL (140-400); Red Blood Count 2.75 M/mcL (3.82-4.97); Red Cell Distribution Width 18.9 % (11.5-14.5); White Blood Count 8.6 K/mcL (4.3-11.1)
[2020-05-14 06:16] LABS: Mean Corpuscular Volume 96.7 fL (83.0-100.0)
[2020-05-14 06:22] LABS: INR 1.1; Prothrombin Time 12.8 Seconds (9.4-12.1)
[2020-05-14 06:36] LABS: Alanine Aminotransferase 6 Units/L (7-52); Albumin/Globulin Ratio 1.4 (1.1-2.2); Alkaline Phosphatase 120 Units/L (34-104); Aspartate Amino Transferase 16 Units/L (13-39); BUN/Creatinine Ratio 12 (6-26); Blood Urea Nitrogen 20 mg/dL (6-20); Calcium 8.5 mg/dL (8.6-10.3); Carbon Dioxide 25 mEq/L (23-29); Chloride 102 mEq/L (98-107); Globulin 2.1 g/dL (2.4-3.5); Glucose 74 mg/dL (70-105); Magnesium 1.6 mg/dL (1.6-2.6); Osmolality,Calculated 291 (280-300); Phosphorous 2.7 mg/dL (2.7-4.5); Potassium 3.1 mEq/L (3.5-5.1); Sodium 140 mEq/L (136-145); Total Protein 5.1 g/dL (6.4-8.9); Troponin I < 0.03 ng/mL (< 0.04); eGFR For African Americans 41 (> 60); eGFR For Non-African Americans 34 (> 60)
[2020-05-14] MEDS: 0.9 % Sodium Chloride 1,000 ML IVC SCH (06:45)
[2020-05-14] MEDS: Ondansetron 4 MG/2 ML VIAL IVP PRN (09:16)
[2020-05-14 09:42] LABS: Bacteria,Urine Few per hpf (None-Few); Bilirubin,Urine Negative (Negative); Blood,Urine Trace (Negative); Clarity,Urine Turbid (Clear); Color,Urine Yellow (Yellow); Glucose,Urine (UA) Normal (Normal); Ketones,Urine 20 mg/dL (Negative); Leukocyte Esterase,Urine Negative (Negative); Mucus,Urine Few per lpf (None-Few); Nitrite,Urine Negative (Negative); PH,Urine 7.5 pH Units (5.0-8.0); Protein,Urine 50 mg/dL (Neg-Trace); RBC,Urine 0-3 per hpf (0-3); Specific Gravity,Urine 1.023 (1.010-1.025); Squamous Epithelial Cell,Urine Many per hpf (None-Few); Urobilinogen,Urine Normal (Normal)
[2020-05-14 10:29] LABS: Adenovirus Not Detected (Not Detect); Bordetella Pertussis Not Detected (Not Detect); Chlamydophila pneumoniae Not Detected (Not Detect); Coronavirus 229E Not Detected (Not Detect); Coronavirus HKU1 Not Detected (Not Detect); Coronavirus NL63 Not Detected (Not Detect); Coronavirus OC43 Not Detected (Not Detect); Human Metapneumovirus Not Detected (Not Detect); Human Rhinovirus/Enterovirus Not Detected (Not Detect); Influenza A Subtype 2009 H1 Not Detected (Not Detect); Influenza B Not Detected (Not Detect); Mycoplasma pneumoniae Not Detected (Not Detect); Parainfluenza Virus 1 Not Detected (Not Detect); Parainfluenza Virus 2 Not Detected (Not Detect); Parainfluenza Virus 3 Not Detected (Not Detect); Parainfluenza Virus 4 Not Detected (Not Detect); Respiratory Syncytial Virus Not Detected (Not Detect)
[2020-05-14] MEDS ORDERED: Isovue-370 500 ML BOTTLE PO ONE (15:20)
[2020-05-14] MEDS ORDERED: *HR* HYDROcodone/Acet 5/325 mg TABLET PO PRN (15:45)
[2020-05-14] MEDS ORDERED: *HR* OxyCODONE/APAP 5/325 TABLET PO PRN (15:46)
[2020-05-14] MEDS ORDERED: Potassium Chloride 40 MEQ, Lidocaine 1% 2 ML in 0.9 % Sodium Chloride 500 ML IVPB ONE (15:55)
[2020-05-14] MEDS ORDERED: Scopolamine Patch 1.5 MG PATCH.TD72 TD PRN (16:30)
[2020-05-14] MEDS ORDERED: Dextrose Gel 15 GM/37.5 ML TUBE PO PRN ×2 (17:24)
[2020-05-14] MEDS ORDERED: D5% in Water 1,000 ML IVC PRN (17:24)
[2020-05-14] MEDS: *HR* Dextrose 50 % in Water (Vial) 50 ML VIAL IVP PRN ×2 (17:53→22:07)
[2020-05-14] MEDS: *HR* Heparin 5,000 UNIT/ML VIAL SQ SCH (17:54)
[2020-05-14] MEDS: D10% in Water 1,000 ML IVC SCH (22:15)
[2020-05-15] MEDS: Ondansetron 4 MG/2 ML VIAL IVP PRN ×2 (03:45→09:33)
[2020-05-15 03:55] LABS: Hematocrit 22.9 % (35.3-44.9); Hemoglobin 7.2 g/dL (11.5-15.4); Mean Corpuscular HGB Conc 31.4 g/dL (31.6-35.5); Mean Corpuscular Hemoglobin 30.9 pg (28.0-33.3); Mean Corpuscular Volume 98.3 fL (83.0-100.0); Mean Platelet Volume 9.9 fL (9.4-12.4); Platelet Count 225 K/mcL (140-400); Red Blood Count 2.33 M/mcL (3.82-4.97); Red Cell Distribution Width 18.8 % (11.5-14.5); White Blood Count 7.1 K/mcL (4.3-11.1)
[2020-05-15 04:00] LABS: Calcium 7.9 mg/dL (8.6-10.3); Magnesium 1.4 mg/dL (1.6-2.6); Phosphorous 2.4 mg/dL (2.7-4.5); Potassium 2.8 mEq/L (3.5-5.1)
[2020-05-15] MEDS: *HR* Heparin 5,000 UNIT/ML VIAL SQ SCH (05:26)
[2020-05-15] MEDS ORDERED: Potassium Phosphate 44 MEQ in 0.9 % Sodium Chloride 250 ML IVPB ONE (08:14)
[2020-05-15 09:07] LABS: Immature Reticulocyte % 14.5 % (11.0-38.0); Retculocyte # 0.02 M/mcL (0.05-0.10); Reticulocyte % 0.6 % (1.6-2.8)
[2020-05-15] MEDS: 0.9 % Sodium Chloride 1,000 ML IVC SCH (09:36)
[2020-05-15] MEDS: D10% in Water 1,000 ML IVC SCH ×2 (09:36→22:29)
[2020-05-15] MEDS: Melatonin 3 MG TABLET PO PRN (22:29)
[2020-05-15] MEDS: *HR* OxyCODONE Oral Soln 5 MG/5 ML UD.LIQ PO PRN (22:29)
[2020-05-16] MEDS ORDERED: Acetaminophen 325 MG TABLET PO PRN (07:42)
[2020-05-16] MEDS: D10% in Water 1,000 ML IVC SCH (09:29)
[2020-05-16 10:00] LABS: Hematocrit 25.7 % (35.3-44.9); Mean Corpuscular HGB Conc 31.1 g/dL (31.6-35.5); Mean Corpuscular Hemoglobin 29.9 pg (28.0-33.3); Mean Corpuscular Volume 95.9 fL (83.0-100.0); Mean Platelet Volume 9.9 fL (9.4-12.4); Platelet Count 268 K/mcL (140-400); Red Blood Count 2.68 M/mcL (3.82-4.97); Red Cell Distribution Width 18.3 % (11.5-14.5); White Blood Count 7.9 K/mcL (4.3-11.1)
[2020-05-16 10:02] LABS: INR 1.1; Prothrombin Time 12.3 Seconds (9.4-12.1)
[2020-05-16 10:12] LABS: Magnesium 1.9 mg/dL (1.6-2.6); Potassium 3.3 mEq/L (3.5-5.1)
[2020-05-16] MEDS: *HR* OxyCODONE Oral Soln 5 MG/5 ML UD.LIQ PO PRN (17:42)
[2020-05-16] MEDS: Melatonin 3 MG TABLET PO PRN (22:04)
[2020-05-17 04:45] LABS: Calcium 8.2 mg/dL (8.6-10.3); Magnesium 1.7 mg/dL (1.6-2.6); Phosphorous 3.2 mg/dL (2.7-4.5); Potassium 4.5 mEq/L (3.5-5.1)
[2020-05-17] MEDS: *HR* OxyCODONE Oral Soln 5 MG/5 ML UD.LIQ PO PRN (06:11)
[2020-05-17 11:37] VITALS: BP 117/74
== END 2020-05-17 13:09 | DRG 247 ==
LOC: 2ANU
PROVIDERS: ADMIT Family Medicine; ATTEND Internal Medicine